=== PATIENT | female | born 1990 | race Caucasian/White ===

== ENCOUNTER 2017-12-11 21:01 | Observation (INO) | payer BC, SELFPAY ==
[2017-12-11 21:07] VITALS: BP 133/77; PULSE 92; RESP 16; TEMP 36.7; O2SAT 98; BMI 42.5
--- NOTE | 2017-12-11 21:49 | EKG12_ITS ---
Test Reason : SYNCOPE Blood Pressure : / mmHG Vent. Rate : 088 BPM Atrial Rate : 088 BPM P-R Int : 140 ms QRS Dur : 096 ms QT Int : 370 ms P-R-T Axes : 036 032 019 degrees QTc Int : 447 ms Normal sinus rhythm Normal ECG Confirmed by CAM ANNE, LISETTE ([id number]), editor continuity and script MATILDA IVEY ([id number]) on 12/15/2017 1:10:02 PM Referred By: MR Confirmed By:LISETTE LEVY MD
[2017-12-11 22:34] LABS: Absolute Lymphocyte Count 1.54 X10^3/ul (0.83-4.51); Absolute Neutrophil Count 10.1 X10^3/uL (2.0-7.7); Eosinophil# 0.08 X10^3/uL; Eosinophils% 0.7 % (0-5); Hematocrit 39.1 % (37-47); Hemoglobin 12.4 g/dl (12.0-15.0); Lymphocyte # 1.54 X10^3/ul (4.0); Lymphocyte % 12.9 % (19-41); Mean Corp Hgb Conc 31.7 g/gl (32-36); Mean Corpuscular Hgb 29.4 pg (27.0-32.0); Mean Corpuscular Volume 92.7 fL (81-99); Mean Platelet Vol. 9.4 fl (6.2-12.0); Monocyte# 0.18 X10^3/uL; Monocyte% 1.5 % (0-10); Neutrophil # 10.14 X10^3/uL (2.7-7.7); Neutrophil % 84.7 % (47-70); Platelet Count 329 K/mm3 (150-450); RBC Distribution Width SD 47.3 fl (35.1-43.9); Red Blood Count 4.22 M/mm3 (4.2-5.4)
[2017-12-11 22:37] LABS: POSITIVE COUNT NO; POSITIVE DIFFERENTIAL NO; POSITIVE MORPHOLOGY NO
[2017-12-11] MEDS: 0.9% Normal Saline 1,000 ML 1000 ML IV (22:47)
[2017-12-11 22:48] VITALS: BP 129/62; PULSE 89; RESP 16; O2SAT 99
[2017-12-11 22:53] LABS: Anion Gap 9 (5-15); BUN 11 mg/dL (7-18); BUN/Creat Ratio 14.1 RATIO (10-20); Calcium,Total 8.8 mg/dL (8.5-10.1); Chloride 108 mmol/L (98-107); Creatinine, Serum 0.78 mg/dL (0.55-1.02); EST Glomerular Filtration Rate 92 mL/min (>60); Est Glom Filt Rate - Afr Amer 112 mL/min (>60); Estimated Creatinine Clearance 95.76 ml/min; Glucose 144 mg/dL (74-106); Potassium 3.7 mmol/L (3.5-5.1); Sodium Level 139 mmol/L (136-145)
--- NOTE | 2017-12-11 23:43 | CT_ITS ---
STUDY: CTA CHEST REASON FOR EXAM: Female, 27 years old. SYNCOPE, PT IS 10 WEEKS , PT WAS SHEILDED. RADIATION DOSAGE (If Supplied By Facility): CTDIvol = ( 16.75 ) mGy, DLP = ( 710.77 ) mGycm TECHNIQUE: The examination was performed with the intravenous administration of 100 ml of Isovue 370 contrast material. Post-processing of the angiographic images was performed, with multiplanar reformation and 3D reconstruction. Individualized dose optimization techniques were used for this CT. COMPARISON: None. FINDINGS: Normal enhancement of the main pulmonary artery and right and left pulmonary arteries. Normal enhancement of the bilateral peripheral pulmonary arteries. There is no demonstrated pulmonary embolism. Normal thoracic aorta and visualized great vessels. There is no demonstrated aortic dissection. Normal heart and pericardium. Normal mediastinum. Normal hilar regions. Normal visualized trachea and bronchi. The lungs are well expanded. Normal pulmonary parenchyma. Normal pleura. Normal chest wall structures. Normal osseous structures. Normal visualized upper abdomen. CT/CTA Chest W/WO Contrast IMPRESSION: Normal CTA chest examination, without a demonstrated pulmonary embolism or arterial dissection. Electronically Signed: Leigha Dominguez MD at 0:59 EDT Tel , Service support ,
[2017-12-12] VITALS (8 sets, daily range): BP systolic 118–144; BP diastolic 66–87; PULSE 79–115; RESP 16–20; TEMP 36.5–37.3; O2SAT 94–98; BMI 41.3
--- NOTE | 2017-12-12 01:18 | ED.DCSUM_ITS ---
- ER Visit Summary Date of Service: 12/12/17 Chief Complaint: Syncope History of Present Illness: The patient is a 27 F presenting for evaluation secondary to syncope. Patient is a at 10 weeks . Patient had in vitro fertilization, and is giving herself progesterone shots. Patient reports that approximately an hour after giving herself her progesterone shot today she started to feel extremely flushed and lightheaded. Patient reports that she then went upstairs and proceeded to have 3 syncopal episodes back to back to back. Patient states that she is having some chest pain upon deep inspiration, but no consistent chest pain. She did state that she was feeling as if she had some palpitations. Patient denies any personal history DVT PE hemoptysis recent travel or surgery. No personal family history of bleeding dyscrasias arrhythmias, or premature heart disease. Review of systems otherwise negative. Physical Examination: Vital signs are within normal limits, patient is afebrile. General: Patient is well-nourished well-developed and in no acute distress. Head: Normocephalic, atraumatic Eyes: Pupils equal round and reactive bilaterally, extra occular motion intact bialterally ENT: Moist mucous membranes Neck: Supple, no lymphadenopathy, no JVD, no meningismus CVS: Heart regular rate and rhythm, 2 out of 6 systolic murmur noted which as per the patient's history, rubs or gallops, radial pulses 2+ bilaterally Resp: Respirations nondistressed, lung sounds clear bilaterally Abdomen: Soft, nontender, nondistended, no palpable masses, normal bowel sounds Back: Nontender Extremities: Nontender, atraumatic, active full range of motion, no peripheral edema Skin: warm, no rashes, no petechia Neuro: Alert and oriented x 4, CN 2-12 intact, no lateralizing neurological defecits Psyc: Normal affect Test Results: EKG shows sinus rate of [address] segments normal T waves. CBC and chemistry are unremarkable, troponin is positive at 0.17. CT angiogram of the chest is within normal limits. Emergency Department Course and Treatment: Patient presented for evaluation secondary to syncope. Workup ended up showing the patient to have a positive troponin. I feel that there is a high likelihood of pulmonary embolism in this patient given her exogenous hormone use. I discussed this with on-call GRAPHITE PAN DRIER TENDER, and they are in agreement, and we feel that the test with the least risk to the fetus would be CT angiogram of the chest with shielding of the abdomen. I discussed risks and benefits with this with the patient and she did consent to this. This was performed, and did not show evidence of PE. I discussed patient 's case with cardiology and, at this time they recommend admission with echocardiogram in the morning. Patient will be admitted under the hospitalist. Disposition: Admission Impression: 1. Syncope 2. Positive troponin 3. 10-week This note was generated with [employer] dictation software. It may contain incorrect words, spelling, and punctuation that were not noted in review of the chart prior to signing ED Disposition - Plan for ED Patient: Chief Complaint: Syncope Referrals: Aj Larkin III, MD [Primary Care Provider] -
--- NOTE | 2017-12-12 02:05 | NURSING ---
Called er chargemaster specialist, aware its ok to send pt.
--- NOTE | 2017-12-12 02:13 | NURSING ---
SPOKE TO ISDAORA IN OB STATES 10 WEEKS IS TOO EARLY TO LISTEN FOR TONES.
[2017-12-12] MEDS: 0.9% Normal Saline 1,000 ML 100 ML IV ×2 (02:51→05:17)
[2017-12-12 03:53] LABS: Magnesium 1.9 mg/dL (1.6-2.6); Thyroid Stim Hormone (TSH) 1.48 uIU/mL (0.358-3.74)
[2017-12-12] MEDS: Acetaminophen 325 MG Tablet 650 MG PO ×2 (04:16→13:08)
[2017-12-12] MEDS: 0.9% Normal Saline 1,000 ML 999 ML IV (04:16)
--- NOTE | 2017-12-12 05:55 | ECHOD_ITS ---
Reason For Study: Murmur Procedure This was a 2D Doppler, Color Flow transthoracic echocardiogram. Exam performed portable in patient room. Left Ventricle Normal LV size. Left ventricular systolic function is normal. The estimated ejection fraction is 55 %. No evidence for diastolic dysfunction. No regional wall motion abnormalities noted. Right Ventricle Normal RV size. Normal systolic function. Atria Normal left atrium. Normal right atrium. Mitral Valve Normal mitral valve. Tricuspid Valve Normal tricuspid valve. Mild tricuspid valve insufficiency. Pulmonary artery systolic pressure is 22 mmHg. Aortic Valve Normal aortic valve. Trisinus/trileaflet aortic valve. Pulmonic Valve Normal pulmonic valve. Great Vessels Normal aortic root. The pulmonary artery is normal size. Normal inferior vena cava. Pericardium/Pleural No pericardial effusion. MMode/2D Measurements & Calculations LVIDd: 4.8 cm IVSd: 0.79 cm Ao root diam: 2.3 cm LVIDs: 3.2 cm LVPWd: 0.81 cm RVDd: 3.8 cm FS: 32.8 % LAV(MOD-bp): 41.9 ml LA A4 area: 19.8 cm2 RA A4 area: 13.0 cm2 LAV(MOD-bp) Indexed: 19.4 ml/m2 LAV(MOD-sp2): 27.6 ml LAV(MOD-sp4): 53.2 ml Doppler Measurements & Calculations MV E max dusty: 109.9 cm/sec Lat Peak E' Dusty: 19.2 cm/sec Med Peak E' Dusty: 13.4 cm/sec MV A max dusty: 64.4 cm/sec E/E' lat: 5.7 E/E' med: 8.2 MV E/A: 1.7 Ao V2 max: 191.8 cm/sec LV V1 max: 140.1 cm/sec PA V2 max: 117.8 cm/sec Ao max P.7 mmHg LV V1 max P.9 mmHg Ao V2 mean: 130.6 cm/sec Ao mean P.7 mmHg Ao V2 VTI: 36.3 cm TR max dusty: 220.0 cm/sec TR max P.4 mmHg Interpretation Summary Normal LV size. Left ventricular systolic function is normal. The estimated ejection fraction is 55 %. No evidence for diastolic dysfunction. Structurally normal valves. Ordering Physician: Dariusz Abrams Referring Physician: Aj Larkin Performed By: Sarita Schreiber, PEDRO PABLO, RVT
[2017-12-12 06:10] LABS: Absolute Lymphocyte Count 1.78 X10^3/ul (0.83-4.51); Absolute Neutrophil Count 11.7 X10^3/uL (2.0-7.7); Basophil# 0.01 X10^3/uL; Basophil% 0.1 % (0-1); Eosinophil# 0.18 X10^3/uL; Eosinophils% 1.3 % (0-5); Hematocrit 33.7 % (37-47); Hemoglobin 10.9 g/dl (12.0-15.0); Lymphocyte # 1.78 X10^3/ul (4.0); Lymphocyte % 12.5 % (19-41); Mean Corp Hgb Conc 32.3 g/gl (32-36); Mean Corpuscular Hgb 29.7 pg (27.0-32.0); Mean Corpuscular Volume 91.8 fL (81-99); Mean Platelet Vol. 9.5 fl (6.2-12.0); Monocyte# 0.56 X10^3/uL; Monocyte% 3.9 % (0-10); Neutrophil # 11.65 X10^3/uL (2.7-7.7); Neutrophil % 82.1 % (47-70); Platelet Count 333 K/mm3 (150-450); RBC Distribution Width SD 46.9 fl (35.1-43.9); Red Blood Count 3.67 M/mm3 (4.2-5.4); White Blood Count 14.2 K/mm3 (4.4-11.0)
[2017-12-12 06:26] LABS: ALB/GLOB Ratio 0.7 RATIO (0.9-2.4); AST(SGOT) 27 U/L (15-37); Alanine Aminotransfer ALT/SGPT 29 U/L (13-56); Albumin, Serum 2.6 g/dL (3.2-5.0); Alkaline Phosphatase 75 U/L (45-117); Anion Gap 9 (5-15); BUN 6 mg/dL (7-18); BUN/Creat Ratio 13.2 RATIO (10-20); Chloride 113 mmol/L (98-107); Creatinine, Serum 0.46 mg/dL (0.55-1.02); EST Glomerular Filtration Rate 172 mL/min (>60); Est Glom Filt Rate - Afr Amer 208 mL/min (>60); Estimated Creatinine Clearance 162.38 ml/min; Globulin 3.6 g/dL (2.2-4.2); Glucose 94 mg/dL (74-106); Potassium 3.8 mmol/L (3.5-5.1); Protein, Total 6.2 g/dL (6.4-8.2); Sodium Level 142 mmol/L (136-145)
[2017-12-12] MEDS: Levothyroxine 150 MCG Tablet PO (06:27)
--- NOTE | 2017-12-12 06:30 | PCM.HP.STD ---
Problem List (1) Cutaneous mastocytosis Status: Chronic (2) Syncope Status: Acute (3) Elevated troponin Status: Acute History of Present Illness Date of Admission: 12/12/17 Chief Complaint: Syncope The patient is a 27 year old female w/ h/o cutaneous mastocytosis admitted for syncope. She is 10 weeks . She had vitro fertilization and gave herself progesterone shot. She felt flushed and lightheaded. She also has severe substernal chest pain. Pain is worse with inspiration. Pain is episodic. Nothing improved the pain. She had palpitation as well. She had syncopal episodes multiple times as well. Past Medical History Past Medical History (Chronic Problems): Chronic Problems (Last Updated 08/01/17 @ 11:08 by Mckayla Kelley) Cutaneous mastocytosis (Chronic) Medical History: Medical History (Last Updated 08/01/17 @ 11:08 by Mckayla Kelley) GERD (gastroesophageal reflux disease) K21.9 Hyperthyroidism E05.90 Mastocytosis D47.09 Allergies No Known Allergies Allergy (Verified 08/29/17 10:49) Home Medications: Ambulatory Orders Medication Instructions Recorded Cetirizine HCl [Zyrtec] 10 mg PO QHS 08/27/16 Epinephrine [Epipen 2-Mika] 1 ml SQ PRN PRN 08/27/16 Escitalopram Oxalate [Lexapro] 10 mg PO QHS 08/27/16 Ranitidine [Zantac] 150 mg PO BID 08/27/16 Levothyroxine [Synthroid] 150 mcg PO DAILY 08/29/17 Estradiol 0.5 mg PO BID 12/12/17 Progesterone SC 1900 12/12/17 Smoking Status: Never smoker Tobacco Use: Non-smoker Alcohol: None Drugs: None Review of Systems Constitutional: Denies: Chills, Fever, Weight Change HEENT: Denies: Head Aches, Sinus Congestion, Sinus Drainage Cardiovascular: Denies: Chest Pain, Palpitations Respiratory: Denies: Cough, Shortness of breath at rest, Sputum production Gastrointestinal: Denies: Abdominal Pain, Nausea, Vomiting Genitourinary: Denies: Dysuria Musculoskeletal: Denies: Joint Pain, Joint Tenderness Skin: Denies: Rash, Wounds Neurological: Denies: Numbness, Tingling, Focal weakness Psychiatric: Denies: Anxiety, Depression, Homicidal Ideations, Suicidal Ideations Hematologic/ Lymphatic: Denies: Easy Bruising, Easy Bleeding VTE Information - Inpt Only VTE Present on Admission: No VTE Mechan Device Prophylaxis: SCD's VTE Pharm Prophylaxis ordered?: Yes Patient Problems: Active and Suspected Problems (Last Updated 08/01/17 @ 11:08 by Mckayla Kelley) Syncope (Acute) Elevated troponin (Acute) - Physical Exam General: Alert, Oriented x3, Cooperative HEENT: Atraumatic, PERRLA, EOMI, Normocephalic Neck: Supple, No JVD, Negative Carotid Bruits Lungs: Clear to auscultation, Normal air movement Cardiovascular: Regular rate, No murmurs Abdomen: Bowel Sounds Present, Soft, Non Tender Extremities: No edema, Capillary Refill Less than 3 Seconds Skin: No rashes, No breakdown Musculoskeletal: No Tenderness to Palpation of Joints or Extremities Neurological: Cranial nerves II-XII grossly intact Psych/Mental Status: Normal Affect, Appropriate Vital Signs Temp Pulse Resp BP Pulse Ox 99.2 F H 88 16 118/67 96 12/12/17 03:20 12/12/17 03:20 12/12/17 03:20 12/12/17 03:20 12/12/17 03:20 Oxygen Delivery Method Room Air Weight: 112.7 kg Body Mass Index (BMI) 41.3 Orthostatic Vital Signs Start: 12/12/17 03:18 Freq: q24h Status: Active Protocol: Activity Type Activity Date Activity User E-Sign Co-Sign Detail Recorded Client Recorded Date Recorded By Document 12/12/17 03:18 AML [id number] 12/12/17 03:19 AML 12/12/17 03:18 Orthostatic Vitals Standing -Blood Pressure (90/60-120/80) 129/86 H -Extremity Use Left Arm -Pulse Rate (60-100) 115 H Sitting -Blood Pressure (90/60-120/80) 132/80 H -Extremity Use Left Arm -Pulse Rate (60-100) 97 Lying -Blood Pressure (90/60-120/80) 118/87 H -Extremity Use Left Arm -Pulse Rate (60-100) 87 Laboratory Tests Past 24 Hrs 12/12/17 12/12/17 12/12/17 02:55 02:55 05:30 WBC Pending RBC Pending Hgb Pending Hct Pending MCV Pending MCH Pending MCHC Pending RDW Pending RDW Differential Pending Plt Count Pending Neut % (Auto) Pending Absolute Neuts (auto) Pending Total Counted Pending Sodium Potassium Chloride Carbon Dioxide Anion Gap BUN Creatinine Estim Creat Clear Calc Est GFR (MDRD) Af Amer Est GFR (MDRD) Non-Af BUN/Creatinine Ratio Glucose Calcium Magnesium 1.9 Total Bilirubin AST ALT Alkaline Phosphatase Troponin I 0.188 H Total Protein Albumin Globulin Albumin/Globulin Ratio TSH 1.48 12/12/17 05:30 WBC RBC Hgb Hct MCV MCH MCHC RDW RDW Differential Plt Count Neut % (Auto) Absolute Neuts (auto) Total Counted Sodium 142 Potassium 3.8 Chloride 113 H Carbon Dioxide 20.0 L Anion Gap 9 BUN 6 L Creatinine 0.46 L Estim Creat Clear Calc 162.38 Est GFR (MDRD) Af Amer 208 Est GFR (MDRD) Non-Af 172 BUN/Creatinine Ratio 13.2 Glucose 94 Calcium 8.0 L Magnesium Total Bilirubin 0.30 AST 27 ALT 29 Alkaline Phosphatase 75 Troponin I 0.118 H Total Protein 6.2 L Albumin 2.6 L Globulin 3.6 Albumin/Globulin Ratio 0.7 L TSH Assessment/Plan All Active Problems (Last Updated 08/01/17 @ 11:08 by Mckayla Kelley) Syncope (Acute) Elevated troponin (Acute) 27 year old female w/ h/o cutaneous mastocytosis admitted for syncope. 1) Syncope: No clear etiology. Will get orthostatic vital. CTA disclosed no PE. Will get ECHO. 2) Elevated trops: Will follow trops. Consulted cards. EKG is nondiagnostic. Supportive care. 3) : She is 10 weeks . Resume progesterone given hers is vitro fertilization. Consulted OB. 4) Prophylaxis: SCD
[2017-12-12 06:34] LABS: POSITIVE COUNT NO; POSITIVE DIFFERENTIAL NO; POSITIVE MORPHOLOGY NO
--- NOTE | 2017-12-12 07:19 | CON.PCM_ITS ---
Reason for Consult Date of Consultation: 12/12/17 Reason for Consultation: Syncopal episode. History of Present Illness: The patient is a 27 year old F [with no previous cardiac history who says that she had been anxious about giving herself her progesterone injection yesterday. She is currently 10 weeks and immediately after giving herself the progesterone injection she started feeling weird with a tingling sensation and started feeling lightheaded. She went upstairs and started getting tachycardic as well as diaphoretic and then called her who said that he witnessed to have passed out after she got pale. This happened 2 other times afterwards. They called the emergency medical squad who then brought her to the emergency room.] She denies any drug use she had no chest pain no paroxysmal nocturnal dyspnea or pedal edema or recent travel. In the emergency room she was noted to be in sinus rhythm with no acute changes CT scan of the chest was done with abdominal shielding with no evidence of pulmonary embolism. She was admitted to the telemetry floor and cardiology consulted. She has had no events since admission. Past Medical History Allergies/Adverse Reactions: Allergies No Known Allergies Allergy (Verified 08/29/17 10:49) Home Medications: Ambulatory Orders Medication Instructions Recorded Cetirizine HCl [Zyrtec] 10 mg PO QHS 08/27/16 Epinephrine [Epipen 2-Mika] 1 ml SQ PRN PRN 08/27/16 Escitalopram Oxalate [Lexapro] 10 mg PO QHS 08/27/16 Ranitidine [Zantac] 150 mg PO BID 08/27/16 Levothyroxine [Synthroid] 150 mcg PO DAILY 08/29/17 Estradiol 0.5 mg PO BID 12/12/17 Progesterone SC 1900 12/12/17 Past Medical History (Chronic Problems): Chronic Problems (Last Updated 08/01/17 @ 11:08 by Mckayla Kelley) Cutaneous mastocytosis (Chronic) Smoking Status: Never smoker Tobacco Use: Non-smoker Alcohol: None Drugs: None Review of Systems - Review of Systems General: Denies: Fever, Night Sweats, Fatigue Cardiovascular: Reports: Syncope. Denies: Chest Discomfort, Shortness of Breath , Orthopnea, PND, Peripheral Edema, Palpitations, Lightheadedness, Dizziness, Near Syncope Respiratory: Denies: Cough, Sputum Production, Hemoptysis Gastrointestinal: Denies: Hematemesis, Hematochezia, Melena Genitourinary: Denies: Dysuria, Hematuria Skin: Denies: Rash Subjectve: Pleasant lady in no apparent distress lying in bed Objective: Vital Signs Temp Pulse Resp BP Pulse Ox 99.2 F H 88 16 118/67 96 12/12/17 03:20 12/12/17 03:20 12/12/17 03:20 12/12/17 03:20 12/12/17 03:20 Oxygen Delivery Method Room Air Weight: 248 lb 7.375 oz Body Mass Index (BMI) 41.3 Orthostatic Vital Signs Start: 12/12/17 03:18 Freq: q24h Status: Active Protocol: Activity Type Activity Date Activity User E-Sign Co-Sign Detail Recorded Client Recorded Date Recorded By Document 12/12/17 03:18 AML [id number] 12/12/17 03:19 AML 12/12/17 03:18 Orthostatic Vitals Standing -Blood Pressure (90/60-120/80 mm Hg) 129/86 H -Extremity Use Left Arm -Pulse Rate (60-100 beats/min) 115 H Sitting -Blood Pressure (90/60-120/80 mm Hg) 132/80 H -Extremity Use Left Arm -Pulse Rate (60-100 beats/min) 97 Lying -Blood Pressure (90/60-120/80 mm Hg) 118/87 H -Extremity Use Left Arm -Pulse Rate (60-100 beats/min) 87 Intake and Output for Last 24 Hours 12/10/17 12/11/17 12/12/17 23:59 23:59 23:59 Intake Total 2309 / 2309 Balance 2309 / 2309 General: Awake, Alert, Oriented x 3 HEENT: PERRL, EOMI, Sclera Non Icteric Neck: Supple, Good ROM, No Lymph Node Enlargement Lungs: Clear to auscultation Cardiovascular: Regular Rhythm, Normal S1, Normal S2, No Murmurs, No Rubs, No Gallops Vascular: No Carotid Bruits, Normal Femoral Pulses, Normal Radial Pulses, Normal Dorsalis Pedal Pulse, Normal Posterior Tibial Pulses Abdomen: Bowel Sounds Present, Soft, Non Tender, No HSM, No Organomegaly Extremities: No Cyanosis, No Clubbing, No edema Neurological: No Focal Motor or Sensory Deficit 12/12/17 02:55: Magnesium 1.9 12/12/17 02:55: Troponin I 0.188 H 12/12/17 05:30: WBC 14.2 H, RBC 3.67 L, Hgb 10.9 L, Hct 33.7 L, MCV 91.8, MCH 29.7, MCHC 32.3, RDW 14.0, RDW Differential 46.9 H, Plt Count 333, MPV 9.5, Immature Gran % (Auto) 0.100, Neut % (Auto) 82.1 H, Lymph % (Auto) 12.5 L, Bonner % (Auto) 3.9, Eos % (Auto) 1.3, Baso % (Auto) 0.1, Absolute Neuts (auto) 11.7 H , Total Counted Not Reportable 12/12/17 05:30: Sodium 142, Potassium 3.8, Chloride 113 H, Carbon Dioxide 20.0 L , Anion Gap 9, BUN 6 L, Creatinine 0.46 L, Est GFR (MDRD) Af Amer 208, Est GFR ( MDRD) Non-Af 172, BUN/Creatinine Ratio 13.2, Glucose 94, Calcium 8.0 L, Total Bilirubin 0.30, Troponin I 0.118 H Rhythm: EKG: Normal sinus rhythm with a rate of 88 bpm and no acute changes Assessment/Plan 1. Vasovagal syncope. * Description appears to fit a vasovagal reaction. At this time I suspect that her minimal troponin elevation is likely secondary to demand myocardial necrosis. It appears to have a flat patent with no necessary rise and fall. My recommendation would be to continue with intravenous fluid resuscitation. * Echocardiogram should be performed to assess her left ventricular function. If there is no wall motion abnormalities and her ejection fraction is noted to be normal I would not recommend any further workup. * * I did discuss the above with the patient as well as her and they understand and agree to proceed. We will discuss this further with the COAT JOINER LOCKSTITCH afterwards. * * Thank you for allowing me to participate in the care of your patient. Please don't hesitate to call if any issues arise
[2017-12-12] MEDS: proMETHazine 25 MG/ML Syringe IV (09:31)
[2017-12-12] MEDS: Estradiol 0.5 MG Tablet PO (09:31)
[2017-12-12] MEDS: 0.9% NaCl Peripheral Flush Adult/Peds IV (09:31)
[2017-12-12] MEDS: Famotidine 20 MG Tablet PO (09:31)
--- NOTE | 2017-12-12 10:19 | PCM.DC ---
- Discharge Diagnoses Current Active Problems: Current Active and Chronic Problems (Last Updated 08/01/17 @ 11:08 by Mckayla Kelley) Syncope (Acute) Elevated troponin (Acute) You will use the following diet at home:: No restrictions Discharge Activity: Return to Normal Activity Call your doctor if you observe: Shortness of breath, Dizziness, Fainting spells, Chest pain Allergies/Adverse Reactions: Allergies No Known Allergies Allergy (Verified 08/29/17 10:49) Medications to take at Discharge Cetirizine HCl [Zyrtec] 10 mg PO QHS 08/27/16 Epinephrine [Epipen 2-Mika] 1 ml SQ PRN PRN 08/27/16 Escitalopram Oxalate [Lexapro] 10 mg PO QHS 08/27/16 Ranitidine [Zantac] 150 mg PO BID 08/27/16 Levothyroxine [Synthroid] 150 mcg PO DAILY 08/29/17 Estradiol 0.5 mg PO BID 12/12/17 Progesterone SC 1900 12/12/17 Primary Care Physician: Aj Larkin III, MD [Primary Care Provider] - Please follow up with your Primary Care Physician in: 1 Week Test Results: Test results from this visit will be discussed in further detail at your follow-up appointment, if applicable. Please Follow Up With: Nyla Escobar MD When: As scheduled Proposed Discharge Date: 12/12/17
--- NOTE | 2017-12-12 10:24 | DCINST_ITS ---
- Discharge Diagnoses Current Active Problems: Current Active and Chronic Problems (Last Updated 08/01/17 @ 11:08 by Mckayla Kelley) Syncope (Acute) Elevated troponin (Acute) You will use the following diet at home:: No restrictions Discharge Activity: Return to Normal Activity Call your doctor if you observe: Shortness of breath, Dizziness, Fainting spells , Chest pain Allergies/Adverse Reactions: Allergies No Known Allergies Allergy (Verified 08/29/17 10:49) Medications to take at Discharge Cetirizine HCl [Zyrtec] 10 mg PO QHS 08/27/16 Epinephrine [Epipen 2-Mika] 1 ml SQ PRN PRN 08/27/16 Escitalopram Oxalate [Lexapro] 10 mg PO QHS 08/27/16 Ranitidine [Zantac] 150 mg PO BID 08/27/16 Levothyroxine [Synthroid] 150 mcg PO DAILY 08/29/17 Estradiol 0.5 mg PO BID 12/12/17 Progesterone SC 1900 12/12/17 Primary Care Physician: Aj Larkin III, MD [Primary Care Provider] - Please follow up with your Primary Care Physician in: 1 Week Test Results: Test results from this visit will be discussed in further detail at your follow- up appointment, if applicable. Please Follow Up With: Nyla Escobar MD When: As scheduled Proposed Discharge Date: 12/12/17
--- NOTE | 2017-12-12 10:27 | PCM.DC.SUM ---
<Elena Grant - Last Filed: 12/12/17 12:59> Discharge Date and Diagnosis - Problem List Patient Problems: Active and Suspected Problems (Last Updated 08/01/17 @ 11:08 by Mckayla Kelley) with history of infertility (Acute) Date of Admission: 12/12/17 Date of Discharge: 12/12/17 - Primary Discharge Diagnosis Active and Suspected Problems (Last Updated 08/01/17 @ 11:08 by Mckayla Kelley) 1. Vasovagal syncope 2. Elevated troponin, demand ischemia 3. in the first trimester - Secondary Discharge Diagnosis Chronic Problems (Last Updated 08/01/17 @ 11:08 by Mckayla Kelley) Cutaneous mastocytosis (Chronic) Obesity Hospital Course and Treatment Imaging Results: Diagnostic Data Chest CTA 12/11/17 23:43 IMPRESSION: Normal CTA chest examination, without a demonstrated pulmonary embolism or arterial dissection. Electronically Signed: Leigha Dominguez MD at 0:59 EDT Tel , Service support , Dr. Byrne- Cardiology Operations: None Procedures: 2-D Echocardiogram Summary of Care Provided: The patient is a 27 year old F admitted to 12/12/2017 due to syncopal episode. Patient is 10 weeks , undergoing in vitro fertilization. Immediately following progesterone injection, patient became flushed and lightheaded and had 3 witnessed episodes of syncope. Orthostatic vitals negative. CTA without evidence of PE, patient's abdomen was shielded. Cardiology consulted due to elevated troponins. Troponins did not trend. Cardiology suspecting demand ischemia. Echocardiogram completed and demonstrated an EF of 55%, no evidence of diastolic dysfunction, structurally normal valves. Patient denies further dizziness, lightheadedness. TSH within normal limits. OB consulted during admission. Suspect vasovagal syncope. Possible reaction to progesterone injection. Patient received IV fluids. 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 Patient has contacted her fertility specialist in [place] for further recommendations regarding progesterone injections. Patient seen exam prior to discharge. Alert, oriented, no acute distress. No further dizziness, lightheadedness. Lungs clear. Heart rate regular rate and rhythm. Neuro grossly intact. Abdomen soft, nontender. Vital signs stable. Normal affect. Stable for discharge home with the follow-up her conditions as noted above. This patient was seen by PUSHPA Arthur under the supervision of Dr. Holley. Discharge Diet: No Restrictions Discharge Activity: Return to Normal Activity Call your doctor if you observe: Shortness of breath, Dizziness, Fainting spells, Chest pain Home Medications: Medications to take at Discharge Cetirizine HCl [Zyrtec] 10 mg PO QHS 08/27/16 Epinephrine [Epipen 2-Mika] 1 ml SQ PRN PRN 08/27/16 Escitalopram Oxalate [Lexapro] 10 mg PO QHS 08/27/16 Ranitidine [Zantac] 150 mg PO BID 08/27/16 Levothyroxine [Synthroid] 150 mcg PO DAILY 08/29/17 Estradiol 0.5 mg PO BID 12/12/17 Progesterone SC 1900 12/12/17 Primary Care Physician: Aj Larkin III, MD [Primary Care Provider] - Please follow up with your Primary Care Physician in: 1 Week Please Follow Up With: Nyla Escobar MD When: As scheduled Disposition: Home Minutes spent on discharge:: 35 Patient Condition:: Stable Medical Necessity - Tobacco Use Smoking Status: Never smoker Tobacco Use: Non-smoker Meaningful Use Info Meaningful Use Diagnoses (Choose all that apply): None applicable <Shalom Holley - Last Filed: 12/12/17 13:42> Discharge Date and Diagnosis - Primary Discharge Diagnosis Active and Suspected Problems (Last Updated 08/01/17 @ 11:08 by Mckayla Kelley) with history of infertility (Acute) - Secondary Discharge Diagnosis Chronic Problems (Last Updated 08/01/17 @ 11:08 by Mckayla Kelley) Cutaneous mastocytosis (Chronic) Hospital Course and Treatment Imaging Results: 12/12/17 05:55 Echo Complete [ECHO] AM (NON MEDS) Operations: None Procedures: 2-D Echocardiogram Summary of Care Provided: Patient seen and examined independently. Data reviewed. I agree with the above note by the nurse practitioner. The patient is a 27 year old F presents with a vasovagal episode after injecting herself with progesterone. Patient is on progesterone in vitro fertilization. Patient is approximately 10 weeks . Patient had a workup that showed a troponin of 0.18. Patient was seen in consultation by obstetrics as well as cardiology. Patient underwent a echocardiogram that was normal. Patient is otherwise stable and will be to home today. Patient will follow up with her fertility specialist, Dr. Soriano, this coming . Patient is apparently going to be getting vaginal progesterone which she will be starting soon. [] Discharge Diet: No Restrictions Discharge Activity: Return to Normal Activity Call your doctor if you observe: Shortness of breath, Dizziness, Fainting spells, Chest pain Please Follow Up With: Christie When: 12/15/17 Disposition: Home Patient Condition:: Stable Meaningful Use Info Meaningful Use Diagnoses (Choose all that apply): None applicable Code Visit OBSV E&M: 26151 Observation care discharge
--- NOTE | 2017-12-12 10:40 | DS.PCM_ITS ---
<Elena Grant - Last Filed: 12/12/17 12:59> Discharge Date and Diagnosis - Problem List Patient Problems: Active and Suspected Problems (Last Updated 08/01/17 @ 11:08 by Mckayla Kelley) with history of infertility (Acute) Date of Admission: 12/12/17 Date of Discharge: 12/12/17 - Primary Discharge Diagnosis Active and Suspected Problems (Last Updated 08/01/17 @ 11:08 by Mckayla Kelley) 1. Vasovagal syncope 2. Elevated troponin, demand ischemia 3. in the first trimester - Secondary Discharge Diagnosis Chronic Problems (Last Updated 08/01/17 @ 11:08 by Mckayla Kelley) Cutaneous mastocytosis (Chronic) Obesity Hospital Course and Treatment Imaging Results: Diagnostic Data Chest CTA 12/11/17 23:43 IMPRESSION: Normal CTA chest examination, without a demonstrated pulmonary embolism or arterial dissection. Electronically Signed: Leigha Dominguez MD at 0:59 EDT Tel , Service support , Dr. Byrne- Cardiology Operations: None Procedures: 2-D Echocardiogram Summary of Care Provided: The patient is a 27 year old F admitted to 12/12/2017 due to syncopal episode. Patient is 10 weeks , undergoing in vitro fertilization. Immediately following progesterone injection, patient became flushed and lightheaded and had 3 witnessed episodes of syncope. Orthostatic vitals negative. CTA without evidence of PE, patient's abdomen was shielded. Cardiology consulted due to elevated troponins. Troponins did not trend. Cardiology suspecting demand ischemia. Echocardiogram completed and demonstrated an EF of 55%, no evidence of diastolic dysfunction, structurally normal valves. Patient denies further dizziness, lightheadedness. TSH within normal limits. OB consulted during admission. Suspect vasovagal syncope. Possible reaction to progesterone injection. Patient received IV fluids. 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 Patient has contacted her fertility specialist in [place] for further recommendations regarding progesterone injections. Patient seen exam prior to discharge. Alert, oriented, no acute distress. No further dizziness, lightheadedness. Lungs clear. Heart rate regular rate and rhythm. Neuro grossly intact. Abdomen soft, nontender. Vital signs stable. Normal affect. Stable for discharge home with the follow-up her conditions as noted above. This patient was seen by PUSHPA Arthur under the supervision of Dr. Holley. Discharge Diet: No Restrictions Discharge Activity: Return to Normal Activity Call your doctor if you observe: Shortness of breath, Dizziness, Fainting spells , Chest pain Home Medications: Medications to take at Discharge Cetirizine HCl [Zyrtec] 10 mg PO QHS 08/27/16 Epinephrine [Epipen 2-Mika] 1 ml SQ PRN PRN 08/27/16 Escitalopram Oxalate [Lexapro] 10 mg PO QHS 08/27/16 Ranitidine [Zantac] 150 mg PO BID 08/27/16 Levothyroxine [Synthroid] 150 mcg PO DAILY 08/29/17 Estradiol 0.5 mg PO BID 12/12/17 Progesterone SC 1900 12/12/17 Primary Care Physician: Aj Larkin III, MD [Primary Care Provider] - Please follow up with your Primary Care Physician in: 1 Week Please Follow Up With: Nyla Escobar MD When: As scheduled Disposition: Home Minutes spent on discharge:: 35 Patient Condition:: Stable Medical Necessity - Tobacco Use Smoking Status: Never smoker Tobacco Use: Non-smoker Meaningful Use Info Meaningful Use Diagnoses (Choose all that apply): None applicable <Shalom Holley - Last Filed: 12/12/17 13:42> Discharge Date and Diagnosis - Primary Discharge Diagnosis Active and Suspected Problems (Last Updated 08/01/17 @ 11:08 by Mckayla Kelley) with history of infertility (Acute) - Secondary Discharge Diagnosis Chronic Problems (Last Updated 08/01/17 @ 11:08 by Mckayla Kelley) Cutaneous mastocytosis (Chronic) Hospital Course and Treatment Imaging Results: 12/12/17 05:55 Echo Complete [ECHO] AM (NON MEDS) Operations: None Procedures: 2-D Echocardiogram Summary of Care Provided: Patient seen and examined independently. Data reviewed. I agree with the above note by the nurse practitioner. The patient is a 27 year old F presents with a vasovagal episode after injecting herself with progesterone. Patient is on progesterone in vitro fertilization. Patient is approximately 10 weeks . Patient had a workup that showed a troponin of 0.18. Patient was seen in consultation by obstetrics as well as cardiology. Patient underwent a echocardiogram that was normal. Patient is otherwise stable and will be to home today. Patient will follow up with her fertility specialist, Dr. Soriano, this coming . Patient is apparently going to be getting vaginal progesterone which she will be starting soon. [] Discharge Diet: No Restrictions Discharge Activity: Return to Normal Activity Call your doctor if you observe: Shortness of breath, Dizziness, Fainting spells , Chest pain Please Follow Up With: Christie When: 12/15/17 Disposition: Home Patient Condition:: Stable Meaningful Use Info Meaningful Use Diagnoses (Choose all that apply): None applicable Code Visit OBSV E&M: 11341 Observation care discharge
--- NOTE | 2017-12-12 10:42 | PCM.CONS.GEN ---
Problem List (1) with history of infertility Status: Acute (2) Cutaneous mastocytosis Status: Chronic (3) Syncope Status: Acute (4) Elevated troponin Status: Acute Reason for Consult Date of Consultation: 12/12/17 Reason for Consultation: History of Present Illness: The patient is a 27 year old F @ 10 weeks presents with vasovagal syncope and minimal troponin evaluation. s eh denies any vaginal bleeding, just some cramping. she conceived viaa IVF this with Dr Chavarria and has been oing progesterone injections. she has had no other complications to date. Past Medical History Past Medical History (Chronic Problems): Chronic Problems (Last Updated 08/01/17 @ 11:08 by Mckayla Kelley) Cutaneous mastocytosis (Chronic) Medical History: Medical History (Last Updated 08/01/17 @ 11:08 by Mckayla Kelley) GERD (gastroesophageal reflux disease) K21.9 Hyperthyroidism E05.90 Mastocytosis D47.09 Allergies No Known Allergies Allergy (Verified 08/29/17 10:49) Home Medications: Ambulatory Orders Medication Instructions Recorded Cetirizine HCl [Zyrtec] 10 mg PO QHS 08/27/16 Epinephrine [Epipen 2-Mika] 1 ml SQ PRN PRN 08/27/16 Escitalopram Oxalate [Lexapro] 10 mg PO QHS 08/27/16 Ranitidine [Zantac] 150 mg PO BID 08/27/16 Levothyroxine [Synthroid] 150 mcg PO DAILY 08/29/17 Estradiol 0.5 mg PO BID 12/12/17 Progesterone SC 1900 12/12/17 Surgical History: noncontributory Psychiatric History: No pertinent psych hx BARYTES GRINDER History: - - infertility Lives: Spouse/ Significant Other Smoking Status: Never smoker Tobacco Use: Non-smoker Alcohol: None Drugs: None Review of Systems Constitutional: Denies: Fever, Malaise Eyes: Denies: Blurred vision, Vision Change HEENT: Denies: Head Aches, Visual Changes Cardiovascular: Denies: Chest Pain, Palpitations Respiratory: Denies: Cough, Shortness of Breath, Wheezing Gastrointestinal: Denies: Abdominal Pain, Diarrhea, Nausea, Vomiting Genitourinary: Denies: Dysuria, Hematuria Musculoskeletal: Denies: Joint Pain, Muscle pain Skin: Denies: Lesions, Rash Neurological: Denies: Blurred vision, Focal weakness, Headaches Psychiatric: Denies: Anxiety, Depression Endocrine: Denies: Heat/ Cold Intolerance Hematologic/ Lymphatic: Denies: Easy Bruising, Easy Bleeding Patient Problems: Active and Suspected Problems (Last Updated 08/01/17 @ 11:08 by Mckayla Kelley) with history of infertility (Acute) - Physical Exam General: Alert, Oriented x3, Cooperative HEENT: Atraumatic, PERRLA, EOMI, Normocephalic Neck: Supple, No JVD Lungs: Clear to auscultation, Normal air movement Cardiovascular: Regular rate Abdomen: Soft, Non Tender Extremities: No edema Skin: No rashes, No breakdown Musculoskeletal: No Tenderness to Palpation of Joints or Extremities Psych/Mental Status: Normal Affect, Appropriate Vital Signs Temp Pulse Resp BP Pulse Ox 97.7 F L 83 16 122/66 H 94 12/12/17 09:20 12/12/17 09:20 12/12/17 09:20 12/12/17 09:20 12/12/17 09:20 Oxygen Delivery Method Room Air Weight: 248 lb 7.375 oz Body Mass Index (BMI) 41.3 Orthostatic Vital Signs Start: 12/12/17 03:18 Freq: q24h Status: Active Protocol: Activity Type Activity Date Activity User E-Sign Co-Sign Detail Recorded Client Recorded Date Recorded By Document 12/12/17 03:18 AML [id number] 12/12/17 03:19 AML 12/12/17 03:18 Orthostatic Vitals Standing -Blood Pressure (90/60-120/80) 129/86 H -Extremity Use Left Arm -Pulse Rate (60-100) 115 H Sitting -Blood Pressure (90/60-120/80) 132/80 H -Extremity Use Left Arm -Pulse Rate (60-100) 97 Lying -Blood Pressure (90/60-120/80) 118/87 H -Extremity Use Left Arm -Pulse Rate (60-100) 87 Intake and Output for Last 24 Hours 12/10/17 12/11/17 12/12/17 23:59 23:59 23:59 Intake Total 2309 / 2309 Balance 2309 / 2309 Laboratory Tests Past 24 Hrs 12/12/17 12/12/17 12/12/17 02:55 02:55 05:30 WBC 14.2 H RBC 3.67 L Hgb 10.9 L Hct 33.7 L MCV 91.8 MCH 29.7 MCHC 32.3 RDW 14.0 RDW Differential 46.9 H Plt Count 333 MPV 9.5 Immature Gran % (Auto) 0.100 Neut % (Auto) 82.1 H Lymph % (Auto) 12.5 L [place] % (Auto) 3.9 Eos % (Auto) 1.3 Baso % (Auto) 0.1 Absolute Neuts (auto) 11.7 H Absolute Lymphs (auto) 1.78 Total Counted Not Reportable Sodium Potassium Chloride Carbon Dioxide Anion Gap BUN Creatinine Estim Creat Clear Calc Est GFR (MDRD) Af Amer Est GFR (MDRD) Non-Af BUN/Creatinine Ratio Glucose Calcium Magnesium 1.9 Total Bilirubin AST ALT Alkaline Phosphatase Troponin I 0.188 H Total Protein Albumin Globulin Albumin/Globulin Ratio TSH 1.48 12/12/17 05:30 WBC RBC Hgb Hct MCV MCH MCHC RDW RDW Differential Plt Count MPV Immature Gran % (Auto) Neut % (Auto) Lymph % (Auto) [place] % (Auto) Eos % (Auto) Baso % (Auto) Absolute Neuts (auto) Absolute Lymphs (auto) Total Counted Sodium 142 Potassium 3.8 Chloride 113 H Carbon Dioxide 20.0 L Anion Gap 9 BUN 6 L Creatinine 0.46 L Estim Creat Clear Calc 162.38 Est GFR (MDRD) Af Amer 208 Est GFR (MDRD) Non-Af 172 BUN/Creatinine Ratio 13.2 Glucose 94 Calcium 8.0 L Magnesium Total Bilirubin 0.30 AST 27 ALT 29 Alkaline Phosphatase 75 Troponin I 0.118 H Total Protein 6.2 L Albumin 2.6 L Globulin 3.6 Albumin/Globulin Ratio 0.7 L TSH Assessment/Plan All Active Problems (Last Updated 08/01/17 @ 11:08 by Mckayla Kelley) with history of infertility (Acute) Syncope (Acute) Elevated troponin (Acute) 27 yo 10 weeks presents with syncope recommend evlatuion via ultrasound appreciate cardiology consult will follow peripherally and see patient for new ob visit once released by GONSALO. agree with discharge once cardiac clearance
== END 2017-12-12 14:41 | disposition home or self-care (01) ==
LOC: ED 22:23 → PCU 12-12 02:06
PROVIDERS: Admitting Provider Internal Medicine; Emergency Provider Emergency Medicine; Family Provider Family Medicine; PCP Family Medicine
DX: O26.891 Other specified pregnancy related conditions, first trimester (principal); O09.01 Supervision of pregnancy with history of infertility, first trimester; Z3A.10 10 weeks gestation of pregnancy; R55 Syncope and collapse; O99.211 Obesity complicating pregnancy, first trimester; E66.9 Obesity, unspecified; Z68.41 Body mass index [BMI] 40.0-44.9, adult; Z71.3 Dietary counseling and surveillance; D47.01 Cutaneous mastocytosis; K21.9 Gastro-esophageal reflux disease without esophagitis; O99.281 Endocrine, nutritional and metabolic diseases complicating pregnancy, first trimester; E05.90 Thyrotoxicosis, unspecified without thyrotoxic crisis or storm
CPT/HCPCS: 36415; 71275; 80048; 80053; 83735; 84443; 84484; 85025; 93005; 93306; 96361; 96374; 99218; 99285; J7030; Q9967; A4216; G0378

== ENCOUNTER → 2018-01-25 15:33 | Outpatient (CLI) | payer BC, SELFPAY ==
[2018-01-25 16:34] LABS: T4 Free Direct 1.07 ng/dL (0.76-1.46); Thyroid Stim Hormone (TSH) 1.44 uIU/mL (0.358-3.74)
== END ==
PROVIDERS: Family Provider Family Medicine; PCP Family Medicine; Visit Provider Nurse Practitioner Women's Health
DX: O09.90 Supervision of high risk pregnancy, unspecified, unspecified trimester (principal); E03.9 Hypothyroidism, unspecified; Z3A.00 Weeks of gestation of pregnancy not specified
CPT/HCPCS: 36415; 84439; 84443

== ENCOUNTER → 2018-02-15 15:53 | Outpatient (CLI) | payer BC, SELFPAY ==
--- NOTE | 2018-02-15 15:54 | US_ITS ---
STUDY: SECOND AND THIRD TRIMESTER OBSTETRICAL ULTRASOUND REASON FOR EXAM: Female, 28 years old. Routine survey. LMP: Unknown. TECHNIQUE: Transabdominal and Transvaginal PRIOR ULTRASOUND: None. FINDINGS: There is a single intrauterine fetus. The fetus is in a cephalic presentation. There is demonstrated cardiac activity with a heart rate of 144 bpm. There is a normal amniotic fluid volume. The largest amniotic fluid pocket measures 5.9 x 6.1 cm. . The placenta is anterior in location and is not low lying. There are Grade 0 placental changes. The cervix measures 3.9 cm in length. The bilateral adnexal regions are normal. BIOMETRY: BPD: 4.8 cm: 20 weeks, 3 days HC: 17.9 cm: 20 weeks, 3 days AC: 15.0 cm: 20 weeks, 2 days FL: 3.3 cm: 20 weeks, 3 days age by current US: 20 weeks, 3 days. FRANCISCO by current US: 07/02/2018. Estimated weight: 346 grams, +/- 51 grams, 72 %. Age by LMP: 19 weeks, 6 days. FRANCISCO by LMP: 07/06/2018. ANATOMY: Gender: Female Cranium: Normal lateral ventricles. Normal choroid plexus. Normal cerebellum. Normal cisterna magna. Normal face, nose and lips. Chest: Normal 4-chamber heart. Abdomen/Pelvis: Normal diaphragm. Normal stomach. Normal abdominal wall. Normal cord insertion. Normal 3 vessel cord. Normal kidneys. Normal bladder. Spine: Normal cervical spine. Normal thoracic spine. Normal lumbar spine. Normal sacrum. Extremities: Normal bilateral upper extremities. Normal bilateral lower extremities. US/OB Anatomy Scan IMPRESSION: Single live intrauterine at 20 weeks, 3 days by ultrasound with FRANCISCO of 07/02/2018. Heart rate 144 bpm. No suspicious sonographic findings. Electronically Signed: Abdulkadir Mayorga MD at 16:49 EDT , Service support ,
== END ==
PROVIDERS: Family Provider Family Medicine; PCP Family Medicine; Visit Provider Nurse Practitioner Women's Health
DX: Z34.90 Encounter for supervision of normal pregnancy, unspecified, unspecified trimester (principal)
CPT/HCPCS: 76805

== ENCOUNTER → 2018-03-30 09:04 | Outpatient (CLI) | payer BC, SELFPAY ==
[2018-03-30 09:53] LABS: Absolute Lymphocyte Count 1.47 X10^3/ul (0.83-4.51); Absolute Neutrophil Count 7.5 X10^3/uL (2.0-7.7); Basophil# 0.01 X10^3/uL; Basophil% 0.1 % (0-1); Eosinophils% 1.1 % (0-5); Hematocrit 34.1 % (37-47); Hemoglobin 11.3 g/dl (12.0-15.0); Lymphocyte # 1.47 X10^3/ul (4.0); Lymphocyte % 15.5 % (19-41); Mean Corp Hgb Conc 33.1 g/gl (32-36); Mean Corpuscular Hgb 31.4 pg (27.0-32.0); Mean Corpuscular Volume 94.7 fL (81-99); Mean Platelet Vol. 10.1 fl (6.2-12.0); Monocyte# 0.38 X10^3/uL; Neutrophil # 7.48 X10^3/uL (2.7-7.7); Neutrophil % 78.8 % (47-70); POSITIVE COUNT NO; POSITIVE DIFFERENTIAL NO; Platelet Count 324 K/mm3 (150-450); RBC Distribution Width CV 13.7 % (11.6-14.6); White Blood Count 9.5 K/mm3 (4.4-11.0)
[2018-03-30 09:54] LABS: POSITIVE MORPHOLOGY NO
[2018-03-30 10:00] LABS: Glucose Challenge Gest 1H 50g 147 mg/dL (70-140)
[2018-03-30 10:11] LABS: T4 Free Direct 1.01 ng/dL (0.76-1.46); Thyroid Stim Hormone (TSH) 1.97 uIU/mL (0.358-3.74)
== END ==
PROVIDERS: Family Provider Family Medicine; PCP Family Medicine; Referring Provider Obstetrics & Gynecology; Visit Provider Obstetrics & Gynecology
DX: O09.02 Supervision of pregnancy with history of infertility, second trimester (principal); E03.9 Hypothyroidism, unspecified; Z3A.00 Weeks of gestation of pregnancy not specified
CPT/HCPCS: 36415; 82950; 84439; 84443; 85025; 86850; 86900

== ENCOUNTER → 2018-04-07 09:46 | Outpatient (CLI) | payer BC, SELFPAY ==
[2018-04-07 11:46] LABS: Glucose GTT-Gestation. Fasting 75 mg/dL (<105)
[2018-04-07 11:49] LABS: Glucose GTT-Gestational 1 Hr 162 mg/dL (<190)
[2018-04-07 13:02] LABS: Glucose GTT-Gestational 2 Hr 131 mg/dL (<165)
[2018-04-07 14:32] LABS: Glucose GTT-Gestational 3 Hr 77 L (<145)
[2018-04-07 21:06] LABS: ALB/GLOB Ratio 0.6 RATIO (0.9-2.4); AST(SGOT) 27 U/L (15-37); Alanine Aminotransfer ALT/SGPT 37 U/L (13-56); Albumin, Serum 2.6 g/dL (3.2-5.0); Alkaline Phosphatase 102 U/L (45-117); Anion Gap 10 (5-15); BUN 4 mg/dL (7-18); BUN/Creat Ratio 8.6 RATIO (10-20); Calcium,Total 8.6 mg/dL (8.5-10.1); Chloride 106 mmol/L (98-107); Creatinine, Serum 0.47 mg/dL (0.55-1.02); EST Glomerular Filtration Rate 166 mL/min (>60); Est Glom Filt Rate - Afr Amer 201 mL/min (>60); Globulin 4.3 g/dL (2.2-4.2); Glucose 127 mg/dL (74-106); Potassium 3.8 mmol/L (3.5-5.1); Protein, Total 6.9 g/dL (6.4-8.2); Sodium Level 139 mmol/L (136-145)
== END ==
PROVIDERS: Family Provider Family Medicine; PCP Family Medicine; Referring Provider Obstetrics & Gynecology; Visit Provider Obstetrics & Gynecology
DX: L50.8 Other urticaria (principal); R73.02 Impaired glucose tolerance (oral)
CPT/HCPCS: 36415; 80053; 82951; 82952

== ENCOUNTER 2018-04-09 05:40 | Outpatient (CLI) | payer BC, SELFPAY ==
[2018-04-09 06:00] VITALS: BMI 41.5
[2018-04-09 06:09] LABS: Color, Urine Yellow (Yellow); Glucose, Dipstick Normal (Normal); Ketone-Dipstick Negative (Negative); Leukocyte Esterase-Dipstick 25 /ul (Negative); Mucous, Urine 0 SEEN /hpf (<or=2+); Nitrite-Dipstick Negative (Negative); Occult Blood-Urine 250 /ul (Negative); Protein-Dipstick 15 mg/dl (Negative); Urine Bilirubin Dipstick Negative (Negative); Urine Clarity Sl. Cloudy (Clear); Urine Urobilinogen Normal (Normal)
[2018-04-09 06:17] LABS: Bacteria RARE /hpf (None Seen); Squamous Epithelial Cells - UA 0-5 SEEN /hpf (5-10); White Blood Cells 0-5 SEEN /hpf (0-5)
[2018-04-09 06:18] LABS: Red Blood Cells-Urine 5-10 SEEN /hpf (0-5)
[2018-04-09] MEDS: 0.9% Saline Lock 10 ML Syringe IV (06:58)
[2018-04-09 07:23] LABS: Hematocrit 34.8 % (37-47); Hemoglobin 11.5 g/dl (12.0-15.0); Mean Corpuscular Hgb 31.4 pg (27.0-32.0); Mean Corpuscular Volume 95.1 fL (81-99); Platelet Count 342 K/mm3 (150-450); RBC Distribution Width CV 13.8 % (11.6-14.6); RBC Distribution Width SD 45.3 fl (35.1-43.9); Red Blood Count 3.66 M/mm3 (4.2-5.4)
[2018-04-09 07:31] LABS: Scan Indicated on CBC? Y/N NO
[2018-04-09] MEDS: Cephalexin 500 MG Capsule PO (07:44)
[2018-04-09 08:04] LABS: Fibrinogen 629 mg/dl (203-444)
--- NOTE | 2018-04-17 21:15 | OB.TRI.NOTE ---
- Problem List (1) Vaginal bleeding during Status: Acute History of Present Illness Date of Service: 04/09/18 Was patient seen by the physician?: Yes Reason For Visit: BLEEDING History of Present Illness: patient presented with small amount of vaginal bleeding, no regular ctx. cervix not dilated. good fm. Allergies No Known Allergies Allergy (Verified 04/09/18 06:15) - Pertinent Past Medical History Medical History: Past Medical History (Last Reviewed 03/30/18 @ 08:22 by Nhi Agrawal) GERD (gastroesophageal reflux disease) Hyperthyroidism Mastocytosis Laboratory Studies: Laboratory Tests 04/09/18 04/09/18 04/09/18 Range/Units 06:58 06:58 06:58 WBC 10.0 (4.4-11.0) K/mm3 RBC 3.66 L (4.2-5.4) M/mm3 Hgb 11.5 L (12.0-15.0) g/dl Hct 34.8 L (37-47) % MCV 95.1 (81-99) fL MCH 31.4 (27.0-32.0) pg MCHC 33.0 (32-36) g/gl RDW 13.8 (11.6-14.6) % RDW Differential 45.3 H (35.1-43.9) fl Plt Count 342 (150-450) K/mm3 MPV 10.0 (6.2-12.0) fl Fibrinogen 629 H (203-444) mg/dl Urine Color (Yellow) Urine Clarity (Clear) Urine pH (5.0 - 8.0) Ur Specific [place] (1.002-1.030) Urine Protein (Negative) mg/dl Urine Glucose (UA) (Normal) mg/dl Urine Ketones (Negative) mg/dl Urine Occult Blood (Negative) /ul Urine Nitrite (Negative) Urine Bilirubin (Negative) mg/dL Urine Urobilinogen (Normal) mg/dl Ur Leukocyte Esterase (Negative) /ul Urine RBC (0-5) /hpf Urine WBC (0-5) /hpf Ur Squamous Epith Cells (5-10) /hpf Urine Bacteria (None Seen) /hpf Urine Mucus (<or=2+) /hpf Blood Type O POSITIVE Antibody Screen NEGATIVE 04/09/18 Range/Units 05:40 WBC (4.4-11.0) K/mm3 RBC (4.2-5.4) M/mm3 Hgb (12.0-15.0) g/dl Hct (37-47) % MCV (81-99) fL MCH (27.0-32.0) pg MCHC (32-36) g/gl RDW (11.6-14.6) % RDW Differential (35.1-43.9) fl Plt Count (150-450) K/mm3 MPV (6.2-12.0) fl Fibrinogen (203-444) mg/dl Urine Color Yellow (Yellow) Urine Clarity Sl. Cloudy (Clear) Urine pH 7.0 (5.0 - 8.0) Ur Specific [place] 1.010 (1.002-1.030) Urine Protein 15 H (Negative) mg/dl Urine Glucose (UA) Normal (Normal) mg/dl Urine Ketones Negative (Negative) mg/dl Urine Occult Blood 250 H (Negative) /ul Urine Nitrite Negative (Negative) Urine Bilirubin Negative (Negative) mg/dL Urine Urobilinogen Normal (Normal) mg/dl Ur Leukocyte Esterase 25 H (Negative) /ul Urine RBC 5-10 SEEN (0-5) /hpf Urine WBC 0-5 SEEN (0-5) /hpf Ur Squamous Epith Cells 0-5 SEEN (5-10) /hpf Urine Bacteria RARE (None Seen) /hpf Urine Mucus 0 SEEN (<or=2+) /hpf Blood Type Antibody Screen NST - FHR Rate Baby A Baseline: 140 Variability:: Moderate Accelerations:: 15 x 15 Decelerations:: None NST Reactive:: Yes FHR Category:: Category I Uterine Activity:: some irritability Impression/Plan vaginal bleeding in - patient monitored and no significant dilation, no regular ctx. dc home bleeding precautions
== END 2018-04-09 11:15 | disposition home or self-care (01) ==
LOC: WPOUT 05:47 → WP 05:48
PROVIDERS: Family Provider Family Medicine; PCP Family Medicine; Visit Provider Obstetrics & Gynecology
DX: O46.90 Antepartum hemorrhage, unspecified, unspecified trimester (principal); Z3A.00 Weeks of gestation of pregnancy not specified
CPT/HCPCS: 36415; 59025; 59050; 81001; 85027; 85384; 86850; 86900; 99218; A4216; G0378

== ENCOUNTER 2018-04-13 03:50 | Outpatient (CLI) | payer BC, SELFPAY ==
--- NOTE | 2018-04-13 04:25 | US_ITS ---
STUDY: SECOND AND THIRD TRIMESTER OBSTETRICAL ULTRASOUND - LIMITED REASON FOR EXAM: Female, 28 years old. Bleeding. LMP: September 29, 2017. PRIOR ULTRASOUND: Comparison is made with prior study dated February 15, 2018. TECHNIQUE: Transabdominal and Transvaginal TECHNICAL QUALITY: Adequate. FINDINGS: There is a single intrauterine fetus. The fetus is in a cephalic presentation. There is demonstrated cardiac activity with a heart rate of 143 bpm. There is a normal amniotic fluid volume. The amniotic fluid index (DRISS) is 13.6 cm. The placenta is anterior in location and is not low lying. There are Grade 1 placental changes. The cervix measures 4.1 cm in length. BIOMETRY: BPD: 7.2 cm: 29 weeks, 0 days HC: 27.2 cm: 29 weeks, 6 days AC: 25.7 cm: 29 weeks, 6 days FL: 5.5 cm: 29 weeks, 1 days Age by LMP: 28 weeks, 0 days. FRANCISCO by LMP: July 06, 2018. age by prior US: 28 weeks, 3 days. FRANCISCO by prior US: July 02, 2018. age by current US: 29 weeks, 4 days. FRANCISCO by current US: June 25, 2018. Estimated weight: 1407 grams, +/- 26 grams, 90 percentile. Gender: Indeterminant US/OB Limited With Biometrics IMPRESSION: Single live intrauterine gestation with a mean gestational age of 28 weeks and 3 days. The measurements obtained today fall within the normal expected range. Electronically Signed: Don Young MD at 14:22 EST Tel [phone], Service support ,
[2018-04-13 04:28] VITALS: BMI 41.6
[2018-04-13] MEDS: Betamethasone/Betamethasone 30 MG/5 ML Vial 12 MG IM (04:50)
[2018-04-13 05:17] LABS: Absolute Lymphocyte Count 2.16 X10^3/ul (0.83-4.51); Absolute Neutrophil Count 6.7 X10^3/uL (2.0-7.7); Basophil# 0.02 X10^3/uL; Basophil% 0.2 % (0-1); Eosinophils% 2.1 % (0-5); Hematocrit 36.1 % (37-47); Lymphocyte # 2.16 X10^3/ul (4.0); Lymphocyte % 22.3 % (19-41); Mean Corp Hgb Conc 33.2 g/gl (32-36); Mean Corpuscular Hgb 31.6 pg (27.0-32.0); Mean Platelet Vol. 10.2 fl (6.2-12.0); Monocyte% 6.2 % (0-10); Neutrophil # 6.69 X10^3/uL (2.7-7.7); Neutrophil % 69.1 % (47-70); POSITIVE COUNT NO; POSITIVE DIFFERENTIAL NO; POSITIVE MORPHOLOGY NO; Platelet Count 322 K/mm3 (150-450); RBC Distribution Width CV 13.5 % (11.6-14.6); RBC Distribution Width SD 44.7 fl (35.1-43.9); White Blood Count 9.7 K/mm3 (4.4-11.0)
[2018-04-13 05:24] LABS: Fibrinogen 654 mg/dl (203-444)
--- NOTE | 2018-04-13 06:49 | PCM.HP.OB ---
- Problem List (1) Vaginal bleeding during Status: Acute (2) Elevated glucose tolerance test Status: Acute Comment: Needs 3 hr gtt (3) screening encounter Status: Acute Comment: Counsyl- negative (4) Status: Acute Qualifiers: Comment: nipt normal. anatomy scan normal. (5) Hypothyroid Status: Acute Qualifiers: Comment: check q trimester (6) with history of infertility Status: Acute Qualifiers: Comment: ivf ; urine culture negative 11/30/2017 at [facility] (7) Supervision of normal Status: Acute Qualifiers: Comment: FRANCISCO 07/06/18 Girl M[facility], IVF (8) Cutaneous mastocytosis Status: Chronic History Date of Admission: 12/12/17 Final FRANCISCO: 07/06/18 Gestational age: 28 Weeks and 0 Days History of this : This is a 28 year-old, at 28 weeks gestational age presents with vaginal bleeding. Patient presented over the weekend with a small amount of vaginal bleeding without contractions and was discharged home in stable condition. Today she had a recurrence of bleeding that was bright red in appearance with some intermittent cramping. She admits good movement and denies any loss of fluid. She denies any abdominal trauma or drug use. Medical History: Medical History (Last Reviewed 03/30/18 @ 08:22 by Nhi Agrawal) GERD (gastroesophageal reflux disease) K21.9 Hyperthyroidism E05.90 Mastocytosis D47.09 Allergies No Known Allergies Allergy (Verified 04/09/18 06:15) Home Medications: Home Medications Cetirizine HCl [Zyrtec] 10 mg PO QHS 08/27/16 Epinephrine [Epipen 2-Mika] 1 ml SQ PRN PRN 08/27/16 Ranitidine [Zantac] 150 mg PO BID 08/27/16 docosahexanoic acid 200 mg capsule 200 mg PO DAILY 12/28/17 levothyroxine 150 mcg tablet 150 mcg PO DAILY #30 tab 12/28/17 Cephalexin [Keflex] 500 mg PO Q12 #14 capsule 04/09/18 Vits [Prenatabs FA] 1 tablet PO DAILY 04/09/18 Smoking Status: Never smoker Alcohol: None Number of Fetus(es): 1 Heart Tracins moderate variability reactive no decelerations category 1 tracing TOCO Analysis: No regular contractions History Past Pregnancies: Past Pregnancies Delivery Date Name GA/Weeks Outcome Route Weight Infant Gender Labor Length Anesthesia Delivery Location Provider FOB Review of Systems Constitutional: Denies: Fever, Malaise Eyes: Denies: Blurred vision, Vision Change HEENT: Denies: Head Aches, Visual Changes Cardiovascular: Denies: Chest Pain, Palpitations Respiratory: Denies: Cough, Shortness of Breath, Wheezing Gastrointestinal: Denies: Abdominal Pain, Diarrhea, Nausea, Vomiting Genitourinary: Denies: Dysuria, Hematuria Gynecological: Reports: Vaginal bleeding Musculoskeletal: Denies: Joint Pain, Muscle pain Skin: Denies: Lesions, Rash Neurological: Denies: Blurred vision, Focal weakness, Headaches Psychiatric: Denies: Anxiety, Depression Endocrine: Denies: Heat/ Cold Intolerance Hematologic/ Lymphatic: Denies: Easy Bruising, Easy Bleeding Physical Exam General: Alert, Cooperative, No apparent distress HEENT: Atraumatic, Normocephalic. Negative for: Thyromegaly, Lymphadenopathy Cardiovascular: Regular rate Lungs: Normal air movement Abdomen: Soft, Non Tender, Gravid Neurological: Deep Tendon Reflexes 2+/4 and Symmetrical, Neuro grossly intact. Negative for: Clonus ELECTRONIC DEVICE MONITOR: Normal external genitalia. Negative for: Vulvar lesions Estimated gestational size: Appropriate for gestational size Presentation: Cephalic Cervix Dilation (cm): 0 - Moderate amount of red blood mixed with mucus, no clots, no ectropion seen. Assessment/Plan All Active Problems (Last Reviewed 03/30/18 @ 08:22 by Nhi Agrawal) Vaginal bleeding during (Acute) Elevated glucose tolerance test (Acute) screening encounter (Acute) (Acute) Hypothyroid (Acute) with history of infertility (Acute) Supervision of normal (Acute) Syncope (Acute) Elevated troponin (Acute) This is a 28 year-old, at 28 weeks gestational age with vaginal bleeding #1. Vaginal bleeding?recommend admit and monitor for at least 24-48 hours without bleeding. Recommend ultrasound this morning to evaluate fetus and placenta. CBC and fibrinogen within normal limits, repeat fibrinogen in 4 hours and Kleihauer-Betke to be drawn. 2. Prematurity?status post betamethasone x1. Repeat in 24 hours. 3. Rh+ 4. IVF
--- NOTE | 2018-04-13 06:53 | HP.PCM_ITS ---
- Problem List (1) Vaginal bleeding during Status: Acute (2) Elevated glucose tolerance test Status: Acute Comment: Needs 3 hr gtt (3) screening encounter Status: Acute Comment: Counsyl- negative (4) Status: Acute Qualifiers: Comment: nipt normal. anatomy scan normal. (5) Hypothyroid Status: Acute Qualifiers: Comment: check q trimester (6) with history of infertility Status: Acute Qualifiers: Comment: ivf ; urine culture negative 11/30/2017 at [facility] (7) Supervision of normal Status: Acute Qualifiers: Comment: FRANCISCO 07/06/18 Girl Mendez Ke ANU [facility], IVF (8) Cutaneous mastocytosis Status: Chronic History Date of Admission: 12/12/17 Final FRANCISCO: 07/06/18 Gestational age: 28 Weeks and 0 Days History of this : This is a 28 year-old, at 28 weeks gestational age presents with vaginal bleeding. Patient presented over the weekend with a small amount of vaginal bleeding without contractions and was discharged home in stable condition. Today she had a recurrence of bleeding that was bright red in appearance with some intermittent cramping. She admits good movement and denies any loss of fluid. She denies any abdominal trauma or drug use. Medical History: Medical History (Last Reviewed 03/30/18 @ 08:22 by Nhi Agrawal) GERD (gastroesophageal reflux disease) K21.9 Hyperthyroidism E05.90 Mastocytosis D47.09 Allergies No Known Allergies Allergy (Verified 04/09/18 06:15) Home Medications: Home Medications Cetirizine HCl [Zyrtec] 10 mg PO QHS 08/27/16 Epinephrine [Epipen 2-Mika] 1 ml SQ PRN PRN 08/27/16 Ranitidine [Zantac] 150 mg PO BID 08/27/16 docosahexanoic acid 200 mg capsule 200 mg PO DAILY 12/28/17 levothyroxine 150 mcg tablet 150 mcg PO DAILY #30 tab 12/28/17 Cephalexin [Keflex] 500 mg PO Q12 #14 capsule 04/09/18 Vits [Prenatabs FA] 1 tablet PO DAILY 04/09/18 Smoking Status: Never smoker Alcohol: None Number of Fetus(es): 1 Heart Tracins moderate variability reactive no decelerations category 1 tracing TOCO Analysis: No regular contractions History Past Pregnancies: Past Pregnancies Delivery Date Name GA/Weeks Outcome Route Weight Infant Gender Labor Length Anesthesia Delivery Location Provider FOB Review of Systems Constitutional: Denies: Fever, Malaise Eyes: Denies: Blurred vision, Vision Change HEENT: Denies: Head Aches, Visual Changes Cardiovascular: Denies: Chest Pain, Palpitations Respiratory: Denies: Cough, Shortness of Breath, Wheezing Gastrointestinal: Denies: Abdominal Pain, Diarrhea, Nausea, Vomiting Genitourinary: Denies: Dysuria, Hematuria Gynecological: Reports: Vaginal bleeding Musculoskeletal: Denies: Joint Pain, Muscle pain Skin: Denies: Lesions, Rash Neurological: Denies: Blurred vision, Focal weakness, Headaches Psychiatric: Denies: Anxiety, Depression Endocrine: Denies: Heat/ Cold Intolerance Hematologic/ Lymphatic: Denies: Easy Bruising, Easy Bleeding Physical Exam General: Alert, Cooperative, No apparent distress HEENT: Atraumatic, Normocephalic. Negative for: Thyromegaly, Lymphadenopathy Cardiovascular: Regular rate Lungs: Normal air movement Abdomen: Soft, Non Tender, Gravid Neurological: Deep Tendon Reflexes 2+/4 and Symmetrical, Neuro grossly intact. 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 Negative for: Vulvar lesions Estimated gestational size: Appropriate for gestational size Presentation: Cephalic Cervix Dilation (cm): 0 - Moderate amount of red blood mixed with mucus, no clots, no ectropion seen. Assessment/Plan All Active Problems (Last Reviewed 03/30/18 @ 08:22 by Nhi Agrawal) Vaginal bleeding during (Acute) Elevated glucose tolerance test (Acute) screening encounter (Acute) (Acute) Hypothyroid (Acute) with history of infertility (Acute) Supervision of normal (Acute) Syncope (Acute) Elevated troponin (Acute) This is a 28 year-old, at 28 weeks gestational age with vaginal bleeding #1. Vaginal bleeding?recommend admit and monitor for at least 24-48 hours without bleeding. Recommend ultrasound this morning to evaluate fetus and placenta. CBC and fibrinogen within normal limits, repeat fibrinogen in 4 hours and Kleihauer-Betke to be drawn. 2. Prematurity?status post betamethasone x1. Repeat in 24 hours. 3. Rh+ 4. IVF
[2018-04-13 09:33] LABS: Fibrinogen 663 mg/dl (203-444)
[2018-04-14] MEDS: Betamethasone/Betamethasone 30 MG/5 ML Vial 12 MG IM (04:33)
--- NOTE | 2018-04-14 08:04 | PN.OBGYN_ITS ---
Patient Problems: Active and Suspected Problems (Last Reviewed 03/30/18 @ 08:22 by Nhi Agrawal) Vaginal bleeding during (Acute) Subjective: doing well no complaints- no further bleeding, denies any abdominal pain - Physical Exam General: Alert, Oriented x3 Weight: 250 lb 6.4 oz Body Mass Index (BMI) 41.6 Laboratory Tests Past 24 Hrs 04/13/18 04/13/18 09:00 09:00 Cory Caro Hgb Pending Fibrinogen 663 H Medical Necessity - Tobacco Use Smoking Status: Never smoker Assessment/Plan All Active Problems (Last Reviewed 03/30/18 @ 08:22 by Nhi Agrawal) Vaginal bleeding during (Acute) Elevated glucose tolerance test (Acute) screening encounter (Acute) (Acute) Hypothyroid (Acute) with history of infertility (Acute) Supervision of normal (Acute) Syncope (Acute) Elevated troponin (Acute) This is a 28 year-old, at 28 weeks gestational age with vaginal bleeding #1. Vaginal bleeding?recommend admit and monitor for at least 24-48 hours witho ut bleeding. Recommend ultrasound this morning to evaluate fetus and placenta. CBC and fibrinogen stable. KB sent. recommend dc home and follow up for mfm consult as outpatient for formal scan. 2. Prematurity?status post betamethasone x2. 3. Rh+ 4. IVF
[2018-04-14 14:35] LABS: Kleihauer-Betke Negative
== END 2018-04-14 08:15 | disposition home or self-care (01) ==
LOC: WPOUT 03:57 → WP 03:58
PROVIDERS: Family Provider Family Medicine; PCP Family Medicine; Visit Provider Obstetrics & Gynecology
DX: O46.93 Antepartum hemorrhage, unspecified, third trimester (principal); O99.810 Abnormal glucose complicating pregnancy; O99.283 Endocrine, nutritional and metabolic diseases complicating pregnancy, third trimester; E03.9 Hypothyroidism, unspecified; O09.813 Supervision of pregnancy resulting from assisted reproductive technology, third trimester; O09.03 Supervision of pregnancy with history of infertility, third trimester; O99.613 Diseases of the digestive system complicating pregnancy, third trimester; K21.9 Gastro-esophageal reflux disease without esophagitis; O99.89 Other specified diseases and conditions complicating pregnancy, childbirth and the puerperium; Q82.2 Congenital cutaneous mastocytosis; Z79.899 Other long term (current) drug therapy; Z3A.28 28 weeks gestation of pregnancy
CPT/HCPCS: 59025; 59050; 76816; 85025; 85384; 85460; 96372; 99218; A4216; G0378; J0702

== ENCOUNTER → 2018-05-11 20:32 | Outpatient (CLI) | payer BC, SELFPAY ==
[2018-05-11 11:01] VITALS: BMI 42.3
== END ==
PROVIDERS: Family Provider Family Medicine; PCP Family Medicine; Referring Provider Nurse Practitioner Women's Health; Visit Provider Nurse Practitioner Women's Health
DX: Z34.90 Encounter for supervision of normal pregnancy, unspecified, unspecified trimester (principal)
CPT/HCPCS: 87086; 87088

== ENCOUNTER → 2018-05-24 17:42 | Outpatient (CLI) | payer BC, SELFPAY ==
[2018-05-24 12:00] VITALS: BMI 42.3
== END ==
PROVIDERS: Family Provider Family Medicine; PCP Family Medicine; Referring Provider Obstetrics & Gynecology; Visit Provider Obstetrics & Gynecology
DX: O09.90 Supervision of high risk pregnancy, unspecified, unspecified trimester (principal); Z3A.00 Weeks of gestation of pregnancy not specified
CPT/HCPCS: 87086; 87088

== ENCOUNTER → 2018-05-27 09:34 | Outpatient (CLI) | payer BC, SELFPAY ==
[2018-05-24 12:00] VITALS: BMI 42.3
[2018-06-05 12:07] LABS: Absolute Lymphocyte Count 2.03 X10^3/ul (0.83-4.51); Absolute Neutrophil Count 6.5 X10^3/uL (2.0-7.7); Basophil# 0.02 X10^3/uL; Basophil% 0.2 % (0-1); Eosinophil# 0.09 X10^3/uL; Hematocrit 38.7 % (37-47); Hemoglobin 12.7 g/dl (12.0-15.0); Lymphocyte # 2.03 X10^3/ul (4.0); Mean Corp Hgb Conc 32.8 g/gl (32-36); Mean Corpuscular Hgb 31.1 pg (27.0-32.0); Mean Corpuscular Volume 94.9 fL (81-99); Mean Platelet Vol. 10.6 fl (6.2-12.0); Monocyte# 0.56 X10^3/uL; Monocyte% 6.1 % (0-10); Neutrophil # 6.53 X10^3/uL (2.7-7.7); Neutrophil % 70.6 % (47-70); Platelet Count 282 K/mm3 (150-450); RBC Distribution Width SD 46.3 fl (35.1-43.9); Red Blood Count 4.08 M/mm3 (4.2-5.4); White Blood Count 9.2 K/mm3 (4.4-11.0)
[2018-06-05 12:08] LABS: POSITIVE COUNT NO; POSITIVE DIFFERENTIAL NO; POSITIVE MORPHOLOGY NO
[2018-06-05 12:22] LABS: ALB/GLOB Ratio 0.5 RATIO (0.9-2.4); AST(SGOT) 21 U/L (15-37); Alanine Aminotransfer ALT/SGPT 30 U/L (13-56); Albumin, Serum 2.4 g/dL (3.2-5.0); Alkaline Phosphatase 136 U/L (45-117); Anion Gap 13 (5-15); BUN 6 mg/dL (7-18); BUN/Creat Ratio 12.6 RATIO (10-20); Calcium,Total 9.5 mg/dL (8.5-10.1); Chloride 107 mmol/L (98-107); Creatinine, Serum 0.48 mg/dL (0.55-1.02); EST Glomerular Filtration Rate 162 mL/min (>60); Est Glom Filt Rate - Afr Amer 196 mL/min (>60); Globulin 4.4 g/dL (2.2-4.2); Glucose 68 mg/dL (74-106); Potassium 3.9 mmol/L (3.5-5.1); Protein, Total 6.8 g/dL (6.4-8.2); Sodium Level 142 mmol/L (136-145)
== END ==
PROVIDERS: Family Provider Family Medicine; PCP Family Medicine; Referring Provider Obstetrics & Gynecology; Visit Provider Obstetrics & Gynecology
DX: R94.5 Abnormal results of liver function studies (principal)
CPT/HCPCS: 36415; 80053; 85025

== ENCOUNTER → 2018-05-31 09:50 | Outpatient (CLI) | payer BC, SELFPAY ==
[2018-05-24 12:00] VITALS: BMI 42.3
== END ==
PROVIDERS: Family Provider Family Medicine; PCP Family Medicine; Referring Provider Obstetrics & Gynecology; Visit Provider Obstetrics & Gynecology
DX: R94.5 Abnormal results of liver function studies (principal)

== ENCOUNTER → 2018-06-02 09:43 | Outpatient (CLI) | payer BC, SELFPAY ==
[2018-05-24 12:00] VITALS: BMI 42.3
[2018-06-02 11:34] LABS: Glucose GTT-Gestational 1 Hr 140 mg/dL (<190)
[2018-06-02 11:34] LABS: Glucose GTT-Gestation. Fasting 73 mg/dL (<105)
[2018-06-02 12:59] LABS: Glucose GTT-Gestational 2 Hr 142 mg/dL (<165)
[2018-06-02 14:05] LABS: Glucose GTT-Gestational 3 Hr 68 L (<145)
== END ==
PROVIDERS: Family Provider Family Medicine; PCP Family Medicine; Referring Provider Obstetrics & Gynecology; Visit Provider Obstetrics & Gynecology
DX: O26.843 Uterine size-date discrepancy, third trimester (principal); Z3A.00 Weeks of gestation of pregnancy not specified
CPT/HCPCS: 36415; 82951; 82952

== ENCOUNTER → 2018-06-05 11:37 | Outpatient (CLI) | payer BC, SELFPAY ==
[2018-05-24 12:00] VITALS: BMI 42.3
[2018-06-05 10:40] VITALS: BMI 42.3
[2018-06-05 17:59] LABS: Protein, Urine (Random) 10.5 mg/dL (<11.9); Protein:Creat Ratio 208 mg/g CRE (0-200)
== END ==
PROVIDERS: Family Provider Family Medicine; PCP Family Medicine; Referring Provider Obstetrics & Gynecology; Visit Provider Obstetrics & Gynecology
DX: K76.89 Other specified diseases of liver (principal)
CPT/HCPCS: 82570; 84156

== ENCOUNTER 2018-06-09 12:30 | Outpatient (CLI) | payer BC, SELFPAY ==
[2018-06-09 12:16] VITALS: BMI 42.3
[2018-06-09 12:50] VITALS: BMI 43.2
[2018-06-09 13:11] LABS: Hematocrit 36.8 % (37-47); Mean Corp Hgb Conc 32.6 g/gl (32-36); Mean Corpuscular Hgb 30.6 pg (27.0-32.0); Mean Corpuscular Volume 93.9 fL (81-99); Mean Platelet Vol. 10.6 fl (6.2-12.0); Platelet Count 295 K/mm3 (150-450); RBC Distribution Width SD 47.9 fl (35.1-43.9); Red Blood Count 3.92 M/mm3 (4.2-5.4); White Blood Count 7.4 K/mm3 (4.4-11.0)
[2018-06-09 13:17] LABS: Prothrombin Time (Protime)PT. 13.1 SECONDS (11.7-14.9)
[2018-06-09 13:18] LABS: Partial Thromboplast Time 30.6 Seconds (24.1-36.2)
[2018-06-09 13:25] LABS: Scan Indicated on CBC? Y/N NO
[2018-06-09 13:28] LABS: Protein, Urine (Random) 18.3 mg/dL (<11.9); Protein:Creat Ratio 308 mg/g CRE (0-200)
[2018-06-09 13:40] LABS: AST(SGOT) 23 U/L (15-37); Alanine Aminotransfer ALT/SGPT 24 U/L (13-56); Creatinine, Serum 0.43 mg/dL (0.55-1.02); EST Glomerular Filtration Rate 181 mL/min (>60); Est Glom Filt Rate - Afr Amer 219 mL/min (>60); Uric Acid 5.2 mg/dL (2.6-6.0)
--- NOTE | 2018-06-15 03:43 | OB.TRI.HP_ITS ---
- Problem List (1) Preeclampsia Status: Acute Qualifiers: Comment: deliver at 37. home bp monitoring, nst tuesday reactive, labs and growth scan (2) Pruritus Status: Acute Comment: Check bile acids every 2-4 weeks prn, liver enzymes every 1-2 weeks prn (3) Abnormal liver function Status: Acute Comment: Bile acids ordered (4) Congenital dacryocystocele Status: Acute Comment: BPP and anatomy weekly after 32 weeks (5) Obesity affecting Status: Acute Qualifiers: Comment: health weight gain (6) Supervision of high-risk Status: Acute Qualifiers: Comment: PRR FRANCISCO 07/06/18 Girl Mendez Ke ANU [facility], IVF (7) abn NEC-antepar Status: Acute Comment: Fetus with dacryocystocele (8) Vaginal bleeding during Status: Acute (9) Elevated glucose tolerance test Status: Acute Comment: Normal 3 hr gtt (10) screening encounter Status: Acute Comment: Counsyl- negative (11) Status: Acute Qualifiers: Comment: nipt normal. anatomy scan normal. 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 Status: Acute Qualifiers: Comment: ivf ; urine culture negative 11/30/2017 at [facility] (14) Cutaneous mastocytosis Status: Chronic (15) Syncope Status: Acute Qualifiers: (16) Elevated troponin Status: Acute History of Present Illness Date of Service: 06/15/18 Was patient seen by the physician?: Yes Reason For Visit: R/O PREECLAMPSIA Date of Service: 06/09/18 History of Present Illness: elevated bp Allergies No Known Allergies Allergy (Verified 06/09/18 12:04) - Pertinent Past Medical History Medical History: Past Medical History (Last Reviewed 06/09/18 @ 12:04 by Terra Lares) GERD (gastroesophageal reflux disease) Hyperthyroidism Mastocytosis Laboratory Studies: Laboratory Tests 06/09/18 06/09/18 06/09/18 Range/Units 13:00 13:00 13:00 WBC (4.4-11.0) K/mm3 RBC (4.2-5.4) M/mm3 Hgb (12.0-15.0) g/dl Hct (37-47) % MCV (81-99) fL MCH (27.0-32.0) pg MCHC (32-36) g/gl RDW (11.6-14.6) % RDW Differential (35.1-43.9) fl Plt Count (150-450) K/mm3 MPV (6.2-12.0) fl PT 13.1 (11.7-14.9) SECONDS INR 1.0 APTT 30.6 (24.1-36.2) Seconds Creatinine 0.43 L (0.55-1.02) mg/dL Est GFR (MDRD) Af Amer 219 (>60) mL/min Est GFR (MDRD) Non-Af 181 (>60) mL/min Uric Acid 5.2 (2.6-6.0) mg/dL AST 23 (15-37) U/L ALT 24 (13-56) U/L U Random Total Protein 18.3 H (<11.9) mg/dL Urine Creatinine 59.50 (NO RANGE EST.) mg/dL Protein/Creatinin Ratio 308 H (0-200) mg/g CRE 06/09/18 Range/Units 13:00 WBC 7.4 (4.4-11.0) K/mm3 RBC 3.92 L (4.2-5.4) M/mm3 Hgb 12.0 (12.0-15.0) g/dl Hct 36.8 L (37-47) % MCV 93.9 (81-99) fL MCH 30.6 (27.0-32.0) pg MCHC 32.6 (32-36) g/gl RDW 14.0 (11.6-14.6) % RDW Differential 47.9 H (35.1-43.9) fl Plt Count 295 (150-450) K/mm3 MPV 10.6 (6.2-12.0) fl PT (11.7-14.9) SECONDS INR APTT (24.1-36.2) Seconds Creatinine (0.55-1.02) mg/dL Est GFR (MDRD) Af Amer (>60) mL/min Est GFR (MDRD) Non-Af (>60) mL/min Uric Acid (2.6-6.0) mg/dL AST (15-37) U/L ALT (13-56) U/L U Random Total Protein (<11.9) mg/dL Urine Creatinine (NO RANGE EST.) mg/dL Protein/Creatinin Ratio (0-200) mg/g CRE NST - FHR Rate Baby A Baseline: 130 Variability:: Moderate Accelerations:: 15 x 15 Decelerations:: None NST Reactive:: Yes FHR Category:: Category I Uterine Activity:: fno regular Impression/Plan elevated bp rule out preeclampsia stable labs and bps dc home
== END 2018-06-09 13:50 | disposition home or self-care (01) ==
LOC: WPOUT 12:32 → WP 12:33
PROVIDERS: Family Provider Family Medicine; PCP Family Medicine; Referring Provider Obstetrics & Gynecology; Visit Provider Obstetrics & Gynecology
DX: O99.89 Other specified diseases and conditions complicating pregnancy, childbirth and the puerperium (principal); R03.0 Elevated blood-pressure reading, without diagnosis of hypertension; O26.899 Other specified pregnancy related conditions, unspecified trimester; L29.9 Pruritus, unspecified; Q82.2 Congenital cutaneous mastocytosis; O99.210 Obesity complicating pregnancy, unspecified trimester; E66.9 Obesity, unspecified; O09.00 Supervision of pregnancy with history of infertility, unspecified trimester; Z3A.00 Weeks of gestation of pregnancy not specified
CPT/HCPCS: 36415; 59025; 59050; 82565; 82570; 84156; 84450; 84460; 84550; 85027; 85610; 85730; 99218; G0378

== ENCOUNTER → 2018-06-09 15:23 | Outpatient (CLI) | payer BC, SELFPAY ==
[2018-06-09 12:50] VITALS: BMI 43.2
== END ==
PROVIDERS: Family Provider Family Medicine; PCP Family Medicine; Referring Provider Obstetrics & Gynecology; Visit Provider Obstetrics & Gynecology
DX: O09.93 Supervision of high risk pregnancy, unspecified, third trimester (principal); Z3A.00 Weeks of gestation of pregnancy not specified
CPT/HCPCS: 87081

== ENCOUNTER → 2018-06-12 08:53 | Outpatient (CLI) | payer BC, SELFPAY ==
[2018-06-09 12:50] VITALS: BMI 43.2
== END ==
PROVIDERS: Family Provider Family Medicine; PCP Family Medicine; Referring Provider Obstetrics & Gynecology; Visit Provider Obstetrics & Gynecology
DX: Z00.00 Encounter for general adult medical examination without abnormal findings (principal)

== ENCOUNTER 2018-06-15 07:01 | Inpatient (IN) | payer BC, SELFPAY ==
[2018-06-12 09:51] VITALS: BMI 43.2
[2018-06-15 07:04] VITALS: BMI 44.1
[2018-06-15] MEDS: Lactated Ringers 1,000 ML 50 ML IV (07:25)
--- NOTE | 2018-06-15 07:37 | PCM.HP.OB ---
- Problem List (1) Preeclampsia Status: Acute Qualifiers: Comment: deliver at 37. home bp monitoring, nst tuesday reactive, labs and growth scan (2) Pruritus Status: Acute Comment: Check bile acids every 2-4 weeks prn, liver enzymes every 1-2 weeks prn (3) Abnormal liver function Status: Acute Comment: repeat WNL. Bile acids ordered (4) Congenital dacryocystocele Status: Acute Comment: BPP and anatomy weekly after 32 weeks (5) Obesity affecting Status: Acute Qualifiers: Comment: health weight gain (6) Supervision of high-risk Status: Acute Qualifiers: Comment: PRR FRANCISCO 07/06/18 Girl Mendez Ke ANU I, IVF (7) abn NEC-antepar Status: Acute Comment: Fetus with dacryocystocele (8) Vaginal bleeding during Status: Acute (9) Elevated glucose tolerance test Status: Acute Comment: Normal 3 hr gtt (10) screening encounter Status: Acute Comment: Counsyl- negative (11) Status: Acute Qualifiers: Comment: nipt normal. anatomy scan normal. 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 Status: Acute Qualifiers: Comment: ivf ; urine culture negative 11/30/2017 at [facility] (14) Cutaneous mastocytosis Status: Chronic (15) Syncope Status: Acute Qualifiers: (16) Elevated troponin Status: Acute History Date of Admission: 12/12/17 Final FRANCISCO: 07/06/18 Gestational age: 37 Weeks and 0 Days History of this : This is a 28 year-old, at 37 weeks gestational age presents for IOL preeclampsia. she has had an IVF and denies any [facility]. Medical History: Medical History (Last Reviewed 06/09/18 @ 12:04 by Terra Lares) GERD (gastroesophageal reflux disease) K21.9 Hyperthyroidism E05.90 Mastocytosis D47.09 Allergies No Known Allergies Allergy (Verified 06/09/18 12:04) Home Medications: Home Medications Cetirizine HCl [Zyrtec] 10 mg PO QHS 08/27/16 Epinephrine [Epipen 2-Mika] 1 ml SQ PRN PRN 08/27/16 Ranitidine [Zantac] 150 mg PO BID 08/27/16 docosahexanoic acid 200 mg capsule 200 mg PO DAILY 12/28/17 levothyroxine 150 mcg tablet 150 mcg PO DAILY #30 tab 12/28/17 Vits [Prenatabs FA] 1 tab PO DAILY 04/09/18 sertraline 50 mg tablet 50 mg PO DAILY 05/24/18 blood pressure monitor kit See Dose Instructions .ROUTE .MEDSUPPLY #1 ea 06/12/18 Smoking Status: Never smoker Alcohol: None Number of Fetus(es): 1 Heart Tracin moderate variability reactive no decelerations category I tracing\ Primera: regular History Past Pregnancies: Past Pregnancies Delivery Date Name GA/Weeks Outcome Route Weight Gender Labor Length Anesthesia Delivery Location Provider FOB Labs: Social History Hx Smoking No Smoking Status Never smoker Expected Delivery Method: Spontaneous Vaginal Review of Systems Constitutional: Denies: Fever, Malaise Eyes: Denies: Blurred vision, Vision Change HEENT: Denies: Head Aches, Visual Changes Cardiovascular: Denies: Chest Pain, Palpitations Respiratory: Denies: Cough, Shortness of Breath, Wheezing Gastrointestinal: Denies: Abdominal Pain, Diarrhea, Nausea, Vomiting Genitourinary: Denies: Dysuria, Hematuria Musculoskeletal: Denies: Joint Pain, Muscle pain Skin: Denies: Lesions, Rash Neurological: Denies: Blurred vision, Focal weakness, Headaches Psychiatric: Denies: Anxiety, Depression Endocrine: Denies: Heat/ Cold Intolerance Hematologic/ Lymphatic: Denies: Easy Bruising, Easy Bleeding Physical Exam General: Alert, Cooperative, No apparent distress HEENT: Atraumatic, Normocephalic. Negative for: Thyromegaly, Lymphadenopathy Cardiovascular: Regular rate Lungs: Normal air movement Abdomen: Soft, Non Tender, Gravid Neurological: Deep Tendon Reflexes 2+/4 and Symmetrical, Neuro grossly intact. 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 Negative for: Vulvar lesions Estimated gestational size: Large for gestational age Presentation: Cephalic Cervix Dilation (cm): 1 Assessment/Plan All Active Problems (Last Reviewed 06/09/18 @ 12:04 by Terra Lares) Preeclampsia (Acute) Pruritus (Acute) Abnormal liver function (Acute) Congenital dacryocystocele (Acute) Obesity affecting (Acute) Supervision of high-risk (Acute) abn NEC-antepar (Acute) Vaginal bleeding during (Acute) Elevated glucose tolerance test (Acute) screening encounter (Acute) (Acute) Hypothyroid (Acute) with history of infertility (Acute) Syncope (Acute) Elevated troponin (Acute) This is a 28 year-old, at 37 weeks gestational age presents IOL preeclampsia Patient presents IOL, plan expectant management for ,begin with cytotec then pitocin/AROM when able. Pain management: plans epidural GBS negative Management of any complications: check preeclampsia labs I have reviewed the [facility] and made any clinically relevant updates.
--- NOTE | 2018-06-15 07:41 | HP.PCM_ITS ---
- Problem List (1) Preeclampsia Status: Acute Qualifiers: Comment: deliver at 37. home bp monitoring, nst tuesday reactive, labs and growth scan (2) Pruritus Status: Acute Comment: Check bile acids every 2-4 weeks prn, liver enzymes every 1-2 weeks prn (3) Abnormal liver function Status: Acute Comment: repeat WNL. Bile acids ordered (4) Congenital dacryocystocele Status: Acute Comment: BPP and anatomy weekly after 32 weeks (5) Obesity affecting Status: Acute Qualifiers: Comment: health weight gain (6) Supervision of high-risk Status: Acute Qualifiers: Comment: PRR FRANCISCO 07/06/18 Girl Mendez Ke ANU I, IVF (7) abn NEC-antepar Status: Acute Comment: Fetus with dacryocystocele (8) Vaginal bleeding during Status: Acute (9) Elevated glucose tolerance test Status: Acute Comment: Normal 3 hr gtt (10) screening encounter Status: Acute Comment: Counsyl- negative (11) Status: Acute Qualifiers: Comment: nipt normal. anatomy scan normal. 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 Status: Acute Qualifiers: Comment: ivf ; urine culture negative 11/30/2017 at [facility] (14) Cutaneous mastocytosis Status: Chronic (15) Syncope Status: Acute Qualifiers: (16) Elevated troponin Status: Acute History Date of Admission: 12/12/17 Final FRANCISCO: 07/06/18 Gestational age: 37 Weeks and 0 Days History of this : This is a 28 year-old, at 37 weeks gestational age presents for IOL preeclampsia. she has had an IVF and denies any [facility]. Medical History: Medical History (Last Reviewed 06/09/18 @ 12:04 by Terra Lares) GERD (gastroesophageal reflux disease) K21.9 Hyperthyroidism E05.90 Mastocytosis D47.09 Allergies No Known Allergies Allergy (Verified 06/09/18 12:04) Home Medications: Home Medications Cetirizine HCl [Zyrtec] 10 mg PO QHS 08/27/16 Epinephrine [Epipen 2-Mika] 1 ml SQ PRN PRN 08/27/16 Ranitidine [Zantac] 150 mg PO BID 08/27/16 docosahexanoic acid 200 mg capsule 200 mg PO DAILY 12/28/17 levothyroxine 150 mcg tablet 150 mcg PO DAILY #30 tab 12/28/17 Vits [Prenatabs FA] 1 tab PO DAILY 04/09/18 sertraline 50 mg tablet 50 mg PO DAILY 05/24/18 blood pressure monitor kit See Dose Instructions .ROUTE .MEDSUPPLY #1 ea 06/12/18 Smoking Status: Never smoker Alcohol: None Number of Fetus(es): 1 Heart Tracin moderate variability reactive no decelerations category I tracing\ Belk: regular History Past Pregnancies: Past Pregnancies Delivery Date Name GA/Weeks Outcome Route Weight Gender Labor Length Anesthesia Delivery Location Provider FOB Labs: Social History Hx Smoking No Smoking Status Never smoker Expected Delivery Method: Spontaneous Vaginal Review of Systems Constitutional: Denies: Fever, Malaise Eyes: Denies: Blurred vision, Vision Change HEENT: Denies: Head Aches, Visual Changes Cardiovascular: Denies: Chest Pain, Palpitations Respiratory: Denies: Cough, Shortness of Breath, Wheezing Gastrointestinal: Denies: Abdominal Pain, Diarrhea, Nausea, Vomiting Genitourinary: Denies: Dysuria, Hematuria Musculoskeletal: Denies: Joint Pain, Muscle pain Skin: Denies: Lesions, Rash Neurological: Denies: Blurred vision, Focal weakness, Headaches Psychiatric: Denies: Anxiety, Depression Endocrine: Denies: Heat/ Cold Intolerance Hematologic/ Lymphatic: Denies: Easy Bruising, Easy Bleeding Physical Exam General: Alert, Cooperative, No apparent distress HEENT: Atraumatic, Normocephalic. Negative for: Thyromegaly, Lymphadenopathy Cardiovascular: Regular rate Lungs: Normal air movement Abdomen: Soft, Non Tender, Gravid Neurological: Deep Tendon Reflexes 2+/4 and Symmetrical, Neuro grossly intact. Negative for: Clonus DIRECTOR AND PROFESSOR: Normal external genitalia. Negative for: Vulvar lesions Estimated gestational size: Large for gestational age Presentation: Cephalic Cervix Dilation (cm): 1 Assessment/Plan All Active Problems (Last Reviewed 06/09/18 @ 12:04 by Terra Lares) Preeclampsia (Acute) Pruritus (Acute) Abnormal liver function (Acute) Congenital dacryocystocele (Acute) Obesity affecting (Acute) Supervision of high-risk (Acute) abn NEC-antepar (Acute) Vaginal bleeding during (Acute) Elevated glucose tolerance test (Acute) screening encounter (Acute) (Acute) Hypothyroid (Acute) with history of infertility (Acute) Syncope (Acute) Elevated troponin (Acute) This is a 28 year-old, at 37 weeks gestational age presents IOL preeclampsia Patient presents IOL, plan expectant management for ,begin with cytotec then pitocin/AROM when able. Pain management: plans epidural GBS negative Management of any complications: check preeclampsia labs I have reviewed the [facility] and made any clinically relevant updates.
[2018-06-15 08:19] LABS: Hematocrit 37.6 % (37-47); Hemoglobin 12.2 g/dl (12.0-15.0); Mean Corp Hgb Conc 32.4 g/gl (32-36); Mean Corpuscular Volume 95.4 fL (81-99); Mean Platelet Vol. 11.3 fl (6.2-12.0); Platelet Count 283 K/mm3 (150-450); RBC Distribution Width CV 14.1 % (11.6-14.6); RBC Distribution Width SD 46.9 fl (35.1-43.9); Red Blood Count 3.94 M/mm3 (4.2-5.4); White Blood Count 9.6 K/mm3 (4.4-11.0)
[2018-06-15 08:22] LABS: Scan Indicated on CBC? Y/N NO
[2018-06-15] MEDS: miSOPROStol 25 MCG TABLET VAGINAL ×4 (08:30→20:43)
[2018-06-15 10:53] LABS: AST(SGOT) 21 U/L (15-37); Alanine Aminotransfer ALT/SGPT 24 U/L (13-56); Creatinine, Serum 0.48 mg/dL (0.55-1.02); EST Glomerular Filtration Rate 163 mL/min (>60); Est Glom Filt Rate - Afr Amer 197 mL/min (>60); Estimated Creatinine Clearance 154.21 ml/min; Uric Acid 5.8 mg/dL (2.6-6.0)
[2018-06-15 11:46] LABS: Protein, Urine (Random) 16.9 mg/dL (<11.9); Protein:Creat Ratio 195 mg/g CRE (0-200)
[2018-06-15 12:01] LABS: Prothrombin Time (Protime)PT. 13.1 SECONDS (11.7-14.9)
[2018-06-15 12:29] LABS: Partial Thromboplast Time 29.1 Seconds (24.1-36.2)
--- NOTE | 2018-06-15 19:49 | PCM.PN.BLA ---
Progress Note patient continuing cytotec- bps normal to mildly elevated, astymptomatic. has had 1-2 physiologic beats of clonus at times but with normal bps and no headache. will continue cytotec and monitor, exp management
[2018-06-15] MEDS: Acetaminophen 325 MG Tablet PO (20:42)
[2018-06-16] MEDS: Acetaminophen 325 MG Tablet PO ×2 (00:25→04:37)
[2018-06-16] MEDS: miSOPROStol 25 MCG TABLET VAGINAL ×2 (00:26→04:37)
[2018-06-16] MEDS: 0.9% Normal Saline 100 ML IV.SOLN. INTRA-UTER (10:45)
[2018-06-16] MEDS: Oxytocin 30 units/NS 500 ml 30 UNITS/500 ML IV.SOLN IV (10:58)
[2018-06-16] MEDS: Ondansetron 4 MG/2 ML Vial IV (11:59)
[2018-06-16] MEDS: Lactated Ringers 1,000 ML 50 ML IV ×3 (12:15→23:31)
--- NOTE | 2018-06-16 12:38 | PCM.PN.BLA ---
Progress Note fht 130 moderate variability reactive no decels cat I tracing. toco q 2-4 min. pit and fb going. gbs reviewed and is negative. bps WNL. 1 physiologic beat of clonus bilaterally- stable. continue pit per protocol
[2018-06-16] MEDS: fentaNYL-bupivacaine (epidural) 100 ML BAG EPIDURAL ×2 (13:33→22:18)
[2018-06-17] VITALS (16 sets, daily range): BP systolic 90–123; BP diastolic 46–71; PULSE 88–130; RESP 15–20; TEMP 36.3–37.7; O2SAT 95–98
[2018-06-17] MEDS: fentaNYL-bupivacaine (epidural) 100 ML BAG EPIDURAL ×2 (03:18→08:13)
[2018-06-17] MEDS: Lactated Ringers 1,000 ML 50 ML IV ×2 (05:10→10:45)
[2018-06-17] MEDS: Acetaminophen 325 MG Tablet PO ×2 (06:58→16:22)
[2018-06-17] MEDS: 0.9% Saline Lock 10 ML Syringe IV (10:00)
--- NOTE | 2018-06-17 10:31 | PCM.PN.BLA ---
Progress Note heart tones 150s-160s minimal moderate variability. The intermittent and recurrent late decelerations positive scalp stem causing an increase in variability. Patient has made cervical change now to 6 cm. Pitocin being turned off and position change being done. Patient is status post 24 hours of Cytotec and over 24 hours of Pitocin. Membranes have been ruptured 17 hours.
--- NOTE | 2018-06-17 13:08 | PCM.PN.BLA ---
Progress Note heart tones 150s-160s minimal to occasional moderate variability. Intermittent late decelerations. Cervix 5 cm. No cervical change in 4 hours and patient is status post Cytotec x24 and Pitocin times 26 hours and rupture membranes times 20 hours. Decision for primary secondary to failed induction and arrest of dilation, persistent category 2 tracing.
--- NOTE | 2018-06-17 13:10 | PCM.OPRPT ---
Problem List (1) Preeclampsia Status: Acute Qualifiers: Comment: deliver at 37. home bp monitoring, nst tuesday reactive, labs and growth scan (2) Pruritus Status: Acute Comment: Check bile acids every 2-4 weeks prn, liver enzymes every 1-2 weeks prn (3) Abnormal liver function Status: Acute Comment: repeat WNL. Bile acids ordered (4) Congenital dacryocystocele Status: Acute Comment: BPP and anatomy weekly after 32 weeks (5) Obesity affecting Status: Acute Qualifiers: Comment: health weight gain (6) Supervision of high-risk Status: Acute Qualifiers: Comment: PRR FRANCISCO 07/06/18 Girl Mendez Ke ANU I, IVF (7) abn NEC-antepar Status: Acute Comment: Fetus with dacryocystocele (8) Vaginal bleeding during Status: Acute (9) Elevated glucose tolerance test Status: Acute Comment: Normal 3 hr gtt (10) screening encounter Status: Acute Comment: Counsyl- negative (11) Status: Acute Qualifiers: Comment: nipt normal. anatomy scan normal. 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 Status: Acute Qualifiers: Comment: ivf ; urine culture negative 11/30/2017 at [facility] (14) Cutaneous mastocytosis Status: Chronic (15) Failed induction of labor Status: Acute (16) Arrest of dilation, delivered, current hospitalization Status: Acute Report of Operation Date of Procedure: 06/17/18 Pre-Operative Diagnosis: Failed induction, arrest of dilation at 5 cm, category 2 tracing persistent, suspected cephalopelvic disproportion Post-Operative Diagnosis: Same Surgery/Procedure Performed:: Primary low transverse Description of Surgical Findings:: Cephalopelvic disproportion, uterine atony with suspected triple I cuff folder: Sergey Magallon Type of Anesthesia:: Epidural Special Medications: amp, gent, clinda, azithro Specimen's removed: female infant Drains: berry Estimated Blood Loss (mL): 700 Fluids Replaced: crystalloid Description of Procedure: 28-year-old at 37 weeks presents for induction of labor secondary to preeclampsia. Estimated weight was 8 pounds 10 ounces to 9 pounds based on recent ultrasound. BMI is 44. Induction of labor was done with 24 hours of Cytotec followed by Pitocin and a Berry bulb. Pitocin was utilized for a total of 27 hours with 2 Pitocin washouts. Patient was ruptured for 20 hours. 2 hours prior to delivery patient developed persistent maternal fever plus maternal and tachycardia. The patient had no cervical change past 5 cm for 4 hours with contractions. Decision for primary secondary due to failed induction and arrest of dilation, persistent category 2 tracing. The patient's pelvic outlet is quite narrow and therefore I suspect cephalopelvic disproportion. The patient was placed in the dorsal supine position with leftward tilt. Patient was prepped and draped in the normal sterile fashion. Pfannenstiel skin incision was made with the scalpel and carried through to the underlying layer of fascia with the scalpel. Fascia was nicked in the midline and the incision extended laterally. The rectus bellies were dissected off superiorly and inferiorly with out complication both sharply and bluntly. The peritoneum was entered digitally. The incision was stretched and a low transverse uterine incision was made with the scalpel. The 's head was delivered atraumatically followed by the anterior and posterior shoulders without complication the rest of the infant delivered. The cord was clamped and cut and the was handed off to awaiting nurse. The placenta was delivered spontaneously immediately following and was noted to be intact and have a three-vessel cord. The uterus was exteriorized cleared of all clots and debris, and the incision was closed in a double layer closure using #1 Monocryl. The uterus was returned to the maternal abdomen and gutters were cleared of all clots and debris. The ovaries and fallopian tubes were noted to be within normal limits. The peritoneum was closed with 3-0 Monocryl in a running fashion. Fascia was closed with 0 PDS in a running fashion. Subcutaneous tissue was copiously irrigated and the skin was closed with 3-0 Monocryl in a subcuticular fashion. Steri-Strips and Mepilex dressing were applied without complication. Patient was taken to recovery in stable condition. Grafts/Implants Used: none - Complications none - Admit VTE Documentation VTE Present on Admission: No
--- NOTE | 2018-06-17 13:14 | OP.PCM_ITS ---
Problem List (1) Preeclampsia Status: Acute Qualifiers: Comment: deliver at 37. home bp monitoring, nst tuesday reactive, labs and growth scan (2) Pruritus Status: Acute Comment: Check bile acids every 2-4 weeks prn, liver enzymes every 1-2 weeks prn (3) Abnormal liver function Status: Acute Comment: repeat WNL. Bile acids ordered (4) Congenital dacryocystocele Status: Acute Comment: BPP and anatomy weekly after 32 weeks (5) Obesity affecting Status: Acute Qualifiers: Comment: health weight gain (6) Supervision of high-risk Status: Acute Qualifiers: Comment: PRR FRANCISCO 07/06/18 Girl Mendez Ke ANU I, IVF (7) abn NEC-antepar Status: Acute Comment: Fetus with dacryocystocele (8) Vaginal bleeding during Status: Acute (9) Elevated glucose tolerance test Status: Acute Comment: Normal 3 hr gtt (10) screening encounter Status: Acute Comment: Counsyl- negative (11) Status: Acute Qualifiers: Comment: nipt normal. anatomy scan normal. 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 Status: Acute Qualifiers: Comment: ivf ; urine culture negative 11/30/2017 at [facility] (14) Cutaneous mastocytosis Status: Chronic (15) Failed induction of labor Status: Acute (16) Arrest of dilation, delivered, current hospitalization Status: Acute Report of Operation Date of Procedure: 06/17/18 Pre-Operative Diagnosis: Failed induction, arrest of dilation at 5 cm, category 2 tracing persistent, suspected cephalopelvic disproportion Post-Operative Diagnosis: Same Surgery/Procedure Performed:: Primary low transverse Description of Surgical Findings:: Cephalopelvic disproportion, uterine atony with suspected triple I 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 Estimated weight was 8 pounds 10 ounces to 9 pounds based on recent ultrasound. BMI is 44. Induction of labor was done with 24 hours of Cytotec followed by Pitocin and a Berry bulb. Pitocin was utilized for a total of 27 hours with 2 Pitocin washouts. Patient was ruptured for 20 hours. 2 hours prior to delivery patient developed persistent maternal fever plus maternal and tachycardia. The patient had no cervical change past 5 cm for 4 hours with contractions. Decision for primary secondary due to failed induction and arrest of dilation, persistent category 2 tracing. The patient's pelvic outlet is quite narrow and therefore I suspect cephalopelvic disproportion. The patient was placed in the dorsal supine position with leftward tilt. Patient was prepped and draped in the normal sterile fashion. Pfannenstiel skin incision was made with the scalpel and carried through to the underlying layer of fascia with the scalpel. Fascia was nicked in the midline and the incision extended laterally. The rectus bellies were dissected off superiorly and inferiorly with out complication both sharply and bluntly. The peritoneum was entered digitally. The incision was stretched and a low transverse uterine incision was made with the scalpel. The 's head was delivered atraumatically followed by the anterior and posterior shoulders without complication the rest of the infant delivered. The cord was clamped and cut and the was handed off to awaiting nurse. The placenta was delivered spontaneously immediately following and was noted to be intact and have a three- vessel cord. The uterus was exteriorized cleared of all clots and debris, and the incision was closed in a double layer closure using #1 Monocryl. The uterus was returned to the maternal abdomen and gutters were cleared of all clots and debris. The ovaries and fallopian tubes were noted to be within normal limits. The peritoneum was closed with 3-0 Monocryl in a running fashion. Fascia was closed with 0 PDS in a running fashion. Subcutaneous tissue was copiously irri gated and the skin was closed with 3-0 Monocryl in a subcuticular fashion. Steri-Strips and Mepilex dressing were applied without complication. Patient was taken to recovery in stable condition. Grafts/Implants Used: none - Complications none - Admit VTE Documentation VTE Present on Admission: No
--- NOTE | 2018-06-17 13:16 | PLAC_PTH ---
PATIENT: HILARIO TRAMMELL LOC: [facility] U#:[id number] AGE/SX: 28/F ROOM: WP005 RE06/15/[address]: Dr. Nyla Escobar MD : [id number] BED: 1 DIS: 06/19/2018 SPEC #: [id number] RECD: 06/17/18 16:00 STATUS: CELIO YADY #: [id number] LOYDA: 06/17/18 13:[address]: Nyla Escobar DEPT: SURGICAL PATHOLOGY RECD BY: Lenin Odonnell ENTERED: 06/19/18 08:08 SP TYPE: PLACENTA OTHR DR: Dr. Aj Larkin III, MD Tissues: Placenta, NOS Procedures: Surgery Specimen Level V HEADER OPERATION: PRE-OP DIAGNOSIS: Maternal fever TISSUE SUBMITTED: Placenta MICROSCOPIC DIAGNOSIS Placenta: Placental disc - third trimester placenta with a succenturiate lobe (802 gm). - Focal areas of intraparenchymal hemorrhage (1.5 to 2 cm in greatest dimension). - Focal acute vasculitis of subamniotic blood vessels. - Focal villous congestion and hemorrhage. Membranes - acute chorioamnionitis. Umbilical cord - three blood vessels and acute funisitis. SJ:reginald 06/20/18 MICROSCOPIC DESCRIPTION Slides are reviewed. GROSS DESCRIPTION SPECIMEN: PLACENTA / CLINICAL INFORMATION: A. Weight: 3.535 kg B. Gestational Age: 37 weeks C. Sex: Female PLACENTAL WEIGHT (POST FIXATION): 802 gm PLACENTAL DIMENSIONS: 20 x 17 x 4 cm, succenturiate lobe measures 1.5 x 1.5 x 0.3 cm PLACENTAL SHAPE: Usual ovoid with a small succenturiate lobe PLACENTAL WEIGHT FOR GESTATIONAL AGE: >99th percentile MEMBRANES - Present A. Insertion: Marginal B. Site of rupture from edge: At edge of placental disc C. Color of membrane: Clark-worthington D. Abnormalities: None UMBILICAL CORD - Present A. Color: Clark-worthington B. Insertion: Paracentral C. Length: 26 cm D. Diameter: 1.6 cm E. Number of vessels: Three F. Abnormalities: None PLACENTAL DISC - Present A. Color of surface: Clark-worthington B. surface abnormalities: None C. Maternal cotyledons: Intact with minimal tears. Maternal surface also shows increased calcification in the peripheral areas. D. Attached retro placental clot: No clot E. Cut surface: Dark red and spongy F. Lesions: Sections reveal three clark, indurated areas measuring 1.5 to 2 cm in greatest dimension. G. Separate clot: Absent SECTIONS SUBMITTED: 1. Membrane roll 2. Cord, maternal end, succenturiate lobe 3. Cord, end, succenturiate lobe 4. Placental disc, and maternal surfaces, two lesions 5. Placental disc, and maternal surfaces, one lesion 6. Placental disc, and maternal surfaces 7. Placental disc, and maternal surfaces 8. Placental disc, and maternal surfaces SJ:reginald 06/19/18 TC:2 CPT: 74349
[2018-06-17] MEDS: Oxytocin 30 units/NS 500 ml 30 UNITS/500 ML IV.SOLN 167 UNITS IV (13:36)
[2018-06-17] MEDS: Lactated Ringers 1,000 ML 999 ML IV (14:30)
[2018-06-17] MEDS: Lactated Ringers 1,000 ML 150 ML IV (15:38)
--- NOTE | 2018-06-17 16:45 | NURSING ---
epidural catheter removed. blue tip noted and intact. pt tolerated well.
[2018-06-17] MEDS: Lactated Ringers 1,000 ML 100 ML IV (17:05)
[2018-06-17] MEDS: Ketorolac 30 MG/ML Syringe IV (21:58)
[2018-06-17] MEDS: Sertraline 50 MG Tablet PO (21:59)
[2018-06-18] VITALS (9 sets, daily range): BP systolic 99–128; BP diastolic 53–62; PULSE 91–102; RESP 15–18; TEMP 36.2–36.8; O2SAT 93–99
[2018-06-18] MEDS: Lactated Ringers 1,000 ML 100 ML IV (02:00)
[2018-06-18] MEDS: Ketorolac 30 MG/ML Syringe IV ×3 (03:57→17:00)
[2018-06-18 06:23] LABS: Hematocrit 31.3 % (37-47); Mean Corp Hgb Conc 31.9 g/gl (32-36); Mean Corpuscular Hgb 30.7 pg (27.0-32.0); Mean Platelet Vol. 10.7 fl (6.2-12.0); Platelet Count 233 K/mm3 (150-450); RBC Distribution Width CV 14.6 % (11.6-14.6); RBC Distribution Width SD 51.5 fl (35.1-43.9); Red Blood Count 3.26 M/mm3 (4.2-5.4); White Blood Count 23.5 K/mm3 (4.4-11.0)
[2018-06-18 06:31] LABS: Scan Indicated on CBC? Y/N NO
[2018-06-18] MEDS: Levothyroxine 150 MCG Tablet PO (07:11)
--- NOTE | 2018-06-18 08:29 | PCM.PN.OB ---
Patient Problems: Active and Suspected Problems (Last Reviewed 06/09/18 @ 12:04 by Terra Lares) Failed induction of labor (Acute) Arrest of dilation, delivered, current hospitalization (Acute) Subjective: doing well no complaints pain controlled no CP SOB N V ambulating well tolerating po lochia moderate, going well no fevers - Physical Exam General: Alert, Oriented x3 Abdomen: Soft, Non Tender Vital Signs Temp Pulse Resp BP Pulse Ox 97.4 F L 95 16 105/59 L 93 06/18/18 04:05 06/18/18 06:00 06/18/18 06:00 06/18/18 04:05 06/18/18 06:00 Oxygen Delivery Method Room Air Weight: 265 lb 6 oz Body Mass Index (BMI) 44.1 Intake and Output for Last 24 Hours 06/16/18 06/17/18 06/18/18 23:59 23:59 23:59 Intake Total 1716 / 1716 3982 / 3982 1700 / 1700 Output Total 650 / 650 750 / 750 800 / 800 Balance 1066 / 1066 3232 / 3232 900 / 900 Laboratory Tests Past 24 Hrs 06/18/18 06:00 WBC 23.5 H RBC 3.26 L Hgb 10.0 L Hct 31.3 L MCV 96.0 MCH 30.7 MCHC 31.9 L RDW 14.6 RDW Differential 51.5 H Plt Count 233 MPV 10.7 Medical Necessity - Tobacco Use Smoking Status: Never smoker Assessment/Plan All Active Problems (Last Reviewed 06/09/18 @ 12:04 by Terra Lares) Failed induction of labor (Acute) Arrest of dilation, delivered, current hospitalization (Acute) Preeclampsia (Acute) Pruritus (Acute) Abnormal liver function (Acute) Congenital dacryocystocele (Acute) Obesity affecting (Acute) Supervision of high-risk (Acute) abn NEC-antepar (Acute) Vaginal bleeding during (Acute) Elevated glucose tolerance test (Acute) screening encounter (Acute) (Acute) Hypothyroid (Acute) with history of infertility (Acute) Syncope (Acute) Elevated troponin (Acute) s/p LTCS PPD # 1 1. routine post care 2. breast feeding- support given 3. rh positive 4. rubella immune 5. chorioamnionitis- s/p antibiotics PP x 1, clinically stable
[2018-06-18] MEDS: Enoxaparin 40 MG/0.4 ML Syringe SC (09:39)
[2018-06-18] MEDS: 0.9% Saline Lock 10 ML Syringe IV ×2 (10:06→17:14)
[2018-06-18] MEDS: Acetaminophen 325 MG Tablet PO (18:35)
--- NOTE | 2018-06-18 18:52 | NURSING ---
1730- Pt states has voidfed x 2 since catheter removed. states feels unsure if bladder emptied. no bladder distention noted. Pt advised to measure next two voids.
[2018-06-18] MEDS: Ketorolac 10 MG Tablet PO (21:33)
[2018-06-18] MEDS: Sertraline 50 MG Tablet PO (21:33)
[2018-06-19 01:33] VITALS: BP 112/62; PULSE 95; RESP 16; TEMP 36.4; O2SAT 97
[2018-06-19] MEDS: Acetaminophen 325 MG Tablet PO (03:41)
[2018-06-19] MEDS: Ketorolac 10 MG Tablet PO (05:24)
[2018-06-19] MEDS: Enoxaparin 40 MG/0.4 ML Syringe SC (05:25)
[2018-06-19] MEDS: Levothyroxine 150 MCG Tablet PO (07:58)
[2018-06-19 08:05] VITALS: BP 119/71; PULSE 102; RESP 18; TEMP 36.7; O2SAT 94
[2018-06-19] MEDS: oxyCODONE 5 MG Tablet PO (08:12)
--- NOTE | 2018-06-19 08:14 | PN.OBGYN_ITS ---
Patient Problems: Active and Suspected Problems (Last Reviewed 06/09/18 @ 12:04 by Terra Lares) Failed induction of labor (Acute) Arrest of dilation, delivered, current hospitalization (Acute) Subjective: Doing well. NO SOB, CP. Plans home today. - Physical Exam General: Alert, Oriented x3 Abdomen: Soft, Non Tender, - - FF below U. Dressing dry and intact Vital Signs Temp Pulse Resp BP Pulse Ox 98.1 F 102 H 18 119/71 94 06/19/18 08:05 06/19/18 08:05 06/19/18 08:05 06/19/18 08:05 06/19/18 08:05 Oxygen Delivery Method Room Air Weight: 265 lb 6 oz Body Mass Index (BMI) 44.1 Intake and Output for Last 24 Hours 06/17/18 06/18/18 06/19/18 23:59 23:59 23:59 Intake Total 3982 / 3982 2121 / 2121 Output Total 750 / 750 1200 / 1200 1300 / 1300 Balance 3232 / 3232 921 / 921 -1300 / -1300 Medical Necessity - Tobacco Use Smoking Status: Never smoker Assessment/Plan All Active Problems (Last Reviewed 06/09/18 @ 12:04 by Terra Lares) Failed induction of labor (Acute) Arrest of dilation, delivered, current hospitalization (Acute) Preeclampsia (Acute) Pruritus (Acute) Abnormal liver function (Acute) Congenital dacryocystocele (Acute) Obesity affecting (Acute) Supervision of high-risk (Acute) abn NEC-antepar (Acute) Vaginal bleeding during (Acute) Elevated glucose tolerance test (Acute) screening encounter (Acute) (Acute) Hypothyroid (Acute) with history of infertility (Acute) Syncope (Acute) Elevated troponin (Acute) LTPCS POD #2: Routine care. Baby at [place]. Plans home today. Pumping
--- NOTE | 2018-06-19 08:14 | DCINST_ITS ---
Additional Instructions: If you experience any of the following, contact your healthcare provider. * Bleeding that soaks a pad every hour for 2 hours * Fever 100.4 or higher * Unrelieved incision or abdominal pain * Swelling, redness, discharge or bleeding from your incision or episiotomy site * Your incision begins to separate * Problems urinating (including inability to urinate or burning while urinating). * Visual changes * Severe headache * Flu-like symptoms * Pain or redness in one of both of your breasts * Pain, warmth, tenderness or swelling in your legs, especially the calf area * Frequent nausea and vomiting * Symptoms of depression or anxiety If you experience any of the following, call 911 or go to the nearest Emergency Room. * Chest pain * Problems breathing * Seizure activity * Partial or complete paralysis of a body part, slurred speech, weakness or drooping of the face, or a sudden inability to walk or hold your balance Allergies/Adverse Reactions: Allergies No Known Allergies Allergy (Verified 06/09/18 12:04) Medications to take at Discharge Cetirizine HCl [Zyrtec] 10 mg PO QHS 08/27/16 Epinephrine [Epipen 2-Mika] 1 ml SQ PRN PRN 08/27/16 Ranitidine [Zantac] 150 mg PO BID 08/27/16 docosahexanoic acid 200 mg capsule 200 mg PO DAILY 12/28/17 levothyroxine 150 mcg tablet 150 mcg PO DAILY #30 tab 12/28/17 Vits [Prenatabs FA] 1 tab PO DAILY 04/09/18 sertraline 50 mg tablet 50 mg PO DAILY 05/24/18 blood pressure monitor kit See Dose Instructions .ROUTE .MEDSUPPLY #1 ea 06/12/18 Naproxen [Naprosyn] 500 mg PO BID PRN PRN #60 tablet 06/19/18 Oxycodone HCl/Acetaminophen [Percocet 5/325] 1 - 2 tablet PO Q4H PRN PRN 3 Days #15 tablet 06/19/18 Oxycodone HCl/Acetaminophen [Percocet 5/325] 1 - 2 tablet PO Q4H PRN PRN 3 Days #15 tablet 06/19/18 The following prescriptions were given: Oxycodone HCl/Acetaminophen [Percocet 5/325] 1 - 2 tablet PO Q4H PRN PRN 3 Days #15 tablet PRN Reason: Pain Oxycodone HCl/Acetaminophen [Percocet 5/325] 1 - 2 tablet PO Q4H PRN PRN 3 Days #15 tablet PRN Reason: Pain Naproxen [Naprosyn] 500 mg PO BID PRN PRN #60 tablet PRN Reason: Pain Follow-Up: Call to make an appointment with your doctor for an incision check in 1-2 weeks. You will also need a 6 week post- follow up appointment. Test results from this visit will be discussed in further detail at your follow- up appointment, if applicable. Primary Care Physician: Aj Larkin III, MD [Primary Care Provider] -
[2018-06-19 12:52] LABS: Pathology Specimen OB SEE PATHOLOGY REPORT
--- NOTE | 2018-06-23 11:15 | PCM.DC.SUM ---
Discharge Date and Diagnosis Date of Admission: 12/12/17 - Secondary Discharge Diagnosis Chronic Problems (Last Reviewed 06/09/18 @ 12:04 by Terra Lares) Cutaneous mastocytosis (Chronic) Hospital Course and Treatment Consultations 06/15/18 07:04 Consult: Anesthesia Routine Comment: Reason For Exam: Operations: None Summary of Care Provided: The patient is a 28 year old F primary c section. Fail to progress. Routine postop course. DC home - Physical Exam Vital Signs Temp Pulse Resp BP Pulse Ox 98.1 F 102 H 18 119/71 94 06/19/18 08:05 06/19/18 08:05 06/19/18 08:05 06/19/18 08:05 06/19/18 08:05 Oxygen Delivery Method Room Air Weight: 265 lb 6 oz Body Mass Index (BMI) 44.1 Home Medications: Medications to take at Discharge Cetirizine HCl [Zyrtec] 10 mg PO QHS 08/27/16 Epinephrine [Epipen 2-Mika] 1 ml SQ PRN PRN 08/27/16 Ranitidine [Zantac] 150 mg PO BID 08/27/16 docosahexanoic acid 200 mg capsule 200 mg PO DAILY 12/28/17 levothyroxine 150 mcg tablet 150 mcg PO DAILY #30 tab 12/28/17 Vits [Prenatabs FA] 1 tab PO DAILY 04/09/18 sertraline 50 mg tablet 50 mg PO DAILY 05/24/18 blood pressure monitor kit See Dose Instructions .ROUTE .MEDSUPPLY #1 ea 06/12/18 Naproxen [Naprosyn] 500 mg PO BID PRN PRN #60 tablet 06/19/18 oxycodone-acetaminophen 5 mg-325 mg tablet 1 - 2 tab PO Q4H PRN PRN 7 Days #28 tab 06/21/18 Following Prescrptions Were Given to Patient: Naproxen [Naprosyn] 500 mg PO BID PRN PRN #60 tablet PRN Reason: Pain Primary Care Physician: Aj Larkin III, MD [Primary Care Provider] - Medical Necessity - Tobacco Use Smoking Status: Never smoker Meaningful Use Info Meaningful Use Diagnoses (Choose all that apply): None applicable
== END 2018-06-19 11:05 | disposition home or self-care (01) | DRG 786 ==
PROVIDERS: Admitting Provider Obstetrics & Gynecology; Family Provider Family Medicine; PCP Family Medicine; Referring Provider Obstetrics & Gynecology; Visit Provider Obstetrics & Gynecology
DX: O14.94 Unspecified pre-eclampsia, complicating childbirth (principal); O76 Abnormality in fetal heart rate and rhythm complicating labor and delivery; O61.0 Failed medical induction of labor; O62.0 Primary inadequate contractions; O33.9 Maternal care for disproportion, unspecified; O42.02 Full-term premature rupture of membranes, onset of labor within 24 hours of rupture; O41.1230 Chorioamnionitis, third trimester, not applicable or unspecified; D47.01 Cutaneous mastocytosis; O36.63X0 Maternal care for excessive fetal growth, third trimester, not applicable or unspecified; O26.893 Other specified pregnancy related conditions, third trimester; L29.9 Pruritus, unspecified; O99.284 Endocrine, nutritional and metabolic diseases complicating childbirth; E05.90 Thyrotoxicosis, unspecified without thyrotoxic crisis or storm; K21.9 Gastro-esophageal reflux disease without esophagitis; O99.214 Obesity complicating childbirth; Z79.899 Other long term (current) drug therapy; Z3A.37 37 weeks gestation of pregnancy; Z37.0 Single live birth
CPT/HCPCS: 36415; 59025; 59050; 76815; 82565; 82570; 84156; 84450; 84460; 84550; 85027; 85610; 85730; 86850; 86900; 88307; 99218; J7120; A4216; G0378; J0290; J2405

== ENCOUNTER → 2018-06-23 13:08 | Outpatient (CLI) | payer BC, SELFPAY ==
[2018-06-23 12:53] VITALS: BMI 44.1
[2018-06-23 14:03] LABS: Absolute Lymphocyte Count 1.98 X10^3/ul (0.83-4.51); Absolute Neutrophil Count 9.2 X10^3/uL (2.0-7.7); Basophil# 0.05 X10^3/uL; Basophil% 0.4 % (0-1); Eosinophil# 0.13 X10^3/uL; Hematocrit 31.9 % (37-47); Lymphocyte # 1.98 X10^3/ul (4.0); Lymphocyte % 15.8 % (19-41); Mean Corp Hgb Conc 31.3 g/gl (32-36); Mean Corpuscular Volume 95.8 fL (81-99); Mean Platelet Vol. 9.4 fl (6.2-12.0); Neutrophil # 9.23 X10^3/uL (2.7-7.7); Neutrophil % 73.8 % (47-70); Platelet Count 484 K/mm3 (150-450); RBC Distribution Width CV 14.4 % (11.6-14.6); RBC Distribution Width SD 50.8 fl (35.1-43.9); Red Blood Count 3.33 M/mm3 (4.2-5.4); White Blood Count 12.5 K/mm3 (4.4-11.0)
[2018-06-23 14:04] LABS: Differential Indicated SCAN CRITERIA MET; POSITIVE COUNT NO; POSITIVE DIFFERENTIAL NO; POSITIVE MORPHOLOGY YES
[2018-06-23 14:25] LABS: Atypical Lymphocyte 1+ %; Platelet Estimate SLT INC (ADEQ)
--- OUTSIDE RECORDS SUMMARY | 2018-08-28 03:07 | XMS RPT_ITS ---
:1990 Author Organization OHIP Support Name Relationship Address Phone HILGAR Unavailable [address] + [place] [address] NORWEGIAN, KE Unavailable [address] + [place] [address] HILGAR Unavailable [address] + [place] [address] NORWEGIAN, KE Unavailable [address] + [place] [address] HILGAR Unavailable [address] + [place] [address] NORWEGIAN, KE Unavailable [address] + [place] [address] HILGAR Unavailable [address] + [place] [address] NORWEGIAN, KE Unavailable [address] + [place] [address] HILGAR Unavailable [address] + [place] [address] NORWEGIAN, KE Unavailable [address] + [place] [address] HILGAR Unavailable [address] + [place] [address] NORWEGIAN, KE Unavailable [address] + [place] [address] HILGAR Unavailable [address] + [place] [address] NORWEGIAN, KE Unavailable [address] + [place] [address] HILGAR Unavailable [address] + [place] [address] NORWEGIAN, KE Unavailable [address] + [place] [address] HILGAR Unavailable [address] + [place] [address] NORWEGIAN, KE Unavailable [address] + [place] [address] HILGAR Unavailable [address] + [place] [address] NORWEGIAN, KE Unavailable [address] + [place] [address] HILGAR Unavailable [address] + [place] [address] NORWEGIAN, KE Unavailable [address] + [place] [address] HILGAR Unavailable [address] + [place] [address] NORWEGIAN, KE Unavailable [address] + [place] [address] NORWEGIAN, KE Unavailable Unavailable + HILGAR Unavailable [address] + [place] [address] NORWEGIAN, KE Unavailable [address] + [place] [address] HILGAR Unavailable [address] + [place] [address] NORWEGIAN, KE Unavailable [address] + [place] [address] HILGAR Unavailable [address] + [place] [address] NORWEGIAN, KE Unavailable [address] + [place] [address] HILGAR Unavailable [address] + [place] [address] NORWEGIAN, KE Unavailable [address] + [place] [address] HILGAR Unavailable [address] + [place] [address] NORWEGIAN, KE Unavailable [address] + [place] [address] HILGAR Unavailable [address] + [place] [address] NORWEGIAN, KE Unavailable [address] + [place] [address] HILGAR Unavailable [address] + [place] [address] NORWEGIAN, KE Unavailable [address] + [place] [address] HILGAR Unavailable [address] + [place] [address] NORWEGIAN, KE Unavailable [address] + [place] [address] HILGAR Unavailable [address] + [place] [address] NORWEGIAN, KE Unavailable [address] + [place] [address] HILGAR Unavailable [address] + [place] [address] NORWEGIAN, KE Unavailable [address] + [place] [address] HILGAR Unavailable [address] + [place] [address] NORWEGIAN, KE Unavailable [address] + [place] [address] HILGAR Unavailable [address] + [place] [address] NORWEGIAN, KE Unavailable [address] + [place] [address] NORWEGIAN, KE Unavailable Unavailable + HILGAR Unavailable [address] + [place] [address] NORWEGIAN, KE Unavailable [address] + [place] [address] HILGAR Unavailable [address] + [place] [address] NORWEGIAN, KE Unavailable [address] + [place] [address] HILGAR Unavailable [address] + [place] [address] NORWEGIAN, KE Unavailable [address] + [place] [address] HILGAR Unavailable [address] + [place] [address] NORWEGIAN, KE Unavailable [address] + [place] [address] NORWEGIAN, KE Unavailable Unavailable + NORWEGIAN, KE Unavailable Unavailable + HILGAR Unavailable [address] + [place] [address] NORWEGIAN, KE Unavailable [address] + [place] [address] HILGAR Unavailable [address] + [place] [address] NORWEGIAN, KE Unavailable [address] + [place] [address] HILGAR Unavailable [address] + [place] [address] NORWEGIAN, KE Unavailable [address] + [place] [address] HILGAR Unavailable [address] + [place] [address] NORWEGIAN, KE Unavailable [address] + [place] [address] HILGAR Unavailable [address] + [place] [address] NORWEGIAN, KE Unavailable [address] + [place] [address] HILGAR Unavailable [address] + [place] [address] NORWEGIAN, KE Unavailable [address] + [place] [address] HILGAR Unavailable [address] + [place] [address] NORWEGIAN, KE Unavailable [address] + [place] [address] HILGAR Unavailable [address] + [place] [address] NORWEGIAN, KE Unavailable [address] + [place] [address] HILGAR Unavailable [address] + [place] [address] NORWEGIAN, KE Unavailable [address] + [place] [address] HILGAR Unavailable [address] + [place] [address] NORWEGIAN, KE Unavailable [address] + [place] [address] HILGAR Unavailable [address] + [place] [address] NORWEGIAN, KE Unavailable [address] + [place] [address] HILGAR Unavailable [address] + [place] [address] NORWEGIAN, KE Unavailable [address] + [place] [address] HILGAR Unavailable [address] + [place] [address] NORWEGIAN, KE Unavailable [address] + [place] [address] HILGAR Unavailable [address] + [place] [address] NORWEGIAN, KE Unavailable [address] + [place] [address] HILGAR Unavailable [address] + [place] [address] NORWEGIAN, KE Unavailable [address] + [place] [address] HILGAR Unavailable [address] + [place] [address] NORWEGIAN, KE Unavailable [address] + [place] [address] BROOKS CONTI Unavailable [address] + [place] [address] HILGAR Unavailable [address] + [place] [address] NORWEGIAN, KE Unavailable [address] + [place] [address] BROOKS CONTI Unavailable [address] + [place] [address] HILGAR Unavailable [address] + [place] [address] HILGAR Unavailable [address] + [place] [address] NORWEGIAN, KE Unavailable [address] + [place] [address] HILGAR Unavailable [address] + [place] [address] NORWEGIAN, KE Unavailable [address] + [place] [address] BROOKS CONTI Unavailable [address] + [place] [address] HILGAR Unavailable [address] + [place] [address] NORWEGIAN, KE Unavailable [address] + [place] [address] HILGAR Unavailable [address] + [place] [address] NORWEGIAN, KE Unavailable [address] + [place] [address] BROOKS CONTI Unavailable [address] + [place] [address] HILGAR Unavailable [address] + [place] [address] NORWEGIAN, KE Unavailable [address] + [place] [address] BROOKS CONTI Unavailable [address] + [place] [address] Care Team Providers Name Role Phone JENELLEVALERIANO ALO WILLOUGHBY Referring Unavailable CEBUL III, ANA A Referring Unavailable ARY TREJO (RELAY TELEGRAPHER) Referring Unavailable CEBUL III, ANA A Attending Unavailable CEBUL III, ANA A Referring Unavailable CEBUL III, ANA A Referring Unavailable CEBUL III, ANA A Referring Unavailable ARY TREJO (RELAY TELEGRAPHER) Attending Unavailable ARY TREJO (RELAY TELEGRAPHER) Attending Unavailable ARY TREJO (RELAY TELEGRAPHER) Referring Unavailable CEBUL III, ANA A Referring Unavailable JENNY LOUIS Attending Unavailable NYLA MANCUSO Referring Unavailable DOC, [facility] Primary Care Unavailable JENNY LOUIS Attending Unavailable NYLA MANCUSO Referring Unavailable DOC, [facility] Primary Care Unavailable LOVE OROSCO Attending Unavailable NYLA MANCUSO Referring Unavailable DOC, [facility] Primary Care Unavailable DONALD MACK Attending Unavailable NYLA MANCUSO Referring Unavailable DOC, [facility] Primary Care Unavailable Nyla Mancuso Attending Unavailable Cebul III, Ana Referring Unavailable Nyla Mancuso Attending Unavailable Cebul III, Ana Primary Care Unavailable Marcanthony, Nyla Referring Unavailable Marcanthony, Nyla Attending Unavailable Marcanthony, Nyla Referring Unavailable Cebul III, Ana Primary Care Unavailable Marcanthony, Nyla Attending Unavailable Marcanthony, Nyla Referring Unavailable Cebul III, Ana Primary Care Unavailable Marcanthony, Nyla Attending Unavailable Marcanthony, Nyla Referring Unavailable Cebul III, Ana Primary Care Unavailable Marcanthony, Nyla Attending Unavailable Cebul III, Ana Primary Care Unavailable Marcanthony, Nyla Referring Unavailable Marcanthony, Nyla Attending Unavailable Cebul III, Ana Referring Unavailable Marcanthony, Nyla Attending Unavailable Cebul III, Ana Referring Unavailable Marcanthony, Nyla Attending Unavailable Marcanthony, Nyla Referring Unavailable Cebul III, Ana Primary Care Unavailable Marcanthony, Nyla Attending Unavailable Marcanthony, Nyla Referring Unavailable Cebul III, Ana Primary Care Unavailable Marcanthony, Nyla Attending Unavailable Cebul III, Ana Referring Unavailable Marcanthony, Nyla Attending Unavailable Marcanthony, Nyla Referring Unavailable Cebul III, Ana Primary Care Unavailable Marcanthony, Nyla Admitting Unavailable Marcanthony, Nyla Attending Unavailable Marcanthony, Nyla Referring Unavailable Cebul III, Ana Primary Care Unavailable Marcanthony, Nyla Attending Unavailable Marcanthony, Nyla Referring Unavailable Cebul III, Ana Primary Care Unavailable Marcanthony, Nyla Consulting Unavailable Yahaira, Mary Attending Unavailable Cebul III, Ana Primary Care Unavailable Keyur Bates Attending Unavailable Cebul III, Ana Primary Care Unavailable Yahaira, Mary Consulting Unavailable Cebul III, Ana Primary Care Unavailable Aliza, Dariusz Admitting Unavailable Marcanthony, Nyla Consulting Unavailable Jopperi, Shalom Attending Unavailable Chavez, [place] Consulting Unavailable Aliza, Dariusz Admitting Unavailable Marcanthony, Nyla Attending Unavailable Cebul III, Ana Primary Care Unavailable Marcanthony, Nyla Consulting Unavailable Chavez, [place] Consulting Unavailable Jopperi, Shalom Consulting Unavailable Aliza, Dariusz Admitting Unavailable Cebul III, Ana Primary Care Unavailable Marcanthony, Nyla Consulting Unavailable Carolee Mobley Attending Unavailable Chavez, [place] Consulting Unavailable Jopperi, [place] Consulting Unavailable Aliza, Dariusz Admitting Unavailable Chavez, [place] Attending Unavailable Cebul III, Ana Primary Care Unavailable Marcanthony, Nyla Consulting Unavailable Chavez, [place] Consulting Unavailable Jopperi, Sh[place] Consulting Unavailable Marcanthony, Nyla Admitting Unavailable Marcanthony, Nyla Attending Unavailable Marcanthony, Nyla Referring Unavailable Cebul III, Ana Primary Care Unavailable Marcanthony, Nyla Consulting Unavailable Marcanthony, Nyla Admitting Unavailable Marcanthony, Nyla Attending Unavailable Marcanthony, Nyla Referring Unavailable Cebul III, Ana Primary Care Unavailable Marcanthony, Nyla Consulting Unavailable Marcanthony, Nyla Admitting Unavailable Marcanthony, Nyla Attending Unavailable Marcanthony, Nyla Referring Unavailable Cebul III, Ana Primary Care Unavailable Marcanthony, Nyla Consulting Unavailable Marcanthony, Nyla Admitting Unavailable [place], Nora Attending Unavailable Marcanthony, Nyla Referring Unavailable Cebul III, Ana Primary Care Unavailable Marcanthony, Nyla Consulting Unavailable Marcanthony, Nyla Admitting Unavailable [place], Nora Attending Unavailable Marcanthony, Nyla Referring Unavailable Cebul III, Ana Primary Care Unavailable Marcanthony, Nyla Consulting Unavailable Miguel, Nora Attending Unavailable Cebul III, Ana Referring Unavailable Miguel, Nora Attending Unavailable [place], Nora Referring Unavailable Cebul III, Ana Primary Care Unavailable Miguel, Nora Attending Unavailable Cebul III, Ana Referring Unavailable Miguel, Nora Attending Unavailable Cebul III, Ana Primary Care Unavailable [place], Nora Referring Unavailable David Umana Attending Unavailable Cebul III, Ana Primary Care Unavailable Marcanthony, Nyla Attending Unavailable Cebul III, Ana Referring Unavailable Cebul III, Ana Primary Care Unavailable Miguel, Nora Attending Unavailable Cebul III, Ana Referring Unavailable Jaki Garner D.C. Attending Unavailable Cebul III, Ana Referring Unavailable [place], Nora Attending Unavailable Cebul III, Ana Referring Unavailable Cebul III, Ana Primary Care Unavailable Miguel, Nora Attending Unavailable Cebul III, Ana Primary Care Unavailable Miguel, Nora Attending Unavailable Cebul III, Ana Primary Care Unavailable [place], Nora Attending Unavailable Cebul III, Ana Referring Unavailable Marcanthony, Nyla Attending Unavailable Cebul III, Ana Referring Unavailable Marcanthony, Nyla Attending Unavailable Marcanthony, Nyla Referring Unavailable Cebul III, Ana Primary Care Unavailable Cebul III, Ana Attending Unavailable Cebul III, Ana Attending Unavailable Marcanthony, Nyla Attending Unavailable Marcanthony, Nyla Referring Unavailable Cebul III, Ana Primary Care Unavailable Marcanthony, Nyla Attending Unavailable Cebul III, Ana Primary Care Unavailable Marcanthony, Nyla Attending Unavailable Cebul III, Ana Primary Care Unavailable Marcanthony, Nyla Attending Unavailable Cebul III, Ana Primary Care Unavailable Marcanthony, Nyla Consulting Unavailable Marcanthony, Nyla Attending Unavailable Cebul III, Ana Primary Care Unavailable Marcanthony, Nyla Consulting Unavailable Marcanthony, Nyla Attending Unavailable Cebul III, Ana Primary Care Unavailable Marcanthony, Nyla Consulting Unavailable Marcanthony, Nyla Attending Unavailable Cebul III, Ana Referring Unavailable Miguel, Nora Attending Unavailable Cebul III, Ana Referring Unavailable [place], Nora Attending Unavailable Cebul III, Ana Primary Care Unavailable [place], Nora Referring Unavailable PROBLEMS PROBLEMS DATE TYPE CONDITION / CODE ATTENDING STATUS SOURCE 06/27/2018 Unknown T81.42XD - Infection Miguel, Nora Active [place] following a Community procedure, deep Hospital incisional surgical Repository site, subsequent encounter / T81.42XD(ICD-10) 06/23/2018 Unknown R50.9 - Fever, Miguel, Nora Active [place] unspecified / Community R50.9(ICD-10) Hospital Repository 06/23/2018 Unknown O09.93 - Supervision [place], Nora Active [place] of high risk [facility] , Hospital unspecified, third Repository trimester / O09.93(ICD-10) 06/23/2018 Unknown G89.18 - Other acute Mgiuel, Nora Active [place] postprocedural pain Community / G89.18(ICD-10) Hospital Repository 06/12/2018 Unknown O09.90 - Supervision Marcanthony, Active [place] of high risk [facility] , Hospital unspecified, Repository unspecified trimester / O09.90(ICD-10) 06/12/2018 Unknown O16.9 - Unspecified Marcanthony, Active [place] maternal [facility] hypertension, Hospital unspecified Repository trimester / O16.9(ICD-10) 06/09/2018 Unknown O09.03 - Supervision Shawn, Active [place] of with [facility] history of Hospital infertility, third Repository trimester / O09.03(ICD-10) 06/09/2018 Unknown D47.01 - Cutaneous Marcanthony, Active [place] mastocytosis / [facility] D47.01(ICD-10) Hospital Repository 06/09/2018 Unknown R73.09 - Other Marcanthony, Active [place] abnormal glucose / [facility] R73.09(ICD-10) Hospital Repository 06/09/2018 Unknown O99.213 - Obesity Marcanthsavanna, Active [place] complicating [facility] , third Hospital trimester / Repository O99.213(ICD-10) 06/09/2018 Unknown Z3A.34 - 34 weeks Marcanthony, Active [place] gestation of [facility] / Hospital Z3A.34(ICD-10) Repository 06/09/2018 Unknown E03.9 - Marcanthony, Active [place] Hypothyroidism, [facility] unspecified / Hospital E03.9(ICD-10) Repository 06/05/2018 Unknown K76.89 - Other Marcanthony, Active [place] specified diseases [facility] of liver / Hospital K76.89(ICD-10) Repository 06/09/2018 Unknown R94.5 - Abnormal Marcanthony, Active [place] results of liver [facility] function studies / Hospital R94.5(ICD-10) Repository 05/25/2018 Active Pruritus, NA Active [place] unspecified / Clinic Main L29.9(ICD-10) [place] Repository 05/12/2018 Unknown Z34.90 - Encounter [place]Nora craig Active [place] for supervision of [facility] normal , Hospital unspecified, Repository unspecified trimester / Z34.90(ICD-10) 05/11/2018 Unknown Z3A.32 - 32 weeks [place], Nora Active [place] gestation of [facility] / Hospital Z3A.32(ICD-10) Repository 05/11/2018 Unknown H04.69 - Other [place], Nora Active [place] changes of lacrimal Community passages / Hospital H04.69(ICD-10) Repository 05/11/2018 Unknown O35.8XX0 - Maternal Miguel, Nora Active [place] care for other [facility] (suspected) Hospital abnormality and Repository damage, not applicable or unspecified / O35.8XX0(ICD-10) 05/11/2018 Unknown R74.8 - Abnormal Miguel, Nora Active [place] levels of other [facility] serum enzymes / Hospital R74.8(ICD-10) Repository 05/11/2018 Unknown R55 - Syncope and [place], Nora Active [place] collapse / Community R55(ICD-10) Hospital Repository 04/26/2018 Unknown Z3A.30 - 30 weeks Marcanthony, Active [place] gestation of [facility] / Hospital Z3A.30(ICD-10) Repository 04/26/2018 Unknown O46.90 - Antepartum Marcanthony, Active [place] hemorrhage, [facility] unspecified, Hospital unspecified Repository trimester / O46.90(ICD-10) 04/26/2018 Unknown O99.210 - Obesity Marcanthony, Active [place] complicating [facility] , Hospital unspecified Repository trimester / O99.210(ICD-10) 04/18/2018 Unknown L50.8 - Other Marcanthony, Active [place] urticaria / [facility] L50.8(ICD-10) Hospital Repository 03/30/2018 Unknown O09.02 - Supervision Marcanthony, Active [place] of with [facility] history of Hospital infertility, second Repository trimester / O09.02(ICD-10) 03/30/2018 Unknown Z34.02 - Encounter Marcanthony, Active [place] for supervision of [facility] normal [facility] Hospital , second Repository trimester / Z34.02(ICD-10) 03/30/2018 Unknown Z3A.26 - 26 weeks Marcanthony, Active [place] gestation of [facility] / Hospital Z3A.26(ICD-10) Repository 03/30/2018 Unknown Z23 - Encounter for Marcanthony, Active [place] immunization / [facility] Z23(ICD-10) Hospital Repository 03/01/2018 Active Endocrine, NA Active [place] nutritional and [facility] Main metabolic diseases [place] complicating Repository , unspecified trimester / O99.280(ICD-10) 03/01/2018 Unknown Z34.01 - Encounter [place] craig Active [place] for supervision of [facility] normal [facility] Hospital , first Repository trimester / Z34.01(ICD-10) 03/01/2018 Unknown Z3A.21 - 21 weeks Miguel, Molly Active [place] gestation of Community / Hospital Z3A.21(ICD-10) Repository 01/25/2018 Unknown O09.00 - Supervision Nora Rivera Active [place] of with Community history of Hospital infertility, Repository unspecified trimester / O09.00(ICD-10) 01/23/2018 Active Encounter for NA Active [place] screening for lipoid Clinic Main disorders / [place] Z13.220(ICD-10) Repository 01/21/2018 Active Encounter for NA Active [place] screening for Clinic Main diabetes mellitus / [place] Z13.1(ICD-10) Repository 09/16/2017 Active Hypothyroidism, NA Active [place] unspecified / Clinic Main E03.9(ICD-10) [place] Repository 09/16/2017 Active Vitamin D Active [place] deficiency, Clinic Main unspecified / [place] E55.9(ICD-10) Repository 08/29/2017 Unknown 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, 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 / Hospital Q82.2(ICD-10) Repository PROCEDURES PROCEDURES No Procedure Records FoundRESULTS RESULTS WOUND CTR HISTORY Observed: 06/29/2018 Status: F Source: [place] AND PHYSICAL 6:52 PM [facility] REPOSITORY [facility] W[facility] Center [address] [place] [address] Wound Ctr History AND Physical 06/28/18 1228 MR#: [id number] Acct: [id number] Name: HILARIO TRAMMELL Rep #: [id number] : 1990 28 From: David Umana MD PCP: Ana Tucker III, MD Status: REG RCR Y Location: (1) Surgical wound dehiscence Status: Acute Current Visit: Yes Code(s): T81.31XA - Disruption of external operation (surgical) wound, not elsewhere classified, initial encounter History of Present Illness Chief Complaint: Surgical wound breakdown. History of Wound: Ms. Trammell is a 28-year-old status post a section on 17 June who noted breakdown of her wound on 24 June and was subsequently referred here by her municipal firefighter. Initially noted some pain and redness around the area before he subsequently broke open. She was seen by her municipal firefighter and had culture taken. She also had the wound packed. She has noticed significant drainage from the wound. She denies chills, fever, nausea or vomiting. She however is on antibiotics prescribed by her municipal firefighter. Her new born daughter is also been managed at the intensive care unit at [facility] due to E. coli sepsis. Past Medical History Past Medical History: Chronic Problems (Last Reviewed 06/26/18 @ 16:11 by Agnes Echeverria) Cutaneous mastocytosis (Chronic) Surgical History: noncontributory Allergies/Adverse Reactions: Allergies No Known Allergies Allergy (Verified 06/28/18 11:04) Home Medications: Ambulatory Orders Medication Instructions Recorded Cetirizine HCl [Zyrtec] 10 mg PO QHS 08/27/16 Smoking Status: Never smoker Review of Systems Constitutional: Denies: Anorexia, Chills, Malaise, Weakness HEENT: Denies: Difficulty Hearing, Difficulty Swallowing Cardiovascular: Denies: Chest Pain, Chest Pressure Respiratory: Denies: Hemoptysis Gastrointestinal: Denies: Hematemesis, Vomiting Genitourinary: Denies: Hematuria Skin: Denies: Jaundice - Physical Exam Vital Signs Temp Pulse Resp BP 97.7 F L 93 20 H 139/83 H 06/28/18 10:41 06/28/18 10:41 06/28/18 10:41 06/28/18 10:41 General: Alert, Oriented x3, Cooperative, No apparent distress HEENT: Atraumatic, Normocephalic Oral: Moist Mucosa Neck: Supple Lungs: Normal air movement Cardiovascular: Regular rate, Regular Rhythm Abdomen: Soft, Obese Extremities: No cyanosis Skin: Ulcer/ Wound Wound Measurements and Assessment WC - Nurse 1 - General Ulcer Measurement Start: 06/28/18 10:39 Freq: Status: Active Protocol: Activity Type Activity Date Activity User E-Sign Co-Sign Detail Recorded Client Recorded Date Recorded By Document 06/28/18 10:41 DL [id number] 06/28/18 11:00 DL Wound Center Nurse 1 [Ulcer Assessment] #1 Lower Abd -Current Size (cm) - Length 1 -Current Size (cm) - Width 7.7 -Current Size (cm) - Depth 3.8 -Total Square Cm 7.7 WC - Nurse 2 - General Ulcer CM Notes Start: 06/28/18 10:39 Freq: Status: Active Protocol: Activity Type Activity Date Activity User E-Sign Co-Sign Detail Recorded Client Recorded Date Recorded By Document 06/28/18 11:19 MW [id number] 06/28/18 11:30 MW Musculoskeletal: No Muscle Wasting Neurological: Cranial nerves II-XII grossly intact Psych/Mental Status: Normal Affect Debridement Note Post-Debridement Measurements/Treatment WC - Nurse 2 - General Ulcer CM Notes Start: 06/28/18 10:39 Freq: Status: Active Protocol: Activity Type Activity Date Activity User E-Sign Co-Sign Detail Recorded Client Recorded Date Recorded By Document 06/28/18 11:19 MW [id number] 06/28/18 11:30 MW Wound Center Nurse 2 #1 Lower Abd -Time 11:22 -Correct Patient Yes -Correct Side, Site, Position Yes Wound debrided: Lower abdominal Wound Grade/Stage: Stage III Type of Debridement: Excisional debridement Anesthesia Used: 4% Lidocaine Solution Depth: Down to and including healthy tissue, in the subcutaneous layer Percentage of wound debrided: 100 Instrument Used: 5mm curette Tissue Removed: Slough, devitalized tissue, purulent material. Severity: Fat Layer Exposed Amount of bleeding with debridement: Mild Bleeding Controlled with: Pressure Patient tolerated procedure well Assessment/Plan Active Problems (Last Reviewed 06/26/18 @ 16:11 by Agnes Echeverria) Surgical wound dehiscence (Acute) Assessment: Surgical wound dehiscence with possible postsurgical infection. E. coli sepsis. Plan: Debridement done as documented above. Procedure was well-tolerated. Significant drainage and purulence substance noted in the wound. Also with significant depth and friable skin. I believe she will benefit significantly from a wound VAC. Application on the way. Culture has been taken by her municipal firefighter, will await results. For now Aquacel AG daily to twice daily (depending on drainage) with Adaptic over top. Increased protein intake recommended. Continue current antibiotic for now. She was advised to call with any further questions or concerns otherwise, follow-up in 1 week. 06/29/18 [id number] <Electronically signed by David Umana MD> Date David Umana MD CC: Signed Observed: 06/26/2018 Status: P Source: PATY CULTURE, SURGERY DEEP 5:23 PM [facility] WOUND REPOSITORY List Antibiotics Last 48 Hours? UNK List Antibiotics to be Started? UNK Gram Stain Gram Stain 3+ White Blood Cells 2+ Gram positive cocci 2+ Red Blood Cells Wound Culture ORGANISM 1: Escherichia coli Amount Growth 1+ Escherichia coli: REACTION Ampicillin $ >=32 R Ampicillin/Sulbactam $ >=32 R Cefazolin $ <=4 S Cefepime $ <=0.12 S Ceftazidime *NF <=1 S Ceftriaxone $ <=0.25 S Ciprofloxacin $ <=0.25 S Ertapenim $$$ <=0.12 S ESBL NEG Gentamicin $ <=1 S Imipenem *NF <=0.25 S Levofloxacin $ <=0.12 S Piperacillin/Tazobactam $$ <=4 S Tobramycin $ <=1 S Trimethoprim/Sulfametho $ <=20 S (NF) indicates non-formulary drug at [facility]. Approval by Infectious Disease Specialist required before non-formulary drugs may be ordered and/or dispensed. Cult, Anaerobic Studies have confirmed that Anaerobic Gram Positive Cocci are routinely susceptible to: Penicillin/Ampicillin, Ampicillin/Sulbactam, Piperacillin/Tazobactam, Cefoxatin, Ertapenem, Imipenem, Meropenem and Metronidazole and vary in resistance to: Clindamycin and Moxifloxacin. ORGANISM 1: Anaerobic cocci Performed By: #### M100.1550 #### [facility] [address] [place], [address] SERVICE CENTER APPRAISER OFFICE VISIT Observed: 06/26/2018 Status: F Source: PATY REPORT 4:49 PM [facility] REPOSITORY [facility] [address] [place] [address] OFFICE VISIT Date of Service: 06/26/18 MR#: [id number] Acct: [id number] Name: HILARIO TRAMMELL Matilda Rep #: [id number] : 1990 Provider: PETRA Rivera Age/Sex: 28/F Location: [facility] Status: Signed Intake Vital Signs06/26/18 Body Mass Index (BMI) 44.1 06/26/18 Height 5 ft 5 in 06/26/18 Weight: 246 lb 06/26/18 Body Mass Index (BMI) 40.9 06/26/18 Blood Pressure 146/66 H H 06/26/18 Temperature 98.5 F Intake Visit Reasons: C/S site drainage Heel Seat Laster Required: No Accompanied by: Is patient in pain?: Yes Pain scale (1-10): 5 Allergies No Known Allergies Allergy (Verified 06/26/18 16:13) Medications Cetirizine HCl [Zyrtec] 10 mg PO QHS 08/27/16 [History Confirmed 06/26/18] Epinephrine [Epipen 2-Mika] 1 ml SQ PRN PRN 08/27/16 [History Confirmed 06/26/18] Ranitidine [Zantac] 150 mg PO BID 08/27/16 [History Confirmed 06/26/18] docosahexanoic acid 200 mg capsule 200 mg PO DAILY 12/28/17 [History Confirmed 06/26/18] levothyroxine 150 mcg tablet 150 mcg PO DAILY #30 tab 12/28/17 [Rx Confirmed 06/26/18] Vits [Prenatabs FA] 1 tab PO DAILY 04/09/18 [History Confirmed 06/26/18] sertraline 50 mg tablet 50 mg PO DAILY 05/24/18 [History Confirmed 06/26/18] blood pressure monitor kit See Dose Instructions .ROUTE .MEDSUPPLY #1 ea 06/12/18 [Rx Confirmed 06/26/18] Naproxen [Naprosyn] 500 mg PO BID PRN PRN #60 tab 06/19/18 [Rx Confirmed 06/26/18] oxycodone-acetaminophen 5 mg-325 mg tablet 1 - 2 tab PO Q4H PRN PRN 7 Days #28 tab 06/21/18 [Rx Confirmed 06/26/18] clindamycin HCl 300 mg capsule 300 mg PO TID #30 cap 06/23/18 [Rx Confirmed 06/26/18] fluconazole 150 mg tablet 150 mg PO .COMPLEX #2 tab 06/23/18 [Rx Confirmed 06/26/18] Is last menstrual period known: No Post menopausal: No Patient : No PFSH Medical History GERD (gastroesophageal reflux disease) (Acute) Hyperthyroidism (Acute) Mastocytosis (Acute) Family History Mother Breast cancer Father Skin cancer Social History Smoking Status: Never smoker substance use type: does not use caffeine: No what type of physical activity do you participate in: walking frequency: 1-2 times per week seatbelt use: always do you feel safe at home: Yes additional social history: - [employer] 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 Baby in [place], E coli and on antibiotics. Patient with fever at time of surgery. Pregancy History 1 Elective abortions Hx Para 1 Spontaneous abortions Past Pregnancies Del. DatName GA/WeeksOutcome Route [facility] LocaProviderFOB e ht en th ia tn 06/15/18Emersyn 37 live birC-sectio7 lbs 10Female epiduralWCH WOO th - fuln oz l term Delivery Date: 06/15/18 On 06/19/18 @ 11:13 Terra Lares HAT BLOCKER; FTP; CPD, Cat III tracing, chorioamnionitis preeclampsia Exam Const General: cooperative, no acute distress Nutritional Appearance: well nourished, obese Orientation: oriented x3 GI Other: Incision persists with firm edema and erythema above it and clear watery fluid from incision. Patient examined per Dr. Mancuso and with minimal palpation 4cm of incision spontaneously opened and moderate amount cloudy mucoid drainage. Area was cleaned and then packed with packing tape. Patient tolerated well Assessment AND Plan Problems 1. Dehiscence of operative wound, initial encounter T81.31XA 2. Infection of deep incisional surgical site after procedure, subsequent encounter T81.42XD Plan Finish clindamycin. Wound culture collected. Instructed on care of area Will schedule for close follow up with wound center in next 48 hours. Call if increase in drainage, pain or fever. Coding Level of Care Code No Charge Diagnoses Dehiscence of operative wound, initial encounter T81.31XA Encounter type: initial encounter Infection of deep incisional surgical site after procedure, subsequent encounter T81.42XD Encounter type: subsequent encounter Postoperative infection type: deep incisional surgical site 06/26/18 1649 <Electronically signed by Nora Rivera RELAY TELEGRAPHER-C> Date Nora Rivera RELAY TELEGRAPHER-C Cosigner Signature: Date (if applicable) CC: CBC W/DIFF, AUTOMATED Collected: 06/23/2018 Status: F Source: PATY 1:20 PM [facility] REPOSITORY TYPE CODE TESTS RESULT OUT OF RANGE REFERENCE UNITS LAB L100.1000 4.4-11.0 K/mm3 High WBC 12.5 LAB L100.1200 4.2-5.4 M/mm3 Low RBC 3.33 LAB L100.1300 12.0-15.0 g/dl Low HGB 10.0 LAB L100.1400 37-47 % Low HCT 31.9 LAB L100.1500 81-99 fL Normal MCV 95.8 LAB L100.1600 27.0-32.0 pg Normal MCH 30.0 LAB L100.1700 32-36 g/gl Low MCHC 31.3 LAB L100.1810 11.6-14.6 % Normal RDW CV 14.4 LAB L100.1820 35.1-43.9 fl High RDW SD 50.8 LAB L100.1900 150-450 K/mm3 High PLT 484 LAB L100.2000 6.2-12.0 fl Normal MPV 9.4 LAB L100.2100 47-70 % High NEUT% 73.8 LAB L100.2200 19-41 % Low LY% 15.8 LAB L100.2300 0-10 % Normal MONO% 8.0 LAB L100.2400 0-5 % Normal EO% 1.0 LAB L100.2500 0-1 % Normal BASO% 0.4 LAB L100.2550 0.0-0.9 % High IM GRAN % 1.000 Result Comment: IG% - Immature Granulocytes (promyelocytes, myelocytes and metamyelocytes) > 1% indicates that a LEFT SHIFT is Present. LAB L100.2620 2.0-7.7 X10 3/uL High Absolute Neut 9.2 LAB L100.2720 0.83-4.51 X10 3/ul Normal Absolute Lymph 1.98 LAB L100.4600 % Normal ATYPICAL LYMPH 1+ LAB L100.5500 ADEQ PLT Normal EST SLT INC Performed By: #### L100.0100 #### [facility] [address] [place], [address] SERVICE CENTER APPRAISER OFFICE VISIT Observed: 06/23/2018 Status: F Source: [place] REPORT 1:10 PM [facility] REPOSITORY [facility] [address] [place] [address] OFFICE VISIT Date of Service: 06/23/18 MR#: [id number] Acct: [id number] Name: HILARIO TRAMMELL Matilda Rep #: [id number] : 1990 Provider: PETRA Rivera Age/Sex: 28/F Location: [facility] Status: Signed Intake Vital Signs06/23/18 Body Mass Index (BMI) 44.1 06/23/18 Weight: 260 lb 06/23/18 Blood Pressure 118/76 Intake Visit Reasons: redness, swelling and pain at C/S site. Heel Seat Laster Required: No Accompanied by: Is patient in pain?: No Allergies No Known Allergies Allergy (Verified 06/23/18 12:52) Medications Cetirizine HCl [Zyrtec] 10 mg PO QHS 08/27/16 [History Confirmed 06/23/18] Epinephrine [Epipen 2-Mika] 1 ml SQ PRN PRN 08/27/16 [History Confirmed 06/23/18] Ranitidine [Zantac] 150 mg PO BID 08/27/16 [History Confirmed 06/23/18] docosahexanoic acid 200 mg capsule 200 mg PO DAILY 12/28/17 [History Confirmed 06/23/18] levothyroxine 150 mcg tablet 150 mcg PO DAILY #30 tab 12/28/17 [Rx Confirmed 06/23/18] Vits [Prenatabs FA] 1 tab PO DAILY 04/09/18 [History Confirmed 06/23/18] sertraline 50 mg tablet 50 mg PO DAILY 05/24/18 [History Confirmed 06/23/18] blood pressure monitor kit See Dose Instructions .ROUTE .MEDSUPPLY #1 ea 06/12/18 [Rx Confirmed 06/23/18] Naproxen [Naprosyn] 500 mg PO BID PRN PRN #60 tab 06/19/18 [Rx Confirmed 06/23/18] oxycodone-acetaminophen 5 mg-325 mg tablet 1 - 2 tab PO Q4H PRN PRN 7 Days #28 tab 06/21/18 [Rx Confirmed 06/23/18] clindamycin HCl 300 mg capsule 300 mg PO TID #30 cap 06/23/18 [Rx Confirmed 06/23/18] fluconazole 150 mg tablet 150 mg PO .COMPLEX #2 tab 06/23/18 [Rx Confirmed 06/23/18] Is last menstrual period known: No Post menopausal: No Patient : No : Yes [facility] Medical History GERD (gastroesophageal reflux disease) (Acute) Hyperthyroidism (Acute) Mastocytosis (Acute) Family History Mother Breast cancer Father Skin cancer Social History Smoking Status: Never smoker substance use type: does not use caffeine: No what type of physical activity do you participate in: walking frequency: 1-2 times per week seatbelt use: always do you feel safe at home: Yes additional social history: - Ke- [employer] 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 : Details: HILARIO TRAMMELL is a 28 year old who presents for postop pain incision and abdomen C section 6 days ago. Baby in [place], e coli infection and IV antibiotics. Note patient with low grade temp. Pregancy History 1 Elective abortions Hx Para 1 Spontaneous abortions Past Pregnancies Del. DatName GA/WeeksOutcome Route [facility] LgAnestheIDel LocaProviderFOB e ht en th ia tn 06/15/18Emersyn 37 live birC-sectio7 lbs 10Female epiduralWCH WOO th - fuln oz l term Delivery Date: 06/15/18 On 06/19/18 @ 11:13 Terra Lares HAT BLOCKER; FTP; CPD, Cat III tracing, chorioamnionitis preeclampsia Exam Const General: cooperative, no acute distress Orientation: oriented x3 GI Inspection: incision (Healing without erythema, edema. ) Palpation: firm in the LLQ and in the RLQ, other (cellulitis in appearance, warm to touch. Right worse then left) Assessment AND Plan Problems 1. Cellulitis of other specified site L03.818 Plan Rx clindamycin CBC continue prescribed pain meds. Force fluids RTO 1 week, prn worsening symptoms Orders Orders: Medications New: Coding Level of Care Code No Charge Diagnoses Cellulitis of other specified site L03.818 Site of cellulitis: other site 06/23/18 1310 <Electronically signed by Nora BARROW> Date Nora BARROW Cosigner Signature: Date (if applicable) CC: DISCHARGE SUMMARY Observed: 06/23/2018 Status: F Source: [place] 11:18 AM [facility] REPOSITORY [facility] Medical Records Department [address] [place] [address] Discharge Summary 06/23/18 1115 MR#: [id number] Acct: [id number] Name: HILARIO TRAMMELL Rep #: [id number] : 1990 28 From: Nora BARROW PCP: Ana Tucker III, MD Status: DIS IN Y Location: [id number] Discharge Date and Diagnosis Date of Admission: 12/12/17 - Secondary Discharge Diagnosis Chronic Problems (Last Reviewed 06/09/18 @ 12:04 by Terra Lares) Cutaneous mastocytosis (Chronic) Hospital Course and Treatment Consultations 06/15/18 07:04 Consult: Anesthesia Routine Comment: Reason For Exam: Operations: None Summary of Care Provided: The patient is a 28 year old F primary c section. Fail to progress. Routine postop course. DC home - Physical Exam Vital Signs Temp Pulse Resp BP Pulse Ox 98.1 F 102 H 18 119/71 94 06/19/18 08:05 06/19/18 08:05 06/19/18 08:05 06/19/18 08:05 06/19/18 08:05 Oxygen Delivery Method Room Air Weight: 265 lb 6 oz Body Mass Index (BMI) 44.1 Home Medications: Medications to take at Discharge Cetirizine HCl [Zyrtec] 10 mg PO QHS 08/27/16 Epinephrine [Epipen 2-Mika] 1 ml SQ PRN PRN 08/27/16 Ranitidine [Zantac] 150 mg PO BID 08/27/16 docosahexanoic acid 200 mg capsule 200 mg PO DAILY 12/28/17 levothyroxine 150 mcg tablet 150 mcg PO DAILY #30 tab 12/28/17 Vits [Prenatabs FA] 1 tab PO DAILY 04/09/18 sertraline 50 mg tablet 50 mg PO DAILY 05/24/18 blood pressure monitor kit See Dose Instructions .ROUTE .MEDSUPPLY #1 ea 06/12/18 Naproxen [Naprosyn] 500 mg PO BID PRN PRN #60 tablet 06/19/18 oxycodone-acetaminophen 5 mg-325 mg tablet 1 - 2 tab PO Q4H PRN PRN 7 Days #28 tab 06/21/18 Following Prescrptions Were Given to Patient: Naproxen [Naprosyn] 500 mg PO BID PRN PRN #60 tablet PRN Reason: Pain Primary Care Physician: Ana Tucker III, MD [Primary Care Provider] - Medical Necessity - Tobacco Use Smoking Status: Never smoker Meaningful Use Info Meaningful Use Diagnoses (Choose all that apply): None applicable 06/23/18 1118 <Electronically signed by Nora BARROW> Date Nora BARROW Cosigner Signature (if applicable): Date CC: PETRA Rivera; Ana Tucker III, MD Signed DISCHARGE INSTRUCTION Observed: 06/19/2018 Status: F Source: PATY 8:14 AM [facility] REPOSITORY [facility] Medical Records Department [address] [place] [address] Instructions for Home/Discharge Instructions 06/19/18 0814 MR#: [id number] Acct: [id number] Name: HILARIO TRAMMELL Rep #: [id number] : 1990 28 From: Nora Rivera NP-[place] PCP: Ana Tucker III, MD Status: ADM IN Additional Instructions: If you experience any of the following, contact your healthcare provider. * Bleeding that soaks a pad every hour for 2 hours * Fever 100.4 or higher * Unrelieved incision or abdominal pain * Swelling, redness, discharge or bleeding from your incision or episiotomy site * Your incision begins to separate * Problems urinating (including inability to urinate or burning while urinating). * Visual changes * Severe headache * Flu-like symptoms * Pain or redness in one of both of your breasts * Pain, warmth, tenderness or swelling in your legs, especially the calf area * Frequent nausea and vomiting * Symptoms of depression or anxiety If you experience any of the following, call 911 or go to the nearest Emergency Room. * Chest pain * Problems breathing * Seizure activity * Partial or complete paralysis of a body part, slurred speech, weakness or drooping of the face, or a sudden inability to walk or hold your balance Allergies/Adverse Reactions: Allergies No Known Allergies Allergy (Verified 06/09/18 12:04) Medications to take at Discharge Cetirizine HCl [Zyrtec] 10 mg PO QHS 08/27/16 Epinephrine [Epipen 2-Mika] 1 ml SQ PRN PRN 08/27/16 Ranitidine [Zantac] 150 mg PO BID 08/27/16 docosahexanoic acid 200 mg capsule 200 mg PO DAILY 12/28/17 levothyroxine 150 mcg tablet 150 mcg PO DAILY #30 tab 12/28/17 Vits [Prenatabs FA] 1 tab PO DAILY 04/09/18 sertraline 50 mg tablet 50 mg PO DAILY 05/24/18 blood pressure monitor kit See Dose Instructions .ROUTE .MEDSUPPLY #1 ea 06/12/18 Naproxen [Naprosyn] 500 mg PO BID PRN PRN #60 tablet 06/19/18 Oxycodone HCl/Acetaminophen [Percocet 5/325] 1 - 2 tablet PO Q4H PRN PRN 3 Days #15 tablet 06/19/18 Oxycodone HCl/Acetaminophen [Percocet 5/325] 1 - 2 tablet PO Q4H PRN PRN 3 Days #15 tablet 06/19/18 The following prescriptions were given: Oxycodone HCl/Acetaminophen [Percocet 5/325] 1 - 2 tablet PO Q4H PRN PRN 3 Days #15 tablet PRN Reason: Pain Oxycodone HCl/Acetaminophen [Percocet 5/325] 1 - 2 tablet PO Q4H PRN PRN 3 Days #15 tablet PRN Reason: Pain Naproxen [Naprosyn] 500 mg PO BID PRN PRN #60 tablet PRN Reason: Pain Follow-Up: Call to make an appointment with your doctor for an incision check in 1-2 weeks. You will also need a 6 week post- follow up appointment. Test results from this visit will be discussed in further detail at your follow-up appointment, if applicable. Primary Care Physician: Ana Tucker III, MD [Primary Care Provider] - 06/19/1814 <Electronically signed by Nora BARROW> Date Nora BARROW CC: Ana Tucker III, MD Signed CBC-COMPLETE BLOOD CNT Collected: 06/18/2018 Status: F Source: PATY NO DIFF 6:00 AM [facility] REPOSITORY Order Comment: Comments: Day #1 Reason for Laboratory Test TYPE CODE TESTS RESULT OUT OF RANGE REFERENCE UNITS LAB L100.1000 4.4-11.0 K/mm3 High WBC 23.5 LAB L100.1200 4.2-5.4 M/mm3 Low RBC 3.26 LAB L100.1300 12.0-15.0 g/dl Low HGB 10.0 LAB L100.1400 37-47 % Low HCT 31.3 LAB L100.1500 81-99 fL Normal MCV 96.0 LAB L100.1600 27.0-32.0 pg Normal MCH 30.7 LAB L100.1700 32-36 g/gl Low MCHC 31.9 LAB L100.1810 11.6-14.6 % Normal RDW CV 14.6 LAB L100.1820 35.1-43.9 fl High RDW SD 51.5 LAB L100.1900 150-450 K/mm3 Normal PLT 233 LAB L100.2000 6.2-12.0 fl Normal MPV 10.7 Performed By: #### L100.0500 #### [facility] [address] [facility] [place], [address] PATHOLOGY SPECIMEN OB Collected: 06/17/2018 Status: F Source: [place]ANCOCK 3:52 PM [facility] REPOSITORY Order Comment: Comments: maternal fever Reason for Laboratory Test Placenta for Lab studies Send Specimen For (Specify): Studies @ [facility] Lab:Routine Time of Procedure: 1315 Date of Procedure: 06/17/18 Reason specimen being sent to pathology (Hx/complications): maternal fever Type of specimen: Placenta Type of procedure performed: TYPE CODE TESTS RESULT OUT OF RANGE REFERENCE UNITS LAB L350.1800 SEE Normal PATH. PATHOLOGY Spec. OB REPORT Result Comment: Specimen submitted to Anatomical Pathology Department for testing. Performed By: #### L350.1800 #### [facility] [address] [facility] [place], [address] OPERATIVE REPORT Observed: 06/17/2018 Status: F Source: [place] 2:19 PM [facility] REPOSITORY [facility] Medical Records Department [address] [place] [address] Operative Report 06/17/18 1310 MR#: [id number] Acct: [id number] Name: HILARIO TRAMMELL Rep #: [id number] : 1990 28 From: Nyla Mancuso MD PCP: Ana Tucker III, MD Status: ADM IN [id number] Problem List (1) Preeclampsia Status: Acute Qualifiers: Comment: deliver at 37. home bp monitoring, nst tuesday reactive, labs and growth scan (2) Pruritus Status: Acute Comment: Check bile acids every 2-4 weeks prn, liver enzymes every 1-2 weeks prn (3) Abnormal liver function Status: Acute Comment: repeat WNL. Bile acids ordered (4) Congenital dacryocystocele Status: Acute Comment: BPP and anatomy weekly after 32 weeks (5) Obesity affecting Status: Acute Qualifiers: Comment: health weight gain (6) Supervision of high-risk Status: Acute Qualifiers: Comment: PRR FRANCISCO 07/06/18 Girl Mendez Ke ANU [facility], IVF (7) abn NEC-antepar Status: Acute Comment: Fetus with dacryocystocele (8) Vaginal bleeding during Status: Acute (9) Elevated glucose tolerance test Status: Acute Comment: Normal 3 hr gtt (10) screening encounter Status: Acute Comment: Counsyl- negative (11) Status: Acute Qualifiers: Comment: nipt normal. anatomy scan normal. 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 Status: Acute Qualifiers: Comment: ivf ; urine culture negative 11/30/2017 at [facility] (14) Cutaneous mastocytosis Status: Chronic (15) Failed induction of labor Status: Acute (16) Arrest of dilation, delivered, current hospitalization Status: Acute Report of Operation Date of Procedure: 06/17/18 Pre-Operative Diagnosis: Failed induction, arrest of dilation at 5 cm, category 2 tracing persistent, suspected cephalopelvic disproportion Post-Operative Diagnosis: Same Surgery/Procedure Performed:: Primary low transverse Description of Surgical Findings:: Cephalopelvic disproportion, uterine atony with suspected triple I cutting machine offbearer: Sergey Magallon Type of Anesthesia:: Epidural Special Medications: amp, gent, clinda, azithro Specimen's removed: female Drains: conrad Estimated Blood Loss (mL): 700 Fluids Replaced: crystalloid Description of Procedure: 28-year-old at 37 weeks presents for induction of labor secondary to preeclampsia. Estimated weight was 8 pounds 10 ounces to 9 pounds based on recent ultrasound. BMI is 44. Induction of labor was done with 24 hours of Cytotec followed by Pitocin and a Conrad bulb. Pitocin was utilized for a total of 27 hours with 2 Pitocin washouts. Patient was ruptured for 20 hours. 2 hours prior to delivery patient developed persistent maternal fever plus maternal and tachycardia. The patient had no cervical change past 5 cm for 4 hours with contractions. Decision for primary secondary due to failed induction and arrest of dilation, persistent category 2 tracing. The patient's pelvic outlet is quite narrow and therefore I suspect cephalopelvic disproportion. The patient was placed in the dorsal supine position with leftward tilt. Patient was prepped and draped in the normal sterile fashion. Pfannenstiel skin incision was made with the scalpel and carried through to the underlying layer of fascia with the scalpel. Fascia was nicked in the midline and the incision extended laterally. The rectus bellies were dissected off superiorly and inferiorly with out complication both sharply and bluntly. The peritoneum was entered digitally. The incision was stretched and a low transverse uterine incision was made with the scalpel. The 's head was delivered atraumatically followed by the anterior and posterior shoulders without complication the rest of the delivered. The cord was clamped and cut and the infant was handed off to awaiting nurse. The placenta was delivered spontaneously immediately following and was noted to be intact and have a three-vessel cord. The uterus was exteriorized cleared of all clots and debris, and the incision was closed in a double layer closure using #1 Monocryl. The uterus was returned to the maternal abdomen and gutters were cleared of all clots and debris. The ovaries and fallopian tubes were noted to be within normal limits. The peritoneum was closed with 3-0 Monocryl in a running fashion. Fascia was closed with 0 PDS in a running fashion. Subcutaneous tissue was copiously irrigated and the skin was closed with 3-0 Monocryl in a subcuticular fashion. Steri-Strips and Mepilex dressing were applied without complication. Patient was taken to recovery in stable condition. Grafts/Implants Used: none - Complications none - Admit VTE Documentation VTE Present on Admission: No 06/17/18 1419 <Electronically signed by Nyla Mancuso MD> Date Nyla Mancuso MD CC: Ana Tucker III, MD; Nyla Mancuso MD Signed PLACENTA Observed: 06/17/2018 Status: F Source: PATY 1:16 PM [facility] REPOSITORY Patient: HILARIO TRAMMELL : 1990 (28/F) Acct Num: [id number] Phys: Shawn ANNE,Nyla Unit Num: [id number] Loc: WP NZ558-4 Specimen: [id number] Received: 06/17/181599 Spec Type: PLACENTA TISSUES 1 TISSUES: Placenta, NOS GROSS DESCRIPTION SPECIMEN: PLACENTA / CLINICAL INFORMATION: A. Weight: 3.535 kg B. Gestational Age: 37 weeks C. Sex: Female PLACENTAL WEIGHT (POST FIXATION): 802 gm PLACENTAL DIMENSIONS: 20 x 17 x 4 cm, succenturiate lobe measures 1.5 x 1.5 x 0.3 cm PLACENTAL SHAPE: Usual ovoid with a small succenturiate lobe PLACENTAL WEIGHT FOR GESTATIONAL AGE: >99th percentile MEMBRANES - Present A. Insertion: Marginal B. Site of rupture from edge: At edge of placental disc C. Color of membrane: Junior-worthington D. Abnormalities: None UMBILICAL CORD - Present A. Color: Junior-worthington B. Insertion: Paracentral C. Length: 26 cm D. Diameter: 1.6 cm E. Number of vessels: Three F. Abnormalities: None PLACENTAL DISC - Present A. Color of surface: Junior-worthington B. surface abnormalities: None C. Maternal cotyledons: Intact with minimal tears. Maternal surface also shows increased calcification in the peripheral areas. D. Attached retro placental clot: No clot E. Cut surface: Dark red and spongy F. Lesions: Sections reveal three junior, indurated areas measuring 1.5 to 2 cm in greatest dimension. G. Separate clot: Absent SECTIONS SUBMITTED: 1. Membrane roll 2. Cord, maternal end, succenturiate lobe 3. Cord, end, succenturiate lobe 4. Placental disc, and maternal surfaces, two lesions 5. Placental disc, and maternal surfaces, one lesion 6. Placental disc, and maternal surfaces 7. Placental disc, and maternal surfaces 8. Placental disc, and maternal surfaces SJ:reginald 1/14/19 TC:2 CPT: 28956 HEADER OPERATION: PRE-OP DIAGNOSIS: Maternal fever TISSUE SUBMITTED: Placenta MICROSCOPIC DESCRIPTION Slides are reviewed. MICROSCOPIC DIAGNOSIS Placenta: Placental disc - third trimester placenta with a succenturiate lobe (802 gm). - Focal areas of intraparenchymal hemorrhage (1.5 to 2 cm in greatest dimension). - Focal acute vasculitis of subamniotic blood vessels. - Focal villous congestion and hemorrhage. Membranes - acute chorioamnionitis. Umbilical cord - three blood vessels and acute funisitis. SJ:reginald 06/20/18 Signed Luis Loza MD 06/20/18 <signature on file> Performed By: #### PPLAC #### [facility] [address] [place], [address] PROTHROMBIN TIME W/INR Collected: 06/15/2018 Status: F Source: [place] 11:30 AM [facility] REPOSITORY Order Comment: REDRAW. PREVIOUS SPECIMEN REJECTED DUE TO CLOT/QNS. 06/15/18 1103 Ann Marie Tabor. TYPE CODE TESTS RESULT OUT OF RANGE REFERENCE UNITS LAB L300.4150 11.7-14.9 SECONDS Normal PROTIME 13.1 LAB L300.4200 Normal INR 1.0 Performed By: #### L300.3900, L300.4310 #### [facility] [address] [place], [address] PARTIAL THROMBOPLAST Collected: 06/15/2018 Status: F Source: [place] TIME 11:30 AM [facility] REPOSITORY Order Comment: REDRAW. PREVIOUS SPECIMEN REJECTED DUE TO CLOT/QNS. 06/15/18 1103 Ann Marie Tabor. TYPE CODE TESTS RESULT OUT OF RANGE REFERENCE UNITS LAB L300.4310 24.1-36.2 Seconds Normal PTT 29.1 Performed By: #### L300.3900, L300.4310 #### [facility] [address] [place], [address] PROTEIN+CREATININE Collected: Status: F Source: PATY RATIO,URINE 06/15/2018 11:15 AM [facility] REPOSITORY TYPE CODE TESTS RESULT OUT OF RANGE REFERENCE UNITS LAB L501.1200 NO RANGE EST. mg/dL Normal UR CREAT 86.80 LAB L501.1930 <11.9 mg/dL High 16.9 PROTEIN,UR.R AN. LAB L501.1940 0-200 mg/g CRE Normal PROT:CRE 195 RATIO Performed By: #### L501.0900 #### [facility] [address] [place], [address] SERUM CREATININE AND Collected: 06/15/2018 Status: F Source: PATY GFR 10:25 AM [facility] REPOSITORY TYPE CODE TESTS RESULT OUT OF RANGE REFERENCE UNITS LAB L501.1100 0.55-1.02 mg/dL Low 0.48 CREAT,SERUM Result Comment: The validity of the calculated GFR AND GFRAA in patients over 70 years has not been determined. Clinical correlation is essential. LAB L501.1110 >60 mL/min Normal EST GFR 163 Result Comment: Non- GFR Calc LAB L501.1115 >60 mL/min Normal EST GFR - AA 197 Result Comment: GFR Calc LAB L501.1255 ml/min Normal Estimated CRCL 154.21 Performed By: #### L501.1105, L501.1400, L501.4100, L501.4405 #### [facility] [address] [place], [address] URIC ACID Collected: 06/15/2018 Status: F Source: PATY 10:25 AM [facility] REPOSITORY TYPE CODE TESTS RESULT OUT OF RANGE REFERENCE UNITS LAB L501.1400 2.6-6.0 mg/dL Normal URIC 5.8 Result Comment: The drugs N-Acetylcysteine and Metamizole may falsely depress this assay. Performed By: #### L501.1105, L501.1400, L501.4100, L501.4405 #### [facility] [address] [place], [address] AST(SGOT) Collected: 06/15/2018 Status: F Source: PATY 10:25 AM [facility] REPOSITORY TYPE CODE TESTS RESULT OUT OF RANGE REFERENCE UNITS LAB L501.4100 15-37 U/L Normal AST 21 Performed By: #### L501.1105, L501.1400, L501.4100, L501.4405 #### [facility] [address] [place], [place], [address] ALANINE AMINOTRANSFERAS Collected: 06/15/2018 Status: F Source: PATY (SGPT) 10:25 AM [facility] REPOSITORY TYPE CODE TESTS RESULT OUT OF RANGE REFERENCE UNITS LAB L501.4405 13-56 U/L Normal ALT 24 Performed By: #### L501.1105, L501.1400, L501.4100, L501.4405 #### [facility] [address] [place], [address] CBC-COMPLETE BLOOD CNT Collected: 06/15/2018 Status: F Source: PATY NO DIFF 8:04 AM [facility] REPOSITORY TYPE CODE TESTS RESULT OUT OF RANGE REFERENCE UNITS LAB L100.1000 4.4-11.0 K/mm3 Normal WBC 9.6 LAB L100.1200 4.2-5.4 M/mm3 Low RBC 3.94 LAB L100.1300 12.0-15.0 g/dl Normal HGB 12.2 LAB L100.1400 37-47 % Normal HCT 37.6 LAB L100.1500 81-99 fL Normal MCV 95.4 LAB L100.1600 27.0-32.0 pg Normal MCH 31.0 LAB L100.1700 32-36 g/gl Normal MCHC 32.4 LAB L100.1810 11.6-14.6 % Normal RDW CV 14.1 LAB L100.1820 35.1-43.9 fl High RDW SD 46.9 LAB L100.1900 150-450 K/mm3 Normal PLT 283 LAB L100.2000 6.2-12.0 fl Normal MPV 11.3 Performed By: #### L100.0500 #### [facility] [address] [place], [place], [address] TYPE AND SCREEN Collected: 06/15/2018 Status: F Source: PATY 8:04 AM [facility] REPOSITORY Order Comment: Reason for Type AND Screen/Red Cells: TYPE CODE TESTS RESULT OUT OF RANGE REFERENCE UNITS LAB B10.0800 O Normal BLOOD TYPE GEL POSITIVE LAB B100.4000 Normal Antibody NEGATIVE Screen Performed By: #### B101.7450 #### [facility] [address] [place], [address] HISTORY AND PHYSICAL Observed: 06/15/2018 Status: F Source: [place] EXAM 7:41 AM [facility] REPOSITORY [facility] Medical Records Department [address] [place] [address] History and Physical 06/15/18 0737 MR#: [id number] Acct: [id number] Name: HILARIO TRAMMELL Rep #: [id number] : 1990 28 From: Nyla Mancuso MD PCP: Ana Tucker III, MD Status: [facility] Problem List (1) Preeclampsia Status: Acute Qualifiers: Comment: deliver at 37. home bp monitoring, nst tuesday reactive, labs and growth scan (2) Pruritus Status: Acute Comment: Check bile acids every 2-4 weeks prn, liver enzymes every 1-2 weeks prn (3) Abnormal liver function Status: Acute Comment: repeat WNL. Bile acids ordered (4) Congenital dacryocystocele Status: Acute Comment: BPP and anatomy weekly after 32 weeks (5) Obesity affecting Status: Acute Qualifiers: Comment: health weight gain (6) Supervision of high-risk Status: Acute Qualifiers: Comment: PRR FRANCISCO 07/06/18 Girl Mendez Ke ANU RGI, IVF (7) abn NEC-antepar Status: Acute Comment: Fetus with dacryocystocele (8) Vaginal bleeding during Status: Acute (9) Elevated glucose tolerance test Status: Acute Comment: Normal 3 hr gtt (10) screening encounter Status: Acute Comment: Counsyl- negative (11) Status: Acute Qualifiers: Comment: nipt normal. anatomy scan normal. 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 Status: Acute Qualifiers: Comment: ivf ; urine culture negative 11/30/2017 at [facility] (14) Cutaneous mastocytosis Status: Chronic (15) Syncope Status: Acute Qualifiers: (16) Elevated troponin Status: Acute History Date of Admission: 12/12/17 Final FRANCISCO: 07/06/18 Gestational age: 37 Weeks and 0 Days History of this : This is a 28 year-old, at 37 weeks gestational age presents for IOL preeclampsia. she has had an IVF and denies any [facility] N V. Medical History: Medical History (Last Reviewed 06/09/18 @ 12:04 by Terra Lares) GERD (gastroesophageal reflux disease) K21.9 Hyperthyroidism E05.90 Mastocytosis D47.09 Allergies No Known Allergies Allergy (Verified 06/09/18 12:04) Home Medications: Home Medications Cetirizine HCl [Zyrtec] 10 mg PO QHS 08/27/16 Epinephrine [Epipen 2-Mika] 1 ml SQ PRN PRN 08/27/16 Ranitidine [Zantac] 150 mg PO BID 08/27/16 docosahexanoic acid 200 mg capsule 200 mg PO DAILY 12/28/17 levothyroxine 150 mcg tablet 150 mcg PO DAILY #30 tab 12/28/17 Vits [Prenatabs FA] 1 tab PO DAILY 04/09/18 sertraline 50 mg tablet 50 mg PO DAILY 05/24/18 blood pressure monitor kit See Dose Instructions .ROUTE .MEDSUPPLY #1 ea 06/12/18 Smoking Status: Never smoker Alcohol: None Number of Fetus(es): 1 Heart Tracin moderate variability reactive no decelerations category I tracing\ Ferdinand: regular History Past Pregnancies: Past Pregnancies Delivery Name GA[facility] F[facility] Date [facility] Location Labs: Social History Hx Smoking No Smoking Status Never smoker Expected Infant Delivery Method: Spontaneous Vaginal Review of Systems Constitutional: Denies: Fever, Malaise Eyes: Denies: Blurred vision, Vision Change HEENT: Denies: Head Aches, Visual Changes Cardiovascular: Denies: Chest Pain, Palpitations Respiratory: Denies: Cough, Shortness of Breath, Wheezing Gastrointestinal: Denies: Abdominal Pain, Diarrhea, Nausea, Vomiting Genitourinary: Denies: Dysuria, Hematuria Musculoskeletal: Denies: Joint Pain, Muscle pain Skin: Denies: Lesions, Rash Neurological: Denies: Blurred vision, Focal weakness, Headaches Psychiatric: Denies: Anxiety, Depression Endocrine: Denies: Heat/ Cold Intolerance Hematologic/ Lymphatic: Denies: Easy Bruising, Easy Bleeding Physical Exam General: Alert, Cooperative, No apparent distress HEENT: Atraumatic, Normocephalic. Negative for: Thyromegaly, Lymphadenopathy Cardiovascular: Regular rate Lungs: Normal air movement Abdomen: Soft, Non Tender, Gravid Neurological: Deep Tendon Reflexes 2+/4 and Symmetrical, Neuro grossly intact. Negative for: Clonus [employer]EL[employer]: Normal external genitalia. Negative for: Vulvar lesions Estimated gestational size: Large for gestational age Presentation: Cephalic Cervix Dilation (cm): 1 Assessment/Plan All Active Problems (Last Reviewed 06/09/18 @ 12:04 by Terra Lares) Preeclampsia (Acute) Pruritus (Acute) Abnormal liver function (Acute) Congenital dacryocystocele (Acute) Obesity affecting (Acute) Supervision of high-risk (Acute) abn NEC-antepar (Acute) Vaginal bleeding during (Acute) Elevated glucose tolerance test (Acute) screening encounter (Acute) (Acute) Hypothyroid (Acute) with history of infertility (Acute) Syncope (Acute) Elevated troponin (Acute) This is a 28 year-old, at 37 weeks gestational age presents IOL preeclampsia Patient presents IOL, plan expectant management for ,begin with cytotec then pitocin/AROM when able. Pain management: plans epidural GBS negative Management of any complications: check preeclampsia labs I have reviewed the [facility] and made any clinically relevant updates. 06/15/18 0741 <Electronically signed by Nyla Mancuso MD> Date Nyla Mancuso MD Cosigner Signature: Date (if applicable) CC: Ana Tucker III, MD; Nyla Mancuso MD Signed OFFICE VISIT REPORT Observed: 06/12/2018 Status: F Source: PATY 9:51 AM [facility] Services [address] [address] OFFICE VISIT Date of Service: 06/12/18 MR#: [id number] Acct: [id number] Patient: HILARIO TRAMMELL Rep #: [id number] : 1990 Provider: Nyla Mancuso MD Age/Sex: 28/F Location: [facility] Status: Signed Intake Vital Signs06/12/18 Blood Pressure 150/92 H 06/12/18 Height 5 ft 5 in 06/12/18 Blood Pressure 158/102 H Intake Visit Reasons: BP check Chief Complaint: Est OB Allergies No Known Allergies Allergy (Verified 06/09/18 12:04) Medications Cetirizine HCl [Zyrtec] 10 mg PO QHS 08/27/16 [History Confirmed 06/09/18] Epinephrine [Epipen 2-Mika] 1 ml SQ PRN PRN 08/27/16 [History Confirmed 06/09/18] Ranitidine [Zantac] 150 mg PO BID 08/27/16 [History Confirmed 06/09/18] docosahexanoic acid 200 mg capsule 200 mg PO DAILY 12/28/17 [History Confirmed 06/09/18] levothyroxine 150 mcg tablet 150 mcg PO DAILY #30 tab 12/28/17 [Rx Confirmed 06/09/18] Vits [Prenatabs FA] 1 tab PO DAILY 04/09/18 [History Confirmed 06/09/18] sertraline 50 mg tablet 50 mg PO DAILY 05/24/18 [History Confirmed 06/09/18] blood pressure monitor kit See Dose Instructions .ROUTE .MEDSUPPLY #1 ea 06/12/18 [Rx] Office Procedures OB NST Non-Stress Test Indications for Monitoring: Yes hypertension Heart Rate Baseline: 140 Heart Rate Variability: moderate Movement: Present Heart Rate Accelerations: Present Decelerations: Absent Contractions: Absent Impression: Yes Reactive Non-Stress Test Category 1 Details: discussed IOL reviewed preeclampsia precautions. us and bloodwork today Assessment AND Plan Problems 1. Pre-eclampsia in third trimester O14.93 deliver at 37. home bp monitoring, nst carlos reactive, labs mondy and growth scan Orders Orders: 06/12/18 0951 <Electronically signed by Nyla Mancuso MD> Date Nyla Mancuso MD Cosigner Signature: Date (if applicable) CC: CBC W/DIFF, AUTOMATED Collected: 06/12/2018 Status: F Source: PATY 8:57 AM [facility] REPOSITORY TYPE CODE TESTS RESULT OUT OF RANGE REFERENCE UNITS LAB L100.1000 4.4-11.0 K/mm3 Normal WBC 9.3 LAB L100.1200 4.2-5.4 M/mm3 Low RBC 4.01 LAB L100.1300 12.0-15.0 g/dl Normal HGB 12.4 LAB L100.1400 37-47 % Normal HCT 38.0 LAB L100.1500 81-99 fL Normal MCV 94.8 LAB L100.1600 27.0-32.0 pg Normal MCH 30.9 LAB L100.1700 32-36 g/gl Normal MCHC 32.6 LAB L100.1810 11.6-14.6 % Normal RDW CV 14.2 LAB L100.1820 35.1-43.9 fl High RDW SD 48.7 LAB L100.1900 150-450 K/mm3 Normal PLT 304 LAB L100.2000 6.2-12.0 fl Normal MPV 10.4 LAB L100.2100 47-70 % High NEUT% 72.6 LAB L100.2200 19-41 % Normal LY% 19.6 LAB L100.2300 0-10 % Normal MONO% 6.2 LAB L100.2400 0-5 % Normal EO% 1.3 LAB L100.2500 0-1 % Normal BASO% 0.2 LAB L100.2550 0.0-0.9 % Normal IM GRAN % 0.100 Result Comment: IG% - Immature Granulocytes (promyelocytes, myelocytes and metamyelocytes) > 1% indicates that a LEFT SHIFT is Present. LAB L100.2620 2.0-7.7 X10 3/uL Normal Absolute Neut 6.7 LAB L100.2720 0.83-4.51 X10 3/ul Normal Absolute Lymph 1.82 Performed By: #### L100.0100 #### [facility] [address] [place], [address] COMPREHENSIVE METABOLIC Collected: 06/12/2018 Status: F Source: [facility] 8:57 AM [facility] REPOSITORY TYPE CODE TESTS RESULT OUT OF RANGE REFERENCE UNITS LAB L501.0100 74-106 mg/dL Normal GLU 86 Result Comment: Please note revised GLUCOSE reference range effective 2017. LAB L501.1000 7-18 mg/dL Low BUN 5 LAB L501.1100 0.55-1.02 mg/dL Low CREAT,SERUM 0.48 Result Comment: The validity of the calculated GFR AND GFRAA in patients over 70 years has not been determined. Clinical correlation is essential. LAB L501.1110 >60 mL/min Normal EST GFR 161 Result Comment: Non- GFR Calc LAB L501.1115 >60 mL/min Normal EST GFR - AA 195 Result Comment: GFR Calc LAB L501.1300 10-20 RATIO Normal BUN/CRE 10.4 LAB L501.1500 6.4-8.2 g/dL T Normal PROT 6.8 LAB L501.1800 3.2-5.0 g/dL Low ALB 2.3 LAB L501.1950 2.2-4.2 g/dL High GLOB 4.5 LAB L501.2000 0.9-2.4 RATIO Low A/G 0.5 LAB L501.2200 8.5-10.1 mg/dL CA Normal 9.1 LAB L501.4100 15-37 U/L Normal AST 18 LAB L501.4305 45-117 U/L High ALK P 146 LAB L501.4405 13-56 U/L Normal ALT 20 LAB L501.4600 0.20-1.00 mg/dL T Normal BILI 0.30 LAB L501.5300 136-145 mmol/L NA Normal 140 LAB L501.5600 3.5-5.1 mmol/L K Normal 3.9 LAB L501.5900 98-107 mmol/L High CL 109 LAB L501.6100 21.0-32.0 mmol/L Normal CO2 21.0 LAB L501.6200 5-15 Normal GAP 10 Performed By: #### L500.4050 #### [facility] [address] [place], [address] Observed: 06/09/2018 Status: F Source: PATY CULTURE, GROUP B 3:31 PM [facility] STREPTOCOCCUS REPOSITORY IRINA Culture Group B Beta Streptococcus is not isolated. Performed By: #### M100.1800 #### [facility] [address] [place], [address] PROTHROMBIN TIME W/INR Collected: 06/09/2018 Status: F Source: PATY 1:00 PM [facility] REPOSITORY TYPE CODE TESTS RESULT OUT OF RANGE REFERENCE UNITS LAB L300.4150 11.7-14.9 SECONDS Normal PROTIME 13.1 LAB L300.4200 Normal INR 1.0 Performed By: #### L300.3900, L300.4310 #### [facility] [address] [place], [address] PARTIAL THROMBOPLAST Collected: 06/09/2018 Status: F Source: PATY TIME 1:00 PM [facility] REPOSITORY TYPE CODE TESTS RESULT OUT OF RANGE REFERENCE UNITS LAB L300.4310 24.1-36.2 Seconds Normal PTT 30.6 Performed By: #### L300.3900, L300.4310 #### [facility] [address] [place], [address] CBC-COMPLETE BLOOD CNT Collected: 06/09/2018 Status: F Source: PATY NO DIFF 1:00 PM [facility] REPOSITORY TYPE CODE TESTS RESULT OUT OF RANGE REFERENCE UNITS LAB L100.1000 4.4-11.0 K/mm3 Normal WBC 7.4 LAB L100.1200 4.2-5.4 M/mm3 Low RBC 3.92 LAB L100.1300 12.0-15.0 g/dl Normal HGB 12.0 LAB L100.1400 37-47 % Low HCT 36.8 LAB L100.1500 81-99 fL Normal MCV 93.9 LAB L100.1600 27.0-32.0 pg Normal MCH 30.6 LAB L100.1700 32-36 g/gl Normal MCHC 32.6 LAB L100.1810 11.6-14.6 % Normal RDW CV 14.0 LAB L100.1820 35.1-43.9 fl High RDW SD 47.9 LAB L100.1900 150-450 K/mm3 Normal PLT 295 LAB L100.2000 6.2-12.0 fl Normal MPV 10.6 Performed By: #### L100.0500 #### [facility] [address] [place], [address] PROTEIN+CREATININE Collected: Status: F Source: [place] RATIO,URINE 06/09/2018 1:00 PM [facility] REPOSITORY TYPE CODE TESTS RESULT OUT OF RANGE REFERENCE UNITS LAB L501.1200 NO RANGE EST. mg/dL Normal UR CREAT 59.50 LAB L501.1930 <11.9 mg/dL High 18.3 PROTEIN,UR.R AN. LAB L501.1940 0-200 mg/g CRE High PROT:CRE 308 RATIO Performed By: #### L501.0900 #### [facility] [address] [place], [address] SERUM CREATININE AND Collected: 06/09/2018 Status: F Source: [place] GFR 1:00 PM [facility] REPOSITORY TYPE CODE TESTS RESULT OUT OF RANGE REFERENCE UNITS LAB L501.1100 0.55-1.02 mg/dL Low 0.43 CREAT,SERUM Result Comment: The validity of the calculated GFR AND GFRAA in patients over 70 years has not been determined. Clinical correlation is essential. LAB L501.1110 >60 mL/min Normal EST GFR 181 Result Comment: Non- GFR Calc LAB L501.1115 >60 mL/min Normal EST GFR - AA 219 Result Comment: GFR Calc Performed By: #### L501.1105, L501.1400, L501.4100, L501.4405 #### [facility] [address] [place], [address] URIC ACID Collected: 06/09/2018 Status: F Source: PATY 1:00 PM [facility] REPOSITORY TYPE CODE TESTS RESULT OUT OF RANGE REFERENCE UNITS LAB L501.1400 2.6-6.0 mg/dL Normal URIC 5.2 Result Comment: The drugs N-Acetylcysteine and Metamizole may falsely depress this assay. Performed By: #### L501.1105, L501.1400, L501.4100, L501.4405 #### [facility] [address] [place], [address] AST(SGOT) Collected: 06/09/2018 Status: F Source: PATY 1:00 PM [facility] REPOSITORY TYPE CODE TESTS RESULT OUT OF RANGE REFERENCE UNITS LAB L501.4100 15-37 U/L Normal AST 23 Performed By: #### L501.1105, L501.1400, L501.4100, L501.4405 #### [facility] [address] [place], [address] ALANINE AMINOTRANSFERAS Collected: 06/09/2018 Status: F Source: PATY (SGPT) 1:00 PM [facility] REPOSITORY TYPE CODE TESTS RESULT OUT OF RANGE REFERENCE UNITS LAB L501.4405 13-56 U/L Normal ALT 24 Performed By: #### L501.1105, L501.1400, L501.4100, L501.4405 #### [facility] [address] [place], [address] SERVICE CENTER APPRAISER OFFICE VISIT Observed: 06/09/2018 Status: F Source: PATY REPORT 12:16 PM [facility] REPOSITORY [facility] [address] [place] [address] OFFICE VISIT Date of Service: 06/09/18 MR#: [id number] Acct: [id number] Name: HILARIO TRAMMELL Rep #: [id number] : 1990 Provider: Nyla Mancuso MD Age/Sex: 28/F Location: [facility] Status: Signed Intake Vital Signs06/09/18 Weight: 261 lb 06/09/18 Blood Pressure 140/90 H Intake Visit Reasons: 36 WEEK OB Heel Seat Laster Required: No Is patient in pain?: No Allergies No Known Allergies Allergy (Verified 06/09/18 12:04) Medications Cetirizine HCl [Zyrtec] 10 mg PO QHS 08/27/16 [History Confirmed 06/09/18] Epinephrine [Epipen 2-Mika] 1 ml SQ PRN PRN 08/27/16 [History Confirmed 06/09/18] Ranitidine [Zantac] 150 mg PO BID 08/27/16 [History Confirmed 06/09/18] docosahexanoic acid 200 mg capsule 200 mg PO DAILY 12/28/17 [History Confirmed 06/09/18] levothyroxine 150 mcg tablet 150 mcg PO DAILY #30 tab 12/28/17 [Rx Confirmed 06/09/18] Vits [Prenatabs FA] 1 tab PO DAILY 04/09/18 [History Confirmed 06/09/18] sertraline 50 mg tablet 50 mg PO DAILY 05/24/18 [History Confirmed 06/09/18] Last Menstral Period: 10/13/17 Zika: Zika virus screening: Negative : No PFSH PFSH Medical History GERD (gastroesophageal reflux disease) (Acute) Hyperthyroidism (Acute) Mastocytosis (Acute) Family History Mother Breast cancer Father Skin cancer Social History Smoking Status: Never smoker substance use type: does not use caffeine: No what type of physical activity do you participate in: walking frequency: 1-2 times per week seatbelt use: always do you feel safe at home: Yes additional social history: - Ke- [employer] 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 OB Visit FRANCISCO Calculator Estimated Delivery Date 07/06/18 Based on Conception Date 10/13/17 Current WG 36w 1d Number 1 Expected Delivery Route/Plan - ANU RGI Specific Issue/Plans flu vaccine: given tdap vaccine: given rhogam: na LARC form signed: declines labor support person: Ke pain management: epidural cut cord/dad catch: cord : yes PP control planned: [] discussed possible routes of delivery and associated risks: [] special requests: [] Initial Weight: 246 lb Date Weight BP Urine PFHR FuHt Pres MCTX DilatioFetal SVisit NProvideComment rot ov n t ote r s EGA Ef Gluco faced se 12/28/1245 lb 135/88 [id number] ANU fro 8 6 oz (+ e m RGI, 126 oz) ivf pre w 6d Negati gnancy. ve doing well n o compl aints Visit Notes Visit Date: 06/09/18 no vb lof good fm no regular ctx. still having some itching on hands and feet Nyla Mancuso MD on 06/09/18 Visit Date: 06/05/18 No visit notes to display Visit Date: 05/24/18 no vb lof good fm no regular ctx Nyla Mancuso MD on 05/24/18 Visit Date: 05/11/18 Doing well. No VB, LOF. PUSHPA Carrillo on 05/11/18 Visit Date: 04/26/18 growth us and consult with mfm for vb. exp managmeent. no vb now and no lof good fm no regualr ctx Nyla Mancuso MD on 04/26/18 Visit Date: 03/30/18 no vb lof good fm noregular ctx Nyla Mancuso MD on 03/30/18 Visit Date: 03/01/18 Doing well. No VB, LOF PUSHPA Carrillo on 03/01/18 Visit Date: 01/25/18 Doing well. NO VB, LOF PUSHPA Carrillo on 01/25/18 Visit Date: 12/28/17 ANU from RGI, ivf . doing well no complaints Nyla Mancuso MD on 12/28/17 Diagnostics Diagnostics Labs Hct 38.7 % (37-47) 06/05/18 Hgb 12.7 g/dl (12.0-15.0) 06/05/18 Obstetrics Ultrasound 04/13/18 Miscellaneous Test 05/27/18 Details: HIV: Urine Culture: Sequential Screen: NIPT Screen: Assessment AND Plan Problems 1. 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 Cutaneous mastocytosis D47.01 3. Elevated glucose tolerance test R73.09 Normal 3 hr gtt 4. Obesity affecting in third trimester O99.213 health weight gain 5. 34 weeks gestation of Z3A.34 nipt normal. anatomy scan normal. 6. Acquired hypothyroidism E03.9 check q trimester 7. Supervision of high risk in third trimester O09.93 PRR FRANCISCO 07/06/18 Girl Mendez Ke ANU RGI, IVF Plan movement and labor precautions reviewed. ACOG trimester education reviewed and updated. see problem list details for updated plan management information and see below for orders placed at this visit. GA appropriate handout given. elevated bp- recommend labs and eval in triage Orders Orders: Coding Level of Care Code OB Routine Diagnoses with history of infertility in third trimester O09.03 Trimester: third trimester Cutaneous mastocytosis D47.01 Elevated glucose tolerance test R73.09 Obesity affecting in third trimester O99.213 Trimester: third trimester 34 weeks gestation of Z3A.34 Weeks of gestation: 34 weeks Acquired hypothyroidism E03.9 Hypothyroidism type: acquired Supervision of high risk in third trimester O09 Trimester: third trimester 06/09/18 1216 <Electronically signed by Nyla Mancuso MD> Date Nyla Mancuso MD Cosigner Signature: Date (if applicable) CC: [facility] OFFICE VISIT Observed: 06/07/2018 Status: F Source: PATY REPORT 4:10 AM [facility] REPOSITORY [facility] [address] [place] [address] [place] [address] OFFICE VISIT Date of Service: 06/05/18 MR#: [id number] Acct: [id number] Name: HILARIO TRAMMELL Rep #: [id number] : 1990 Provider: Nyla Mancuso MD Age/Sex: 28/F Location: [facility] Status: Signed Intake Vital Signs06/05/18 Body Mass Index (BMI) 42.3 06/05/18 Weight: 259 lb 8 oz Intake Visit Reasons: NST/CHECK LFTs PER Heel Seat Laster Required: No Is patient in pain?: No Allergies No Known Allergies Allergy (Verified 06/05/18 10:39) Medications Cetirizine HCl [Zyrtec] 10 mg PO QHS 08/27/16 [History Confirmed 06/05/18] Epinephrine [Epipen 2-Mika] 1 ml SQ PRN PRN 08/27/16 [History Confirmed 06/05/18] Ranitidine [Zantac] 150 mg PO BID 08/27/16 [History Confirmed 06/05/18] docosahexanoic acid 200 mg capsule 200 mg PO DAILY 12/28/17 [History Confirmed 06/05/18] levothyroxine 150 mcg tablet 150 mcg PO DAILY #30 tab 12/28/17 [Rx Confirmed 06/05/18] Vits [Prenatabs FA] 1 tab PO DAILY 04/09/18 [History Confirmed 06/05/18] sertraline 50 mg tablet 50 mg PO DAILY 05/24/18 [History Confirmed 06/05/18] Last Menstral Period: 10/13/17 Zika: Zika virus screening: Negative : No PFSH PFSH Medical History GERD (gastroesophageal reflux disease) (Acute) Hyperthyroidism (Acute) Mastocytosis (Acute) Family History Mother Breast cancer Father Skin cancer Social History Smoking Status: Never smoker substance use type: does not use caffeine: No what type of physical activity do you participate in: walking frequency: 1-2 times per week seatbelt use: always do you feel safe at home: Yes additional social history: - [employer] 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 OB Visit FRANCISCO Calculator Estimated Delivery Date 07/06/18 Based on Conception Date 10/13/17 Current WG 35w 6d Number 1 Expected Delivery Route/Plan - ANU RGI Specific Issue/Plans flu vaccine: given tdap vaccine: given rhogam: na LARC form signed: declines labor support person: Ke pain management: epidural cut cord/dad catch: cord : yes PP control planned: [] discussed possible routes of delivery and associated risks: [] special requests: [] Initial Weight: 246 lb Date Weight BP Urine PrFHR FuHt Pres MoCTX DilationFetal StVisit NoProviderComments E ot v te GA G Effac lucose ed Visit Notes Visit Date: 06/05/18 No visit notes to display Visit Date: 05/24/18 no vb lof good fm no regular ctx Nyla Mancuso MD on 05/24/18 Visit Date: 05/11/18 Doing well. No VB, LOF. PUSHPA Carrillo on 05/11/18 Visit Date: 04/26/18 growth us and consult with mfm for vb. exp managmeent. no vb now and no lof good fm no regualr ctx Nyla Mancuso MD on 04/26/18 Visit Date: 03/30/18 no vb lof good fm noregular ctx Nyla Mancuso MD on 03/30/18 Visit Date: 03/01/18 Doing well. No VB, LOF PUSHPA Carrillo on 03/01/18 Visit Date: 01/25/18 Doing well. NO VB, LOF PUSHPA Carrillo on 01/25/18 Visit Date: 12/28/17 ANU from RGI, ivf . doing well no complaints Nyla Mancuso MD on 12/28/17 Diagnostics Diagnostics Labs Blood Type O POSITIVE 04/09/18 Antibody Screen NEGATIVE 04/09/18 Hct 38.7 % (37-47) 06/05/18 Hgb 12.7 g/dl (12.0-15.0) 06/05/18 Obstetrics Ultrasound 04/13/18 Miscellaneous Test 05/27/18 Details: HIV: Urine Culture: Sequential Screen: NIPT Screen: Office Procedures OB NST Non-Stress Test Indications for Monitoring: Yes other (elevated liver enzymes) Heart Rate Baseline: 140 Heart Rate Variability: moderate Movement: Present Heart Rate Accelerations: Present Decelerations: Absent Contractions: Absent Impression: Yes Reactive Non-Stress Test Category 1 Results [id number] Office Urine Glucose Negative Last Edit by Lupe Greenberg on 06/05/18 10:41 Office Urine Protein Negative Last Edit by Lupe Greenberg on 06/05/18 10:41 Assessment AND Plan Orders Orders: Coding Level of Care Code OB Routine Additional Codes Non-Stress Test (33517) 06/07/18 0410 <Electronically signed by Nyla Mancuso MD> Date Nyla Mancuso MD Cosigner Signature: Date (if applicable) CC: PROTEIN+CREATININE Collected: Status: F Source: PATY RATIO,URINE 06/05/2018 5:39 PM [facility] REPOSITORY TYPE CODE TESTS RESULT OUT OF RANGE REFERENCE UNITS LAB L501.1200 NO RANGE EST. mg/dL Normal UR CREAT 50.40 LAB L501.1930 <11.9 mg/dL Normal 10.5 PROTEIN,UR.R AN. LAB L501.1940 0-200 mg/g CRE High PROT:CRE 208 RATIO Performed By: #### L501.0900 #### [facility] [address] [place], [address] CBC W/DIFF, AUTOMATED Collected: 06/05/2018 Status: F Source: PATY 11:54 AM [facility] REPOSITORY TYPE CODE TESTS RESULT OUT OF RANGE REFERENCE UNITS LAB L100.1000 4.4-11.0 K/mm3 Normal WBC 9.2 LAB L100.1200 4.2-5.4 M/mm3 Low RBC 4.08 LAB L100.1300 12.0-15.0 g/dl Normal HGB 12.7 LAB L100.1400 37-47 % Normal HCT 38.7 LAB L100.1500 81-99 fL Normal MCV 94.9 LAB L100.1600 27.0-32.0 pg Normal MCH 31.1 LAB L100.1700 32-36 g/gl Normal MCHC 32.8 LAB L100.1810 11.6-14.6 % Normal RDW CV 14.0 LAB L100.1820 35.1-43.9 fl High RDW SD 46.3 LAB L100.1900 150-450 K/mm3 Normal PLT 282 LAB L100.2000 6.2-12.0 fl Normal MPV 10.6 LAB L100.2100 47-70 % High NEUT% 70.6 LAB L100.2200 19-41 % Normal LY% 22.0 LAB L100.2300 0-10 % Normal MONO% 6.1 LAB L100.2400 0-5 % Normal EO% 1.0 LAB L100.2500 0-1 % Normal BASO% 0.2 LAB L100.2550 0.0-0.9 % Normal IM GRAN % 0.100 Result Comment: IG% - Immature Granulocytes (promyelocytes, myelocytes and metamyelocytes) > 1% indicates that a LEFT SHIFT is Present. LAB L100.2620 2.0-7.7 X10 3/uL Normal Absolute Neut 6.5 LAB L100.2720 0.83-4.51 X10 3/ul Normal Absolute Lymph 2.03 Performed By: #### L100.0100 #### [facility] [address] [place] [address]. [place], [address] COMPREHENSIVE METABOLIC Collected: 06/05/2018 Status: F Source: [facility] 11:54 AM [facility] REPOSITORY TYPE CODE TESTS RESULT OUT OF RANGE REFERENCE UNITS LAB L501.0100 74-106 mg/dL Low GLU 68 Result Comment: Please note revised GLUCOSE reference range effective 2017. LAB L501.1000 7-18 mg/dL Low BUN 6 LAB L501.1100 0.55-1.02 mg/dL Low CREAT,SERUM 0.48 Result Comment: The validity of the calculated GFR AND GFRAA in patients over 70 years has not been determined. Clinical correlation is essential. LAB L501.1110 >60 mL/min Normal EST GFR 162 Result Comment: Non- GFR Calc LAB L501.1115 >60 mL/min Normal EST GFR - AA 196 Result Comment: GFR Calc LAB L501.1300 10-20 RATIO Normal BUN/CRE 12.6 LAB L501.1500 6.4-8.2 g/dL T Normal PROT 6.8 LAB L501.1800 3.2-5.0 g/dL Low ALB 2.4 LAB L501.1950 2.2-4.2 g/dL High GLOB 4.4 LAB L501.2000 0.9-2.4 RATIO Low A/G 0.5 LAB L501.2200 8.5-10.1 mg/dL CA Normal 9.5 LAB L501.4100 15-37 U/L Normal AST 21 LAB L501.4305 45-117 U/L High ALK P 136 LAB L501.4405 13-56 U/L Normal ALT 30 LAB L501.4600 0.20-1.00 mg/dL T Normal BILI 0.40 LAB L501.5300 136-145 mmol/L NA Normal 142 LAB L501.5600 3.5-5.1 mmol/L K Normal 3.9 LAB L501.5900 98-107 mmol/L CL Normal 107 LAB L501.6100 21.0-32.0 mmol/L Normal CO2 22.0 LAB L501.6200 5-15 Normal GAP 13 Performed By: #### L500.4050 #### [facility] [address] [place] [address]. [place], [place], [address] PROGRESS Observed: 06/04/2018 Status: COMPLETED Source: [place] 4:57 PM [facility] REPOSITORY HNO ID: [id number] Author: Ana Tucker III Service: (none) Author Type: Physician Type: Progress Notes Filed: 06/04/2018 4:57 PM Note Text: Hilario, The bile acids are all normal. The other lab results are fine. Ana Tucker III, MD, FAAFP GESTATIONAL GTT 3HR Collected: 06/02/2018 Status: F Source: [address] 9:53 AM [facility] REPOSITORY Order Comment: Is Patient Fasting? Y TYPE CODE TESTS RESULT OUT OF RANGE REFERENCE UNITS LAB L501.0650 <105 mg/dL Normal GLU 73 GTT-FASTING Result Comment: GLUCOSE TOLERANCE TEST FOR Reference Interval GESTATIONAL DIABETES Fasting <105 mg/dL 1 hour <190 mg/dl 2 hour <165 mg/dl 3 hour <145 mg/dl LAB L501.0660 <190 mg/dL Normal GLU GTT- 1HR 140 LAB L501.0670 <165 mg/dL Normal GLU GTT- 2HR 142 LAB L501.0680 <145 L Normal GLU GTT- 3HR 68 Performed By: #### L500.4710 #### [facility] [address] [place], [address] MISCELLANEOUS LAB Collected: 05/27/2018 Status: F Source: PATY PROCEDURE 9:48 AM [facility] REPOSITORY Order Comment: Comments: [id number] BILE ACIDS SST FROZEN Test(s) Ordered: [id number] BILE ACIDS SST FROZEN TYPE CODE TESTS RESULT OUT OF RANGE REFERENCE UNITS LAB L801.1541 Normal [facility] TEST Result Comment: TEST RESULT UNITS REF INTERVAL Bile Acids 10.4 umol/L 4.7 - 24.5 female reference interval (15 - 45 years): 3.7 - 14.5 TESTING PERFORMED AT [facility]. ORIGINAL REPORT ON FILE IN LAB CONTAINS ADDITIONAL TEST SITE INFORMATION. Performed By: #### L801.1541 #### [facility] [address] [place], [address] [facility] OFFICE VISIT Observed: 05/27/2018 Status: F Source: PATY REPORT 4:08 AM [facility] REPOSITORY [facility] [address] [place] [place] [address] OFFICE VISIT Date of Service: 05/24/18 MR#: [id number] Acct: [id number] Name: HILARIO TRAMMELL Rep #: [id number] : 1990 Provider: Nyla Mancuso MD Age/Sex: 28/F Location: [facility] Status: Signed Intake Vital Signs05/24/18 Body Mass Index (BMI) 42.3 05/24/18 Height 5 ft 5 in 05/24/18 Weight: 256 lb 4 oz 05/24/18 Body Mass Index (BMI) 42.6 05/24/18 Blood Pressure 128/82 H Intake Visit Reasons: est ob 34 weeks Chief Complaint: Est OB Is patient in pain?: No Allergies No Known Allergies Allergy (Verified 05/24/18 11:54) Medications Cetirizine HCl [Zyrtec] 10 mg PO QHS 08/27/16 [History Confirmed 05/24/18] Epinephrine [Epipen 2-Mika] 1 ml SQ PRN PRN 08/27/16 [History Confirmed 05/24/18] Ranitidine [Zantac] 150 mg PO BID 08/27/16 [History Confirmed 05/24/18] docosahexanoic acid 200 mg capsule 200 mg PO DAILY 12/28/17 [History Confirmed 05/24/18] levothyroxine 150 mcg tablet 150 mcg PO DAILY #30 tab 12/28/17 [Rx Confirmed 05/24/18] Vits [Prenatabs FA] 1 tab PO DAILY 04/09/18 [History Confirmed 05/24/18] sertraline 50 mg tablet 50 mg PO DAILY 05/24/18 [History Confirmed 05/24/18] Last Menstral Period: 10/13/17 Zika: Zika virus screening: Negative : No PFSH PFSH Medical History GERD (gastroesophageal reflux disease) (Acute) Hyperthyroidism (Acute) Mastocytosis (Acute) Family History Mother Breast cancer Father Skin cancer Social History Smoking Status: Never smoker substance use type: does not use caffeine: No what type of physical activity do you participate in: walking frequency: 1-2 times per week seatbelt use: always do you feel safe at home: Yes additional social history: - [employer] 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 OB Visit FRANCISCO Calculator Estimated Delivery Date 07/06/18 Based on Conception Date 10/13/17 Current WG 34w 2d Number 1 Expected Delivery Route/Plan - ANU RGI Specific Issue/Plans flu vaccine: given tdap vaccine: given rhogam: na LARC form signed: declines labor support person: Ke pain management: epidural cut cord/dad catch: cord : yes PP control planned: [] discussed possible routes of delivery and associated risks: [] special requests: [] Initial Weight: 246 lb Date Weight BP Urine PrFHR FuHt Pres MoCTX DilationFetal StVisit NoProviderComments E ot v te GA G Effac lucose ed Visit Notes Visit Date: 05/24/18 no vb lof good fm no regular ctx Nyla Mancuso MD on 05/24/18 Visit Date: 05/11/18 Doing well. No VB, LOF. PUSHPA Carrillo on 05/11/18 Visit Date: 04/26/18 growth us and consult with mfm for vb. exp managmeent. no vb now and no lof good fm no regualr ctx Nyla Mancuso MD on 04/26/18 Visit Date: 03/30/18 no vb lof good fm noregular ctx Nyla Mancuso MD on 03/30/18 Visit Date: 03/01/18 Doing well. No VB, LOF PUSHPA Carrillo on 03/01/18 Visit Date: 01/25/18 Doing well. NO VB, LOF PUSHPA Carrillo on 01/25/18 Visit Date: 12/28/17 ANU from RGI, ivf . doing well no complaints Nyla Mancuso MD on 12/28/17 Diagnostics Diagnostics Labs Blood Type O POSITIVE 04/09/18 Antibody Screen NEGATIVE 04/09/18 Hct 36.1 % (37-47) L 04/13/18 Hgb 12.0 g/dl (12.0-15.0) 04/13/18 Obstetrics Ultrasound 04/13/18 Glucose 1 Hr 50 gm 147 mg/dL (70-140) H 03/30/18 Miscellaneous Test 04/07/18 Details: HIV: Urine Culture: Sequential Screen: NIPT Screen: Results [id number] Office Urine Glucose Negative Last Edit by Carly Palmer on 05/24/18 12:03 Office Urine Protein Negative Last Edit by Carly Palmer on 05/24/18 12:03 Assessment AND Plan Problems 1. 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 Cutaneous mastocytosis D47.01 3. Elevated glucose tolerance test R73.09 Normal 3 hr gtt 4. Obesity affecting in third trimester O99.213 weekly BPP at 32 wk per MFM 5. 32 weeks gestation of Z3A.32 nipt normal. anatomy scan normal. 6. Hypothyroidism, unspecified type E03.9 check q trimester 7. Supervision of high risk in third trimester O09.93 PRR (need urine culture) FRANCISCO 07/06/18 Girl Mendez Ke ANU I, IVF 8. Vaginal bleeding during O46.90 Plan movement and labor precautions reviewed. ACOG trimester education reviewed and updated. see problem list details for updated plan management information and see below for orders placed at this visit. GA appropriate handout given. 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.03 Trimester: third trimester Cutaneous mastocytosis D47.01 Elevated glucose tolerance test R73.09 Obesity affecting in third trimester O99.213 Trimester: third trimester 32 weeks gestation of Z3A.32 Weeks of gestation: 32 weeks Hypothyroidism, unspecified type E03.9 Supervision of high risk in third trimester O09.93 Trimester: third trimester Vaginal bleeding during O46.90 05/27/18 0408 <Electronically signed by Nyla Mancuso MD> Date Nyla Mancuso MD Cosigner Signature: Date (if applicable) CC: CBC AND DIFFERENTIAL Collected: 05/25/2018 Status: F Source: [place] 8:22 AM [facility] REPOSITORY TYPE CODE TESTS RESULT OUT OF REFERENCE UNITS RANGE LAB WBC 3.70-11.00 k/uL WBC 8.78 LAB RBC 3.90-5.20 m/uL Low RBC 3.82 LAB HGB 11.5-15.5 g/dL Hemoglobin 11.6 LAB HCT 36.0-46.0 % Hematocrit 37.5 LAB MCV 80.0-100.0 fL MCV 98.2 LAB MCH 26.0-34.0 pG MCH 30.4 LAB MCHC 30.5-36.0 g/dL MCHC 30.9 LAB RDWCV 11.5-15.0 % RDW-CV 14.1 LAB PLTCT 150-400 k/uL Platelet Count 308 LAB MPV 9.0-12.7 fL MPV 11.1 LAB ANEUT % Neut% 67.1 LAB AANEUT 1.45-7.50 k/uL Abs Neut 5.89 LAB ALYMP % Lymph% 25.6 LAB AALYMP 1.00-4.00 k/uL Abs Lymph 2.25 LAB AMONO % Marinette% 5.6 LAB AAMONO <0.87 k/uL Abs Marinette 0.49 LAB AEOS % Eosin% 1.5 LAB AAEOS <0.46 k/uL Abs Eosin 0.13 LAB ABASO % Baso% 0.2 LAB AABASO <0.11 k/uL Abs Baso <0.03 LAB AUNRBC 0 /100 WBC NRBCs 0.0 LAB ABNRBC <0.01 k/uL Absolute nRBC <0.01 LAB DTYP DTYPE Auto Diff Performed By: #### CBCDIF, CMP, TSH #### [facility] [employer] [address] [place] [place], [place] [address] #### BILE #### [facility] [address] [place] [address] [phone] COMP METABOLIC PANEL Collected: 05/25/2018 Status: F Source: ST[place] 8:22 AM [facility] REPOSITORY TYPE CODE TESTS RESULT OUT OF REFERENCE UNITS RANGE LAB TP 6.3-8.0 g/dL Protein, Total 6.6 LAB ALB 3.9-4.9 g/dL Low Albumin 3.1 LAB CA 8.5-10.2 mg/dL Calcium, Total 9.5 LAB TBIL 0.2-1.3 mg/dL Bilirubin, Total 0.3 LAB ALKP 34-123 U/L Alkaline High Phosphatase 129 LAB AST 13-35 U/L AST High 42 LAB GLU 74-99 mg/dL Glucose 79 Result Comment: The [place] Diabetes Association (ADA) provides guidance for cutoff values for fasting glucose and random glucose. The ADA defines fasting as no caloric intake for at least 8 hours. Fas ting plasma glucose results between 100 to 125 mg/dL indicate increased risk for diabetes (prediabetes). Fasting plasma glucose results greater than or equal to 126 mg/dL meet the criteria for diagnosis of diabetes. In the absence of unequivocal hyperglycemia, results should be confirmed by repeat testing. In a patient with classic symptoms of hyperglycemia or hyperglycemic crisis, random plasma glucose results greater than or equal to 200 mg/dL meet the criteria for diagnosis of diabetes. Reference: Standards of Medical Care in Diabetes 2016, [place] Diabetes Association. Diabetes Care. 2016.39(Suppl 1). LAB BUN 7-21 mg/dL Low BUN 3 LAB CRET 0.58-0.96 mg/dL Low Creatinine 0.53 LAB NA 136-144 mmol/L Sodium 139 LAB K 3.7-5.1 mmol/L Potassium 3.7 LAB CL 97-105 mmol/L Chloride 105 LAB CO2 22-30 mmol/L CO2 22 LAB AGAP 9-18 mmol/L Anion Gap 12 LAB ALT 7-38 U/L ALT High 49 LAB GFRAA eGFR- Amer. >60 LAB GFRNAA . eGFR-All Other Races >60 Result Comment: eGFR (Estimated GFR) Units of measure: mL/min/1.73 meters squared eGFR is derived from the reexpressed MDRD Study equation using the following parameters: serum creatinine, age, gender and race. The creatinine assay has been calibrated to be traceable to IDMS. An eGFR <60 mL/min/1.73m2 for >3 months is consistent with chronic kidney disease. Refer to KDOQI guidelines for clinical interpretation. In patients with unstable renal function, e.g. those with acute kidney injury, the eGFR may not accurately reflect actual GFR. Performed By: #### CBCDIF, CMP, TSH #### [facility] [address] [id number] #### BILE #### [facility] [address] [place] [address] [phone] TSH Collected: 05/25/2018 Status: F Source: [place] 8:22 AM [facility] REPOSITORY TYPE CODE TESTS RESULT OUT OF RANGE REFERENCE UNITS LAB TSH 0.400-5.500 uU/mL TSH 1.120 Result Comment: If the patient is , TSH reference range varies by gestational period: First Trimester 0.100-2.500 uU/mL Second Trimester 0.200-3.000 uU/mL Third Trimester 0.300-3.000 uU/mL References: 1. Galvez L, Nita M, Ever EK, et al. Management of Thyroid Dysfunction during and : An Endocrine Society Clinical Practice Guideline. J Clin Endocrinol Metab, 2012:97:0619-9070. 2. Evan WYNNE. Overview of thyroid disease in . UpToDate. 2016. Accessed on November 21, 2015. Performed By: #### CBCDIF, CMP, TSH #### [facility] [address] [id number] #### BILE #### [facility] [address] [place] [address] [phone] BILE ACDS,FRACT/TOT Collected: 05/25/2018 Status: F Source: [place] 8:22 AM [facility] REPOSITORY TYPE CODE TESTS RESULT OUT OF REFERENCE UNITS RANGE LAB URSODE 0.0-1.0 umol/L Ursodeoxycholic Acid 0.3 LAB CHOLAC 0.0-1.9 umol/L Cholic Acid 0.8 LAB DEOXCA 0.0-2.5 umol/L Deoxycholic Acid 0.3 LAB SCHILLING 0.0-3.4 umol/L Chenodeoxycholic Acd 0.5 LAB TOTBA 0.0-7.0 umol/L Total Bile Acids 1.9 Result Comment: (NOTE) INTERPRETIVE INFORMATION: Bile Acids, Fractionated and Total Test developed and characteristics determined by [facility]. See Compliance Statement B: [employer] Performed by [facility], [address] [place] [address] [email or web address], Mauricio Yi MD, Lab. Director Performed By: #### CBCDIF, CMP, TSH #### [facility] [address] [place] [address] #### BILE #### [facility] [address] [place] [address] [phone] Observed: 05/24/2018 Status: F Source: PATY CULTURE, URINE 5:43 PM [facility] REPOSITORY Urine Culture ORGANISM 1: Mixed Gram Positive Organisms [place] Count 1000-10,000 MIX CULTURE Mixed contaminants. Submit a new specimen if indicated. Performed By: #### M100.0650 #### [facility] [address] [place], [place], [address] Observed: 05/11/2018 Status: F Source: PATY CULTURE, URINE 8:34 PM [facility] REPOSITORY Urine Culture Below infection level. ORGANISM 1: Mixed Gram Positive Organisms [place] Count 1000-10,000 Performed By: #### M100.0650 #### [facility] [address] [place], [place], [address] PROGRESS Observed: 05/11/2018 Status: COMPLETED Source: [place] 4:01 PM [facility] REPOSITORY HNO ID: [id number] Author: Ary Calvin (Petra) Neil Service: (none) Author Type: Nurse Practitioner Type: Progress Notes Filed: 05/11/2018 4:17 PM Note Text: Chief Complaint Patient presents with: Recheck HPI Hilario Trammell is a 28 year old female who presents here today for Above Complaints. Recheck Zoloft. Into 3rd trimester, switched from Lexapro to Zoloft 25 mg one month ago for general anxiety disorder. She denies any side effects, was seamless transition however, she feels dose may need to be increased 2/2 more anxiety thoughts, and worries. states he doesn't notice. Patient also reports some difficulty sleeping, not sure if due to advanced or anxiety related. She takes the Zoloft prior to bedtime. Follows with [facility], apt earlier today, doing well. The ROS is otherwise negative. Past medical history, appointments, medications, allergies reviewed. Patient Allergies ALLERGIES No Known Allergies Current Medications Current Outpatient Prescriptions on File Prior to Visit: levothyroxine (SYNTHROID) 100 mcg tablet Take 1 tablet by mouth once daily. Take on empty stomach cetirizine (ZYRTEC) 10 mg tablet Take 10 mg by mouth once daily. ranitidine (ZANTAC) 150 mg tablet Take 150 mg by mouth once daily. cephALEXin (KEFLEX) 500 mg capsule No current facility-administered medications on file prior to visit. Previous Medical History PAST MEDICAL HISTORY Diagnosis Date - Elevated troponin 12/12/2017 0.17 - Gastroesophageal reflux disease without esophagitis 01/08/2015 - hypothyroidism - Syncope 12/12/2017 Previous Surgical History PAST SURGICAL HISTORY Procedure Laterality Date - BREAST NEEDLE CORE BIOPSY LT Left 04/17/2015 Family History FAMILY HISTORY Problem Relation Age of Onset - Breast Cancer Mother age 48 - Cancer Paternal Uncle lung - Cancer Paternal Grandfather lung - Thyroid Maternal Grandmother hypothyroidism - other (Hodgkin's disease) Maternal Grandmother - Thyroid Maternal Uncle hypothyroidism Social History Social History Marital status: Spouse name: Ke Years of education: Number of children: 0 Occupational History Occupation Employer Comment [employer] Social History Main Topics Smoking status: Never Smoker Smokeless tobacco: Never Used Alcohol use: No Drug use: No Sexual activity: Yes Partners with: Male control/protection: None Comment: wants conception EXAM: BP 134/84 Pulse 110 Temp 37.1 ?C (98.7 ?F) (Tympanic) Resp 18 Wt 115.7 kg (255 lb) BMI 42.43 kg/m? General Appearance: Well appearing, alert, in no acute distress, well-hydrated, well nourished.. Neck: Supple, no adenopathy; thyroid symmetric, normal size, no bruits. Lungs: lungs clear to auscultation. No wheezing, rhonchi, rales. Heart: RRR without murmur, gallop, or rubs. No ectopy. Feeling nervous, anxious, or on edge 3 Nearly every day Not being able to stop or control worrying 3 Nearly every day Worrying too much about different things 3 Nearly every day Trouble relaxing 2 Over half the days Being so restless that it's hard to sit still 0 Not at all sure Being easily annoyed or irritable 2 Over half the days Feeling afraid as if something awful might happen 3 Nearly every day MAI-7 Anxiety Score 16 ASSESSMENT/PLAN: 1. Anxiety disorder, unspecified type - ICD9: 300.00, ICD10: F41.9 - Will increase Zoloft to 50 mg daily. To call report in 3- 4 weeks, sooner if not doing well. 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 CNOV Observed: 05/11/2018 Status: COMPLETED Source: [place] 3:40 PM [facility] REPOSITORY Office Visit (FAMPWS) HILARIO TRAMMELL Matilda ([id number]) 1990 [facility] Date Time Provider Department 05/11/18 3:40 PM ARY TREJO (RELAY TELEGRAPHER) FAMPWS During your visit today, we recorded the following information about you: Temperature Pulse Respiration Blood pressure 98.7 degrees 110/minute 18/minute 134/84 Weight 115.7 kg BLACK Lira BEEF CATTLE FARM WORKER.ADINA 05/11/2018 4:17 PM Signed Chief Complaint Patient presents with: Recheck HPI Hilario Grey Mookie is a 28 year old female who presents here today for Above Complaints. Recheck Zoloft. Into 3rd trimester, switched from Lexapro to Zoloft 25 mg one month ago for general anxiety disorder. She denies any side effects, was seamless transition however, she feels dose may need to be increased 2/2 more anxiety thoughts, and worries. states he doesn't notice. Patient also reports some difficulty sleeping, not sure if due to advanced or anxiety related. She takes the Zoloft prior to bedtime. Follows with [facility], apt earlier today, doing well. The ROS is otherwise negative. Past medical history, appointments, medications, allergies reviewed. Patient Allergies ALLERGIES No Known Allergies Current Medications Current Outpatient Prescriptions on File Prior to Visit: levothyroxine (SYNTHROID) 100 mcg tablet Take 1 tablet by mouth once daily. Take on empty stomach cetirizine (ZYRTEC) 10 mg tablet Take 10 mg by mouth once daily. ranitidine (ZANTAC) 150 mg tablet Take 150 mg by mouth once daily. cephALEXin (KEFLEX) 500 mg capsule No current facility-administered medications on file prior to visit. Previous Medical History PAST MEDICAL HISTORY Diagnosis Date - Elevated troponin 12/12/2017 0.17 - Gastroesophageal reflux disease without esophagitis 01/08/2015 - hypothyroidism - Syncope 12/12/2017 Previous Surgical History PAST SURGICAL HISTORY Procedure Laterality Date - US BREAST NEEDLE CORE BIOPSY LT Left 04/17/2015 Family History FAMILY HISTORY Problem Relation Age of Onset - Breast Cancer Mother age 48 - Cancer Paternal Uncle lung - Cancer Paternal Grandfather lung - Thyroid Maternal Grandmother hypothyroidism - other (Hodgkin's disease) Maternal Grandmother - Thyroid Maternal Uncle hypothyroidism Social History Social History Marital status: Spouse name: Ke Years of education: Number of children: 0 Occupational History Occupation Employer Comment [employer] [facility] [employer] Social History Main Topics Smoking status: Never Smoker Smokeless tobacco: Never Used Alcohol use: No Drug use: No Sexual activity: Yes Partners with: Male control/protection: None Comment: wants conception EXAM: BP 134/84 Pulse 110 Temp 37.1 ?C (98.7 ?F) (Tympanic) Resp 18 Wt 115.7 kg (255 lb) BMI 42.43 kg/m? General Appearance: Well appearing, alert, in no acute distress, well-hydrated, well nourished.. Neck: Supple, no adenopathy; thyroid symmetric, normal size, no bruits. Lungs: lungs clear to auscultation. No wheezing, rhonchi, rales. Heart: RRR without murmur, gallop, or rubs. No ectopy. Feeling nervous, anxious, or on edge 3 Nearly every day Not being able to stop or control worrying 3 Nearly every day Worrying too much about different things 3 Nearly every day Trouble relaxing 2 Over half the days Being so restless that it's hard to sit still 0 Not at all sure Being easily annoyed or irritable 2 Over half the days Feeling afraid as if something awful might happen 3 Nearly every day MAI-7 Anxiety Score 16 ASSESSMENT/PLAN: 1. Anxiety disorder, unspecified type - ICD9: 300.00, ICD10: F41.9 - Will increase Zoloft to 50 mg daily. To call report in 3- 4 weeks, sooner if not doing well. 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 Referring Provider: ARY TREJO (RELAY TELEGRAPHER) [[id number]] Allergies As of Date: 05/11/2018 (No Known Allergies) Date Reviewed: 05/11/2018 Reviewed by: Bonita Saldana LPN - Fully Assessed Reason for Visit: Recheck [92] Primary Visit Diagnosis:Anxiety disorder, unspecified type [F41.9] Order(s):sertraline (ZOLOFT) 50 mg tabletTake 1 tablet by mouth once daily.Disp: 30 tabletRfl: 5 Prescriptions as of 05/11/2018 Sig: LEVOTHYROXINE 100 MCG TABLET Take 1 tablet by mouth once d* CETIRIZINE 10 MG TABLET Take 10 mg by mouth once zeke* RANITIDINE 150 MG TABLET Take 150 mg by mouth once dania* SERTRALINE 50 MG TABLET Take 1 tablet by mouth once d* CEPHALEXIN 500 MG CAPSULE Problem List As Of Date 05/11/2018 Noted Resolved DYSMENORRHEA [N94.6] INVALID FOR* Hypothyroidism [E03.9] INVALID FOR* Salivary gland stone [K11.5] INVALID FOR*01/08/2015 Gastroesophageal reflux disease without esophag*INVALID FOR* Morbid obesity due to excess calories (HCC) [E6*INVALID FOR* Female infertility [N97.9] INVALID FOR* Mastocytosis [D47.09] INVALID FOR* More... Anxiety disorder [F41.9] INVALID FOR* Prescriptions ordered this encounter Disp Refills Start End SERTRALINE 50 MG TABLET 30 t* 5 05/11/2018 Route: ORAL Sig: Take 1 tablet by mouth once daily. Medications Discontinued During This Encounter sertraline (ZOLOFT) 25 mg tablet 30 t* 5 04/10/2018 05/11/2018 Route: ORAL Sig: Take 1 tablet by mouth once daily. Disc: Changing Therapy/Dosage Form Questionnaire: MAI-7 ANXIETY SCALE Feeling nervous, anxious, or on edge -> 3 Nearly every day Not being able to stop or control worrying -> 3 Nearly every day Worrying too much about different things -> 3 Nearly every day Trouble relaxing -> 2 Over half the days Being so restless that it's hard to sit still -> 0 Not at all sure Being easily annoyed or irritable -> 2 Over half the days Feeling afraid as if something awful might happen -> 3 Nearly every day MAI-7 Anxiety Score -> 16 Encounter Status:Closed by ARY TREJO CNP on 05/11/18 [facility] OFFICE VISIT Observed: 05/11/2018 Status: F Source: [place] REPORT 11:13 AM [facility] [address] [place] [address] OFFICE VISIT Date of Service: 05/11/18 MR#: [id number] Acct: [id number] Name: HILARIO TRAMMELL Rep #: [id number] : 1990 Provider: PETRA Rivera Age/Sex: 28/F Location: [facility] Status: Signed Intake Vital Signs05/11/18 Height 5 ft 5 in 05/11/18 Weight: 254 lb 6 oz 05/11/18 Body Mass Index (BMI) 42.3 05/11/18 Blood Pressure 130/78 H Intake Visit Reasons: est ob 32 weeks Heel Seat Laster Required: No Is patient in pain?: No Allergies No Known Allergies Allergy (Verified 05/11/18 11:02) Medications Cetirizine HCl [Zyrtec] 10 mg PO QHS 08/27/16 [History Confirmed 05/11/18] Epinephrine [Epipen 2-Mika] 1 ml SQ PRN PRN 08/27/16 [History Confirmed 05/11/18] Ranitidine [Zantac] 150 mg PO BID 08/27/16 [History Confirmed 05/11/18] docosahexanoic acid 200 mg capsule 200 mg PO DAILY 12/28/17 [History Confirmed 05/11/18] levothyroxine 150 mcg tablet 150 mcg PO DAILY #30 tab 12/28/17 [Rx Confirmed 05/11/18] Vits [Prenatabs FA] 1 tab PO DAILY 04/09/18 [History Confirmed 05/11/18] Last Menstral Period: 10/13/17 Zika: Zika virus screening: Negative : No Nurse's Note: Pt states her feet, hands, and stomach have been very itchy but no rash PFSH PFSH Medical History GERD (gastroesophageal reflux disease) (Acute) Hyperthyroidism (Acute) Mastocytosis (Acute) Family History Mother Breast cancer Father Skin cancer Social History Smoking Status: Never smoker substance use type: does not use caffeine: No what type of physical activity do you participate in: walking frequency: 1-2 times per week seatbelt use: always do you feel safe at home: Yes additional social history: - [employer] 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 OB Visit FRANCISCO Calculator Estimated Delivery Date 07/06/18 Based on Conception Date 10/13/17 Current WG 32w 0d Number 1 Expected Delivery Route/Plan - ANU RGI Specific Issue/Plans flu vaccine: given tdap vaccine: given rhogam: na LARC form signed: declines labor support person: Ke pain management: epidural cut cord/dad catch: cord : yes PP control planned: [] discussed possible routes of delivery and associated risks: [] special requests: [] Initial Weight: 246 lb Date Weight BP Urine PrFHR FuHt Pres MoCTX DilationFetal StVisit NoProviderComments E ot v te GA G Effac lucose ed Visit Notes Visit Date: 05/11/18 Doing well. No VB, LOF. PUSHPA Carrillo on 05/11/18 Visit Date: 04/26/18 growth us and consult with mfm for vb. exp managmeent. no vb now and no lof good fm no regualr ctx Nyla Marcanthony, MD on 04/26/18 Visit Date: 03/30/18 no vb lof good fm noregular ctx Nyla Mancuso MD on 03/30/18 Visit Date: 03/01/18 Doing well. No VB, LOF PUSHPA Carrillo on 03/01/18 Visit Date: 01/25/18 Doing well. NO VB, LOF PUSHPA Carrillo on 01/25/18 Visit Date: 12/28/17 ANU from I, ivf . doing well no complaints Nyla Mancuso MD on 12/28/17 Diagnostics Diagnostics Labs Blood Type O POSITIVE 04/09/18 Antibody Screen NEGATIVE 04/09/18 Hct 36.1 % (37-47) L 04/13/18 Hgb 12.0 g/dl (12.0-15.0) 04/13/18 Obstetrics Ultrasound 04/13/18 Glucose 1 Hr 50 gm 147 mg/dL (70-140) H 03/30/18 Miscellaneous Test 04/07/18 Details: HIV: Urine Culture: Sequential Screen: NIPT Screen: Results [id number] Office Urine Glucose Negative Last Edit by Lupe Greenberg on 05/11/18 11:07 Office Urine Protein Negative Last Edit by Lupe Greenberg on 05/11/18 11:07 Assessment AND Plan Problems 1. Supervision of high risk in third trimester O09.93 PRR (need urine culture) FRANCISCO 07/06/18 Girl Mendez Ke ANU RGI, IVF 2. 32 weeks gestation of Z3A.32 nipt normal. anatomy scan normal. 3. 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 Obesity affecting in third trimester O99.213 weekly BPP at 32 wk per MFM 5. abn NEC-antepar O35.8XX0 Fetus with dacryocystocele 6. with history of infertility in third trimester O09.03 ivf ; urine culture negative 11/30/2017 at [facility] 7. Elevated troponin R74.8 8. Syncope, unspecified syncope type R55 9. 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 [place] [address] OFFICE VISIT Date of Service: 04/26/18 MR#: [id number] Acct: [id number] Name: HILARIO TRAMMELL Rep #: [id number] : 1990 Provider: Nyla Mancuso MD Age/Sex: 28/F Location: [facility] Status: Signed Intake Vital Signs04/26/18 Height 5 ft 5 in 04/26/18 Weight: 249 lb 04/26/18 Body Mass Index (BMI) 41.4 04/26/18 Blood Pressure 130/68 H Intake Visit Reasons: est ob 30 weeks Chief Complaint: est ob Heel Seat Laster Required: No Is patient in pain?: No Allergies No Known Allergies Allergy (Verified 04/26/18 09:15) Medications Cetirizine HCl [Zyrtec] 10 mg PO QHS 08/27/16 [History Confirmed 04/26/18] Epinephrine [Epipen 2-Mika] 1 ml SQ PRN PRN 08/27/16 [History Confirmed 04/26/18] Ranitidine [Zantac] 150 mg PO BID 08/27/16 [History Confirmed 04/13/18] docosahexanoic acid 200 mg capsule 200 mg PO DAILY 12/28/17 [History Confirmed 04/13/18] levothyroxine 150 mcg tablet 150 mcg PO DAILY #30 tab 12/28/17 [Rx Confirmed 04/26/18] Vits [Prenatabs FA] 1 tab PO DAILY 04/09/18 [History Confirmed 04/26/18] Last Menstral Period: 10/13/17 Zika: Zika virus screening: Negative : No PFSH PFSH Medical History GERD (gastroesophageal reflux disease) (Acute) Hyperthyroidism (Acute) Mastocytosis (Acute) Family History Mother Breast cancer Father Skin cancer Social History Smoking Status: Never smoker substance use type: does not use caffeine: No what type of physical activity do you participate in: walking frequency: 1-2 times per week seatbelt use: always do you feel safe at home: Yes additional social history: - [employer] 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 OB Visit FRANCISCO Calculator Estimated Delivery Date 07/06/18 Based on Conception Date 10/13/17 Current WG 29w 6d Number 1 Expected Delivery Route/Plan - ANU RGI Specific Issue/Plans flu vaccine: given tdap vaccine: [] rhogam: [] LARC form signed: declines labor support person: Ke pain management: epidural cut cord/dad catch: cord : yes PP control planned: [] discussed possible routes of delivery and associated risks: [] special requests: [] Initial Weight: 246 lb Date Weight BP Urine PFHR FuHt Pres MCTX DilatioFetal SVisit NProvideComment rot ov n t ote r s EGA Ef Gluco faced se 12/28/1245 lb 135/88 [id number] ANU fro 8 6 oz (+ e m I, 126 oz) ivf pre w 6d Negati gnancy. ve doing well n o compl aints Visit Notes Visit Date: 04/26/18 growth us and consult with mfm for vb. exp managmeent. no vb now and no lof good fm no regualr ctx Nyla Mancuso MD on 04/26/18 Visit Date: 03/30/18 no vb lof good fm noregular ctx Nyla Mancuso MD on 03/30/18 Visit Date: 03/01/18 Doing well. No VB, LOF FALLON CarrilloC on 03/01/18 Visit Date: 01/25/18 Doing well. NO VB, LOF FALLON CarrilloC on 01/25/18 Visit Date: 12/28/17 ANU from [facility], ivf . doing well no complaints Nyla Mancuso MD on 12/28/17 Diagnostics Diagnostics Labs Blood Type O POSITIVE 04/09/18 Antibody Screen NEGATIVE 04/09/18 Hct 36.1 % (37-47) L 04/13/18 Hgb 12.0 g/dl (12.0-15.0) 04/13/18 Obstetrics Ultrasound 04/13/18 Glucose 1 Hr 50 gm 147 mg/dL (70-140) H 03/30/18 Miscellaneous Test 04/07/18 Details: HIV: Urine Culture: Sequential Screen: NIPT Screen: Results [id number] Office Urine Glucose Negative Last Edit by Nhi Agrawal on 04/26/18 09:21 Office Urine Protein Negative Last Edit by Nhi Agrawal on 04/26/18 09:21 Assessment AND Plan Problems 1. 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 Cutaneous mastocytosis D47.01 3. 30 weeks gestation of Z3A.30 nipt normal. anatomy scan normal. 4. Hypothyroidism, unspecified type E03.9 check q trimester 5. Vaginal bleeding during O46.90 6. Obesity affecting O99.210 weekly BPP at 32 wk per MFM 7. Supervision of high risk in third trimester O09.93 FRANCISCO 07/06/18 Girl Mendez Ke BRENNAN RGI, IVF 8. Elevated glucose tolerance test R73.09 Normal 3 hr gtt Plan movement and labor precautions reviewed. ACOG trimester education reviewed and updated. see problem list details for updated plan management information and see below for orders placed at this visit. GA appropriate handout given. Orders Orders: Coding Level of Care Code OB Routine Diagnoses with history of infertility in third trimester O09.03 Trimester: third trimester Cutaneous mastocytosis D47.01 30 weeks gestation of Z3A.30 Weeks of gestation: 30 weeks Hypothyroidism, unspecified type E03.9 Vaginal bleeding during O46.90 Obesity affecting O99.210 Supervision of high risk in third trimester O09.93 Trimester: third trimester Elevated glucose tolerance test R73.09 04/26/18 1015 <Electronically signed by Nyla Mancuso MD> Date Nyla Mancuso MD Cosigner Signature: Date (if applicable) CC: PROGRESS NOTE Observed: 04/17/2018 Status: COMPLETED Source: [place] 10:30 AM [facility] REPOSITORY Met with patient. 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 Consent to share information with FTC team, OB and naval architect specialist signed. Pt plans to deliver at [place] with Dr. Mancuso. Aerial Survey Technician is JOSE Trevinooster. Female fetus- name is Joanna Method of feeding: breast- booklet provided Ultrasound findings today: See report in procedures for details. Pt will follow up monthly for reevaluation of lacrimal duct and growth Reinforced continued OB care with Dr. Mancuso The total patient time of the visit was 5 minutes, of which greater than 50% of the time was spent counseling and coordinating care. PROGRESS NOTE Observed: 04/17/2018 Status: COMPLETED Source: AKKELLY 10:30 AM [facility] REPOSITORY The total patient time of the visit was 30 minutes, of which greater than 50% of the time was spent counseling and coordinating care. FIBRINOGEN Collected: 04/13/2018 Status: F Source: PATY 9:00 AM [facility] REPOSITORY TYPE CODE TESTS RESULT OUT OF RANGE REFERENCE UNITS LAB L300.4700 203-444 mg/dl High FIB 663 Performed By: #### L300.4700 #### [facility] [address] [place], [address] DONNA Collected: 04/13/2018 Status: F Source: PATY 9:00 AM [facility] REPOSITORY TYPE CODE TESTS RESULT OUT OF RANGE REFERENCE UNITS LAB L803.2300 Normal INOCENCIA MARK Negative Result Comment: Oniel Mark Study Reference: Negative No cells seen. TESTING PERFORMED AT [facility]. ORIGINAL REPORT ON FILE IN LAB CONTAINS ADDITIONAL TEST SITE INFORMATION. RESULTS CALLED TO GEOVANNA MEJIA 04/14/18 1433 Gaudencio Bejarano. REPORT READ BACK BY GEOVANNA MEJIA . Performed By: #### L803.2300 #### [facility] [address] [place], [address] HISTORY AND PHYSICAL Observed: 04/13/2018 Status: F Source: PATY EXAM 6:53 AM [facility] REPOSITORY [facility] Medical Records Department [address] [place] [address] History and Physical 04/13/18 0649 MR#: [id number] Acct: [id number] Name: HILARIO TRAMMELL Rep #: [id number] : 1990 28 From: Nyla Mancuso MD PCP: Ana Tucker III, MD Status: REG CLI Y Location: [address] - Problem List (1) Vaginal bleeding during Status: Acute (2) Elevated glucose tolerance test Status: Acute Comment: Needs 3 hr gtt (3) screening encounter Status: Acute Comment: Counsyl- negative (4) Status: Acute Qualifiers: Comment: nipt normal. anatomy scan normal. (5) Hypothyroid Status: Acute Qualifiers: Comment: check q trimester (6) with history of infertility Status: Acute Qualifiers: Comment: ivf ; urine culture negative 11/30/2017 at [facility] (7) Supervision of normal Status: Acute Qualifiers: Comment: FRANCISCO 07/06/18 Girl Mendez Ke ANU [facility], IVF (8) Cutaneous mastocytosis Status: Chronic History Date of Admission: 12/12/17 Final FRANCISCO: 07/06/18 Gestational age: 28 Weeks and 0 Days History of this : This is a 28 year-old, at 28 weeks gestational age presents with vaginal bleeding. Patient presented over the weekend with a small amount of vaginal bleeding without contractions and was discharged home in stable condition. Today she had a recurrence of bleeding that was bright red in appearance with some intermittent cramping. She admits good movement and denies any loss of fluid. She denies any abdominal trauma or drug use. Medical History: Medical History (Last Reviewed 03/30/18 @ 08:22 by Nhi Agrawal) GERD (gastroesophageal reflux disease) K21.9 Hyperthyroidism E05.90 Mastocytosis D47.09 Allergies No Known Allergies Allergy (Verified 04/09/18 06:15) Home Medications: Home Medications Cetirizine HCl [Zyrtec] 10 mg PO QHS 08/27/16 Epinephrine [Epipen 2-Mika] 1 ml SQ PRN PRN 08/27/16 Ranitidine [Zantac] 150 mg PO BID 08/27/16 docosahexanoic acid 200 mg capsule 200 mg PO DAILY 12/28/17 levothyroxine 150 mcg tablet 150 mcg PO DAILY #30 tab 12/28/17 Cephalexin [Keflex] 500 mg PO Q12 #14 capsule 04/09/18 Vits [Prenatabs FA] 1 tablet PO DAILY 04/09/18 Smoking Status: Never smoker Alcohol: None Number of Fetus(es): 1 Heart Tracins moderate variability reactive no decelerations category 1 tracing TOCO Analysis: No regular contractions History Past Pregnancies: Past Pregnancies Delivery Name GA/Weeks Outcome Route WeiInfant GeLabor LenAnesthesiDelivery Provider FOB Date ght [facility] Location Review of Systems Constitutional: Denies: Fever, Malaise Eyes: Denies: Blurred vision, Vision Change HEENT: Denies: Head Aches, Visual Changes Cardiovascular: Denies: Chest Pain, Palpitations Respiratory: Denies: Cough, Shortness of Breath, Wheezing Gastrointestinal: Denies: Abdominal Pain, Diarrhea, Nausea, Vomiting Genitourinary: Denies: Dysuria, Hematuria Gynecological: Reports: Vaginal bleeding Musculoskeletal: Denies: Joint Pain, Muscle pain Skin: Denies: Lesions, Rash Neurological: Denies: Blurred vision, Focal weakness, Headaches Psychiatric: Denies: Anxiety, Depression Endocrine: Denies: Heat/ Cold Intolerance Hematologic/ Lymphatic: Denies: Easy Bruising, Easy Bleeding Physical Exam General: Alert, Cooperative, No apparent distress HEENT: Atraumatic, Normocephalic. Negative for: Thyromegaly, Lymphadenopathy Cardiovascular: Regular rate Lungs: Normal air movement Abdomen: Soft, Non Tender, Gravid Neurological: Deep Tendon Reflexes 2+/4 and Symmetrical, Neuro grossly intact. Negative for: Clonus SENIOR MOBILE DEVELOPER: Normal external genitalia. Negative for: Vulvar lesions Estimated gestational size: Appropriate for gestational size Presentation: Cephalic Cervix Dilation (cm): 0 - Moderate amount of red blood mixed with mucus, no clots, no ectropion seen. Assessment/Plan All Active Problems (Last Reviewed 03/30/18 @ 08:22 by Nhi Agrawal) Vaginal bleeding during (Acute) Elevated glucose tolerance test (Acute) screening encounter (Acute) (Acute) Hypothyroid (Acute) with history of infertility (Acute) Supervision of normal (Acute) Syncope (Acute) Elevated troponin (Acute) This is a 28 year-old, at 28 weeks gestational age with vaginal bleeding #1. Vaginal bleeding recommend admit and monitor for at least 24-48 hours without bleeding. Recommend ultrasound this morning to evaluate fetus and placenta. CBC and fibrinogen within normal limits, repeat fibrinogen in 4 hours and Kleihauer- Betke to be drawn. 2. Prematurity status post betamethasone x1. Repeat in 24 hours. 3. Rh+ 4. IVF 04/13/18 0653 <Electronically signed by Nyla Mancuso MD> Date Nyla Mancuso MD Cosigner Signature: Date (if applicable) CC: Ana Tucker III, MD; Nyla Mancuso MD Signed CBC W/DIFF, AUTOMATED Collected: 04/13/2018 Status: F Source: PATY 5:00 AM [facility] REPOSITORY TYPE CODE TESTS RESULT OUT OF RANGE REFERENCE UNITS LAB L100.1000 4.4-11.0 K/mm3 Normal WBC 9.7 LAB L100.1200 4.2-5.4 M/mm3 Low RBC 3.80 LAB L100.1300 12.0-15.0 g/dl Normal HGB 12.0 LAB L100.1400 37-47 % Low HCT 36.1 LAB L100.1500 81-99 fL Normal MCV 95.0 LAB L100.1600 27.0-32.0 pg Normal MCH 31.6 LAB L100.1700 32-36 g/gl Normal MCHC 33.2 LAB L100.1810 11.6-14.6 % Normal RDW CV 13.5 LAB L100.1820 35.1-43.9 fl High RDW SD 44.7 LAB L100.1900 150-450 K/mm3 Normal PLT 322 LAB L100.2000 6.2-12.0 fl Normal MPV 10.2 LAB L100.2100 47-70 % Normal NEUT% 69.1 LAB L100.2200 19-41 % Normal LY% 22.3 LAB L100.2300 0-10 % Normal MONO% 6.2 LAB L100.2400 0-5 % Normal EO% 2.1 LAB L100.2500 0-1 % Normal BASO% 0.2 LAB L100.2550 0.0-0.9 % Normal IM GRAN % 0.100 Result Comment: IG% - Immature Granulocytes (promyelocytes, myelocytes and metamyelocytes) > 1% indicates that a LEFT SHIFT is Present. LAB L100.2620 2.0-7.7 X10 3/uL Normal Absolute Neut 6.7 LAB L100.2720 0.83-4.51 X10 3/ul Normal Absolute Lymph 2.16 Performed By: #### L100.0100, L300.4700 #### [facility] [address] [place], [address] FIBRINOGEN Collected: 04/13/2018 Status: F Source: [place] 5:00 AM [facility] REPOSITORY TYPE CODE TESTS RESULT OUT OF RANGE REFERENCE UNITS LAB L300.4700 203-444 mg/dl High FIB 654 Performed By: #### L100.0100, L300.4700 #### [facility] [address] [place], [address] OB LIMITED WITH Observed: 04/13/2018 Status: F Source: [place] BIOMETRICS 4:28 AM [facility] REPOSITORY [facility] Imaging Services [address] [place] [id number] OB Limited With Biometrics MR#: [id number] Acct: [id number] Name: HILARIO TRAMMELL Rep #: [id number] : 1990 F 28 From: Don Young MD PCP: Ana Tucker III, MD Status: REG CLI Study: OB Limited With Biometrics Date of Exam: 04/13/18 Exam# [id number] Ordering Dr: Nyla Mancuso MD STUDY: SECOND AND THIRD TRIMESTER OBSTETRICAL ULTRASOUND - LIMITED REASON FOR EXAM: Female, 28 years old. Bleeding. LMP: September 29, 2017. PRIOR ULTRASOUND: Comparison is made with prior study dated February 15, 2018. TECHNIQUE: Transabdominal and Transvaginal TECHNICAL QUALITY: Adequate. FINDINGS: There is a single intrauterine fetus. The fetus is in a cephalic presentation. There is demonstrated cardiac activity with a heart rate of 143 bpm. There is a normal amniotic fluid volume. The amniotic fluid index (DRISS) is 13.6 cm. The placenta is anterior in location and is not low lying. There are Grade 1 placental changes. The cervix measures 4.1 cm in length. BIOMETRY: BPD: 7.2 cm: 29 weeks, 0 days HC: 27.2 cm: 29 weeks, 6 days AC: 25.7 cm: 29 weeks, 6 days FL: 5.5 cm: 29 weeks, 1 days Age by LMP: 28 weeks, 0 days. FRANCISCO by LMP: July 06, 2018. age by prior US: 28 weeks, 3 days. FRANCISCO by prior US: July 02, 2018. age by current US: 29 weeks, 4 days. FRANCISCO by current US: June 25, 2018. Estimated weight: 1407 grams, +/- 26 grams, 90 percentile. Gender: Indeterminant US/OB Limited With Biometrics IMPRESSION: Single live intrauterine gestation with a mean gestational age of 28 weeks and 3 days. The measurements obtained today fall within the normal expected range. Electronically Signed: Don Young MD at 14:22 EST Tel [phone], Service support , CC: Ana Tucker III, MD; Nyla Mancuso MD Environmental Communications Specialist: Signed PROGRESS Observed: 04/10/2018 Status: COMPLETED Source: [place] 1:05 PM [facility] REPOSITORY HNO ID: [id number] Author: Rocio Ch APN Student Service: (none) Author Type: (none) Type: Progress Notes Filed: 04/10/2018 1:43 PM Note Text: Chief Complaint Patient presents with: Medication Follow-up: patient is and needing to discuss medications HPI Hilario Trammell is a 28 year old female who presents here today for Above Complaints. Patient is 27 weeks with first . Due 07/06/17. It was suggested by her [facility] that she talk to her PCP about adjusting or discontinuing Lexapro. has been on medication for two years for anxiety. Went from 20 mg to 10 mg without difficulty. Symptoms have been really good during . However, she is hesitant to stop medication altogether. She is not sure whether she will be or not. Sleeping well at night. Appetite also well. Denies symptoms of anxiety. Feels that she would not have problems with a decreased dose. Was in the ED yesterday for vaginal bleeding and was diagnosed with a bladder infection. Taking Keflex. Is now on bed rest. Vaginal bleeding ceased. Past medical history, appointments, medications, allergies reviewed. Previous Medical History PAST MEDICAL HISTORY Diagnosis Date - Elevated troponin 12/12/2017 0.17 - Gastroesophageal reflux disease without esophagitis 01/08/2015 - hypothyroidism - Syncope 12/12/2017 Previous Surgical History PAST SURGICAL HISTORY Procedure Laterality Date - US BREAST NEEDLE CORE BIOPSY LT Left 04/17/2015 Family History FAMILY HISTORY Problem Relation Age of Onset - Breast Cancer Mother age 48 - Cancer Paternal Uncle lung - Cancer Paternal Grandfather lung - Thyroid Maternal Grandmother hypothyroidism - other (Hodgkin's disease) Maternal Grandmother - Thyroid Maternal Uncle hypothyroidism Patient Allergies ALLERGIES No Known Allergies Current Medications Current Outpatient Prescriptions on File Prior to Visit: escitalopram oxalate (LEXAPRO) 10 mg tablet Take 1 tablet by mouth once daily. levothyroxine (SYNTHROID) 100 mcg tablet Take 1 tablet by mouth once daily. Take on empty stomach cetirizine (ZYRTEC) 10 mg tablet Take 10 mg by mouth once daily. ranitidine (ZANTAC) 150 mg tablet Take 150 mg by mouth once daily. No current facility-administered medications on file prior to visit. Social History Social History Marital status: Spouse name: Ke Years of education: Number of children: 0 Occupational History Occupation Employer Comment [employer] Social History Main Topics Smoking status: Never Smoker Smokeless tobacco: Never Used Alcohol use: No Drug use: No Sexual activity: Yes Partners with: Male control/protection: None Comment: wants conception Review of Symptoms REVIEW OF SYSTEMS GENERAL: No weight loss, malaise or fevers RESPIRATORY: Negative for cough, hemoptysis, wheezing, COPD, dyspnea or shortness of breath CARDIOVASCULAR: Negative for chest pain, leg swelling, hypertension, CHF or palpitations GI: No nausea, vomiting, or diarrhea : No history of dysuria, frequency or incontinence PSYCH: Negative for sleep disturbance, mood disorder and recent psychosocial stressors NEURO: No history of headaches, syncope, paralysis, seizures or tremors EXAM: BP 120/70 (BP Site: Left Arm, BP Position: Sitting, BP Cuff Size: Large Adult) Pulse 84 Temp 37.2 ?C (99 ?F) (Tympanic) Resp 18 Wt 112.9 kg (249 lb) BMI 41.44 kg/m? General Appearance: Well appearing, alert, in no acute distress, well-hydrated, well nourished.. Lungs: Lungs clear to auscultation. No wheezing, rhonchi, rales. Heart: RRR without murmur, gallop, or rubs. No ectopy. Neurologic: Negative.. Appearance: well kempt, cooperative, relaxed posture Behavior: maintains eye contact Speech: Normal Mood: Cheerful Affect: Appropriate Perceptions: Denies Hallucinations Thought Content: Denies SI/HI Judgment: Appropriate Health Maintenance List TWO PNEUMOVAX 5 YEARS APART PRIOR TO AGE 65(1) due on 01/28/2007 ADULT PREVNAR-13 due on 01/28/2007 HPV EVERY 5 YEARS due on 01/28/2018 ANNUAL PCP TEAM CHRONIC DISEASE VISIT due on 01/20/2019 PAP EVERY 5 YEARS due on 12/04/2019 DTAP,TDAP,TD(7 - Td) due on 11/15/2023 INFLUENZA Completed ASSESSMENT/PLAN: 1. Anxiety disorder, unspecified type - ICD9: 300.00, ICD10: F41.9 - Discussed with patient regarding best to stay on SSRI for control of anxiety through third trimester. She would like to remain on medication and agreeable to switching to Zoloft. Reviewed with Wanda Rivera CNP at [facility] office who concurs. Hilario wishes to trial low dose at this time as her anxiety sx are well controlled. She wishes to be on lowest effective dose. She is instructed to contact the office right away if anxiety worsens. Would then increase Zoloft to 50 mg or lowest effective dose. - Can begin Zoloft as of today, will have her back for f/u in 4 weeks, sooner if needed. - SERTRALINE 25 MG TABLET Health Maintenance Addressed: Tdap and flu vaccine given at [facility] office. Ary Trjeo, MSN BEEF CATTLE FARM WORKER.DISULFURIZER TENDER CNOV Observed: 04/10/2018 Status: COMPLETED Source: [place] 1:00 PM [facility] REPOSITORY Office Visit (FAMPWS) HILARIO TRAMMELL ([id number]) 1990 F DAYSI Date Time Provider Department 04/10/18 1:00 PM ARY TREJO (RELAY TELEGRAPHER) [facility] During your visit today, we recorded the following information about you: Temperature Pulse Respiration Blood pressure 99 degrees 84/minute 18/minute 120/70 Weight 112.9 kg Rocio Ch MOHS SURGEON/GENERAL DERMATOLOGIST Student 04/10/2018 1:14 PM Signed Chief Complaint Patient presents with: Medication Follow-up: patient is and needing to discuss medications HPI Hilario Trammell is a 28 year old female who presents here today for Above Complaints. Patient is 27 weeks with first . Due 07/06/17. It was suggested by her [facility] that she talk to her PCP about adjusting or discontinuing Lexapro. has been on medication for two years for anxiety. Went from 20 mg to 10 mg without difficulty. Symptoms have been really good during . However, she is hesitant to stop medication altogether. She is not sure whether she will be or not. Sleeping well at night. Appetite also well. Denies symptoms of anxiety. Feels that she would not have problems with a decreased dose. Was in the ED yesterday for vaginal bleeding and was diagnosed with a bladder infection. Taking Keflex. Is now on bed rest. Vaginal bleeding ceased. Past medical history, appointments, medications, allergies reviewed. Previous Medical History PAST MEDICAL HISTORY Diagnosis Date - Elevated troponin 12/12/2017 0.17 - Gastroesophageal reflux disease without esophagitis 01/08/2015 - hypothyroidism - Syncope 12/12/2017 Previous Surgical History PAST SURGICAL HISTORY Procedure Laterality Date - US BREAST NEEDLE CORE BIOPSY LT Left 04/17/2015 Family History FAMILY HISTORY Problem Relation Age of Onset - Breast Cancer Mother age 48 - Cancer Paternal Uncle lung - Cancer Paternal Grandfather lung - Thyroid Maternal Grandmother hypothyroidism - other (Hodgkin's disease) Maternal Grandmother - Thyroid Maternal Uncle hypothyroidism Patient Allergies ALLERGIES No Known Allergies Current Medications Current Outpatient Prescriptions on File Prior to Visit: escitalopram oxalate (LEXAPRO) 10 mg tablet Take 1 tablet by mouth once daily. levothyroxine (SYNTHROID) 100 mcg tablet Take 1 tablet by mouth once daily. Take on empty stomach cetirizine (ZYRTEC) 10 mg tablet Take 10 mg by mouth once daily. ranitidine (ZANTAC) 150 mg tablet Take 150 mg by mouth once daily. No current facility-administered medications on file prior to visit. Social History Social History Marital status: Spouse name: Ke Years of education: Number of children: 0 Occupational History Occupation Employer Comment [employer] Social History Main Topics Smoking status: Never Smoker Smokeless tobacco: Never Used Alcohol use: No Drug use: No Sexual activity: Yes Partners with: Male control/protection: None Comment: wants conception Review of Symptoms REVIEW OF SYSTEMS GENERAL: No weight loss, malaise or fevers RESPIRATORY: Negative for cough, hemoptysis, wheezing, COPD, dyspnea or shortness of breath CARDIOVASCULAR: Negative for chest pain, leg swelling, hypertension, CHF or palpitations GI: No nausea, vomiting, or diarrhea : No history of dysuria, frequency or incontinence PSYCH: Negative for sleep disturbance, mood disorder and recent psychosocial stressors NEURO: No history of headaches, syncope, paralysis, seizures or tremors EXAM: BP 120/70 (BP Site: Left Arm, BP Position: Sitting, BP Cuff Size: Large Adult) Pulse 84 Temp 37.2 ?C (99 ?F) (Tympanic) Resp 18 Wt 112.9 kg (249 lb) BMI 41.44 kg/m? General Appearance: Well appearing, alert, in no acute distress, well-hydrated, well nourished.. Lungs: Lungs clear to auscultation. No wheezing, rhonchi, rales. Heart: RRR without murmur, gallop, or rubs. No ectopy. Neurologic: Negative.. Appearance: well kempt, cooperative, relaxed posture Behavior: maintains eye contact Speech: Normal Mood: Cheerful Affect: Appropriate Perceptions: Denies Hallucinations Thought Content: Denies SI/HI Judgment: Appropriate Health Maintenance List TWO PNEUMOVAX 5 YEARS APART PRIOR TO AGE 65(1) due on 01/28/2007 ADULT PREVNAR-13 due on 01/28/2007 HPV EVERY 5 YEARS due on 01/28/2018 ANNUAL PCP TEAM CHRONIC DISEASE VISIT due on 01/20/2019 PAP EVERY 5 YEARS due on 12/04/2019 DTAP,TDAP,TD(7 - Td) due on 11/15/2023 INFLUENZA Completed ASSESSMENT/PLAN: 1. Anxiety disorder, unspecified type - ICD9: 300.00, ICD10: F41.9 - Discussed with patient regarding best to stay on SSRI for control of anxiety through third trimester. She would like to remain on medication and agreeable to switching to Zoloft. Reviewed with Wanda Rivera CNP at [facility] office who concurs. Hilario wishes to trial low dose at this time as her anxiety sx are well controlled. She wishes to be on lowest effective dose. She is instructed to contact the office right away if anxiety worsens. Would then increase Zoloft to 50 mg or lowest effective dose. - Can begin Zoloft as of today, will have her back for f/u in 4 weeks, sooner if needed. - SERTRALINE 25 MG TABLET Health Maintenance Addressed: Tdap and flu vaccine given at [facility] office. Ary Trejo MSN BEEF CATTLE FARM WORKER.DISULFURIZER TENDER Allergies As of Date: 04/10/2018 (No Known Allergies) Date Reviewed: 04/10/2018 Reviewed by: Bonita Saldana LPN - Fully Assessed Reason for Visit: Medication Follow-up [270] Cmt: patient is and needing to discuss medications Primary Visit Diagnosis:Anxiety disorder, unspecified type [F41.9] Order(s):sertraline (ZOLOFT) 25 mg tabletTake 1 tablet by mouth once daily.Disp: 30 tabletRfl: 5 Prescriptions as of 04/10/2018 Sig: CEPHALEXIN 500 MG CAPSULE LEVOTHYROXINE 100 MCG TABLET Take 1 tablet by mouth once d* CETIRIZINE 10 MG TABLET Take 10 mg by mouth once zeke* RANITIDINE 150 MG TABLET Take 150 mg by mouth once dania* SERTRALINE 25 MG TABLET Take 1 tablet by mouth once d* Problem List As Of Date 04/10/2018 Noted Resolved DYSMENORRHEA [N94.6] INVALID FOR* Hypothyroidism [E03.9] INVALID FOR* Salivary gland stone [K11.5] INVALID FOR*01/08/2015 Gastroesophageal reflux disease without esophag*INVALID FOR* Morbid obesity due to excess calories (HCC) [E6*INVALID FOR* Female infertility [N97.9] INVALID FOR* Mastocytosis [D47.09] INVALID FOR* More... Anxiety disorder [F41.9] INVALID FOR* Prescriptions ordered this encounter Disp Refills Start End SERTRALINE 25 MG TABLET 30 t* 5 04/10/2018 Route: ORAL Sig: Take 1 tablet by mouth once daily. Medications Discontinued During This Encounter escitalopram oxalate (LEXAPRO) 10 mg* 30 t* 5 04/04/2018 04/10/2018 Cmt: This prescription was filled on 04/03/2018. Any refills authorized will be placed on file. Route: ORAL Sig: Take 1 tablet by mouth once daily. Disc: Clinical Decision Disposition: Return in about 1 month (around 05/10/2018). Follow-up and Disposition History Recorded Encounter Status:Closed by ARY TREJO CNP on 04/10/18 CBC-COMPLETE BLOOD CNT Collected: 04/09/2018 Status: F Source: [place] NO DIFF 6:58 AM [facility] REPOSITORY TYPE CODE TESTS RESULT OUT OF RANGE REFERENCE UNITS LAB L100.1000 4.4-11.0 K/mm3 Normal WBC 10.0 LAB L100.1200 4.2-5.4 M/mm3 Low RBC 3.66 LAB L100.1300 12.0-15.0 g/dl Low HGB 11.5 LAB L100.1400 37-47 % Low HCT 34.8 LAB L100.1500 81-99 fL Normal MCV 95.1 LAB L100.1600 27.0-32.0 pg Normal MCH 31.4 LAB L100.1700 32-36 g/gl Normal MCHC 33.0 LAB L100.1810 11.6-14.6 % Normal RDW CV 13.8 LAB L100.1820 35.1-43.9 fl High RDW SD 45.3 LAB L100.1900 150-450 K/mm3 Normal PLT 342 LAB L100.2000 6.2-12.0 fl Normal MPV 10.0 Performed By: #### L100.0500, L300.4700 #### [facility] [address] [place], [address] FIBRINOGEN Collected: 04/09/2018 Status: F Source: [place] 6:58 AM [facility] REPOSITORY TYPE CODE TESTS RESULT OUT OF RANGE REFERENCE UNITS LAB L300.4700 203-444 mg/dl High FIB 629 Performed By: #### L100.0500, L300.4700 #### [facility] [address] [place], [address] TYPE AND SCREEN Collected: 04/09/2018 Status: F Source: [place] 6:58 AM [facility] REPOSITORY Order Comment: Has pt arrived? Y Reason for Type AND Screen/Red Cells: ROUTINE TYPE CODE TESTS RESULT OUT OF RANGE REFERENCE UNITS LAB B10.0800 O Normal BLOOD TYPE GEL POSITIVE LAB B100.4000 Normal Antibody NEGATIVE Screen Performed By: #### B101.7450 #### [facility] [address] [place], [place], [address] URINALYSIS, COMPLETE Collected: 04/09/2018 Status: F Source: [place] 5:40 AM [facility] REPOSITORY Order Comment: Has pt arrived? Y How was Urine Obtained? ENAMELER TO SPECIFY TYPE CODE TESTS RESULT OUT OF RANGE REFERENCE UNITS LAB L400.3000 Yellow COLOR Normal Yellow LAB L400.3050 Clear Normal CLARITY Sl. Cloudy LAB L400.3200 Normal mg/dl Normal GLUCOSE, UR Normal LAB L400.3300 Negative mg/dL Normal BILIRUBIN URINE Negative LAB L400.3400 Negative mg/dl Normal KETONE UR Negative LAB L400.3465 1.002-1.030 Normal SP.GR. DIPSTX 1.010 LAB L400.3550 5.0 - 8.0 pH UR Normal 7.0 LAB L400.3600 Negative mg/dl High PROT 15 DIPSTX LAB L400.3700 Normal mg/dl Normal UROBILI Normal LAB L400.3750 Negative Normal NITRITE UR Negative LAB L400.3780 Negative /ul High OCCULT BLOOD-UR 250 LAB L400.3800 Negative /ul High LEUK 25 ESTERASE LAB L400.4050 0-5 /hpf WBC Normal 0-5 SEEN LAB L400.4100 0-5 /hpf Normal RBC-UA 5-10 SEEN LAB L400.4150 5-10 /hpf SQUAM Normal EPI 0-5 SEEN LAB L400.4300 None Seen /hpf Normal BACTERIA RARE LAB L400.4350 <or=2+ /hpf 0 Normal MUCUS, URINE SEEN Performed By: #### L400.0001 #### [facility] [address] [place], [address] COMPREHENSIVE METABOLIC Collected: 04/07/2018 Status: F Source: [facility] 12:57 PM [facility] REPOSITORY Order Comment: Comments: Bile Acid work up SER FZ TYPE CODE TESTS RESULT OUT OF RANGE REFERENCE UNITS LAB L501.0100 74-106 mg/dL High GLU 127 Result Comment: Fasting Glucose result greater than or equal to 126 mg/dL suggests DIABETES MELLITUS per A.D.A. criteria. Please note revised GLUCOSE reference range effective 2017. LAB L501.1000 7-18 mg/dL Low BUN 4 LAB L501.1100 0.55-1.02 mg/dL Low CREAT,SERUM 0.47 Result Comment: The validity of the calculated GFR AND GFRAA in patients over 70 years has not been determined. Clinical correlation is essential. LAB L501.1110 >60 mL/min Normal EST GFR 166 Result Comment: Non- GFR Calc LAB L501.1115 >60 mL/min Normal EST GFR - AA 201 Result Comment: GFR Calc LAB L501.1300 10-20 RATIO Low BUN/CRE 8.6 LAB L501.1500 6.4-8.2 g/dL Normal T PROT 6.9 LAB L501.1800 3.2-5.0 g/dL Low ALB 2.6 LAB L501.1950 2.2-4.2 g/dL High GLOB 4.3 LAB L501.2000 0.9-2.4 RATIO Low A/G 0.6 LAB L501.2200 8.5-10.1 mg/dL Normal CA 8.6 LAB L501.4100 15-37 U/L Normal AST 27 LAB L501.4305 45-117 U/L Normal ALK P 102 LAB L501.4405 13-56 U/L Normal ALT 37 LAB L501.4600 0.20-1.00 mg/dL Normal T BILI 0.30 LAB L501.5300 136-145 mmol/L Normal NA 139 LAB L501.5600 3.5-5.1 mmol/L Normal K 3.8 LAB L501.5900 98-107 mmol/L Normal CL 106 LAB L501.6100 21.0-32.0 mmol/L Normal CO2 23.0 LAB L501.6200 5-15 Normal GAP 10 Performed By: #### L500.4050 #### [facility] [address] [place], [address] MISCELLANEOUS LAB Collected: 04/07/2018 Status: F Source: [place] PROCEDURE 12:57 PM [facility] REPOSITORY Order Comment: Comments: Bile Acid work up SER FZ Comments: Bile Acid work up Test(s) Ordered: [id number] BILE ACID SER FZ TYPE CODE TESTS RESULT OUT OF RANGE REFERENCE UNITS LAB L801.1541 Normal [facility] LAB TEST Result Comment: TEST RESULT LIMITS Bile Acids 5.8 umol/L 4.7 - 24.5 female reference interval (15 - 45 years): 3.7 - 14.5 TESTING PERFORMED AT [facility]. ORIGINAL REPORT ON FILE IN LAB CONTAINS ADDITIONAL TEST SITE INFORMATION. Performed By: #### L801.1541 #### [facility] [address] [place], [address] GESTATIONAL GTT 3HR Collected: 04/07/2018 Status: F Source: [place] 100G 9:57 AM [facility] REPOSITORY Order Comment: Is Patient Fasting? Y TYPE CODE TESTS RESULT OUT OF RANGE REFERENCE UNITS LAB L501.0650 <105 mg/dL Normal GLU 75 GTT-FASTING Result Comment: GLUCOSE TOLERANCE TEST FOR Reference Interval GESTATIONAL DIABETES Fasting <105 mg/dL 1 hour <190 mg/dl 2 hour <165 mg/dl 3 hour <145 mg/dl LAB L501.0660 <190 mg/dL Normal GLU GTT- 1HR 162 LAB L501.0670 <165 mg/dL Normal GLU GTT- 2HR 131 LAB L501.0680 <145 L Normal GLU GTT- 3HR 77 Performed By: #### L500.4710 #### [facility] [address] [place], [place], [address] CBC W/DIFF, AUTOMATED Collected: 03/30/2018 Status: F Source: [place] 9:20 AM [facility] REPOSITORY TYPE CODE TESTS RESULT OUT OF RANGE REFERENCE UNITS LAB L100.1000 4.4-11.0 K/mm3 Normal WBC 9.5 LAB L100.1200 4.2-5.4 M/mm3 Low RBC 3.60 LAB L100.1300 12.0-15.0 g/dl Low HGB 11.3 LAB L100.1400 37-47 % Low HCT 34.1 LAB L100.1500 81-99 fL Normal MCV 94.7 LAB L100.1600 27.0-32.0 pg Normal MCH 31.4 LAB L100.1700 32-36 g/gl Normal MCHC 33.1 LAB L100.1810 11.6-14.6 % Normal RDW CV 13.7 LAB L100.1820 35.1-43.9 fl High RDW SD 45.0 LAB L100.1900 150-450 K/mm3 Normal PLT 324 LAB L100.2000 6.2-12.0 fl Normal MPV 10.1 LAB L100.2100 47-70 % High NEUT% 78.8 LAB L100.2200 19-41 % Low LY% 15.5 LAB L100.2300 0-10 % Normal MONO% 4.0 LAB L100.2400 0-5 % Normal EO% 1.1 LAB L100.2500 0-1 % Normal BASO% 0.1 LAB L100.2550 0.0-0.9 % Normal IM GRAN % 0.500 Result Comment: IG% - Immature Granulocytes (promyelocytes, myelocytes and metamyelocytes) > 1% indicates that a LEFT SHIFT is Present. LAB L100.2620 2.0-7.7 X10 3/uL Normal Absolute Neut 7.5 LAB L100.2720 0.83-4.51 X10 3/ul Normal Absolute Lymph 1.47 Performed By: #### L100.0100 #### [facility] [address] [place], [address] GLUCOSE CHALLENGE GEST Collected: 03/30/2018 Status: F Source: [place] 1H 50G 9:20 AM [facility] REPOSITORY Order Comment: PT DRAWN FOR GLUCH AT 0920 TYPE CODE TESTS RESULT OUT OF RANGE REFERENCE UNITS LAB L501.0250 70-140 mg/dL High GLU GEST 147 50g 1H Performed By: #### L501.0250 #### [facility] [address] [place], [address] THYROID STIM HORMONE Collected: 03/30/2018 Status: F Source: [place] (TSH) 9:10 AM [facility] REPOSITORY TYPE CODE TESTS RESULT OUT OF RANGE REFERENCE UNITS LAB L501.9520 0.358-3.74 uIU/mL Normal TSH 1.97 Performed By: #### L501.9520, L506.0400 #### [facility] [address] [place], [address] T4 FREE DIRECT Collected: 03/30/2018 Status: F Source: [place] 9:10 AM [facility] REPOSITORY TYPE CODE TESTS RESULT OUT OF RANGE REFERENCE UNITS LAB L506.0400 0.76-1.46 ng/dL Normal T4 FREE 1.01 DIRECT Performed By: #### L501.9520, L506.0400 #### [facility] [address] [place], [address] TYPE AND SCREEN Collected: 03/30/2018 Status: F Source: [place] 9:10 AM [facility] REPOSITORY Order Comment: Reason for Type AND Screen/Red Cells: TYPE CODE TESTS RESULT OUT OF RANGE REFERENCE UNITS LAB B10.0800 O Normal BLOOD TYPE GEL POSITIVE LAB B100.4000 Normal Antibody NEGATIVE Screen Performed By: #### B101.7450 #### [place] [facility] [address] [place], [address] [facility] OFFICE VISIT Observed: 03/30/2018 Status: F Source: [place] REPORT 9:07 AM [facility] REPOSITORY [facility] [address] [address] [place] [address] OFFICE VISIT Date of Service: 03/30/18 MR#: [id number] Acct: [id number] Name: HILARIO TRAMMELL Rep #: [id number] : 1990 Provider: Nyla Mancuso MD Age/Sex: 28/F Location: [facility] [place] Status: Signed with Addenda ADDENDUM by Nhi Agrawal on 03/30/18 at 0906 OFFICE PROCEDURES Office Procedure Documentation entered by Nhi Agrawal 03/30/18 09:06: Immunizations Boostrix Tdap Performing Provider: Nyla Mancuso MD Administered by: Nhi Agrawal on 03/30/18 09:04 Dose Route Admin Location Lot Number Expiration Date [facility] Lockstitch Front Edge Tape Sewer 0.5 mL IM Right Arm (SQ) [id number] 05/04/24 63600-794-75 [employer]UR VIS Given Date VIS Publication Date 03/30/18 07/30/14 Eligibility Eligibility Date Office Meds Flucelvax Quad [id number] (PF) Performing Provider: Nyla Mancuso MD Administered by: Nhi Agrawal on 03/30/18 09:06 Dose Route Admin Location Lot Number Expiration Date [facility] Lockstitch Front Edge Tape Sewer 60 mcg IM left IM [id number] 12/03/18 [id number] SEQIRUS 03/30/18 0907 <Electronically signed by Nhi Agrawal > Date Nhi Agrawal cc: * Signed ADDENDUM by Nhi Agrawal on 03/30/18 at 0905 OFFICE PROCEDURES Office Procedure Documentation entered by Nhi Agrawal 03/30/18 09:05: Immunizations Boostrix Tdap Performing Provider: Nyla Mancuso MD Administered by: Nhi Agrawal on 03/30/18 09:04 Dose Route Admin Location Lot Number Expiration Date [facility] Lockstitch Front Edge Tape Sewer 0.5 mL IM Right Arm (SQ) [id number] 05/04/24 [id number] SANOFI[employer]PASTEUR VIS Given Date VIS Publication Date 03/30/18 07/30/14 Eligibility Eligibility Date 03/30/18904 <Electronically signed by Nhi Agrawal > Date Nhi Agrawal cc: * Signed Intake Vital Signs03/30/18 Height 5 ft 5 in 03/30/18 Weight: 251 lb 4 oz 03/30/18 Body Mass Index (BMI) 41.8 03/30/18 Blood Pressure 130/76 H Intake Visit Reasons: est ob 26 weeks Chief Complaint: est ob Heel Seat Laster Required: No Is patient in pain?: No Allergies No Known Allergies Allergy (Verified 03/30/18 08:22) Medications Cetirizine HCl [Zyrtec] 10 mg PO QHS 08/27/16 [History Confirmed 03/30/18] Epinephrine [Epipen 2-Mika] 1 ml SQ PRN PRN 08/27/16 [History Confirmed 03/30/18] Escitalopram Oxalate [Lexapro] 10 mg PO QHS 08/27/16 [History Confirmed 03/30/18] Ranitidine [Zantac] 150 mg PO BID 08/27/16 [History Confirmed 03/30/18] docosahexanoic acid 200 mg capsule mg PO 12/28/17 [History Confirmed 03/30/18] levothyroxine 150 mcg tablet 150 mcg PO DAILY #30 tab 12/28/17 [Rx Confirmed 03/30/18] Last Menstral Period: 09/25/17 Zika: Zika virus screening: Negative : No PFSH PFSH Medical History GERD (gastroesophageal reflux disease) (Acute) Hyperthyroidism (Acute) Mastocytosis (Acute) Family History Mother Breast cancer Father Skin cancer Social History Smoking Status: Never smoker substance use type: does not use caffeine: No what type of physical activity do you participate in: walking frequency: 1-2 times per week seatbelt use: always do you feel safe at home: Yes additional social history: - [employer] 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 OB Visit FRANCISCO Calculator Estimated Delivery Date 07/06/18 Based on Conception Date 10/13/17 Current WG 26w 0d Number 1 Expected Delivery Route/Plan - ANU RGI Specific Issue/Plans flu vaccine: given tdap vaccine: [] rhogam: [] LARC form signed: declines labor support person: Ke pain management: epidural cut cord/dad catch: cord : yes PP control planned: [] discussed possible routes of delivery and associated risks: [] special requests: [] Initial Weight: 246 lb Date Weight BP Urine PrFHR FuHt Pres MoCTX DilationFetal StVisit NoProviderComments E ot v te GA G Effac lucose ed Visit Notes Visit Date: 03/30/18 no vb lof good fm noregular ctx Nyla Mancuso MD on 03/30/18 Visit Date: 03/01/18 Doing well. No VB, LOF PUSHPA Carrillo on 03/01/18 Visit Date: 01/25/18 Doing well. NO VB, LOF PUSHPA Carrillo on 01/25/18 Visit Date: 12/28/17 ANU from RGI, ivf . doing well no complaints Nyla Mancuso MD on 12/28/17 Diagnostics Diagnostics Labs Hct 33.7 % (37-47) L 12/12/17 Hgb 10.9 g/dl (12.0-15.0) L 12/12/17 Obstetrics Ultrasound 02/15/18 Miscellaneous Test Cancelled 06/24/16 Details: HIV: Urine Culture: Sequential Screen: NIPT Screen: Assessment AND Plan Problems 1. Hypothyroidism, unspecified type E03.9 check q trimester 2. with history of infertility in second trimester O09.02 ivf 3. Encounter for supervision of normal first in second trimester Z34.02 FRANCISCO 07/06/18 Girl Mendez Ke ANU RGI, IVF 4. Cutaneous mastocytosis D47.01 5. 26 weeks gestation of Z3A.26 nipt normal. anatomy scan normal. Plan movement and labor precautions reviewed. ACOG trimester education reviewed and updated. see problem list details for updated plan management information and see below for orders placed at this visit. GA appropriate handout given. Coding Level of Care Code OB Routine Diagnoses Hypothyroidism, unspecified type E03.9 Hypothyroidism type: unspecified with history of infertility in second trimester O09.02 Trimester: second trimester Encounter for supervision of normal first in second trimester Z34.02 Normal : normal first Trimester: second trimester Cutaneous mastocytosis D47.01 26 weeks gestation of Z3A.26 Weeks of gestation: 26 weeks 03/30/18 0849 <Electronically signed by Nyla Mancuso MD> Date Nyla Mancuso MD Cosigner Signature: Date (if applicable) CC: TSH Collected: 03/01/2018 Status: F Source: [place] 1:37 PM [facility] REPOSITORY TYPE CODE TESTS RESULT OUT OF RANGE REFERENCE UNITS LAB TSH 0.400-5.500 uU/mL TSH 1.770 Result Comment: If the patient is , TSH reference range varies by gestational period: First Trimester 0.100-2.500 uU/mL Second Trimester 0.200-3.000 uU/mL Third Trimester 0.300-3.000 uU/mL References: 1. Galvez L, Nita M, Ever EK, et al. Management of Thyroid Dysfunction during and : An Endocrine Society Clinical Practice Guideline. J Clin Endocrinol Metab, 2012:97:6216-7851. 2. Evan WYNNE. Overview of thyroid disease in . UpToDate. 2016. Accessed on November 21, 2015. Performed By: #### TSH #### [facility] [address] [place], [place] [address] SERVICE CENTER APPRAISER OFFICE VISIT Observed: 03/01/2018 Status: F Source: [place] REPORT 1:27 PM [facility] REPOSITORY [facility] [address] [place] [address] OFFICE VISIT Date of Service: 03/01/18 MR#: [id number] Acct: [id number] Name: HILARIO TRAMMELL Rep #: [id number] : 1990 Provider: PETRA Rivera Age/Sex: 28/F Location: [facility] [place] Status: Signed Intake Vital Signs03/01/18 Height 5 ft 5 in 03/01/18 Weight: 248 lb 4 oz 03/01/18 Body Mass Index (BMI) 41.3 03/01/18 Blood Pressure 123/70 H Intake Visit Reasons: est ob 22 weeks Heel Seat Laster Required: No Is patient in pain?: No Allergies No Known Allergies Allergy (Verified 03/01/18 13:11) Medications Cetirizine HCl [Zyrtec] 10 mg PO QHS 08/27/16 [History Confirmed 03/01/18] Epinephrine [Epipen 2-Mika] 1 ml SQ PRN PRN 08/27/16 [History Confirmed 03/01/18] Escitalopram Oxalate [Lexapro] 10 mg PO QHS 08/27/16 [History Confirmed 03/01/18] Ranitidine [Zantac] 150 mg PO BID 08/27/16 [History Confirmed 03/01/18] docosahexanoic acid 200 mg capsule mg PO 12/28/17 [History Confirmed 03/01/18] levothyroxine 150 mcg tablet 150 mcg PO DAILY #30 tab 12/28/17 [Rx Confirmed 03/01/18] Last Menstral Period: 09/25/17 Zika: Zika virus screening: Negative : No PFSH PFSH Medical History GERD (gastroesophageal reflux disease) (Acute) Hyperthyroidism (Acute) Mastocytosis (Acute) Family History Mother Breast cancer Father Skin cancer Social History Smoking Status: Never smoker substance use type: does not use caffeine: No what type of physical activity do you participate in: walking frequency: 1-2 times per week seatbelt use: always do you feel safe at home: Yes additional social history: - [employer] 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 OB Visit FRANCISCO Calculator Estimated Delivery Date 07/06/18 Based on Conception Date 10/13/17 Current WG 21w 6d Number 1 Expected Delivery Route/Plan - ANU RGI Specific Issue/Plans flu vaccine: [] tdap vaccine: [] rhogam: [] LARC form signed: declines labor support person: Ke pain management: epidural cut cord/dad catch: cord : yes PP control planned: [] discussed possible routes of delivery and associated risks: [] special requests: [] Initial Weight: 246 lb Date Weight BP Urine PrFHR FuHt Pres MoCTX DilationFetal StVisit NoProviderComments E ot v te GA G Effac lucose ed Visit Notes Visit Date: 03/01/18 Doing well. No VB, LOF Nora Rivera NP-C on 03/01/18 Visit Date: 01/25/18 Doing well. NO VB, LOF Nora Rivera NP-C on 01/25/18 Visit Date: 12/28/17 ANU from RGI, ivf . doing well no complaints Nyla Mancuso MD on 12/28/17 Diagnostics Diagnostics Labs Hct 33.7 % (37-47) L 12/12/17 Hgb 10.9 g/dl (12.0-15.0) L 12/12/17 Obstetrics Ultrasound 02/15/18 Miscellaneous Test Cancelled 06/24/16 Details: HIV: Urine Culture: Sequential Screen: NIPT Screen: Results [id number] Office Urine Glucose Negative Last Edit by Agnes Echeverria on 03/01/18 13:15 Office Urine Protein Negative Last Edit by Agnes Echeverria on 03/01/18 13:15 Assessment AND Plan Problems 1. Encounter for supervision of normal first in first trimester Z34.01 FRANCISCO 07/06/18 Girl Ke NAU RGI, IVF 2. 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 Hypothyroidism, unspecified type E03.9 4. 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 Trimester: second trimester Hypothyroidism, unspecified type E03.9 Hypothyroidism type: unspecified 21 weeks gestation of Z3A.21 Weeks of gestation: 21 weeks 03/01/18 1327 <Electronically signed by Nora BARROW> Date Nora BARROW Cosigner Signature: Date (if applicable) CC: OB ANATOMY SCAN Observed: 02/15/2018 Status: F Source: [place] 3:54 PM [facility] REPOSITORY [facility] Imaging Services [facility] [place] [address] OB Anatomy Scan MR#: [id number] Acct: [id number] Name: HILARIO TRAMMELL Rep #: [id number] : 1990 F 28 From: Jose Mayorga MD PCP: Ana Tucker III, MD Status: REG CLI Study: OB Anatomy Scan Date of Exam: 02/15/18 Exam# [id number] Ordering Dr: Nora Rivera STUDY: SECOND AND THIRD TRIMESTER OBSTETRICAL ULTRASOUND REASON FOR EXAM: Female, 28 years old. Routine survey. LMP: Unknown. TECHNIQUE: Transabdominal and Transvaginal PRIOR ULTRASOUND: None. FINDINGS: There is a single intrauterine fetus. The fetus is in a cephalic presentation. There is demonstrated cardiac activity with a heart rate of 144 bpm. There is a normal amniotic fluid volume. The largest amniotic fluid pocket measures 5.9 x 6.1 cm. . The placenta is anterior in location and is not low lying. There are Grade 0 placental changes. The cervix measures 3.9 cm in length. The bilateral adnexal regions are normal. BIOMETRY: BPD: 4.8 cm: 20 weeks, 3 days HC: 17.9 cm: 20 weeks, 3 days AC: 15.0 cm: 20 weeks, 2 days FL: 3.3 cm: 20 weeks, 3 days age by current US: 20 weeks, 3 days. FRANCISCO by current US: 07/02/2018. Estimated weight: 346 grams, +/- 51 grams, 72 %. Age by LMP: 19 weeks, 6 days. FRANCISCO by LMP: 07/06/2018. ANATOMY: Gender: Female Cranium: Normal lateral ventricles. Normal choroid plexus. Normal cerebellum. Normal cisterna magna. Normal face, nose and lips. Chest: Normal 4-chamber heart. Abdomen/Pelvis: Normal diaphragm. Normal stomach. Normal abdominal wall. Normal cord insertion. Normal 3 vessel cord. Normal kidneys. Normal bladder. Spine: Normal cervical spine. Normal thoracic spine. Normal lumbar spine. Normal sacrum. Extremities: Normal bilateral upper extremities. Normal bilateral lower extremities. US/OB Anatomy Scan IMPRESSION: Single live intrauterine at 20 weeks, 3 days by ultrasound with FRANCISCO of 07/02/2018. Heart rate 144 bpm. No suspicious sonographic findings. Electronically Signed: Abdulkadir Mayorga MD at 16:49 EDT , Service support , CC: PETRA Rivera; Ana Tucker III, MD Environmental Communications Specialist: Signed THYROID STIM HORMONE Collected: 01/25/2018 Status: F Source: [place] (TSH) 3:34 PM [facility] REPOSITORY TYPE CODE TESTS RESULT OUT OF RANGE REFERENCE UNITS LAB [id number] 0.358-3.74 uIU/mL Normal TSH 1.44 Performed By: #### L501.9520, L506.0400 #### [facility] [address] [place], [place], [address] T4 FREE DIRECT Collected: 01/25/2018 Status: F Source: [place] 3:34 PM [facility] REPOSITORY TYPE CODE TESTS RESULT OUT OF RANGE REFERENCE UNITS LAB [id number] 0.76-1.46 ng/dL Normal T4 FREE 1.07 DIRECT Performed By: #### L501.9520, L506.0400 #### [facility] [address] [place], [address] SERVICE CENTER APPRAISER OFFICE VISIT Observed: 01/25/2018 Status: F Source: [place] REPORT 3:28 PM [facility] REPOSITORY [facility] [address] [place] [address] OFFICE VISIT Date of Service: 01/25/18 MR#: [id number] Acct: [id number] Name: HILARIO TRAMMELL Rep #: [id number] : 1990 Provider: PETRA Rivera Age/Sex: 27/F Location: [facility] [place] Status: Signed Intake Vital Signs01/25/18 Height 5 ft 5 in 01/25/18 Weight: 246 lb 6 oz 01/25/18 Body Mass Index (BMI) 41.0 01/25/18 Blood Pressure 128/60 Intake Visit Reasons: 17 WEEKS Heel Seat Laster Required: No Is patient in pain?: No Allergies No Known Allergies Allergy (Verified 01/25/18 14:58) Medications Cetirizine HCl [Zyrtec] 10 mg PO QHS 08/27/16 [History Confirmed 01/25/18] Epinephrine [Epipen 2-Mika] 1 ml SQ PRN PRN 08/27/16 [History Confirmed 01/25/18] Escitalopram Oxalate [Lexapro] 10 mg PO QHS 08/27/16 [History Confirmed 01/25/18] Ranitidine [Zantac] 150 mg PO BID 08/27/16 [History Confirmed 01/25/18] docosahexanoic acid 200 mg capsule mg PO 12/28/17 [History Confirmed 01/25/18] levothyroxine 150 mcg tablet 150 mcg PO DAILY #30 tab 12/28/17 [Rx Confirmed 01/25/18] Last Menstral Period: 09/25/17 Zika: Zika virus screening: Negative : No PFSH PFSH Medical History GERD (gastroesophageal reflux disease) (Acute) Hyperthyroidism (Acute) Mastocytosis (Acute) Family History Mother Breast cancer Father Skin cancer Social History Smoking Status: Never smoker substance use type: does not use caffeine: No what type of physical activity do you participate in: walking frequency: 1-2 times per week seatbelt use: always do you feel safe at home: Yes additional social history: - [employer] 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 OB Visit FRANCISCO Calculator Estimated Delivery Date 07/06/18 Based on Conception Date 10/13/17 Current WG 16w 6d Number 1 Expected Delivery Route/Plan - ANU RGI Specific Issue/Plans flu vaccine: [] tdap vaccine: [] rhogam: [] LARC form signed: [] labor support person: [] pain management: [] cut cord/dad catch: [] : [] PP control planned: [] discussed possible routes of delivery and associated risks: [] special requests: [] Initial Weight: 246 lb Date Weight BP Urine PrFHR FuHt Pres MoCTX DilationFetal StVisit NoProviderComments E ot v te GA G Effac lucose ed Visit Notes Visit Date: 01/25/18 Doing well. NO VB, LOF PUSHPA Carrillo on 01/25/18 Visit Date: 12/28/17 ANU from RGI, ivf . doing well no complaints Nyla Mancuso MD on 12/28/17 Diagnostics Diagnostics Labs Hct 33.7 % (37-47) L 12/12/17 Hgb 10.9 g/dl (12.0-15.0) L 12/12/17 Miscellaneous Test 02/19/16 Details: HIV: Urine Culture: Sequential Screen: NIPT Screen: Results [id number] Office Urine Glucose Negative Last Edit by Agnes Echeverria on 01/25/18 15:00 Office Urine Protein Negative Last Edit by Agnes Echeverria on 01/25/18 15:00 Assessment AND Plan Problems 1. Encounter for supervision of normal first in first trimester Z34.01 FRANCISCO 07/06/18 Ke ANU RGI, IVF 2. 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 Hypothyroidism, unspecified type E03.9 4. 16 weeks gestation of Z3A.16 Plan Orders placed: TSH and T4 since has not been check in Anatomy US. 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 O09.02 Trimester: second trimester Hypothyroidism, unspecified type E03.9 Hypothyroidism type: unspecified 16 weeks gestation of Z3A.16 Weeks of gestation: 16 weeks 01/25/18 1528 <Electronically signed by Nora BARROW> Date Nora BARROW Cosigner Signature: Date (if applicable) CC: PROGRESS Observed: 01/23/2018 Status: COMPLETED Source: [place] 9:42 PM [facility] REPOSITORY HNO ID: [id number] Author: Ana Tucker III Service: (none) Author Type: Physician Type: Progress Notes Filed: 01/23/2018 9:42 PM Note Text: Hilario, The triglycerides should be below 150 so I recommend eating less sugar, bread, potato, pasta, rice, corn, corn syrup, and saturated fats. Try to get regular exercise. The cholesterol values are fairly good but the above diet and exercise will also help to lower the bad LDL cholesterol. I recommend rechecking the labs in 1 year. The wellness form has been completed. Ana Tucker III, MD, SERGIO PROGRESS Observed: 01/23/2018 Status: COMPLETED Source: [place] 9:39 PM [facility] REPOSITORY HNO ID: [id number] Author: Ana Tucker III Service: (none) Author Type: Physician Type: Progress Notes Filed: 01/23/2018 9:39 PM Note Text: Hilario, The lab results look fine. The electrolytes, liver function tests, kidney function tests, and blood sugar are normal. The wellness form has been completed. Ana Tucker III, MD, SERGIO COMP METABOLIC PANEL Collected: 01/21/2018 Status: F Source: [place] 9:35 AM [facility] REPOSITORY TYPE CODE TESTS RESULT OUT OF REFERENCE UNITS RANGE LAB TP 6.3-8.0 g/dL Protein, Total 6.8 LAB ALB 3.9-4.9 g/dL Low Albumin 3.8 LAB CA 8.5-10.2 mg/dL Calcium, Total 9.2 LAB TBIL 0.2-1.3 mg/dL Bilirubin, Total 0.3 LAB ALKP 32-117 U/L Alkaline Phosphatase 61 LAB AST 13-35 U/L AST 20 LAB GLU 74-99 mg/dL Glucose 80 Result Comment: The [place] Diabetes Association (ADA) provides guidance for cutoff values for fasting glucose and random glucose. The ADA defines fasting as no caloric intake for at least 8 hours. Fas ting plasma glucose results between 100 to 125 mg/dL indicate increased risk for diabetes (prediabetes). Fasting plasma glucose results greater than or equal to 126 mg/dL meet the criteria for diagnosis of diabetes. In the absence of unequivocal hyperglycemia, results should be confirmed by repeat testing. In a patient with classic symptoms of hyperglycemia or hyperglycemic crisis, random plasma glucose results greater than or equal to 200 mg/dL meet the criteria for diagnosis of diabetes. Reference: Standards of Medical Care in Diabetes 2016, [place] Diabetes Association. Diabetes Care. 2016.39(Suppl 1). LAB BUN 7-21 mg/dL BUN Low 5 LAB CRET 0.58-0.96 mg/dL Creatinine Low 0.46 LAB NA 136-144 mmol/L Sodium 137 LAB K 3.7-5.1 mmol/L Potassium 3.7 LAB CL 97-105 mmol/L Chloride 102 LAB CO2 22-30 mmol/L CO2 Low 21 LAB AGAP 9-18 mmol/L Anion Gap 14 LAB ALT 7-38 U/L ALT 18 LAB GFRAA eGFR- Amer. >60 LAB GFRNAA . eGFR-All Other Races >60 Result Comment: eGFR (Estimated GFR) Units of measure: mL/min/1.73 meters squared eGFR is derived from the reexpressed MDRD Study equation using the following parameters: serum creatinine, age, gender and race. The creatinine assay has been calibrated to be traceable to IDMS. An eGFR <60 mL/min/1.73m2 for >3 months is consistent with chronic kidney disease. Refer to KDOQI guidelines for clinical interpretation. In patients with unstable renal function, e.g. those with acute kidney injury, the eGFR may not accurately reflect actual GFR. Performed By: #### CMP #### [facility] [address] [place], [place] [address] LIPID PANEL, BASIC Collected: 01/21/2018 Status: F Source: [place] 9:35 AM [facility] REPOSITORY TYPE CODE TESTS RESULT OUT OF REFERENCE UNITS RANGE LAB CHOL <200 mg/dL Cholesterol High 202 Result Comment: <200 mg/dL, Desirable 200-239 mg/dL, Borderline high >239 mg/dL, High LAB TRIGLY <150 mg/dL Triglyceride High 212 Result Comment: <150 mg/dL, Normal 150-199 mg/dL, Borderline high 200-499 mg/dL, High >499 mg/dL, Very high LAB HDL >39 mg/dL HDL-Cholesterol 46 Result Comment: 40-59 mg/dL, Acceptable >59 mg/dL, High: Negative risk factor for coronary heart disease <40 mg/dL, Low: Positive risk factor for coronary heart disease LAB LDL <100 mg/dL LDL-Cholesterol High 114 Result Comment: <100 mg/dL, Optimal 100-129 mg/dL, Near optimal/above optimal 130-159 mg/dL, Borderline high 160-189 mg/dL, High >189 mg/dL, Very high Secondary prevention optimal LDL Cholesterol levels are recommended to be < 70 mg/dL LAB NONHDL <130 mg/dL Non HDL High Cholesterol 156 Result Comment: <130 mg/dL, Optimal 130-159 mg/dL, Near optimal/above optimal 160-189 mg/dL, Borderline high 190-219 mg/dL, High >219 mg/dL, Very high Secondary prevention optimal non HDL Cholesterol levels are recommended to be < 100 mg/dL LAB FT hrs Fasting Time 11 LAB VLDL <30 mg/dL High VLDL Cholesterol 42 LAB TCHDL <5.10 TC:HDL Ratio 4.39 LAB LDLHDL <2.54 LDL:HDL Ratio 2.48 Result Comment: Reference: 1. National Cholesterol Education Program ATP III Guideline At-A-Glance Quick Desk Reference: National Heart, Lung, and Blood [place]. National Institutes of Health. 2001: NIH Publication No. 01-3305. 2. An International Atherosclerosis Society position paper: global recommendations for the management of dyslipidemia: executive summary, Atherosclerosis. 2014: 232(2):410-413. Performed By: #### LIPB #### [facility] [address] [address] PROGRESS Observed: 01/20/2018 Status: COMPLETED Source: [place] 2:25 PM [facility] [place] REPOSITORY HNO ID: [id number] Author: Ana Tucker III Service: (none) Author Type: Physician Type: Progress Notes Filed: 01/20/2018 2:51 PM Note Text: SUBJECTIVE: This is a 27 year old female that is here today for wellness visit and form completion. 16 wks with normal OB visits so far. No chest pain, angina, dyspnea on exertion, cough, abdominal pain, change in bowel movements, recurrent urinary tract infections, dysuria, hematuria. She denies joint pain or back pain. 2. She is being treated for anxiety with Lexapro. Since her she has reduced her dose from 20 mg daily to 10 mg daily. We did discuss weaning and discontinuing the medication by the third trimester. 3. She's been treated for mastocytosis with Zyrtec daily with good results in controlling itching. We discussed the potential risk of using Zyrtec during breast-feeding. 4. Under treatment for GERD with Zantac. We discussed that this medication is safe during and breast-feeding. PAST MEDICAL HISTORY Diagnosis Date - Elevated troponin 12/12/2017 0.17 - Gastroesophageal reflux disease without esophagitis 01/08/2015 - hypothyroidism - Syncope 12/12/2017 Current Outpatient Prescriptions on File Prior to Visit: escitalopram oxalate (LEXAPRO) 10 mg tablet Take 1 tablet by mouth once daily. levothyroxine (SYNTHROID) 100 mcg tablet Take 1 tablet by mouth once daily. Take on empty stomach cetirizine (ZYRTEC) 10 mg tablet Take 10 mg by mouth once daily. ranitidine (ZANTAC) 150 mg tablet Take 150 mg by mouth once daily. esomeprazole magnesium (NEXIUM 24HR) 22.3 mg cpDR Take 1 capsule by mouth daily before breakfast. No current facility-administered medications on file prior to visit. FAMILY HISTORY Problem Relation Age of Onset - Breast Cancer Mother age 48 - Cancer Paternal Uncle lung - Cancer Paternal Grandfather lung - Thyroid Maternal Grandmother hypothyroidism - other (Hodgkin's disease) Maternal Grandmother - Thyroid Maternal Uncle hypothyroidism Social History Substance Use Topics - Smoking status: Never Smoker - Smokeless tobacco: Never Used - Alcohol use No BP 126/68 (BP Site: Right Arm, BP Position: Sitting, BP Cuff Size: Large Adult) Pulse 84 Temp 36.8 ?C (98.3 ?F) (Tympanic) Resp 16 Ht 165.1 cm (5' 5) Wt 110.7 kg (244 lb) BMI 40.60 kg/m? . OBJECTIVE: APPEARANCE Well appearing, alert, in no acute distress, well-hydrated, well nourished. and Morbidly obese NECK Supple, no adenopathy; thyroid symmetric, normal size, no bruits HEART RRR with normal S1 and S2, no murmurs, no gallops, no JVD appreciated LUNG clear to auscultation ABDOMEN soft, non-tender, non-distended, without organomegaly or palpable masses, no tenderness to palpation EXTREMITIES Extremities normal, No deformities, No skin discoloration, No edema and Normal pulses bilaterally. NEURO Awake, alert and oriented x 3, Normal gait and No involuntary motions. Lab Results for HILARIO TRAMMELL ( ) as of 01/20/2018 14:51 Ref. Range 09/16/2017 11:16 01/07/2018 10:40 TSH Latest Ref Range: 0.400 - 5.500 uU/mL 1.620 1.530 ASSESSMENT: First trimester ?doing well Hypothyroidism?therapeutic drug level Mastocytosis?under treatment Chronic anxiety?well controlled GERD?well controlled PLAN: healthy diet and regular exercise recommend weaning and discontinuation of lexapro by the 3 trimester if able recommend regular TSH labs with medication adjustment as needed wellness will be completed fasting labs 01/21. SHIVAM Rasmussen MD, III MD CNOV Observed: 01/20/2018 Status: COMPLETED Source: [place] 2:00 PM [facility] HILARIO TRAMMELL ([id number]) 1990 F [facility] Date Time Provider Department 01/20/18 2:00 PM ANA TUCKER III During your visit today, we recorded the following information about you: Temperature Pulse Respiration Blood pressure 98.3 degrees 84/minute 16/minute 126/68 Weight Height 110.7 kg 1.651 m Ana Tucker III MD 01/20/2018 2:51 PM Signed SUBJECTIVE: This is a 27 year old female that is here today for wellness visit and form completion. 16 wks with normal OB visits so far. No chest pain, angina, dyspnea on exertion, cough, abdominal pain, change in bowel movements, recurrent urinary tract infections, dysuria, hematuria. She denies joint pain or back pain. 2. She is being treated for anxiety with Lexapro. Since her she has reduced her dose from 20 mg daily to 10 mg daily. We did discuss weaning and discontinuing the medication by the third trimester. 3. She's been treated for mastocytosis with Zyrtec daily with good results in controlling itching. We discussed the potential risk of using Zyrtec during breast-feeding. 4. Under treatment for GERD with Zantac. We discussed that this medication is safe during and breast-feeding. PAST MEDICAL HISTORY Diagnosis Date - Elevated troponin 12/12/2017 0.17 - Gastroesophageal reflux disease without esophagitis 01/08/2015 - hypothyroidism - Syncope 12/12/2017 Current Outpatient Prescriptions on File Prior to Visit: escitalopram oxalate (LEXAPRO) 10 mg tablet Take 1 tablet by mouth once daily. levothyroxine (SYNTHROID) 100 mcg tablet Take 1 tablet by mouth once daily. Take on empty stomach cetirizine (ZYRTEC) 10 mg tablet Take 10 mg by mouth once daily. ranitidine (ZANTAC) 150 mg tablet Take 150 mg by mouth once daily. esomeprazole magnesium (NEXIUM 24HR) 22.3 mg cpDR Take 1 capsule by mouth daily before breakfast. No current facility-administered medications on file prior to visit. FAMILY HISTORY Problem Relation Age of Onset - Breast Cancer Mother age 48 - Cancer Paternal Uncle lung - Cancer Paternal Grandfather lung - Thyroid Maternal Grandmother hypothyroidism - other (Hodgkin's disease) Maternal Grandmother - Thyroid Maternal Uncle hypothyroidism Social History Substance Use Topics - Smoking status: Never Smoker - Smokeless tobacco: Never Used - Alcohol use No BP 126/68 (BP Site: Right Arm, BP Position: Sitting, BP Cuff Size: Large Adult) Pulse 84 Temp 36.8 ?C (98.3 ?F) (Tympanic) Resp 16 Ht 165.1 cm (5' 5) Wt 110.7 kg (244 lb) BMI 40.60 kg/m? . OBJECTIVE: APPEARANCE Well appearing, alert, in no acute distress, well- hydrated, well nourished. and Morbidly obese NECK Supple, no adenopathy; thyroid symmetric, normal size, no bruits HEART RRR with normal S1 and S2, no murmurs, no gallops, no JVD appreciated LUNG clear to auscultation ABDOMEN soft, non-tender, non-distended, without organomegaly or palpable masses, no tenderness to palpation EXTREMITIES Extremities normal, No deformities, No skin discoloration, No edema and Normal pulses bilaterally. NEURO Awake, alert and oriented x 3, Normal gait and No involuntary motions. Lab Results for HILARIO TRAMMELL ( ) as of 01/20/2018 14:51 Ref. Range 09/16/2017 11:16 01/07/2018 10:40 TSH Latest Ref Range: 0.400 - 5.500 uU/mL 1.620 1.530 ASSESSMENT: First trimester ?doing well Hypothyroidism?therapeutic drug level Mastocytosis?under treatment Chronic anxiety?well controlled GERD?well controlled PLAN: healthy diet and regular exercise recommend weaning and discontinuation of lexapro by the 3 rd trimester if able recommend regular TSH labs with medication adjustment as needed wellness will be completed fasting labs 01/21. SHIVAM Rasmussen MD, III MD Frank A Cebul, III MD 01/20/2018 2:40 PM Signed PLAN: healthy diet and regular exercise recommend weaning and discontinuation of lexapro by the 3 rd trimester if able recommend regular TSH labs with medication adjustment as needed wellness will be completed fasting labs 01/21. Ana Tucker III MD Referring Provider: ANA TUCKER III [[id number]] Allergies As of Date: 01/20/2018 (No Known Allergies) Date Reviewed: 01/20/2018 Reviewed by: July Islas Xm1 Tank Driver - Fully Assessed Reason for Visit: Physical [83] Primary Visit Diagnosis:Encounter for routine adult health examination without abnormal findings [Z00.00] Other Visit Diagnoses:First trimester [Z34.90] Acquired hypothyroidism [E03.9] Gastroesophageal reflux disease without esophagitis [K21.9] Mastocytosis [D47.09] Anxiety disorder, unspecified type [F41.9] Screening for lipid disorders [Z13.220] Diabetes mellitus screening [Z13.1] Order(s):COMP METABOLIC PANEL [SQCMP] Order #: [id number] FUTURE LIPID PANEL BASIC [SQLIPB] Order #: [id number] FUTURE Prescriptions as of 01/20/2018 Sig: ESCITALOPRAM 10 MG TABLET Take 1 tablet by mouth once d* LEVOTHYROXINE 100 MCG TABLET Take 1 tablet by mouth once d* CETIRIZINE 10 MG TABLET Take 10 mg by mouth once zeke* RANITIDINE 150 MG TABLET Take 150 mg by mouth once dania* Problem List As Of Date 01/20/2018 Noted Resolved DYSMENORRHEA [N94.6] INVALID FOR* Hypothyroidism [E03.9] INVALID FOR* Salivary gland stone [K11.5] INVALID FOR*01/08/2015 Gastroesophageal reflux disease without esophag*INVALID FOR* Morbid obesity due to excess calories (HCC) [E6*INVALID FOR* Female infertility [N97.9] INVALID FOR* Mastocytosis [D47.09] INVALID FOR* More... Anxiety disorder [F41.9] INVALID FOR* Other instructions from your clinician: PLAN: healthy diet and regular exercise recommend weaning and discontinuation of lexapro by the 3 rd trimester if able recommend regular TSH labs with medication adjustment as needed wellness will be completed fasting labs 01/21. Ana Tucker III MD Medications Discontinued During This Encounter esomeprazole magnesium (NEXIUM 24HR)* 0 01/20/2016 01/20/2018 Class: OTC Route: ORAL Sig: Take 1 capsule by mouth daily before breakfast. Disc: Course of therapy completed Encounter Status:Closed by ANA TUCKER III, MD on 01/20/18 PROGRESS Observed: 01/08/2018 Status: COMPLETED Source: [place] 6:25 PM [facility] REPOSITORY HNO ID: [id number] Author: Ana Tucker III Service: (none) Author Type: Physician Type: Progress Notes Filed: 01/08/2018 6:25 PM Note Text: Hilario, Your results are either normal or within normal limits. Ana Tucker III MD TSH Collected: 01/07/2018 Status: F Source: [place] 10:40 AM [facility] REPOSITORY TYPE CODE TESTS RESULT OUT OF RANGE REFERENCE UNITS LAB TSH 0.400-5.500 uU/mL TSH 1.530 Result Comment: If the patient is , TSH reference range varies by gestational period: First Trimester 0.100-2.500 uU/mL Second Trimester 0.200-3.000 uU/mL Third Trimester 0.300-3.000 uU/mL References: 1. Pabon, Nita M, Ever NINO, et al. Management of Thyroid Dysfunction during and : An Endocrine Society Clinical Practice Guideline. J Clin Endocrinol Metab, 2012:97:3261-2739. 2. Evan WYNNE. Overview of thyroid disease in . UpToDate. 2016. Accessed on November 21, 2015. Performed By: #### TSH #### [facility] [address] [place], [place] [address] [facility] OFFICE VISIT Observed: 12/31/2017 Status: F Source: [place] REPORT 9:48 PM [facility] REPOSITORY [facility] [address] [place] [address] OFFICE VISIT Date of Service: 12/28/17 MR#: [id number] Acct: [id number] Name: HILARIO TRAMMELL Rep #: [id number] : 1990 Provider: Nyla Mancuso MD Age/Sex: 27/F Location: [facility] Status: Signed Intake Vital Signs12/28/17 Height 5 ft 5 in 12/28/17 Weight: 246 lb 6 oz 12/28/17 Body Mass Index (BMI) 41.0 12/28/17 Blood Pressure 135/88 Intake Visit Reasons: NOB - 12 WEEKS, RELEASED FROM FERTILITY DR Heel Seat Laster Required: No Is patient in pain?: No Allergies No Known Allergies Allergy (Verified 12/28/17 14:29) Medications Cetirizine HCl [Zyrtec] 10 mg PO QHS 08/27/16 [History Confirmed 12/28/17] Epinephrine [Epipen 2-Mika] 1 ml SQ PRN PRN 08/27/16 [History Confirmed 12/28/17] Escitalopram Oxalate [Lexapro] 10 mg PO QHS 08/27/16 [History Confirmed 12/28/17] Ranitidine [Zantac] 150 mg PO BID 08/27/16 [History Confirmed 12/28/17] docosahexanoic acid 200 mg capsule mg PO 12/28/17 [History Confirmed 12/28/17] levothyroxine 150 mcg tablet 150 mcg PO DAILY #30 tab 12/28/17 [Rx Confirmed 12/28/17] Last Menstral Period: 09/25/17 Zika: Zika virus screening: Negative : No PFSH PFSH Medical History GERD (gastroesophageal reflux disease) (Acute) Hyperthyroidism (Acute) Mastocytosis (Acute) Family History Mother Breast cancer Father Skin cancer Social History Smoking Status: Never smoker substance use type: does not use caffeine: No what type of physical activity do you participate in: walking frequency: 1-2 times per week seatbelt use: always do you feel safe at home: Yes additional social history: - [employer] 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 OB Visit FRANCISCO Calculator Estimated Delivery Date 07/06/18 Based on Conception Date 10/13/17 Current WG 13w 2d Number 1 Expected Delivery Route/Plan - ANU RGI Specific Issue/Plans flu vaccine: [] tdap vaccine: [] rhogam: [] LARC form signed: [] labor support person: [] pain management: [] cut cord/dad catch: [] : [] PP control planned: [] discussed possible routes of delivery and associated risks: [] special requests: [] Initial Weight: 246 lb Date Weight BP Urine PrFHR FuHt Pres MoCTX DilationFetal StVisit NoProviderComments E ot v te GA G Effac lucose ed Visit Notes Visit Date: 12/28/17 ANU from RGI, ivf . doing well no complaints Nyla Mancuso MD on 12/28/17 Diagnostics Diagnostics Labs Hct 33.7 % (37-47) L 12/12/17 Hgb 10.9 g/dl (12.0-15.0) L 12/12/17 Miscellaneous Test 02/19/16 Details: HIV: Urine Culture: Sequential Screen: NIPT Screen: Results [id number] Office Urine Glucose Negative Last Edit by Agnes Echeverria on 12/28/17 15:01 Office Urine Protein Negative Last Edit by Agnes Echeverria on 12/28/17 15:01 Assessment AND Plan Problems 1. Encounter for supervision of normal first in first trimester Z34.01 FRANCISCO 07/06/18 Ke ANU RGI, IVF Plan ACOG trimester education reviewed and updated. see problem list details for updated plan management information and see below for orders placed at this visit. GA appropriate handout given. Orders Orders: Medications New: Coding Level of Care Code OB Routine Diagnoses Encounter for supervision of normal first in first trimester Z34.01 Normal : normal first Trimester: first trimester 12/31/17 2148 <Electronically signed by Nyla Mancuso MD> Date Nyla Mancuso MD Cosigner Signature: Date (if applicable) CC: 12 LEAD ELECTROCARDIOGRAM Observed: 12/15/2017 Status: F Source: [place] 1:10 PM [facility] REPOSITORY [facility] Cardiovascular Services [address] [place] [id number] 12 Lead EKG 12/11/17 2204 MR#: [id number] Acct: [id number] Name: HILARIO TRAMMELL Rep #: [id number] : 1990 27 From: Orion Harris MD Attending Dr: Shalom Holley DO Status: DIS RUBINA Ordering Dr: Junior Higginbotham MD Date: 12/11/17 Location: [facility] Sex: F C Admitted: 12/12/17 Test Reason : SYNCOPE Blood Pressure : / mmHG Vent. Rate : 088 BPM Atrial Rate : 088 BPM P-R Int : 140 ms QRS Dur : 096 ms QT Int : 370 ms P-R-T Axes : 036 032 019 degrees QTc Int : 447 ms Normal sinus rhythm Normal ECG Confirmed by CAM ANNE, ORION ([id number]), assignment editor MATILDA IVEY ([id number]) on 12/15/2017 1:10:02 PM Referred By: MR Confirmed By:ORION HARRIS MD 12/15/17 1310 Date Orion Harris MD CC: Shalom Holley DO; Ana Tucker III, MD; Junior Higginbotham Signed PROGRESS Observed: 12/13/2017 Status: COMPLETED Source: [place] 12:43 PM [facility] REPOSITORY O ID: [id number] Author: Nia Mancilla MA Service: (none) Author Type: Pin Inserter Regulator Type: Progress Notes Filed: 12/13/2017 12:47 PM Note Text: TRANSITION CARE MANAGEMENT (TCM) INITIAL CONTACT Pin Inserter Regulator Outreach Provider Action/FYI: [facility]-admitted on 12/12 for vasovagal syncope, d/c on 12/12 Initial contact with patient post discharge, spoke to patient. Patient identified by name and . SUMMARY: -Pt discharged from [facility] on 12/12/2017. -Admitted for: vasovagal syncope Do you have a hospital follow up appointment with your PCP? No. Will follow up with OBGYN since she is . MEDICATIONS: Many patients have questions or concerns about their medications once they are home. Were you prescribed any new medications? No Were you told to hold any medications? No Were any of your medications discontinued? No Do you have any questions about getting or taking your medications? No Your discharge instructions/After visit Summary (AVS) are important in guiding you through the recovery process. Is there anything I might help you understand? No Do you have all the necessary equipment and supplies at home? Yes Medical records from recent hospitalization: Placed for provider to review CONSULTATION Observed: 12/13/2017 Status: F Source: [place] 9:24 AM [facility] REPOSITORY [facility] Medical Records Department [address] [place] [address] Consultation 12/12/17 0717 MR#: [id number] Acct: [id number] Name: HILARIO TRAMMELL Rep #: [id number] : 1990 27 From: Ryder Byrne MD PCP: Ana Tucker III, MD Status: DIS IN Y [id number] Reason for Consult Date of Consultation: 12/12/17 Reason for Consultation: Syncopal episode. History of Present Illness: The patient is a 27 year old F [with no previous cardiac history who says that she had been anxious about giving herself her progesterone injection yesterday. She is currently 10 weeks and immediately after giving herself the progesterone injection she started feeling weird with a tingling sensation and started feeling lightheaded. She went upstairs and started getting tachycardic as well as diaphoretic and then called her who said that he witnessed to have passed out after she got pale. This happened 2 other times afterwards. They called the emergency medical squad who then brought her to the emergency room.] She denies any drug use she had no chest pain no paroxysmal nocturnal dyspnea or pedal edema or recent travel. In the emergency room she was noted to be in sinus rhythm with no acute changes CT scan of the chest was done with abdominal shielding with no evidence of pulmonary embolism. She was admitted to the telemetry floor and cardiology consulted. She has had no events since admission. Past Medical History Allergies/Adverse Reactions: Allergies No Known Allergies Allergy (Verified 08/29/17 10:49) Home Medications: Ambulatory Orders Medication Instructions Recorded Cetirizine HCl [Zyrtec] 10 mg PO QHS 08/27/16 Epinephrine [Epipen 2-Mika] 1 ml SQ PRN PRN 08/27/16 Escitalopram Oxalate [Lexapro] 10 mg PO QHS 08/27/16 Past Medical History (Chronic Problems): Chronic Problems (Last Updated 08/01/17 @ 11:08 by Mckayla Kelley) Cutaneous mastocytosis (Chronic) Smoking Status: Never smoker Tobacco Use: Non-smoker Alcohol: None Drugs: None Review of Systems - Review of Systems General: Denies: Fever, Night Sweats, Fatigue Cardiovascular: Reports: Syncope. Denies: Chest Discomfort, Shortness of Breath, Orthopnea, PND, Peripheral Edema, Palpitations, Lightheadedness, Dizziness, Near Syncope Respiratory: Denies: Cough, Sputum Production, Hemoptysis Gastrointestinal: Denies: Hematemesis, Hematochezia, Melena Genitourinary: Denies: Dysuria, Hematuria Skin: Denies: Rash Subjectve: Pleasant lady in no apparent distress lying in bed Objective: Vital Signs Temp Pulse Resp BP Pulse Ox 99.2 F H 88 16 118/67 96 12/12/17 03:20 12/12/17 03:20 12/12/17 03:20 12/12/17 03:20 12/12/17 03:20 Oxygen Delivery Method Room Air Weight: 248 lb 7.375 oz Body Mass Index (BMI) 41.3 Orthostatic Vital Signs Start: 12/12/17 03:18 Freq: q24h Status: Active Protocol: Activity Type Activity Date Activity User E-Sign Co-Sign Detail Recorded Client Recorded Date Recorded By Document 12/12/17 03:18 AML [id number] 12/12/17 03:19 AML Intake and Output for Last 24 Hours Intake Total 2308 / 230 Balance 2308 230 General: Awake, Alert, Oriented x 3 HEENT: PERRL, EOMI, Sclera Non Icteric Neck: Supple, Good ROM, No Lymph Node Enlargement Lungs: Clear to auscultation Cardiovascular: Regular Rhythm, Normal S1, Normal S2, No Murmurs, No Rubs, No Gallops Vascular: No Carotid Bruits, Normal Femoral Pulses, Normal Radial Pulses, Normal Dorsalis Pedal Pulse, Normal Posterior Tibial Pulses Abdomen: Bowel Sounds Present, Soft, Non Tender, No HSM, No Organomegaly Extremities: No Cyanosis, No Clubbing, No edema Neurological: No Focal Motor or Sensory Deficit 12/12/17 02:55: Magnesium 1.9 12/12/17 02:55: Troponin I 0.188 H 12/12/17 05:30: WBC 14.2 H, RBC 3.67 L, Hgb 10.9 L, Hct 33.7 L, MCV 91.8, MCH 29.7, MCHC 32.3, RDW 14.0, RDW Differential 46.9 H, Plt Count 333, MPV 9.5, Immature Gran % (Auto) 0.100, Neut % (Auto) 82.1 H, Lymph % (Auto) 12.5 L, [place] % (Auto) 3.9, Eos % (Auto) 1.3, Baso % (Auto) 0.1, Absolute Neuts (auto) 11.7 H, Total Counted Not Reportable 12/12/17 05:30: Sodium 142, Potassium 3.8, Chloride 113 H, Carbon Dioxide 20.0 L, Anion Gap 9, BUN 6 L, Creatinine 0.46 L, Est GFR (MDRD) Af Amer 208, Est GFR (MDRD) Non-Af 172, BUN/Creatinine Ratio 13.2, Glucose 94, Calcium 8.0 L, Total Bilirubin 0.30, Troponin I 0.118 H Rhythm: EKG: Normal sinus rhythm with a rate of 88 bpm and no acute changes Assessment/Plan 1. Vasovagal syncope. * Description appears to fit a vasovagal reaction. At this time I suspect that her minimal troponin elevation is likely secondary to demand myocardial necrosis. It appears to have a flat patent with no necessary rise and fall. My recommendation would be to continue with intravenous fluid resuscitation. * Echocardiogram should be performed to assess her left ventricular function. If there is no wall motion abnormalities and her ejection fraction is noted to be normal I would not recommend any further workup. * * I did discuss the above with the patient as well as her and they understand and agree to proceed. We will discuss this further with the [facility] afterwards. * * Thank you for allowing me to participate in the care of your patient. Please don't hesitate to call if any issues arise 12/13/17 0924 <Electronically signed by Ryder Byrne MD> Date Ryder Byrne MD Cosigner Signature (if applicable): Date CC: Ryder Byrne MD; Ana Tucker III, MD; Nyla Mancuso MD [facility]igned [facility] Observed: 12/13/2017 Status: COMPLETED Source: [place] 12:00 AM [facility] REPOSITORY Patient Outreach ([facility]) HILARIO TRAMMELL ([id number]) 1990 F [place] Date Time Provider Department 12/13/17 NIA MANCILLA) [facility] During your visit today, we recorded the following information about you: Nia Mancilla CMA, MA 12/13/2017 12:47 PM Signed TRANSITION CARE MANAGEMENT (TCM) INITIAL CONTACT Pin Inserter Regulator Outreach Provider Action/FYI: [facility]-admitted on 12/12 for vasovagal syncope, d/c on 12/12 Initial contact with patient post discharge, spoke to patient. Patient identified by name and . SUMMARY: -Pt discharged from [facility] on 12/12/2017. -Admitted for: vasovagal syncope Do you have a hospital follow up appointment with your PCP? No. Will follow up with OBGYN since she is . MEDICATIONS: Many patients have questions or concerns about their medications once they are home. Were you prescribed any new medications? No Were you told to hold any medications? No Were any of your medications discontinued? No Do you have any questions about getting or taking your medications? No Your discharge instructions/After visit Summary (AVS) are important in guiding you through the recovery process. Is there anything I might help you understand? No Do you have all the necessary equipment and supplies at home? Yes Medical records from recent hospitalization: Placed for provider to review Allergies As of Date: 12/13/2017 (No Known Allergies) Date Reviewed: 01/21/2017 Reviewed by: Kiah Portillo Ma - Fully Assessed Reason for Visit: Transition Of Care [4074] Cmt: [facility]-admitted on 12/12 for vasovagal syncope, d/c on 12/12 Reason For Visit History Recorded Prescriptions as of 12/13/2017 Sig: ESCITALOPRAM 10 MG TABLET Take 1 tablet by mouth once d* LEVOTHYROXINE 100 MCG TABLET Take 1 tablet by mouth once d* CETIRIZINE 10 MG TABLET Take 10 mg by mouth once zeke* RANITIDINE 150 MG TABLET Take 150 mg by mouth once daina* ESOMEPRAZOLE MAGNESIUM 22.3 M* Take 1 capsule by mouth daily* Problem List As Of Date 12/13/2017 Noted Resolved DYSMENORRHEA [N94.6] INVALID FOR* Hypothyroidism [E03.9] INVALID FOR* Salivary gland stone [K11.5] INVALID FOR*01/08/2015 Gastroesophageal reflux disease without esophag*INVALID FOR* Morbid obesity due to excess calories (HCC) [E6*INVALID FOR* Female infertility [N97.9] INVALID FOR* Mastocytosis [D47.09] INVALID FOR* More... Anxiety disorder [F41.9] INVALID FOR* Encounter Status:Closed by NIA MANCILLA CMA on 12/13/17 DISCHARGE SUMMARY Observed: 12/12/2017 Status: F Source: [place] 1:42 PM [facility] REPOSITORY [facility] Medical Records Department [address] [place] [address] Discharge Summary 12/12/17 1027 MR#: [id number] Acct: [id number] Name: HILARIO TRAMMELL Rep #: [id number] : 1990 27 From: Elena Grant RELAY TELEGRAPHERErvinC PCP: Ana Tucker III, MD Status: ADM IN Y Location: [place] [address]1 <Elena Grant - Last Filed: 12/12/17 12:59> Discharge Date and Diagnosis - Problem List Patient Problems: Active and Suspected Problems (Last Updated 08/01/17 @ 11:08 by Mckayla Kelley) with history of infertility (Acute) Date of Admission: 12/12/17 Date of Discharge: 12/12/17 - Primary Discharge Diagnosis Active and Suspected Problems (Last Updated 08/01/17 @ 11:08 by Mckayla Kelley) 1. Vasovagal syncope 2. Elevated troponin, demand ischemia 3. in the first trimester - Secondary Discharge Diagnosis Chronic Problems (Last Updated 08/01/17 @ 11:08 by Mckayla Kelley) Cutaneous mastocytosis (Chronic) Obesity Hospital Course and Treatment Imaging Results: Diagnostic Data Chest CTA 12/11/17 23:43 IMPRESSION: Normal CTA chest examination, without a demonstrated pulmonary embolism or arterial dissection. Electronically Signed: Leigha Dominguez MD at 0:59 EDT Tel , Service support , Dr. Byrne- Cardiology Operations: None Procedures: 2-D Echocardiogram Summary of Care Provided: The patient is a 27 year old F admitted to 12/12/2017 due to syncopal episode. Patient is 10 weeks , undergoing in vitro fertilization. Immediately following progesterone injection, patient became flushed and lightheaded and had 3 witnessed episodes of syncope. Orthostatic vitals negative. CTA without evidence of PE, patient's abdomen was shielded. Cardiology consulted due to elevated troponins. Troponins did not trend. Cardiology suspecting demand ischemia. Echocardiogram completed and demonstrated an EF of 55%, no evidence of diastolic dysfunction, structurally normal valves. Patient denies further dizziness, lightheadedness. TSH within normal limits. OB consulted during admission. Suspect vasovagal syncope. Possible reaction to progesterone injection. Patient received IV fluids. Follow-up as outpatient with [facility] and primary care physician. Patient has contacted her fertility specialist in [place] for further recommendations regarding progesterone injections. Patient seen exam prior to discharge. Alert, oriented, no acute distress. No further dizziness, lightheadedness. Lungs clear. Heart rate regular rate and rhythm. Neuro grossly intact. Abdomen soft, nontender. Vital signs stable. Normal affect. Stable for discharge home with the follow-up her conditions as noted above. This patient was seen by PUSHPA Arthur under the supervision of Dr. Holley. Discharge Diet: No Restrictions Discharge Activity: Return to Normal Activity Call your doctor if you observe: Shortness of breath, Dizziness, Fainting spells, Chest pain Home Medications: Medications to take at Discharge Cetirizine HCl [Zyrtec] 10 mg PO QHS 08/27/16 Epinephrine [Epipen 2-Mika] 1 ml SQ PRN PRN 08/27/16 Escitalopram Oxalate [Lexapro] 10 mg PO QHS 08/27/16 Ranitidine [Zantac] 150 mg PO BID 08/27/16 Levothyroxine [Synthroid] 150 mcg PO DAILY 08/29/17 Estradiol 0.5 mg PO BID 12/12/17 Progesterone SC 1900 12/12/17 Primary Care Physician: Ana Tucker III, MD [Primary Care Provider] - Please follow up with your Primary Care Physician in: 1 Week Please Follow Up With: Nyla Mancuso MD When: As scheduled Disposition: Home Minutes spent on discharge:: 35 Patient Condition:: Stable Medical Necessity - Tobacco Use Smoking Status: Never smoker Tobacco Use: Non-smoker Meaningful Use Info Meaningful Use Diagnoses (Choose all that apply): None applicable <Shalom Holley - Last Filed: 12/12/17 13:42> Discharge Date and Diagnosis - Primary Discharge Diagnosis Active and Suspected Problems (Last Updated 08/01/17 @ 11:08 by Mckayla Kelley) with history of infertility (Acute) - Secondary Discharge Diagnosis Chronic Problems (Last Updated 08/01/17 @ 11:08 by Mckayla Kelley) Cutaneous mastocytosis (Chronic) Hospital Course and Treatment Imaging Results: 12/12/17 05:55 Echo Complete [ECHO] AM (NON MEDS) Operations: None Procedures: 2-D Echocardiogram Summary of Care Provided: Patient seen and examined independently. Data reviewed. I agree with the above note by the nurse practitioner. The patient is a 27 year old F presents with a vasovagal episode after injecting herself with progesterone. Patient is on progesterone in vitro fertilization. Patient is approximately 10 weeks . Patient had a workup that showed a troponin of 0.18. Patient was seen in consultation by obstetrics as well as cardiology. Patient underwent a echocardiogram that was normal. Patient is otherwise stable and will be to home today. Patient will follow up with her fertility specialist, Dr. Soriano, this coming . Patient is apparently going to be getting vaginal progesterone which she will be starting soon. [] Discharge Diet: No Restrictions Discharge Activity: Return to Normal Activity Call your doctor if you observe: Shortness of breath, Dizziness, Fainting spells, Chest pain Please Follow Up With: Christie When: 12/15/17 Disposition: Home Patient Condition:: Stable Meaningful Use Info Meaningful Use Diagnoses (Choose all that apply): None applicable Code Visit OBSV E AND M: 44779 Observation care discharge 12/12/17 1259 <Electronically signed by Elena BARROW> Date Elena LEHMANC 12/12/17 1342<Electronically signed by Shalom Holley DO> Cosigner Signature (if applicable): Date Shalom Holley DO CC: PUSHPA Grant; Shalom Holley DO; Ana Tucker III, MD Signed ECHOCARDIOGRAM COMPLETE Observed: 12/12/2017 Status: F Source: [place] 12:14 PM [facility] REPOSITORY [facility] [place] [address] Echo Complete 12/12/1732 MR#: [id number] Acct: [id number] Name: HILARIO TRAMMELL Rep #: [id number] : 1990 27 From: Ryder Byrne MD Attending Dr: Shalom oHlley DO Status: ADM IN Ordering Dr: Dariusz Abrams MD Date: 12/12/17 Location: [facility] Sex: F C Admitted: 12/12/17 Reason For Study: Murmur Procedure This was a 2D Doppler, Color Flow transthoracic echocardiogram. Exam performed portable in patient room. Left Ventricle Normal LV size. Left ventricular systolic function is normal. The estimated ejection fraction is 55 %. No evidence for diastolic dysfunction. No regional wall motion abnormalities noted. Right Ventricle Normal RV size. Normal systolic function. Atria Normal left atrium. Normal right atrium. Mitral Valve Normal mitral valve. Tricuspid Valve Normal tricuspid valve. Mild tricuspid valve insufficiency. Pulmonary artery systolic pressure is 22 mmHg. Aortic Valve Normal aortic valve. Trisinus/trileaflet aortic valve. Pulmonic Valve Normal pulmonic valve. Great Vessels Normal aortic root. The pulmonary artery is normal size. Normal inferior vena cava. Pericardium/Pleural No pericardial effusion. MMode/2D Measurements AND Calculations LVIDd: 4.8 cm IVSd: 0.79 cm Ao root diam: 2.3 cm LVIDs: 3.2 cm LVPWd: 0.81 cm RVDd: 3.8 cm FS: 32.8 % LAV(MOD-bp): 41.9 ml LA A4 area: 19.8 cm2 RA A4 area: 13.0 cm2 LAV(MOD-bp) Indexed: 19.4 ml/m2 LAV(MOD-sp2): 27.6 ml LAV(MOD-sp4): 53.2 ml Doppler Measurements AND Calculations MV E max yaya: 109.9 cm/sec Lat Peak E' Yaya: 19.2 cm/sec Med Peak E' Yaya: 13.4 cm/sec MV A max yaya: 64.4 cm/sec E/E' lat: 5.7 E/E' med: 8.2 MV E/A: 1.7 Ao V2 max: 191.8 cm/sec LV V1 max: 140.1 cm/sec PA V2 max: 117.8 cm/sec Ao max P.7 mmHg LV V1 max P.9 mmHg Ao V2 mean: 130.6 cm/sec Ao mean P.7 mmHg Ao V2 VTI: 36.3 cm TR max yaya: 220.0 cm/sec TR max P.4 mmHg Interpretation Summary Normal LV size. Left ventricular systolic function is normal. The estimated ejection fraction is 55 %. No evidence for diastolic dysfunction. Structurally normal valves. Ordering Physician: Dariusz Abrams Referring Physician: Ana Tucker Performed By: Sarita Schreiber, PEDRO PABLO, RVT 12/12/17 1213 Date Ryder Byrne MD CC: Shalom Holley DO; Ana Tucker III, MD; Dariusz Abrams MD Date Dictated: 12/12/1732 Date Transcribed: 12/12/17 1213 Environmental Communications Specialist: Signed CONSULTATION Observed: 12/12/2017 Status: F Source: [place] 10:46 AM [facility] REPOSITORY [facility] Medical Records Department [address] [place] [address] Consultation 12/12/17 1042 MR#: [id number] Acct: [id number] Name: HILARIO TRAMMELL Rep #: [id number] : 1990 27 From: Nyla Mancuso MD PCP: Ana Tucker III, MD Status: ADM IN Location: [place] [address] Problem List (1) with history of infertility Status: Acute (2) Cutaneous mastocytosis Status: Chronic (3) Syncope Status: Acute (4) Elevated troponin Status: Acute Reason for Consult Date of Consultation: 12/12/17 Reason for Consultation: History of Present Illness: The patient is a 27 year old F @ 10 weeks presents with vasovagal syncope and minimal troponin evaluation. s eh denies any vaginal bleeding, just some cramping. she conceived viaa IVF this with Dr Chavarria and has been oing progesterone injections. she has had no other complications to date. Past Medical History Past Medical History (Chronic Problems): Chronic Problems (Last Updated 08/01/17 @ 11:08 by Mckayla Kelley) Cutaneous mastocytosis (Chronic) Medical History: Medical History (Last Updated 08/01/17 @ 11:08 by Mckayla Kelley) GERD (gastroesophageal reflux disease) K21.9 Hyperthyroidism E05.90 Mastocytosis D47.09 Allergies No Known Allergies Allergy (Verified 08/29/17 10:49) Home Medications: Ambulatory Orders Medication Instructions Recorded Cetirizine HCl [Zyrtec] 10 mg PO QHS 08/27/16 Epinephrine [Epipen 2-Mika] 1 ml SQ PRN PRN 08/27/16 Escitalopram Oxalate [Lexapro] 10 mg PO QHS 08/27/16 Surgical History: noncontributory Psychiatric History: No pertinent psych hx [employer] History: - - infertility Lives: Spouse/ Significant Other Smoking Status: Never smoker Tobacco Use: Non-smoker Alcohol: None Drugs: None Review of Systems Constitutional: Denies: Fever, Malaise Eyes: Denies: Blurred vision, Vision Change HEENT: Denies: Head Aches, Visual Changes Cardiovascular: Denies: Chest Pain, Palpitations Respiratory: Denies: Cough, Shortness of Breath, Wheezing Gastrointestinal: Denies: Abdominal Pain, Diarrhea, Nausea, Vomiting Genitourinary: Denies: Dysuria, Hematuria Musculoskeletal: Denies: Joint Pain, Muscle pain Skin: Denies: Lesions, Rash Neurological: Denies: Blurred vision, Focal weakness, Headaches Psychiatric: Denies: Anxiety, Depression Endocrine: Denies: Heat/ Cold Intolerance Hematologic/ Lymphatic: Denies: Easy Bruising, Easy Bleeding Patient Problems: Active and Suspected Problems (Last Updated 08/01/17 @ 11:08 by Mckayla Kelley) with history of infertility (Acute) - Physical Exam General: Alert, Oriented x3, Cooperative HEENT: Atraumatic, PERRLA, EOMI, Normocephalic Neck: Supple, No JVD Lungs: Clear to auscultation, Normal air movement Cardiovascular: Regular rate Abdomen: Soft, Non Tender Extremities: No edema Skin: No rashes, No breakdown Musculoskeletal: No Tenderness to Palpation of Joints or Extremities Psych/Mental Status: Normal Affect, Appropriate Vital Signs Temp Pulse Resp BP Pulse Ox 97.7 F L 83 16 122/66 H 94 12/12/17 09:20 12/12/17 09:20 12/12/17 09:20 12/12/17 09:20 12/12/17 09:20 Oxygen Delivery Method Room Air Weight: 248 lb 7.375 oz Body Mass Index (BMI) 41.3 Orthostatic Vital Signs Start: 12/12/17 03:18 Freq: q24h Status: Active Protocol: Activity Type Activity Date Activity User E-Sign Co-Sign Detail Recorded Client Recorded Date Recorded By Document 12/12/17 03:18 AML [id number] 12/12/17 03:19 AML Orthostatic Vitals Standing -Blood Pressure (90/60-120/80) 129/86 H -Extremity Use Left Arm -Pulse Rate (60-100) 115 H Sitting -Blood Pressure (90/60-120/80) 132/80 H Intake and Output for Last 24 Hours Intake Total 2309 / 2309 Balance 2309 / 2309 Laboratory Tests Past 24 Hrs WBC 14.2 H RBC 3.67 L Hgb 10.9 L Hct 33.7 L MCV 91.8 WBC RBC Hgb Hct MCV MCH MCHC RDW RDW Differential Plt Count MPV Immature Gran % (Auto) Neut % (Auto) Lymph % (Auto) Assessment/Plan All Active Problems (Last Updated 08/01/17 @ 11:08 by Mckayla Kelley) with history of infertility (Acute) Syncope (Acute) Elevated troponin (Acute) 27 yo 10 weeks presents with syncope recommend evlatuion via ultrasound appreciate cardiology consult will follow peripherally and see patient for new ob visit once released by [facility]. agree with discharge once cardiac clearance 12/12/17 1046 <Electronically signed by Nyla Mancuso MD> Date Nyla Mancuso MD Cosigner Signature (if applicable): Date CC: Ryder Byrne MD; Ana Tucker III, MD; Nyla Mancuso MD Signed DISCHARGE INSTRUCTION Observed: 12/12/2017 Status: F Source: [place] 10:25 AM [facility] REPOSITORY [facility] Medical Records Department [address] [place] [address] Instructions for Home/Discharge Instructions 12/12/17 1019 MR#: [id number] Acct: [id number] Name: HILARIO TRAMMELL Rep #: [id number] : 1990 27 From: Elena Grant RELAY TELEGRAPHER-C PCP: Ana Tucker III, MD Status: ADM IN - Discharge Diagnoses Current Active Problems: Current Active and Chronic Problems (Last Updated 08/01/17 @ 11:08 by Mckayla Kelley) Syncope (Acute) Elevated troponin (Acute) You will use the following diet at home:: No restrictions Discharge Activity: Return to Normal Activity Call your doctor if you observe: Shortness of breath, Dizziness, Fainting spells, Chest pain Allergies/Adverse Reactions: Allergies No Known Allergies Allergy (Verified 08/29/17 10:49) Medications to take at Discharge Cetirizine HCl [Zyrtec] 10 mg PO QHS 08/27/16 Epinephrine [Epipen 2-Mika] 1 ml SQ PRN PRN 08/27/16 Escitalopram Oxalate [Lexapro] 10 mg PO QHS 08/27/16 Ranitidine [Zantac] 150 mg PO BID 08/27/16 Levothyroxine [Synthroid] 150 mcg PO DAILY 08/29/17 Estradiol 0.5 mg PO BID 12/12/17 Progesterone SC 1900 12/12/17 Primary Care Physician: Ana Tucker III, MD [Primary Care Provider] - Please follow up with your Primary Care Physician in: 1 Week Test Results: Test results from this visit will be discussed in further detail at your follow-up appointment, if applicable. Please Follow Up With: Nyla Mancuso MD When: As scheduled Proposed Discharge Date: 12/12/17 12/12/17 1025 <Electronically signed by Elena BARROW> Date Elena BARROW CC: Ryder Byrne MD; Ana Tucker III, MD; Nyla Mancuso MD HISTORY AND PHYSICAL Observed: 12/12/2017 Status: F Source: [place] EXAM 6:43 AM [facility] REPOSIT[facility] Medical Records Department [address] [place] [address] History and Physical 12/12/17 0630 MR#: [id number] Acct: [id number] Name: HILARIO TRAMMELL Rep #: [id number] : 1990 27 From: Dariusz Abrams MD PCP: Ana Tucker III, MD Status: ADM IN Y Location: [place] [id number] Problem List (1) Cutaneous mastocytosis Status: Chronic (2) Syncope Status: Acute (3) Elevated troponin Status: Acute History of Present Illness Date of Admission: 12/12/17 Chief Complaint: Syncope The patient is a 27 year old female w/ h/o cutaneous mastocytosis admitted for syncope. She is 10 weeks . She had vitro fertilization and gave herself progesterone shot. She felt flushed and lightheaded. She also has severe substernal chest pain. Pain is worse with inspiration. Pain is episodic. Nothing improved the pain. She had palpitation as well. She had syncopal episodes multiple times as well. Past Medical History Past Medical History (Chronic Problems): Chronic Problems (Last Updated 08/01/17 @ 11:08 by Mckayla Kelley) Cutaneous mastocytosis (Chronic) Medical History: Medical History (Last Updated 08/01/17 @ 11:08 by Mckayla Kelley) GERD (gastroesophageal reflux disease) K21.9 Hyperthyroidism E05.90 Mastocytosis D47.09 Allergies No Known Allergies Allergy (Verified 08/29/17 10:49) Home Medications: Ambulatory Orders Medication Instructions Recorded Cetirizine HCl [Zyrtec] 10 mg PO QHS 08/27/16 Epinephrine [Epipen 2-Mika] 1 ml SQ PRN PRN 08/27/16 Escitalopram Oxalate [Lexapro] 10 mg PO QHS 08/27/16 Smoking Status: Never smoker Tobacco Use: Non-smoker Alcohol: None Drugs: None Review of Systems Constitutional: Denies: Chills, Fever, Weight Change HEENT: Denies: Head Aches, Sinus Congestion, Sinus Drainage Cardiovascular: Denies: Chest Pain, Palpitations Respiratory: Denies: Cough, Shortness of breath at rest, Sputum production Gastrointestinal: Denies: Abdominal Pain, Nausea, Vomiting Genitourinary: Denies: Dysuria Musculoskeletal: Denies: Joint Pain, Joint Tenderness Skin: Denies: Rash, Wounds Neurological: Denies: Numbness, Tingling, Focal weakness Psychiatric: Denies: Anxiety, Depression, Homicidal Ideations, Suicidal Ideations Hematologic/ Lymphatic: Denies: Easy Bruising, Easy Bleeding VTE Information - Inpt Only VTE Present on Admission: No VTE Mechan Device Prophylaxis: SCD's VTE Pharm Prophylaxis ordered?: Yes Patient Problems: Active and Suspected Problems (Last Updated 08/01/17 @ 11:08 by Mckayla Kelley) Syncope (Acute) Elevated troponin (Acute) - Physical Exam General: Alert, Oriented x3, Cooperative HEENT: Atraumatic, PERRLA, EOMI, Normocephalic Neck: Supple, No JVD, Negative Carotid Bruits Lungs: Clear to auscultation, Normal air movement Cardiovascular: Regular rate, No murmurs Abdomen: Bowel Sounds Present, Soft, Non Tender Extremities: No edema, Capillary Refill Less than 3 Seconds Skin: No rashes, No breakdown Musculoskeletal: No Tenderness to Palpation of Joints or Extremities Neurological: Cranial nerves II-XII grossly intact Psych/Mental Status: Normal Affect, Appropriate Vital Signs Temp Pulse Resp BP Pulse Ox 99.2 F H 88 16 118/67 96 12/12/17 03:20 12/12/17 03:20 12/12/17 03:20 12/12/17 03:20 12/12/17 03:20 Oxygen Delivery Method Room Air Weight: 112.7 kg Body Mass Index (BMI) 41.3 Orthostatic Vital Signs Start: 12/12/17 03:18 Freq: q24h Status: Active Protocol: Activity Type Activity Date Activity User E-Sign Co-Sign Detail Recorded Client Recorded Date Recorded By Document 12/12/17 03:18 AML [id number] 12/12/17 03:19 AML Orthostatic Vitals Standing -Blood Pressure (90/60-120/80) 129/86 H -Extremity Use Left Arm -Pulse Rate (60-100) 115 H Sitting -Blood Pressure (90/60-120/80) 132/80 H Laboratory Tests Past 24 Hrs WBC Pending RBC Pending Hgb Pending Hct Pending MCV Pending MCH Pending MCHC Pending WBC RBC Hgb Hct Assessment/Plan All Active Problems (Last Updated 08/01/17 @ 11:08 by Mckayla Kelley) Syncope (Acute) Elevated troponin (Acute) 27 year old female w/ h/o cutaneous mastocytosis admitted for syncope. 1) Syncope: No clear etiology. Will get orthostatic vital. CTA disclosed no PE. Will get ECHO. 2) Elevated trops: Will follow trops. Consulted cards. EKG is nondiagnostic. Supportive care. 3) : She is 10 weeks . Resume progesterone given hers is vitro fertilization. Consulted OB. 4) Prophylaxis: SCD 12/12/17 0643 <Electronically signed by Dariusz Abrams MD> Date Dariusz Abrams MD Cosigner Signature: Date (if applicable) CC: Ana Tucker III, MD; Dariusz Abrams MD Signed COMPREHENSIVE METABOLIC Collected: 12/12/2017 Status: F Source: [place] PROFIL 5:30 AM [facility] REPOSITORY Order Comment: 'TROP' Serial specimen #1, #2 or #3: 3 'TROP' Serial specimen #1, #2, #3, or #4: 3 TYPE CODE TESTS RESULT OUT OF RANGE REFERENCE UNITS LAB L501.0100 74-106 mg/dL Normal GLU 94 Result Comment: Please note revised GLUCOSE reference range effective 2017. LAB L501.1000 7-18 mg/dL Low BUN 6 LAB L501.1100 0.55-1.02 mg/dL Low CREAT,SERUM 0.46 Result Comment: The validity of the calculated GFR AND GFRAA in patients over 70 years has not been determined. Clinical correlation is essential. LAB L501.1110 >60 mL/min Normal EST GFR 172 Result Comment: Non- GFR Calc LAB L501.1115 >60 mL/min Normal EST GFR - AA 208 Result Comment: GFR Calc LAB L501.1255 ml/min Normal Estimated CRCL 162.38 LAB L501.1300 10-20 RATIO BUN/CRE Normal 13.2 LAB L501.1500 6.4-8. g/dL Low 2 T PROT 6.2 LAB L501.1800 3.2-5. g/dL Low 0 ALB 2.6 LAB L501.1950 2.2-4. g/dL 2 GLOB Normal 3.6 LAB L501.2000 0.9-2. RATIO Low 4 A/G 0.7 LAB L501.2200 8.5-10 mg/dL Low .1 CA 8.0 LAB L501.4100 15-37 U/L AST Normal 27 LAB L501.4305 45-117 U/L ALK P Normal 75 LAB L501.4405 13-56 U/L ALT Normal 29 LAB L501.4600 0.20-1 mg/dL .00 T BILI Normal 0.30 LAB L501.5300 136-14 mmol/L 5 NA Normal 142 LAB L501.5600 3.5-5. mmol/L 1 K Normal 3.8 LAB L501.5900 98-107 mmol/L High CL 113 LAB L501.6100 21.0-3 mmol/L Low 2.0 CO2 20.0 LAB L501.6200 5-15 GAP Normal 9 Performed By: #### L500.4050, L501.4010 #### [facility] [address] [place], [place], [address] TROPONIN-I Collected: 12/12/2017 Status: F Source: [place] 5:30 AM [facility] REPOSITORY Order Comment: 'TROP' Serial specimen #1, #2 or #3: 3 'TROP' Serial specimen #1, #2, #3, or #4: 3 TYPE CODE TESTS RESULT OUT OF RANGE REFERENCE UNITS LAB L501.4010 <0.045 ng/mL High 0.118 TROPONIN-I Result Comment: TROPONIN-I EXPECTED VALUES <0.045 Negative 0.045 - 0.590 Consistent with Cardiac Damage > OR = 0.600 Critical Value Not every elevated troponin is indicative of CT. These values should be used with clinical judgement in examining the patient's clinical picture for diagnosis. To establish a diagnosis of CT versus myocardial injury, there must be a demonstrated rise and/or fall in the troponin values, in addition to ischemic symptoms, EKG changes, new regional wall motion abnormality, and/or angiographical evidence. PLEASE NOTE: REFERENCE RANGES EDITED 17 Performed By: #### L500.4050, L501.4010 #### [facility] [address] [place], [address] CBC W/DIFF, AUTOMATED Collected: 12/12/2017 Status: F Source: [place] 5:30 AM [facility] REPOSITORY TYPE CODE TESTS RESULT OUT OF RANGE REFERENCE UNITS LAB L100.1000 4.4-11.0 K/mm3 High WBC 14.2 LAB L100.1200 4.2-5.4 M/mm3 Low RBC 3.67 LAB L100.1300 12.0-15.0 g/dl Low HGB 10.9 LAB L100.1400 37-47 % Low HCT 33.7 LAB L100.1500 81-99 fL Normal MCV 91.8 LAB L100.1600 27.0-32.0 pg Normal MCH 29.7 LAB L100.1700 32-36 g/gl Normal MCHC 32.3 LAB L100.1810 11.6-14.6 % Normal RDW CV 14.0 LAB L100.1820 35.1-43.9 fl High RDW SD 46.9 LAB L100.1900 150-450 K/mm3 Normal PLT 333 LAB L100.2000 6.2-12.0 fl Normal MPV 9.5 LAB L100.2100 47-70 % High NEUT% 82.1 LAB L100.2200 19-41 % Low LY% 12.5 LAB L100.2300 0-10 % Normal MONO% 3.9 LAB L100.2400 0-5 % Normal EO% 1.3 LAB L100.2500 0-1 % Normal BASO% 0.1 LAB L100.2550 0.0-0.9 % Normal IM GRAN % 0.100 Result Comment: IG% - Immature Granulocytes (promyelocytes, myelocytes and metamyelocytes) > 1% indicates that a LEFT SHIFT is Present. LAB L100.2620 2.0-7.7 X10 3/uL High Absolute Neut 11.7 LAB L100.2720 0.83-4.51 X10 3/ul Normal Absolute Lymph 1.78 Performed By: #### L100.0100 #### [facility] [address] [place], [address] EMERGENCY DEPARTMENT Observed: 12/12/2017 Status: F Source: [place] SUMMARY 3:07 AM [facility] REPOSITORY [facility] Medical Records Department [address] [place] [address] Emergency Department Summary 12/12/17 0116 MR#: [id number] Acct: [id number] Name: HILARIO TRAMMELL Rep #: [id number] : 1990 27 From: Junior Higginbotham MD PCP: Ana Tucker III, MD Status: ADM IN - ER Visit Summary Date of Service: 12/12/17 Chief Complaint: Syncope History of Present Illness: The patient is a 27 F presenting for evaluation secondary to syncope. Patient is a at 10 weeks . Patient had in vitro fertilization, and is giving herself progesterone shots. Patient reports that approximately an hour after giving herself her progesterone shot today she started to feel extremely flushed and lightheaded. Patient reports that she then went upstairs and proceeded to have 3 syncopal episodes back to back to back. Patient states that she is having some chest pain upon deep inspiration, but no consistent chest pain. She did state that she was feeling as if she had some palpitations. Patient denies any personal history DVT PE hemoptysis recent travel or surgery. No personal family history of bleeding dyscrasias arrhythmias, or premature heart disease. Review of systems otherwise negative. Physical Examination: Vital signs are within normal limits, patient is afebrile. General: Patient is well-nourished well-developed and in no acute distress. Head: Normocephalic, atraumatic Eyes: Pupils equal round and reactive bilaterally, extra occular motion intact bialterally ENT: Moist mucous membranes Neck: Supple, no lymphadenopathy, no JVD, no meningismus CVS: Heart regular rate and rhythm, 2 out of 6 systolic murmur noted which as per the patient's history, rubs or gallops, radial pulses 2+ bilaterally Resp: Respirations nondistressed, lung sounds clear bilaterally Abdomen: Soft, nontender, nondistended, no palpable masses, normal bowel sounds Back: Nontender Extremities: Nontender, atraumatic, active full range of motion, no peripheral edema Skin: warm, no rashes, no petechia Neuro: Alert and oriented x 4, CN 2-12 intact, no lateralizing neurological defecits Psyc: Normal affect Test Results: EKG shows sinus rate of [address] segments normal T waves. CBC and chemistry are unremarkable, troponin is positive at 0.17. CT angiogram of the chest is within normal limits. Emergency Department Course and Treatment: Patient presented for evaluation secondary to syncope. Workup ended up showing the patient to have a positive troponin. I feel that there is a high likelihood of pulmonary embolism in this patient given her exogenous hormone use. I discussed this with on-call [facility], and they are in agreement, and we feel that the test with the least risk to the fetus would be CT angiogram of the chest with shielding of the abdomen. I discussed risks and benefits with this with the patient and she did consent to this. This was performed, and did not show evidence of PE. I discussed patient's case with cardiology and, at this time they recommend admission with echocardiogram in the morning. Patient will be admitted under the hospitalist. Disposition: Admission Impression: 1. Syncope 2. Positive troponin 3. 10-week This note was generated with [employer] dictation software. It may contain incorrect words, spelling, and punctuation that were not noted in review of the chart prior to signing ED Disposition - Plan for ED Patient: Chief Complaint: Syncope Referrals: Ana Tucker III, MD [Primary Care Provider] - What to do if you have Problems For any increased pain, shortness of breath, bleeding, nausea or vomiting, chest pain, or any unexpected problems, contact your Primary Care Provider. Call [facility] ([phone]) or report to the closest Emergency Room. Call 911 if necessary. 12/12/17 0307 <Electronically signed by Junior Higginbotham MD> Date Junior Higginbotham MD Cosigner Signature (If Indicated): Date CC: Ana Tucker III, MD TROPONIN-I Collected: 12/12/2017 Status: F Source: PATY 2:55 AM [facility] REPOSITORY Order Comment: 'TROP' Serial specimen #1, #2 or #3: 2 TYPE CODE TESTS RESULT OUT OF RANGE REFERENCE UNITS LAB L501.4010 <0.045 ng/mL High 0.188 TROPONIN-I Result Comment: TROPONIN-I EXPECTED VALUES <0.045 Negative 0.045 - 0.590 Consistent with Cardiac Damage > OR = 0.600 Critical Value Not every elevated troponin is indicative of CT. These values should be used with clinical judgement in examining the patient's clinical picture for diagnosis. To establish a diagnosis of CT versus myocardial injury, there must be a demonstrated rise and/or fall in the troponin values, in addition to ischemic symptoms, EKG changes, new regional wall motion abnormality, and/or angiographical evidence. PLEASE NOTE: REFERENCE RANGES EDITED 17 Performed By: #### L501.4010 #### [facility] [address] [place], [address] MAGNESIUM Collected: 12/12/2017 Status: F Source: PATY 2:55 AM [facility] REPOSITORY TYPE CODE TESTS RESULT OUT OF RANGE REFERENCE UNITS LAB L501.5200 1.6-2.6 mg/dL Normal MG 1.9 Performed By: #### L501.5200, L501.9520 #### [facility] [address] [facility] [place], [address] THYROID STIM HORMONE Collected: 12/12/2017 Status: F Source: [place] (TSH) 2:55 AM [facility] REPOSITORY TYPE CODE TESTS RESULT OUT OF RANGE REFERENCE UNITS LAB L501.9520 0.358-3.74 uIU/mL Normal TSH 1.48 Performed By: #### L501.5200, L501.9520 #### [facility] [address] [facility] [place], [address] CTA CHEST W/WO Observed: 12/11/2017 Status: F Source: PATY CONTRAST 11:43 PM [facility] REPOSITORY [facility] Imaging Services [address] [place] [address] CTA Chest W/WO Contrast MR#: [id number] Acct: [id number] Name: HILARIO TRAMMELL Rep #: [id number] : 1990 F 27 From: Leigha Dmoinguez MD PCP: Ana Tucker III, MD Status: REG ER Study: CTA Chest W/WO Contrast Date of Exam: 12/11/17 Exam# [id number] Ordering Dr: Junior Higginbotham MD STUDY: CTA CHEST REASON FOR EXAM: Female, 27 years old. SYNCOPE, PT IS 10 WEEKS , PT WAS SHEILDED. RADIATION DOSAGE (If Supplied By Facility): CTDIvol = ( 16.75 ) mGy, DLP = ( 710.77 ) mGycm TECHNIQUE: The examination was performed with the intravenous administration of 100 ml of Isovue 370 contrast material. Post-processing of the angiographic images was performed, with multiplanar reformation and 3D reconstruction. Individualized dose optimization techniques were used for this CT. COMPARISON: None. FINDINGS: Normal enhancement of the main pulmonary artery and right and left pulmonary arteries. Normal enhancement of the bilateral peripheral pulmonary arteries. There is no demonstrated pulmonary embolism. Normal thoracic aorta and visualized great vessels. There is no demonstrated aortic dissection. Normal heart and pericardium. Normal mediastinum. Normal hilar regions. Normal visualized trachea and bronchi. The lungs are well expanded. Normal pulmonary parenchyma. Normal pleura. Normal chest wall structures. Normal osseous structures. Normal visualized upper abdomen. CT/CTA Chest W/WO Contrast IMPRESSION: Normal CTA chest examination, without a demonstrated pulmonary embolism or arterial dissection. Electronically Signed: Leigha Dominguez MD at 0:59 EDT Tel , Service support , CC: Ana Tucker III, MD; Junior Higginbotham Environmental Communications Specialist: Signed CBC W/DIFF, AUTOMATED Collected: 12/11/2017 Status: F Source: PATY 10:20 PM [facility] REPOSITORY TYPE CODE TESTS RESULT OUT OF RANGE REFERENCE UNITS LAB L100.1000 4.4-11.0 K/mm3 High WBC 12.0 LAB L100.1200 4.2-5.4 M/mm3 Normal RBC 4.22 LAB L100.1300 12.0-15.0 g/dl Normal HGB 12.4 LAB L100.1400 37-47 % Normal HCT 39.1 LAB L100.1500 81-99 fL Normal MCV 92.7 LAB L100.1600 27.0-32.0 pg Normal MCH 29.4 LAB L100.1700 32-36 g/gl Low MCHC 31.7 LAB L100.1810 11.6-14.6 % Normal RDW CV 14.0 LAB L100.1820 35.1-43.9 fl High RDW SD 47.3 LAB L100.1900 150-450 K/mm3 Normal PLT 329 LAB L100.2000 6.2-12.0 fl Normal MPV 9.4 LAB L100.2100 47-70 % High NEUT% 84.7 LAB L100.2200 19-41 % Low LY% 12.9 LAB L100.2300 0-10 % Normal MONO% 1.5 LAB L100.2400 0-5 % Normal EO% 0.7 LAB L100.2500 0-1 % Normal BASO% 0.0 LAB L100.2550 0.0-0.9 % Normal IM GRAN % 0.200 Result Comment: IG% - Immature Granulocytes (promyelocytes, myelocytes and metamyelocytes) > 1% indicates that a LEFT SHIFT is Present. LAB L100.2620 2.0-7.7 X10 3/uL High Absolute Neut 10.1 LAB L100.2720 0.83-4.51 X10 3/ul Normal Absolute Lymph 1.54 Performed By: #### L100.0100 #### [facility] [address] [place] [address]. [place], [address] BASIC METABOLIC Collected: 12/11/2017 Status: F Source: [place] PROFILE (BMP) 10:20 PM [facility] REPOSITORY TYPE CODE TESTS RESULT OUT OF RANGE REFERENCE UNITS LAB L501.0100 74-106 mg/dL High GLU 144 Result Comment: Fasting Glucose result greater than or equal to 126 mg/dL suggests DIABETES MELLITUS per A.D.A. criteria. Please note revised GLUCOSE reference range effective 2017. LAB L501.1000 7-18 mg/dL Normal BUN 11 LAB L501.1100 0.55-1.02 mg/dL Normal CREAT,SERUM 0.78 Result Comment: The validity of the calculated GFR AND GFRAA in patients over 70 years has not been determined. Clinical correlation is essential. LAB L501.1110 >60 mL/min Normal EST GFR 92 Result Comment: Non- GFR Calc LAB L501.1115 >60 mL/min Normal EST GFR - AA 112 Result Comment: GFR Calc LAB L501.1255 ml/min Normal Estimated CRCL 95.76 LAB L501.1300 10-20 RATIO Normal BUN/CRE 14.1 LAB L501.2200 8.5-10 mg/dL Normal .1 CA 8.8 LAB L501.5300 136-14 mmol/L Normal 5 NA 139 LAB L501.5600 3.5-5. mmol/L Normal 1 K 3.7 LAB L501.5900 98-107 mmol/L High CL 108 LAB L501.6100 21.0-3 mmol/L Normal 2.0 CO2 22.0 LAB L501.6200 5-15 Normal GAP 9 Performed By: #### L500.2500, L501.4010 #### [facility] [address] [facility] [place], [address] TROPONIN-I Collected: 12/11/2017 Status: F Source: [place] 10:20 PM [facility] REPOSITORY TYPE CODE TESTS RESULT OUT OF RANGE REFERENCE UNITS LAB L501.4010 <0.045 ng/mL High 0.174 TROPONIN-I Result Comment: TROPONIN-I EXPECTED VALUES <0.045 Negative 0.045 - 0.590 Consistent with Cardiac Damage > OR = 0.600 Critical Value Not every elevated troponin is indicative of CT. These values should be used with clinical judgement in examining the patient's clinical picture for diagnosis. To establish a diagnosis of CT versus myocardial injury, there must be a demonstrated rise and/or fall in the troponin values, in addition to ischemic symptoms, EKG changes, new regional wall motion abnormality, and/or angiographical evidence. PLEASE NOTE: REFERENCE RANGES EDITED 17 Performed By: #### L500.2500, L501.4010 #### [facility] [address] [facility] [place], [address] PROGRESS Observed: 09/17/2017 Status: COMPLETED Source: WILLIS 9:42 AM [facility] REPOSITORY HNO ID: [id number] Author: Ana Tucker III Service: (none) Author Type: Physician Type: Progress Notes Filed: 09/17/2017 9:42 AM Note Text: Hilario, You have normal thyroid and vitamin D levels Ana Tucker III MD VITAMIN D 25 HYDROXY Collected: 09/16/2017 Status: F Source: STANLEY 11:16 AM [facility] REPOSITORY TYPE CODE TESTS RESULT OUT OF REFERENCE UNITS RANGE LAB VITD 31.0-80.0 ng/mL Vitamin D 25 40.6 Hydroxy Result Comment: Classification of 25 [place] Vitamin D status: Insufficiency/Moderate Deficiency: < or = 30 ng/mL Sufficiency/Optimal Levels: 31 to 80 ng/mL Toxicity: > 100 ng/mL Test performed by chemiluminescent immunoassay. Performed By: #### VITD, TSH #### [facility] [employer] [address] [place], [place] [id number] TSH Collected: 09/16/2017 Status: F Source: [place] 11:16 AM [facility] REPOSITORY TYPE CODE TESTS RESULT OUT OF RANGE REFERENCE UNITS LAB TSH 0.400-5.500 uU/mL TSH 1.620 Result Comment: If the patient is , TSH reference range varies by gestational period: First Trimester 0.100-2.500 uU/mL Second Trimester 0.200-3.000 uU/mL Third Trimester 0.300-3.000 uU/mL References: 1. Galvez L, Nita M, Ever EK, et al. Management of Thyroid Dysfunction during and : An Endocrine Society Clinical Practice Guideline. J Clin Endocrinol Metab, 2012:97:0411-9018. 2. Evan WYNNE. Overview of thyroid disease in . UpToDate. 2016. Accessed on November 21, 2015. Performed By: #### VITD, TSH #### [facility] [employer] [address] [place], [place] [address] ONCOLOGY VISIT REPORT Observed: 08/29/2017 Status: F Source: [place] 11:15 AM [facility] REPOSITORY [facility] [address] [place] [address] OFFICE VISIT Date of Service: 08/29/17 1103 MR#: [id number] Acct: [id number] Name: HILARIO TRAMMELL Rep #: [id number] : 1990 From: Keyur Bates MD Age/Sex: 27/F Location: OMD Status: Signed Subjective - Date of Service Date of Service:: 08/29/17 - Chief Complaint Follow up- mastocytosis - History of Present Illness Ms. Hilario Trammell is a very pleasant 27 year old woman who was diagnosed with mastocytosis after she presented with multiple pigmented skin lesions. 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 Subsequently she underwent BMBX 03/30/2016 which showed normocellular marrow with mild mastocytosis associated with an elevated tryptase level. She is maintained on H1 and H2 blockers. Comes in for follow up. - Past Medical/Social History Past Medical History Past Medical History: GERD Other Past Medical History: MASTOCYTOSIS HYPERTHYROIDISM Past Surgical History Other Surgical History: NONE Family History Paternal Past Medical History: Unknown Paternal History of Cancer Skin cancer Maternal Past Medical History: Unknown Maternal History of Cancer: Breast cancer Social History Smoking Status Never smoker Review of Systems Constitutional:: Reports: Pain. Denies: Weakness, Fatigue, Fever, Sweats Cardiovascular:: Denies: Chest pain, Ankle swelling, Dyspnea on exertion Respiratory: Denies: Cough, Hemoptysis Gastrointestinal:: Denies: Abdominal pain Genitourinary: Denies: Dysuria, Hematuria, 15, Flank pain Musculoskeletal:: Denies: Back pain, Myalgia, Arthralgia Skin: Reports: Lesions - on skin, no itch. Neurological:: Denies: Headache, Dizziness, Visual changes, Tinnitus, Hearing loss Psychiatric: Denies: Anxiety, Depression, Homicidal Ideations, Suicidal Ideations Vital Signs Height 5 ft 5 in Weight: 109.769 kg Weight in Pounds 242.0 lbs Pulse Ox 98 - Physical Exam General: Alert, Oriented x3, No apparent distress HEENT: Atraumatic, PERRLA, EOMI, Normocephalic Oropharynx:: Dry mucosa Neck:: Supple, Trachea midline. Negative for: JVD, bilateral Cardiac:: Regular rate, Regular rhythm, Normal S1, Normal S2. Negative for: Murmur Lungs: Clear to auscultation, Excusion symmetrical. Negative for: Rhonchi, Wheezes Abdomen:: Bowel sounds x 4, Soft, Non-tender, Non-distended. Negative for: Hepatosplenomegaly Extremities:: Negative for: Cyanosis, Edema Neurological: Neuro grossly intact Skin:: Lesions - pigmented skin plaques. 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 Clinically stable with no itching. Plan is to continue Zyrtec and Zantac. RTC 1 yr with cbc, cmp/ldh. Medications: Prescriptions This Visit Medication Instructions Recorded Cetirizine HCl [Zyrtec] 10 mg PO DAILY 08/27/16 Epinephrine [Epipen 2-Mika] 1 ml SQ PRN PRN 08/27/16 Primary Care Provider: Ana Tucker Referring Provider: - Problem List (1) Cutaneous mastocytosis Status: Chronic 08/29/17 1115 <Electronically signed by Keyur Bates MD> Date Keyur Bates MD Cosigner Signature: Date (if applicable) CC: CBC W/DIFF, AUTOMATED Collected: 08/29/2017 Status: F Source: PATY 10:32 AM [facility] REPOSITORY TYPE CODE TESTS RESULT OUT OF RANGE REFERENCE UNITS LAB L100.1000 4.4-11.0 K/mm3 Normal WBC 6.6 LAB L100.1200 4.2-5.4 M/mm3 Normal RBC 4.29 LAB L100.1300 12.0-15.0 g/dl Normal HGB 12.8 LAB L100.1400 37-47 % Normal HCT 39.3 LAB L100.1500 81-99 fL Normal MCV 91.6 LAB L100.1600 27.0-32.0 pg Normal MCH 29.8 LAB L100.1700 32-36 g/gl Normal MCHC 32.6 LAB L100.1810 11.6-14.6 % Normal RDW CV 14.5 LAB L100.1820 35.1-43.9 fl High RDW SD 47.8 LAB L100.1900 150-450 K/mm3 Normal PLT 434 LAB L100.2000 6.2-12.0 fl Normal MPV 9.3 LAB L100.2100 47-70 % Normal NEUT% 52.1 LAB L100.2200 19-41 % Normal LY% 35.7 LAB L100.2300 0-10 % Normal MONO% 5.6 LAB L100.2400 0-5 % High EO% 5.9 LAB L100.2500 0-1 % Normal BASO% 0.5 LAB L100.2550 0.0-0.9 % Normal IM GRAN % 0.200 Result Comment: IG% - Immature Granulocytes (promyelocytes, myelocytes and metamyelocytes) > 1% indicates that a LEFT SHIFT is Present. LAB L100.2620 2.0-7.7 X10 3/uL Normal Absolute Neut 3.4 LAB L100.2720 0.83-4.51 X10 3/ul Normal Absolute Lymph 2.34 Performed By: #### L100.0100 #### [facility] [address] [place], [place], [address] COMPREHENSIVE METABOLIC Collected: 08/29/2017 Status: F Source: PATY HANS 10:29 AM [facility] REPOSITORY Order Comment: Reason for Laboratory Test . TYPE CODE TESTS RESULT OUT OF RANGE REFERENCE UNITS LAB L501.0100 74-106 mg/dL Normal GLU 87 Result Comment: Please note revised GLUCOSE reference range effective 2017. LAB L501.1000 7-18 mg/dL Normal BUN 8 LAB L501.1100 0.55-1.02 mg/dL Normal CREAT,SERUM 0.66 Result Comment: The validity of the calculated GFR AND GFRAA in patients over 70 years has not been determined. Clinical correlation is essential. LAB L501.1110 >60 mL/min Normal EST GFR 113 Result Comment: Non- GFR Calc LAB L501.1115 >60 mL/min Normal EST GFR - AA 137 Result Comment: GFR Calc LAB L501.1255 ml/min Normal Estimated CRCL 113.17 LAB L501.1300 10-20 RATIO BUN/CRE Normal 12.2 LAB L501.1500 6.4-8. g/dL 2 T PROT Normal 7.8 LAB L501.1800 3.2-5. g/dL 0 ALB Normal 3.6 LAB L501.1950 2.2-4. g/dL 2 GLOB Normal 4.2 LAB L501.2000 0.9-2. RATIO 4 A/G Normal 0.9 LAB L501.2200 8.5-10 mg/dL .1 CA Normal 8.7 LAB L501.4100 15-37 U/L AST Normal 19 LAB L501.4305 45-117 U/L ALK P Normal 85 LAB L501.4405 13-56 U/L ALT Normal 33 Result Comment: Please note revised ALT reference range effective 2017. LAB L501.4600 0.20-1.00 mg/dL Normal T BILI 0.60 LAB L501.5300 136-145 mmol/L Normal NA 139 LAB L501.5600 3.5-5.1 mmol/L Normal K 3.9 LAB L501.5900 98-107 mmol/L High CL 108 LAB L501.6100 21.0-32.0 mmol/L Normal CO2 25.0 LAB L501.6200 5-15 Normal GAP 6 Performed By: #### L500.4050 #### [facility] [address] [place], [address] 75G 2HR NONGEST OGTT Collected: 07/09/2017 Status: F Source: STANLEY 9:09 AM [facility] REPOSITORY TYPE CODE TESTS RESULT OUT OF RANGE REFERENCE UNITS LAB GT0 74-99 mg/dL Glucose, 82 0 Hour Result Comment: [place] [employer] Association guidelines state a diabetes mellitus diagnosis is preliminarily made when the fasting plasma glucose meets or exceeds 126 mg/dL and/or the 2 hr glucose tole hu meets or exceeds 200 mg/dL. In the absence of unequivocal hyperglycemia, results should be confirmed with repeat testing. Patients are at increased risk for diabetes mellitus (prediabetes) when the fasting glucose is 100 to 125 mg/dL or the 2 hr glucose tolerance result is 140 to 199 mg/dL. LAB GT1 mg/dL Glucose, 1 Hour 134 Result Comment: A diagnostic cutoff for this time point is not established, and should be clinically determined. [place] [employer] Association guidelines state a diabetes mellitus diagnosis is preliminarily made when the fasting plasma glucose meets or exceeds 126 mg/dL and/or the 2 hr glucose tolerance meets or e xceeds 200 mg/dL. In the absence of unequivocal hyperglycemia, results should be confirmed with repeat testing. Patients are at increased risk for diabetes mellitus (prediabetes) when the fasting glucose is 100 to 125 mg/dL or the 2 hr glucose tolerance result is 140 to 199 mg/dL. LAB GT2 74-139 mg/dL Glucose, 2 Hour 92 Result Comment: [place] [employer] Association guidelines state a diabetes mellitus diagnosis is preliminarily made when the fasting plasma glucose meets or exceeds 126 mg/dL and/or the 2 hr glucose tole hu meets or exceeds 200 mg/dL. In the absence of unequivocal hyperglycemia, results should be confirmed with repeat testing. Patients are at increased risk for diabetes mellitus (prediabetes) when the fasting glucose is 100 to 125 mg/dL or the 2 hr glucose tolerance result is 140 to 199 mg/dL. Performed By: #### GTNG2 #### [facility] [address] [place], [place] [address] OBSOLETE Observed: 07/04/2017 Status: COMPLETED Source: STANLEY 12:00 AM [facility]IT[facility] HILARIO TRAMMELL ([id number]) 1990 F [facility] Date Time Provider Department 07/04/17 [facility] During your visit today, we recorded the following information about you: BLACK Lira DISULFURIZER TENDER 07/04/2017 5:31 PM Signed The following approved medication requests have been transmitted electronically. Signed Prescriptions Disp Refills escitalopram oxalate (LEXAPRO) 20 mg tablet 30 tablet 5 Sig: TAKE ONE TABLET BY MOUTH EVERY DAY DAYAMI: No Authorizing Provider: ARY TREJO (RELAY TELEGRAPHER) Ary S Trejo, MSN DISULFURIZER TENDER Allergies As of Date: 07/04/2017 (No Known Allergies) Date Reviewed: 01/21/2017 Reviewed by: Kiah Portillo Ma - Fully Assessed Reason for Visit: Refill Request [94] Order(s):escitalopram oxalate (LEXAPRO) 20 mg tabletTAKE ONE TABLET BY MOUTH EVERY DAYDisp: 30 tabletRfl: 5 Prescriptions as of 07/04/2017 Sig: ESCITALOPRAM 20 MG TABLET TAKE ONE TABLET BY MOUTH EVER* LEVOTHYROXINE 100 MCG TABLET Take 1 tablet by mouth once d* CETIRIZINE 10 MG TABLET Take 10 mg by mouth once zeke* RANITIDINE 150 MG TABLET Take 150 mg by mouth once dania* ESOMEPRAZOLE MAGNESIUM 22.3 M* Take 1 capsule by mouth daily* Problem List As Of Date 07/04/2017 Noted Resolved DYSMENORRHEA [N94.6] INVALID FOR* Hypothyroidism [E03.9] INVALID FOR* Salivary gland stone [K11.5] INVALID FOR*01/08/2015 Gastroesophageal reflux disease without esophag*INVALID FOR* Morbid obesity due to excess calories (HCC) [E6*INVALID FOR* Female infertility [N97.9] INVALID FOR* Mastocytosis [D47.09] INVALID FOR* More... Anxiety disorder [F41.9] INVALID FOR* Prescriptions ordered this encounter Disp Refills Start End ESCITALOPRAM 20 MG TABLET 30 t* 5 07/04/2017 Cmt: This prescription was filled on 07/04/2017. Any refills authorized will be placed on file. Sig: TAKE ONE TABLET BY MOUTH EVERY DAY Medications Discontinued During This Encounter escitalopram oxalate (LEXAPRO) 20 mg* 30 t* 5 02/05/2017 07/04/2017 Cmt: This prescription was filled on 01/03/2017. Any refills authorized will be placed on file. Route: ORAL Sig: Take 1 tablet by mouth once daily. Disc: Reason for discontinue is not on file. Encounter Status:Closed by ARY TREJO DISULFURIZER TENDER on 07/04/17 ALLERGIES ALLERGIES DATE TYPE / CODE NAME / CODE REACTION SEVERITY SOURCE 06/28/2018 Drug No Known Unknown Paty Allergy/437699067(S Allergies/F0019 [facility] NOMED CT) [address](RXNORM) Hospital Repository Miscellaneous NO KNOWN [place] Allergy/983947398(S [facility] Repository Drug NO KNOWN [place] Class/731517499(SNO ALLERGIES [facility] Repository ENCOUNTERS ENCOUNTERS ADMIT/DISCHARGE ACCOUNT ADMITTING ENCOUNTER LOCATION SOURCE NUMBER CLASS 06/28/2018 [id number] Ambulatory [facility] ing:WC Repository 06/26/2018 [id number] Ambulatory [facility] ing:LABSPEC Repository 06/26/2018/06/26/19 [id number] Ambulatory BMSBuilding:[place] [place] [facility] Repository 06/23/2018 [id number] Ambulatory [facility] ing:LAB Repository 06/23/2018/06/23/19 [id number] Ambulatory BMSBuilding:[facility] [place] [facility] Repository 06/15/2018/06/19/19 [id number] Shawn, Inpatient Paty [facility] ing:WPRoom: Repository [id number]: 1 06/15/2018 [id number] Shawn, Ambulatory BMSBuilding:[place] Repository 06/15/2018 [id number] Shawn, Ambulatory BMSBuilding:[place] [facility] Repository 06/15/2018 [id number] Shawn, Ambulatory BMSBuilding:[place] [facility] Repository 06/15/2018 [id number] Shawn, Ambulatory BMSBuilding:[place] [facility] Repository 06/15/2018 [id number] Shawn, Ambulatory BMSBuilding:[place] [facility] Repository 06/15/2018 [id number] Ambulatory BMSBuilding:[place] [facility] Repository 06/12/2018 [id number] Ambulatory Building:[facility] Repository 06/12/2018 [id number] Ambulatory [facility] ing:PAVLAB Repository 06/12/2018/06/12/19 [id number] Ambulatory BMSBuilding:[address] [place] [address] [place] Repository 06/09/2018 [id number] [facility]LABSPEC Repository 06/09/2018/06/09/19 [id number] [address] ing:WPOUTRoom Repository : WP013 06/09/2018/06/09/19 [id number] Ambulatory BMSBuilding:B [place] 19 [facility] Repository 06/05/2018 [id number] [facility] ing:LAB.FUTUR Repository E 06/05/2018/06/05/20 [id number] Ambulatory BMSBuilding:B [place] 18 [facility] Repository 06/02/2018 [id number] [facility] ing:LAB Repository 05/31/2018 [id number] [facility]LAB Repository 05/27/2018 [id number] [facility]LAB Repository 05/25/2018/05/25/20 [id number] Ambulatory [address] Repository 05/24/2018 [id number] [facility] ing:LABSPEC Repository 05/24/2018/05/24/20 [id number] Ambulatory BMSBuilding:B [place] 18 [facility] Repository 05/15/2018/05/15/20 [id number] Ambulatory Building:[address] Repository 05/11/2018 [id number] [facility] ing:LABSPEC Repository 05/11/2018/05/11/20 [id number] Ambulatory [address] Repository 05/11/2018/05/11/20 [id number] Ambulatory BMSBuilding:B [place] 18 [facility] Repository 04/26/2018/04/26/20 [id number] Ambulatory BMSBuilding:B [place] 18 [facility] Repository 04/17/2018 [id number] Ambulatory BMSBuilding:B [place] MS.[facility] Repository 04/17/2018/04/17/20 [id number] Ambulatory Building:[address] Repository 04/17/2018/04/17/20 [id number] Ambulatory Building:[address] Repository 04/14/2018 [id number] Ambulatory BMSBuilding:B [place] MS.[facility] Repository 04/13/2018 [id number] Ambulatory BMSBuilding:Taurus Newman MS.[facility] Repository 04/13/2018/04/14/20 [id number] Ambulatory [address] Hospital ing:WPOUTRoom Repository : WP014 04/10/2018/04/12/20 [id number] Ambulatory [address] Repository 04/09/2018/04/09/20 [id number] [address] ing:WPOUTRoom Repository : WP013 04/07/2018 [id number] Ambulatory [facility] Hospital ing:LAB Repository 03/30/2018 [id number] [facility] ing:PAVLAB Repository 03/30/2018/03/30/20 [id number] Ambulatory BMSBuilding:B [place] 18 [facility] Repository 03/01/2018/03/01/20 [id number] Ambulatory [address] Repository 03/01/2018/03/01/20 [id number] Ambulatory BMSBuilding:B [place] 18 [facility] Repository 02/15/2018 [id number] Ambulatory [facility] Hospital ing:US Repository 01/25/2018 [id number] Ambulatory [facility] Hospital ing:POLAB3 Repository 01/25/2018 [id number] Ambulatory BMSBuilding:B [place] [facility] Repository 01/25/2018/01/26/20 [id number] Ambulatory BMSBuilding:B [place] 18 [facility] Repository 01/23/2018/01/24/20 [id number] Ambulatory [address] Repository 01/21/2018/01/22/20 [id number] Ambulatory [address] Repository 01/20/2018/01/25/20 [id number] Ambulatory [address] Repository 01/10/2018 [id number] Ambulatory BMSBuilding:Taurus Newman MS.[facility] Repository 01/07/2018/01/08/20 [id number] Ambulatory [address] Repository 12/28/2017/12/29/19 [id number] Ambulatory BMSBuilding:B [place] 18 [facility] Repository 12/24/2017 [id number] Ambulatory [facility] Repository 12/12/2017/12/13/19 [id number] [facility] Ambulatory [address] ing:PCURoom: Repository ETE725Elr: 1 12/12/2017 [id number] Aliza, [facility] Ambulatory BMSBuilding:B [place] MS.[facility] Repository 12/12/2017 [id number] [facility], [facility] Ambulatory BMSBuilding:B [place] MS.[facility] Repository 12/12/2017 [id number] [facility], D[facility] Ambulatory BMSBuilding:B [place] MS.CF.[facility] Repository 11/30/2017 [id number] Ambulatory [facility] Repository 09/16/2017/09/17/19 [id number] Ambulatory [address] Repository 08/29/2017 [id number] Ambulatory [facility] ing:OMD Repository 08/29/2017 [id number] Ambulatory BMSBuilding:B [place] MS.CF.[facility] Repository 07/09/2017/07/09/19 [id number] Ambulatory [address] Repository PAYERS PAYERS ENCOUNTER GUARANTOR PAYER SUBSCRIBER SOURCE 06/28/2018 HILARIO NOLAN [place] Newman [id number] Insurance:[facility]: [facility] y Number: [id number] [id number] Repository 87024Dxz: (330) Date:1571-22-80Mb [phone] ([address] [address]XK: 06/28/2018 Secondary NOT GIVENUNK [place] Insurance:SELF PAY [facility] Number: Effective Repository Date:2018-06-27 06/26/2018 HILARIO N Primary AN C [place] [id number] Insurance:ANTHEMPolic WELSHDOB: [facility] y Number: [id number], [place] [id number] Repository 74069Eyr: (330) Date:0762-78-02Fz [phone] () [address] [place] [address] 35748IW: 06/26/2018 Secondary NOT GIVENUNK [place] Insurance:SELF PAY [facility] Number: Effective Repository Date:2018-06-26 06/26/2018 HILARIO N Primary AN C [place] [id number] Insurance:ANTHEMPolic WELSHDOB: [facility] y Number: [id number], [place] [id number] Repository 39508Csc: (330) Date:1980-51-34Ge [phone] () [address] [place] [address] 95457KR: 06/26/2018 Secondary NOT GIVENUNK [place] Insurance:SELF PAY [facility] Number: Effective Repository Date:2018-06-26 06/23/2018 HILARIO N Primary AN C [place] [id number] Insurance:ANTHEMPolic WELSHDOB: [facility] y Number: [id number] [id number] Repository 60397Bnm: 330) Date:1267-83-03Rx [phone] () [address] [place] [address] 18848RH: 06/23/2018 Secondary NOT GIVENUNK [place] Insurance:SELF PAY [facility] Number: Effective Repository Date:2018-06-23 06/23/2018 HILARIO N Primary AN C [place] [id number] Insurance:ANTHEMPolic WELSHDOB: [facility] y Number: [id number], [place] [id number] Repository 63591Omt: (330) Date:5408-89-78Nq [address] [phone] () 795883DnqbgqrSHANA Ballard 58717RV: 06/23/2018 Secondary NOT GIVENUNK [place] Insurance:SELF PAY [facility] Number: Effective Repository Date:2018-06-23 06/15/2018 HILARIO N Primary AN C [place] [id number] Insurance:ANTHEMPolic WELSHDOB: [facility] [place] y Number: [id number], [place] [id number] Repository 57581Egi: (330) Date:0605-06-37Hd [phone] () SHANA Walls 86341KE: 06/15/2018 Secondary NOT GIVENUNK [place] Insurance:SELF PAY [facility] Number: Effective Repository Date:2018-06-14 06/15/2018 HILARIO N Primary AN C [place] [id number] Insurance:ANTHEMPolic WELSHDOB: [facility] [place] y Number: [id number], [place] [id number] Repository 60535Csi: (330) Date:9671-10-48Vx [address] [phone] () 258465NradnxgSHANA Ballard 86109KL: 06/15/2018 Secondary NOT GIVENUNK [place] Insurance:SELF PAY [facility] Number: Effective Repository Date:2018-06-15 06/15/2018 HILARIO N Primary AN C [place] [id number] Insurance:ANTHEMPolic WELSHDOB: [facility] y Number: [id number], [place] [id number] Repository 26351Jwd: (330) Date:4612-99-22Ud [phone] () 963850NnusvjaSHANA Ballard 00653YI: 06/15/2018 Secondary NOT GIVENUNK [place] Insurance:SELF PAY [facility] Number: Effective Repository Date:2018-06-15 06/15/2018 HILARIO N Primary AN C [place] [id number] Insurance:ANTHEMPolic WELSHDOB: [facility] [place] y Number: [id number], [place] [id number] Repository 48400Jth: (330) Date:4364-79-10Eb [phone] () 268322QpivxysSHANA Ballard 59357JY: 06/15/2018 Secondary NOT GIVENUNK [place] Insurance:SELF PAY [facility] Number: Effective Repository Date:2018-06-15 06/15/2018 HILARIO N Primary AN C [place] [id number] Insurance:ANTHEMPolic WELSHDOB: [facility] y Number: [id number], [place] [id number] Repository 98537Mbq: (330) Date:9170-13-48Ij [phone] () 083222Xwrnwup, [place] [address]TD: 06/15/2018 Secondary NOT GIVENUNK [place] Insurance:SELF PAY [facility] Number: Effective Repository Date:2018-06-15 06/15/2018 HILARIO N Primary AN C [place] [id number] Insurance:ANTHEMPolic WELSHDOB: [facility] y Number: [id number], [place] [id number] Repository 54169Rne: (330) Date:9052-78-28Pw [phone] () 326883Qgwecee, [place] [address]OC: 06/15/2018 Secondary NOT GIVENUNK [place] Insurance:SELF PAY [facility] Number: Effective Repository Date:2018-06-15 06/15/2018 HILARIO N Primary AN C [place] [id number] Insurance:ANTHEMPolic WELSHDOB: [facility] y Number: [id number], [place] [id number] Repository 85348Qba: (330) Date:9081-98-19Wy [address] [phone] () 728267Fppijnf, [place] [address]QG: 06/15/2018 Secondary NOT GIVENUNK [place] Insurance:SELF PAY [facility] Number: Effective Repository Date:2018-06-15 06/12/2018 HILARIO WELSHDOB: Primary HILARIO WELSHDOB: [facility] [id number] Insurance:ANTHEMPolic [id number] [facility] y Number: [address] [place], [place] [id number] [place], [place] [address]Ryu: (330) Date: [phone] () 06/12/2018 HILARIO N Primary AN C [place] [id number] Insurance:ANTHEMPolic WELDOB: [facility] y Number: [id number], [place] [id number] Repository 04278Ptj: (330) Date:9570-84-77Sr [phone] () 168014Iryisxf, [place] [address]PY: 06/12/2018 Secondary NOT GIVENUNK [place] Insurance:SELF PAY [facility] Number: Effective Repository Date:2018-06-12 06/12/2018 HILARIO N Primary AN C [place] [id number] [facility]: [facility] y Number: [id number], [place] [id number] Repository 64937Apj: (330) Date:7612-49-92Fe [phone] () 542529Tacjevv [place] [address]JD: 06/12/2018 Secondary NOT GIVENUNK [place] Insurance:SELF PAY [facility] Number: Effective Repository Date:2018-06-12 06/09/2018 HILARIO N Primary AN C [place] [id number] Insurance:ANTHEMPolic WELDOB: [facility] y Number: [id number], [place] [id number] Repository 26666Fhk: (330) Date:7533-06-66Ao [phone] () 721951Anvhbdy, [place] [address]LB: 06/09/2018 Secondary NOT GIVENUNK [place] Insurance:SELF PAY [facility] Number: Effective Repository Date:2018-06-09 06/09/2018 HILARIO N Primary AN Yates [place] [id number] Insurance:ANTHEMPolic WELSHDOB: [facility] y Number: [id number], [place] [id number] Repository 11673Rfj: (330) Date:2053-51-57Dd [phone] () [address] [place] [address] 04092BN: 06/09/2018 Secondary NOT GIVENUNK [place] Insurance:SELF PAY [facility] Number: Effective Repository Date:2018-06-09 06/09/2018 HILARIO N Primary AN C [place] [id number] Insurance:ANTHEMPolic WELSHDOB: [facility] y Number: [id number], [place] [id number] Repository 29074Qgl: (330) Date:8441-65-98Wr [phone] () [address] [place] [address] 58320HM: 06/09/2018 Secondary NOT GIVENUNK [place] Insurance:SELF PAY [facility] Number: Effective Repository Date:2018-06-09 06/05/2018 HILARIO N Primary AN C [place] [id number] Insurance:ANTHEMPolic WELSHDOB: [facility] y Number: [id number], [place] [id number] Repository 08091Vse: (330) Date:7890-58-55Mo [phone] () [address] [place] [address] 96818TG: 06/05/2018 Secondary NOT GIVENUNK [place] Insurance:SELF PAY [facility] Number: Effective Repository Date:2018-06-04 06/05/2018 HILARIO N Primary AN C [place] [id number] Insurance:ANTHEMPolic WELSHDOB: [facility] y Number: [id number], [place] [id number] Repository 21966Lgd: (330) Date:0506-05-67Zf [phone] () 584550Htxicyh, [place] [address]AE: 06/05/2018 Secondary NOT GIVENUNK [place] Insurance:SELF PAY [facility] Number: Effective Repository Date:2018-06-05 06/02/2018 HILARIO N Primary AN C [place] [id number] Insurance:ANTHEMPolic WELSHDOB: [facility] y Number: [id number], [place] [id number] Repository 66504Lou: (330) Date:7827-11-81Dt [phone] () 186163Ezjaqfx, [place] [address]PU: 06/02/2018 Secondary NOT GIVENUNK [place] Insurance:SELF PAY [facility] Number: Effective Repository Date:2018-06-02 05/31/2018 HILARIO N Primary AN C [place] [id number] Insurance:ANTHEMPolic WELSHDOB: [facility] y Number: [id number], [place] [id number] Repository 87330Npk: (330) Date:4794-98-76Cx [address] [phone] () 614488Ymbpazz, [place] [address]IK: 05/31/2018 Secondary NOT GIVENUNK [place] Insurance:SELF PAY [facility] Number: Effective Repository Date:2018-05-31 05/27/2018 HILARIO N Primary AN C [place] [id number] Insurance:ANTHEMPolic WELSHDOB: [facility] y Number: [id number], [place] [id number] Repository 68160Ltv: (330) Date:0399-68-90Pp [phone] () 165431Glbfgtj, [place] [address]CI: 05/27/2018 Secondary NOT GIVENUNK [place] Insurance:SELF PAY [facility] Number: Effective Repository Date:2018-05-24 05/24/2018 HILARIO N Primary AN C [place] [id number] Insurance:ANTHEMPolic WELSHDOB: [facility] y Number: [id number], [place] [id number] Repository 91149Mmg: (330) Date:0568-50-51Tv [address] [phone] () 584272Khqkkps, [place] [address]IR: 05/24/2018 Secondary NOT GIVENUNK [place] Insurance:SELF PAY [facility] Number: Effective Repository Date:2018-05-24 05/24/2018 HILARIO N Primary AN C [place] [id number] Insurance:ANTHEMPolic WELSHDOB: [facility] y Number: [id number], [place] [id number] Repository 75815Xwz: (330) Date:7893-89-28Gf [address] [phone] () 060013Uyrhfsb, [place] [address]YT: 05/24/2018 Secondary NOT GIVENUNK [place] Insurance:SELF PAY [facility] Number: Effective Repository Date:2018-05-24 05/15/2018 HILARIO WELSHDOB: Primary HILARIO WELSHDOB: [facility] [id number] Insurance:ANTHEMPolic [id number] [facility] y Number: [address] [place], [place] [id number] [place], [place] [address]Pbd: (330) Date: 74319 [phone] () 05/11/2018 HILARIO N Primary AN C [place] [id number] Insurance:ANTHEMPolic WELSHDOB: [facility] y Number: [id number], [place] [id number] Repository 79702Vyx: (330) Date:1622-90-11Uh [address] [phone] () 787611Zghhoef, [place] [address]PT: 05/11/2018 Secondary NOT GIVENUNK [place] Insurance:SELF PAY [facility] Number: Effective Repository Date:2018-05-11 05/11/2018 HILARIO N Primary AN C [place] [id number] Insurance:ANTHEMPolic [place]: [facility] y Number: [id number], [place] [id number] Repository 95848Ktv: (330) Date:3446-10-28Xm [phone] () [address] [place] [address] 99472FN: 05/11/2018 Secondary NOT GIVENUNK [place] Insurance:SELF PAY [facility] Number: Effective Repository Date:2018-05-11 04/26/2018 HILARIO N Primary AN C [place] [id number] [facility]: [facility] y Number: [id number], [place] [id number] Repository 75819Ghf: (330) Date:1521-17-12Gq [phone] () [address] [place] [address] 80117WY: 04/26/2018 Secondary NOT GIVENUNK [place] Insurance:SELF PAY [facility] Number: Effective Repository Date:2018-04-26 04/17/2018 HILARIO N Primary NOT GIVENUNK [place] [id number] Insurance[place] Number: Effective Repository 88418Zce: (330) Date:2018-04-17 () 04/17/2018 HILARIO WELSHDOB: Primary HILARIO WELSHDOB: [facility] [id number] [facility] [id number] y Number: [address] [place], [place] [id number] [place], [place] [address]Lgg: (330) Date: () 04/17/2018 HILARIO WELSHDOB: Primary HILARIO WELSHDOB: [facility] [id number] Insurance:[facility]ent[facility] Health [id number] y Number: [address] [place], [place] [id number] [place], [place] [address]Lyt: (330) Date: () 04/14/2018 HILARIO N Primary AN C [place] [id number] Insurance:ANTHEMPolic WELSHDOB: [facility] y Number: [id number], [place] [id number] Repository 03326Ibr: (330) Date:8789-54-96Kl [address] [phone] () SHANA Walls [address]WM: 04/14/2018 Secondary NOT GIVENUNK [place] Insurance:SELF PAY [facility] Number: Effective Repository Date:2018-04-14 04/13/2018 HILARIO N Primary AN C [place] [id number] Insurance:ANTHEMPolic WELSHDOB: [facility] y Number: [id number], [place] [id number] Repository 53587Qtp: (330) Date:4790-99-79Bu [address] [phone] () 951149Dawkhxy, [place] [address]SI: 04/13/2018 Secondary NOT GIVENUNK [place] Insurance:SELF PAY [facility] Number: Effective Repository Date:2018-04-13 04/13/2018 HILARIO N Primary AN C [place] [id number] Insurance:ANTHEMPolic WELSHDOB: [facility] y Number: [id number], [place] [id number] Repository 84327Vtb: (330) Date:3912-52-33Eo [address] [phone] () 574808Cmnaekn, [place] [address]XL: 04/13/2018 Secondary NOT GIVENUNK [place] Insurance:SELF PAY [facility] Number: Effective Repository Date:2018-04-13 04/09/2018 HILARIO N Primary AN C [place] [id number] Insurance:ANTHEMPolic WELSHDOB: [facility] y Number: [id number], [place] [id number] Repository 06973Nqg: (330) Date:3077-16-82Rd [phone] () 508605Qenhjui, [place] [address]AW: 04/09/2018 Secondary NOT GIVENUNK [place] Insurance:SELF PAY [facility] Number: Effective Repository Date:2018-04-09 04/07/2018 HILARIO N Primary AN Yates [place] [id number] Insurance:ANTHEMPolic WELSHDOB: [facility] [place] y Number: [id number], [place] [id number] Repository 92505Fvb: (330) Date:8697-75-31Og [address] [phone] () [address] [place] [address] 25084ZZ: 04/07/2018 Secondary NOT GIVENUNK [place] Insurance:SELF PAY [facility] Number: Effective Repository Date:2018-03-31 03/30/2018 HILARIO N Primary AN Yates [place] [id number] Insurance:ANTHEMPolic WELSHDOB: [facility] [place] y Number: [id number], [place] [id number] Repository 31515Jkd: (330) Date:2543-66-73Wf [address] [phone] () [address] [place] [address] 51993WJ: 03/30/2018 Secondary NOT GIVENUNK [place] Insurance:SELF PAY [facility] Number: Effective Repository Date:2018-03-30 03/30/2018 HILARIO N Primary AN Yates [place] [id number] Insurance:ANTHEMPolic WELSHDOB: [facility] y Number: [id number], [place] [id number] Repository 39458Ifw: (330) Date:2678-36-08Sh [address] [phone] () [address] [place] [address] 48239NR: 03/30/2018 Secondary NOT GIVENUNK [place] Insurance:SELF PAY [facility] Number: Effective Repository Date:2018-03-30 03/01/2018 HILARIO N Primary AN C [place] [id number] Insurance:ANTHEMPolic WELSHDOB: [facility] y Number: [id number], [place] [id number] Repository 71177Bag: (330) Date:8423-94-47Zs [phone] () 913214AvrhiniSHANA Ballard [address]04[address]DO: 03/01/2018 Secondary NOT GIVENUNK [place] Insurance:SELF PAY [facility] Number: Effective Repository Date:2018-03-01 02/15/2018 HILARIO N Primary AN C [place] [id number] Insurance:ANTHEMPolic WELSHDOB: [facility] y Number: [id number], [place] [id number] Repository 92219Zec: (330) Date:9556-33-24Zj [phone] () 401764Ishoree, [place] [address]JD: 02/15/2018 Secondary NOT GIVENUNK [place] Insurance:SELF PAY [facility] Number: Effective Repository Date:2018-01-26 01/25/2018 HILARIO N Primary AN C [place] [id number] Insurance:ANTHEMPolic WELSHDOB: [facility] y Number: [id number], [place] [id number] Repository 99113Bew: (330) Date:9582-04-30If [phone] () 758108Niiuvzq, [place] [address]VA: 01/25/2018 Secondary NOT GIVENUNK [place] Insurance:SELF PAY [facility] Number: Effective Repository Date:2018-01-25 01/25/2018 HILARIO N Primary AN C [place] [id number] Insurance:ANTHEMPolic WELSHDOB: [facility] y Number: [id number], [place] [id number] Repository 70498Gtm: (330) Date:5048-69-31Jz [address] [phone] () 625883Idyluzd, [place] [address]CW: 01/25/2018 Secondary NOT GIVENUNK [place] Insurance:SELF PAY [facility] Number: Effective Repository Date:2017-12-28 01/25/2018 HILARIO N Primary AN C [place] [id number] Insurance:ANTHEMPolic WELSHDOB: [facility] y Number: [id number], [place] [id number] Repository 43675Yul: (330) Date:9120-94-59Bu [address] [phone] () 839932Kxxqigb [place] [address]WV: 01/25/2018 Secondary NOT GIVENUNK [place] Insurance:SELF PAY [facility] Number: Effective Repository Date:2018-01-25 01/10/2018 HILARIO N Primary AN C [place] [id number] Insurance:ANTHEMPolic WELSHDOB: [facility] y Number: [id number], [place] [id number] Repository 04944Mwc: (330) Date:8560-95-66Ak [phone] () 244374Kzcrqdy, [place] [address]YB: 01/10/2018 Secondary NOT GIVENUNK [place] Insurance:SELF PAY [facility] Number: Effective Repository Date:2018-01-02 12/28/2017 HILARIO N Primary AN C [place] [id number] Insurance:ANTHEMPolic WELSHDOB: [facility] y Number: [id number], [place] [id number] Repository 33558Zop: (330) Date:9562-47-54Ih [address] [phone] () 563662Ivzhbsr, [place] [address]MQ: 12/28/2017 Secondary NOT GIVENUNK [place] Insurance:SELF PAY [facility] Number: Effective Repository Date:2017-12-28 12/24/2017 HILARIO N Primary AN C [place] [id number] Insurance:ANTHEMPolic WELSHDOB: [facility] y Number: [id number], [place] [id number] Repository 64406Gkj: (330) Date:6781-11-97Bk [address] [phone] () 738654Mfauutm, [place] [address]EO: 12/24/2017 Secondary NOT GIVENUNK [place] Insurance:SELF PAY [facility] Number: Effective Repository Date:2017-12-24 12/12/2017 Hilario N Primary AN C [place] [id number] Insurance:ANTHEMPolic WELSHDOB: [facility] y Number: [id number], [place] [id number] Repository 25006Jke: (330) Date:9765-18-87Vy [address] [phone] () 572828DlexeoqSHANA Ballard [address]NM: 12/12/2017 Secondary NOT GIVENUNK [place] Insurance:SELF PAY [facility] Number: Effective Repository Date:2017-12-11 12/12/2017 Hilario N Primary AN C [place] [id number] Insurance:ANTHEMPolic WELSHDOB: [facility] y Number: [id number], [place] [id number] Repository 79538Oyp: (330) Date:5191-89-43Pn [address] [phone] () 206048RnjgdqaSHANA Ballard [address]VS: 12/12/2017 Secondary NOT GIVENUNK [place] Insurance:SELF PAY [facility] Number: Effective Repository Date:2017-12-12 12/12/2017 HILARIO N Primary AN C [place] [id number] Insurance:ANTHEMPolic WELSHDOB: [facility] y Number: [id number], [place] [id number] Repository 42302Dev: (330) Date:6670-86-39Oc [address] [phone] () 580350Ccotyxm, [place] [address]WI: 12/12/2017 Secondary NOT GIVENUNK [place] Insurance:SELF PAY [facility] Number: Effective Repository Date:2017-12-12 12/12/2017 Hilario N Primary AN C [place] [id number] Insurance:ANTHEMPolic WELSHDOB: [facility] y Number: [id number] [id number] Repository 15330Trk: ([phone]) Date:7634-81-00Cc [phone] () [id number] [place] [address]SF: 12/12/2017 Secondary NOT GIVENUNK [place] Insurance:SELF PAY [facility] Number: Effective Repository Date:2017-12-12 11/30/2017 HILARIO N Primary AN Yates Paty [id number] Insurance:ANTHEMPolic WELSHDOB: [facility] [place] y Number: [id number], [place] [id number] Repository [address]Kgf: ([phone]) Date:7880-52-58Ga [phone] () [id number] [place] [address]LY: 11/30/2017 Secondary NOT GIVENUNK [place] Insurance:SELF PAY [facility] Number: Effective Repository Date:2017-11-30 08/29/2017 Hilario N Primary AN Yates Ptay [id number] Insurance:ANTHEMPolic WELSHDOB: [facility] y Number: [id number] [id number] Repository [address]Udg: ([phone]) Date:0360-42-51Wm [phone] () [id number] [place] [address]14[address]FJ: 08/29/2017 Secondary NOT GIVENUNK [place] Insurance:SELF PAY [facility] Number: Effective Repository Date:2016-08-25 08/29/2017 Hilario N Primary AN Yates Paty [id number] Insurance:ANTHEMPolic WELSHDOB: [facility] y Number: [id number] [id number] Repository [address]Gpm: ([phone]) Date:9125-49-12Qg [phone] () [id number], [place] [address]NE: 08/29/2017 Secondary NOT GIVENUNK [place] Insurance:SELF PAY [facility] Number: Effective Repository Date:2017-08-29
== END ==
PROVIDERS: Family Provider Family Medicine; PCP Family Medicine; Referring Provider Nurse Practitioner Women's Health; Visit Provider Nurse Practitioner Women's Health
DX: R50.9 Fever, unspecified (principal)
CPT/HCPCS: 36415; 85025

== ENCOUNTER → 2018-06-26 17:22 | Outpatient (CLI) | payer BC, SELFPAY ==
[2018-06-26 16:14] VITALS: BMI 44.1
--- OUTSIDE RECORDS SUMMARY | 2018-08-29 04:44 | XMS RPT_ITS ---
:1990 Author Organization OHIP Support Name Relationship Address Phone HILGAR Unavailable [address] + [place] [address] BURKINAN, KE Unavailable [address] + [place] [address] HILGAR Unavailable [address] + [place] [address] BURKINAN, KE Unavailable [address] + [place] [address] HILGAR Unavailable [address] + [place] [address] BURKINAN, KE Unavailable [address] + [place] [address] HILGAR Unavailable [address] + [place] [address] BURKINAN, KE Unavailable [address] + [place] [address] HILGAR Unavailable [address] + [place] [address] BURKINAN, KE Unavailable [address] + [place] [address] HILGAR Unavailable [address] + [place] [address] BURKINAN, KE Unavailable [address] + [place] [address] HILGAR Unavailable [address] + [place] [address] BURKINAN, KE Unavailable [address] + [place] [address] HILGAR Unavailable [address] + [place] [address] BURKINAN, KE Unavailable [address] + [place] [address] HILGAR Unavailable [address] + [place] [address] BURKINAN, KE Unavailable [address] + [place] [address] HILGAR Unavailable [address] + [place] [address] BURKINAN, KE Unavailable [address] + [place] [address] HILGAR Unavailable [address] + [place] [address] BURKINAN, KE Unavailable [address] + [place] [address] HILGAR Unavailable [address] + [place] [address] BURKINAN, KE Unavailable [address] + [place] [address] BURKINAN, KE Unavailable Unavailable + HILGAR Unavailable [address] + [place] [address] BURKINAN, KE Unavailable [address] + [place] [address] HILGAR Unavailable [address] + [place] [address] BURKINAN, KE Unavailable [address] + [place] [address] HILGAR Unavailable [address] + [place] [address] BURKINAN, KE Unavailable [address] + [place] [address] HILGAR Unavailable [address] + [place] [address] BURKINAN, KE Unavailable [address] + [place] [address] HILGAR Unavailable [address] + [place] [address] BURKINAN, KE Unavailable [address] + [place] [address] HILGAR Unavailable [address] + [place] [address] BURKINAN, KE Unavailable [address] + [place] [address] HILGAR Unavailable [address] + [place] [address] BURKINAN, KE Unavailable [address] + [place] [address] HILGAR Unavailable [address] + [place] [address] BURKINAN, KE Unavailable [address] + [place] [address] HILGAR Unavailable [address] + [place] [address] BURKINAN, KE Unavailable [address] + [place] [address] HILGAR Unavailable [address] + [place] [address] BURKINAN, KE Unavailable [address] + [place] [address] HILGAR Unavailable [address] + [place] [address] BURKINAN, KE Unavailable [address] + [place] [address] HILGAR Unavailable [address] + [place] [address] BURKINAN, KE Unavailable [address] + [place] [address] BURKINAN, KE Unavailable Unavailable + HILGAR Unavailable [address] + [place] [address] BURKINAN, KE Unavailable [address] + [place] [address] HILGAR Unavailable [address] + [place] [address] BURKINAN, KE Unavailable [address] + [place] [address] HILGAR Unavailable [address] + [place] [address] BURKINAN, KE Unavailable [address] + [place] [address] HILGAR Unavailable [address] + [place] [address] BURKINAN, KE Unavailable [address] + [place] [address] BURKINAN, KE Unavailable Unavailable + BURKINAN, KE Unavailable Unavailable + HILGAR Unavailable [address] + [place] [address] BURKINAN, KE Unavailable [address] + [place] [address] HILGAR Unavailable [address] + [place] [address] BURKINAN, KE Unavailable [address] + [place] [address] HILGAR Unavailable [address] + [place] [address] BURKINAN, KE Unavailable [address] + [place] [address] HILGAR Unavailable [address] + [place] [address] BURKINAN, KE Unavailable [address] + [place] [address] HILGAR Unavailable [address] + [place] [address] BURKINAN, KE Unavailable [address] + [place] [address] HILGAR Unavailable [address] + [place] [address] BURKINAN, KE Unavailable [address] + [place] [address] HILGAR Unavailable [address] + [place] [address] BURKINAN, KE Unavailable [address] + [place] [address] HILGAR Unavailable [address] + [place] [address] BURKINAN, KE Unavailable [address] + [place] [address] HILGAR Unavailable [address] + [place] [address] BURKINAN, KE Unavailable [address] + [place] [address] HILGAR Unavailable [address] + [place] [address] BURKINAN, KE Unavailable [address] + [place] [address] HILGAR Unavailable [address] + [place] [address] BURKINAN, KE Unavailable [address] + [place] [address] HILGAR Unavailable [address] + [place] [address] BURKINAN, KE Unavailable [address] + [place] [address] HILGAR Unavailable [address] + [place] [address] BURKINAN, KE Unavailable [address] + [place] [address] HILGAR Unavailable [address] + [place] [address] BURKINAN, KE Unavailable [address] + [place] [address] HILGAR Unavailable [address] + [place] [address] BURKINAN, KE Unavailable [address] + [place] [address] HILGAR Unavailable [address] + [place] [address] BURKINAN, KE Unavailable [address] + [place] [address] BROOKS CONTI Unavailable [address] + [place] [address] HILGAR Unavailable [address] + [place] [address] BURKINAN, KE Unavailable [address] + [place] [address] BROOKS CONTI Unavailable [address] + [place] [address] HILGAR Unavailable [address] + [place] [address] HILGAR Unavailable [address] + [place] [address] BURKINAN, KE Unavailable [address] + [place] [address] HILGAR Unavailable [address] + [place] [address] BURKINAN, KE Unavailable [address] + [place] [address] BROOKS CONTI Unavailable [address] + [place] [address] HILGAR Unavailable [address] + [place] [address] BURKINAN, KE Unavailable [address] + [place] [address] HILGAR Unavailable [address] + [place] [address] BURKINAN, KE Unavailable [address] + [place] [address] BROOKS CONTI Unavailable [address] + [place] [address] HILGAR Unavailable [address] + [place] [address] BURKINAN, KE Unavailable [address] + [place] [address] BROOKS CONTI Unavailable [address] + [place] [address] Care Team Providers Name Role Phone JENELLEVALERIANO ALO WILLOUGHBY Referring Unavailable CEBUL III, ANA A Referring Unavailable ARY TREJO (DRY CELL TESTER) Referring Unavailable CEBUL III, ANA A Attending Unavailable CEBUL III, ANA A Referring Unavailable CEBUL III, ANA A Referring Unavailable CEBUL III, ANA A Referring Unavailable ARY TREJO (DRY CELL TESTER) Attending Unavailable ARY TREJO (DRY CELL TESTER) Attending Unavailable ARY TREJO (DRY CELL TESTER) Referring Unavailable CEBUL III, ANA A Referring Unavailable JENNY LOUIS Attending Unavailable NYLA MANCUSO Referring Unavailable DOC, [facility] Primary Care Unavailable JENNY LOUIS Attending Unavailable NYLA MANCUSO Referring Unavailable DOC, [facility] Primary Care Unavailable LOVE OROSCO Attending Unavailable NYLA MANCUSO Referring Unavailable DOC, [facility] Primary Care Unavailable DONALD MACK Attending Unavailable NYLA MANCUSO Referring Unavailable DOC, [facility] Primary Care Unavailable Nyla Mancuso Attending Unavailable [...] Consulting Unavailable Jopperi, Shalom Attending Unavailable Chavez, Keiser Consulting Unavailable Aliza, Dariusz Admitting Unavailable Marcanthony, Nyla Attending Unavailable Cebul III, Ana Primary Care Unavailable Marcanthony, Nyla Consulting Unavailable Chavez, Keiser Consulting Unavailable Jopperi, Shalom Consulting Unavailable Aliza, Dariusz Admitting Unavailable Cebul III, Ana Primary Care Unavailable Marcanthony, Nyla Consulting Unavailable Carolee Mobley Attending Unavailable Chavez, Ryder Consulting Unavailable Jopperi, Shalom Consulting Unavailable Aliza, Dariusz Admitting Unavailable Chavez, Keiser Attending Unavailable Cebul III, Ana Primary Care Unavailable Marcanthony, Nyla Consulting Unavailable Chavez, Keiser Consulting Unavailable Jopperi, Shalom Consulting Unavailable Marcanthony, [...] Nyla Consulting Unavailable Marcanthony, Nyla Admitting Unavailable Casco, Nora Attending Unavailable Marcanthony, Nyla Referring Unavailable Cebul III, Ana Primary Care Unavailable Marcanthony, Nyla Consulting Unavailable Marcanthony, Nyla Admitting Unavailable Casco, Nora Attending Unavailable Marcanthony, Nyla Referring Unavailable Cebul III, Ana Primary Care Unavailable Marcanthony, Nyla Consulting Unavailable Miguel, Nora Attending Unavailable Cebul III, Ana Referring Unavailable Miguel, Nora Attending Unavailable Casco, Nora Referring Unavailable Cebul III, Ana Primary Care Unavailable Miguel, Nora Attending Unavailable Cebul III, Ana Referring Unavailable Miguel, Nora Attending Unavailable Cebul III, Ana Primary Care Unavailable Casco, Nora Referring Unavailable David Umana Attending Unavailable Cebul III, Ana Primary Care Unavailable Marcanthony, Nyla Attending Unavailable Cebul III, Ana Referring Unavailable Cebul III, Ana Primary Care Unavailable Miguel, Nora Attending Unavailable Cebul III, Ana Referring Unavailable Jaki Garner D.C. Attending Unavailable Cebul III, Ana Referring Unavailable Casco, Nora Attending Unavailable Cebul III, Ana Referring Unavailable Cebul III, Ana Primary Care Unavailable Miguel, Nora Attending Unavailable Cebul III, Ana Primary Care Unavailable Miguel, Nora Attending Unavailable Cebul III, Ana Primary Care Unavailable Casco, Nora Attending Unavailable Cebul III, Ana Referring [...] Attending Unavailable Cebul III, Ana Referring Unavailable Casco, Nora Attending Unavailable Cebul III, Ana Primary Care Unavailable Casco, Nora Referring Unavailable PROBLEMS PROBLEMS DATE TYPE CONDITION / CODE ATTENDING STATUS SOURCE 06/27/2018 Unknown T81.42XD - Infection Miguel, Nora Active [place] following a Community procedure, deep Hospital incisional surgical Repository site, subsequent encounter / T81.42XD(ICD-10) 06/23/2018 Unknown R50.9 - Fever, Miguel, Nora Active [place] unspecified / Community R50.9(ICD-10) Hospital Repository 06/23/2018 Unknown O09.93 - Supervision Casco, Nora Active [place] of high risk [facility] , Hospital unspecified, third Repository trimester / O09.93(ICD-10) 06/23/2018 Unknown G89.18 - Other acute Miguel, Nora Active [place] postprocedural pain Community / G89.18(ICD-10) Hospital Repository 06/12/2018 Unknown O09.90 - Supervision Marcanthony, Active [place] of high risk [facility] , Hospital unspecified, Repository unspecified trimester / O09.90(ICD-10) 06/12/2018 Unknown O16.9 - Unspecified Marcanthony, Active [place] maternal [facility] hypertension, Hospital unspecified Repository trimester / O16.9(ICD-10) 06/09/2018 Unknown O09.03 - Supervision Shawn, Active [place] of with [facility] history of Hospital infertility, third Repository trimester / O09.03(ICD-10) 06/09/2018 Unknown D47.01 - Cutaneous Marcanthony, Active [place] mastocytosis / [facility] D47.01(ICD-10) Hospital Repository 06/09/2018 Unknown R73.09 - Other Marcanthony, Active [place] abnormal glucose / [facility] R73.09(ICD-10) Hospital Repository 06/09/2018 Unknown O99.213 - Obesity Marcanthsavanna, Active [place] complicating [facility] , third Hospital trimester / Repository O99.213(ICD-10) 06/09/2018 Unknown Z3A.34 - 34 weeks Marcanthony, Active [place] gestation of [facility] / Hospital Z3A.34(ICD-10) Repository 06/09/2018 Unknown E03.9 - Marcanthony, Active [place] Hypothyroidism, [facility] unspecified / Hospital E03.9(ICD-10) Repository 06/05/2018 Unknown K76.89 - Other Marcanthony, Active [place] specified diseases [facility] of liver / Hospital K76.89(ICD-10) Repository 06/09/2018 Unknown R94.5 - Abnormal Marcanthony, Active [place] results of liver [facility] function studies / Hospital R94.5(ICD-10) Repository 05/25/2018 Active Pruritus, NA Active [place] unspecified / Clinic Main L29.9(ICD-10) [place] Repository 05/12/2018 Unknown Z34.90 - Encounter CascoNora craig Active [place] for supervision of [facility] normal , Hospital unspecified, Repository unspecified trimester / Z34.90(ICD-10) 05/11/2018 Unknown Z3A.32 - 32 weeks Casco, Nora Active [place] gestation of [facility] / Hospital Z3A.32(ICD-10) Repository 05/11/2018 Unknown H04.69 - Other Casco, Nora Active [place] changes of lacrimal Community passages / Hospital H04.69(ICD-10) Repository 05/11/2018 Unknown O35.8XX0 - Maternal Miguel, Nora Active [place] care for other [facility] (suspected) Hospital abnormality and Repository damage, not applicable or unspecified / O35.8XX0(ICD-10) 05/11/2018 Unknown R74.8 - Abnormal Miguel, Nora Active [place] levels of other [facility] serum enzymes / Hospital R74.8(ICD-10) Repository 05/11/2018 Unknown R55 - Syncope and Casco, Nora Active [place] collapse / Community R55(ICD-10) Hospital Repository 04/26/2018 Unknown Z3A.30 - 30 weeks Marcanthony, Active [place] gestation of [facility] / Hospital Z3A.30(ICD-10) Repository 04/26/2018 Unknown O46.90 - Antepartum Marcanthony, Active [place] hemorrhage, [facility] unspecified, Hospital unspecified Repository trimester / O46.90(ICD-10) 04/26/2018 Unknown O99.210 - Obesity Marcanthony, Active [place] complicating [facility] , Hospital unspecified Repository trimester / O99.210(ICD-10) 04/18/2018 Unknown L50.8 - Other Marcanthony, Active [place] urticaria / [facility] L50.8(ICD-10) Hospital Repository 03/30/2018 Unknown O09.02 - Supervision Marcanthony, Active [place] of with [facility] history of Hospital infertility, second Repository trimester / O09.02(ICD-10) 03/30/2018 Unknown Z34.02 - Encounter Marcanthony, Active [place] for supervision of [facility] normal [facility] Hospital , second Repository trimester / Z34.02(ICD-10) 03/30/2018 Unknown Z3A.26 - 26 weeks Marcanthony, Active [place] gestation of [facility] / Hospital Z3A.26(ICD-10) Repository 03/30/2018 Unknown Z23 - Encounter for Marcanthony, Active [place] immunization / [facility] Z23(ICD-10) Hospital Repository 03/01/2018 Active Endocrine, NA Active [place] nutritional and [facility] Main metabolic diseases [place] complicating Repository , unspecified trimester / O99.280(ICD-10) 03/01/2018 Unknown Z34.01 - Encounter CascoNora craig Active [place] for supervision of [facility] normal [facility] Hospital , first Repository trimester / Z34.01(ICD-10) 03/01/2018 Unknown Z3A.21 - 21 weeks Miguel, Molly Active [place] gestation of Community / Hospital Z3A.21(ICD-10) Repository 01/25/2018 Unknown O09.00 - Supervision Nora Rivera Active [place] of with Community history of Hospital infertility, Repository unspecified trimester / O09.00(ICD-10) 01/23/2018 Active Encounter for NA Active [place] screening for lipoid Clinic Main disorders / [place] Z13.220(ICD-10) Repository 01/21/2018 Active Encounter for NA Active [place] screening for Clinic Main diabetes mellitus / [place] Z13.1(ICD-10) Repository 09/16/2017 Active Hypothyroidism, NA Active [place] unspecified / Clinic Main E03.9(ICD-10) [place] Repository 09/16/2017 Active Vitamin D Active [place] deficiency, Clinic Main unspecified / [place] E55.9(ICD-10) Repository 08/29/2017 Unknown 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, 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 Initially noted some pain and redness around the area before he subsequently broke open. She was seen by her die repairer stamping and had culture taken. She also had the wound packed. She has noticed significant drainage from the wound. She denies chills, fever, nausea or vomiting. She however is on antibiotics prescribed by her die repairer stamping. Her new born daughter is also been managed at the intensive care unit at [facility] due to E. coli sepsis. Past Medical [...] Date Recorded By Document 06/28/18 10:41 DL [id number] 06/28/18 11:00 DL Wound Center Nurse 1 [...] Date Recorded By Document 06/28/18 11:19 MW [id number] 06/28/18 11:30 MW Musculoskeletal: No Muscle Wasting Neurological: Cranial nerves II-XII grossly intact Psych/Mental Status: Normal Affect Debridement Note Post-Debridement Measurements/Treatment WC - Nurse 2 - General Ulcer CM Notes Start: 06/28/18 10:39 Freq: Status: Active Protocol: Activity Type Activity Date Activity User E-Sign Co-Sign Detail Recorded Client Recorded Date Recorded By Document 06/28/18 11:19 MW [id number] 06/28/18 11:30 MW Wound Center Nurse 2 [...] way. Culture has been taken by her die repairer stamping, will await results. For now Aquacel AG daily to twice daily (depending on drainage) with Adaptic over top. Increased protein intake recommended. Continue current antibiotic for now. She was advised to call with any further questions or concerns otherwise, follow-up in 1 week. 06/29/18 163 <Electronically signed by David Umana MD> Date David Umana MD CC: Signed Observed: 06/26/2018 Status: P Source: [place] CULTURE, SURGERY DEEP 5:23 PM [facility] WOUND REPOSITORY List Antibiotics Last 48 Hours? [...] <=20 S (NF) indicates non-formulary drug at [facility]. Approval by Infectious Disease Specialist required before non-formulary drugs may be ordered and/or dispensed. Cult, Anaerobic Studies have confirmed that Anaerobic Gram Positive Cocci are routinely susceptible to: Penicillin/Ampicillin, Ampicillin/Sulbactam, Piperacillin/Tazobactam, Cefoxatin, Ertapenem, Imipenem, Meropenem and Metronidazole and vary in resistance to: Clindamycin and Moxifloxacin. ORGANISM 1: Anaerobic cocci Performed By: #### M100.1550 #### [facility] [address] [place], [address] GUT PULLER OFFICE VISIT Observed: 06/26/2018 Status: F Source: [place] REPORT 4:49 PM [facility] REPOSITORY [facility] [address] [place] [address] OFFICE VISIT Date of Service: 06/26/18 MR#: [id number] Acct: [id number] Name: HILARIO TRAMMELL Matilda Rep #: [id number] : 1990 Provider: PETRA Rivera Age/Sex: 28/F Location: [facility] Status: Signed Intake Vital Signs06/26/18 Body Mass Index (BMI) 44.1 06/26/18 Height 5 ft 5 in 06/26/18 Weight: 246 lb 06/26/18 Body Mass Index (BMI) 40.9 06/26/18 Blood Pressure 146/66 H H 06/26/18 Temperature 98.5 F Intake Visit Reasons: C/S site drainage Fire Engine Pump Operator Required: No Accompanied by: Is patient in [...] home: Yes additional social history: - [employer] 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 Baby in [place], E coli and on antibiotics. Patient with fever at time of surgery. Pregancy History 1 Elective abortions Hx Para 1 Spontaneous abortions Past Pregnancies Del. DatName GA/WeeksOutcome Route [facility] LocaProviderFOB e ht en th ia tn 06/15/18Emersyn 37 live birC-sectio7 lbs 10Female epiduralWCH WOO th - fuln oz l term Delivery Date: 06/15/18 On 06/19/18 @ 11:13 Terra Lares COVER OPERATOR; FTP; CPD, Cat III tracing, chorioamnionitis preeclampsia [...] 06/26/18 1649 <Electronically signed by Nora Rivera DRY CELL TESTER-C> Date Nora Rivera DRY CELL TESTER-C Cosigner Signature: Date (if applicable) CC: CBC W/DIFF, AUTOMATED Collected: 06/23/2018 Status: F Source: [place] 1:20 PM [facility] REPOSITORY TYPE CODE TESTS RESULT OUT OF [...] [employer] Performed By: #### L100.0100 #### [facility] [address] [place], [address] GUT PULLER OFFICE VISIT Observed: 06/23/2018 Status: F Source: [place] REPORT 1:10 PM [facility] REPOSITORY [facility] [address] [place] [address] OFFICE VISIT Date of Service: 06/23/18 MR#: [id number] Acct: [id number] Name: HILARIO TRAMMELL Matilda Rep #: [id number] : 1990 Provider: PETRA Rivera Age/Sex: 28/F Location: [facility] Status: Signed Intake Vital Signs06/23/18 Body Mass Index (BMI) 44.1 06/23/18 Weight: 260 lb 06/23/18 Blood Pressure 118/76 Intake Visit Reasons: redness, swelling and pain at C/S site. Fire Engine Pump Operator Required: No Accompanied by: Is patient in [...] menopausal: No Patient : No : Yes [facility] Medical History GERD (gastroesophageal reflux disease) (Acute) Hyperthyroidism (Acute) Mastocytosis (Acute) Family History Mother Breast cancer Father Skin cancer Social History Smoking Status: Never smoker substance use type: does not use caffeine: No what type of physical activity do you participate in: walking frequency: 1-2 times per week seatbelt use: always do you feel safe at home: Yes additional social history: - [employer] 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 : Details: HILARIO TRAMMELL is a 28 year old who presents for postop pain incision and abdomen C section 6 days ago. Baby in [place], e coli infection and IV antibiotics. Note patient with low grade temp. Pregancy History 1 Elective abortions Hx Para 1 Spontaneous abortions Past Pregnancies Del. DatName GA/WeeksOutcome Route [facility] LgAnestheMSel LocaProviderFOB e ht en th ia tn 06/15/18Emersyn 37 live birC-sectio7 lbs 10Female epiduralWCH WOO th - fuln oz l term Delivery Date: 06/15/18 On 06/19/18 @ 11:13 Terra Lares COVER OPERATOR; FTP; CPD, Cat III tracing, chorioamnionitis preeclampsia [...] DISCHARGE SUMMARY Observed: 06/23/2018 Status: F Source: [place] 11:18 AM [facility] REPOSITORY [facility] Medical Records Department [address] [place] [address] Discharge Summary 06/23/18 1115 MR#: [id number] Acct: [id number] Name: HILARIO TRAMMELL Rep #: [id number] : 1990 28 From: Nora BARROW PCP: Ana Tucker III, MD Status: DIS IN Y Location: [id number] Discharge Date and Diagnosis Date of Admission: [...] 06/19/2018 Status: F Source: [place] 8:14 AM [facility] REPOSITORY [facility] Medical Records Department [address] [place] [address] Instructions for Home/Discharge Instructions 06/19/18 0814 MR#: [id number] Acct: [id number] Name: HILARIO TRAMMELL Rep #: [id number] : 1990 28 From: Nora Rivera NP-Milan [...] F Source: [place] NO DIFF 6:00 AM [facility] REPOSITORY Order Comment: Comments: Day #1 Reason [...] MPV 10.7 Performed By: #### L100.0500 #### [facility] [address] [facility] [place], [address] PATHOLOGY SPECIMEN OB Collected: 06/17/2018 Status: F Source: [place] 3:52 PM [facility] REPOSITORY Order Comment: Comments: maternal fever Reason for Laboratory Test Placenta for Lab studies Send Specimen For (Specify): Studies @ [facility] Lab:Routine Time of Procedure: 1315 Date of Procedure: 06/17/18 Reason specimen being sent to pathology (Hx/complications): maternal fever Type of specimen: Placenta Type of procedure performed: TYPE CODE TESTS RESULT OUT OF RANGE REFERENCE UNITS LAB L350.1800 SEE Normal PATH. PATHOLOGY Spec. OB REPORT Result Comment: Specimen submitted to Anatomical Pathology Department for testing. Performed By: #### L350.1800 #### [facility] [address] [facility] [place], [address] OPERATIVE REPORT Observed: 06/17/2018 Status: F Source: [place] 2:19 PM [facility] REPOSITORY [facility] Medical Records Department [address] [place] [address] Operative Report 06/17/18 1310 MR#: [id number] Acct: [id number] Name: HILARIO TRAMMELL Rep #: [id number] : 1990 28 From: Nyla Mancuso MD PCP: Ana Tucker III, MD Status: ADM IN [facility] Problem List (1) Preeclampsia Status: Acute Qualifiers: [...] PRR FRANCISCO 07/06/18 Girl Mendez Ke ANU [facility], IVF (7) abn NEC-antepar Status: Acute Comment: [...] ivf ; urine culture negative 11/30/2017 at [facility] (14) Cutaneous mastocytosis Status: Chronic (15) Failed [...] disproportion, 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, [address] PROTHROMBIN TIME W/INR Collected: 06/15/2018 Status: F Source: [place] 11:30 AM [facility] REPOSITORY Order Comment: REDRAW. PREVIOUS SPECIMEN REJECTED DUE TO CLOT/QNS. 06/15/18 1103 Ann Marie Tabor. TYPE CODE TESTS RESULT OUT OF RANGE REFERENCE UNITS LAB L300.4150 11.7-14.9 SECONDS Normal PROTIME 13.1 LAB L300.4200 Normal INR 1.0 Performed By: #### L300.3900, L300.4310 #### [facility] [address] [place], [address] PARTIAL THROMBOPLAST Collected: 06/15/2018 Status: F Source: [place] TIME 11:30 AM [facility] REPOSITORY Order Comment: REDRAW. PREVIOUS SPECIMEN REJECTED DUE TO CLOT/QNS. 06/15/18 1103 Ann Marie Tabor. TYPE CODE TESTS RESULT OUT OF RANGE REFERENCE UNITS LAB L300.4310 24.1-36.2 Seconds Normal PTT 29.1 Performed By: #### L300.3900, L300.4310 #### [facility] [address] [place], [address] PROTEIN+CREATININE Collected: Status: F Source: [place]Y RATIO,URINE 06/15/2018 11:15 AM [facility] REPOSITORY TYPE CODE TESTS RESULT OUT OF RANGE REFERENCE UNITS LAB L501.1200 NO RANGE EST. mg/dL Normal UR CREAT 86.80 LAB L501.1930 <11.9 mg/dL High 16.9 PROTEIN,UR.R AN. LAB L501.1940 0-200 mg/g CRE Normal PROT:CRE 195 RATIO Performed By: #### L501.0900 #### [facility] [address] [place], [address] SERUM CREATININE AND Collected: 06/15/2018 Status: F Source: [place] GFR 10:25 AM [facility] REPOSITORY TYPE CODE TESTS RESULT OUT OF [...] By: #### L501.1105, L501.1400, L501.4100, L501.4405 #### [facility] [address] [place], [address] URIC ACID Collected: 06/15/2018 Status: F Source: [place] 10:25 AM [facility] REPOSITORY TYPE CODE TESTS RESULT OUT OF RANGE REFERENCE UNITS LAB L501.1400 2.6-6.0 mg/dL Normal URIC 5.8 Result Comment: The drugs N-Acetylcysteine and Metamizole may falsely depress this assay. Performed By: #### L501.1105, L501.1400, L501.4100, L501.4405 #### [facility] [address] [place], [address] AST(SGOT) Collected: 06/15/2018 Status: F Source: [place] 10:25 AM [facility] REPOSITORY TYPE CODE TESTS RESULT OUT OF RANGE REFERENCE UNITS LAB L501.4100 15-37 U/L Normal AST 21 Performed By: #### L501.1105, L501.1400, L501.4100, L501.4405 #### [facility] [address] [place], [place], [address] ALANINE AMINOTRANSFERAS Collected: 06/15/2018 Status: F Source: [place] (SGPT) 10:25 AM [facility] REPOSITORY TYPE CODE TESTS RESULT OUT OF RANGE REFERENCE UNITS LAB L501.4405 13-56 U/L Normal ALT 24 Performed By: #### L501.1105, L501.1400, L501.4100, L501.4405 #### [facility] [address] [facility] [place], [address] CBC-COMPLETE BLOOD CNT Collected: 06/15/2018 Status: F Source: [place] NO DIFF 8:04 AM [facility] REPOSITORY TYPE CODE TESTS RESULT OUT OF [...] MPV 11.3 Performed By: #### L100.0500 #### [facility] [address] [place], [place], [address] TYPE AND SCREEN Collected: 06/15/2018 Status: F Source: [place] 8:04 AM [facility] REPOSITORY Order Comment: Reason for Type AND Screen/Red Cells: TYPE CODE TESTS RESULT OUT OF RANGE REFERENCE UNITS LAB B10.0800 O Normal BLOOD TYPE GEL POSITIVE LAB B100.4000 Normal Antibody NEGATIVE Screen Performed By: #### B101.7450 #### [facility] [address] [place], [address] HISTORY AND PHYSICAL Observed: 06/15/2018 Status: F Source: [place] EXAM 7:41 AM [facility] REPOSITORY [facility] Medical Records Department [address] [place] [address] History and Physical 06/15/18 0737 MR#: [id number] Acct: [id number] Name: HILARIO TRAMMELL Rep #: [id number] : 1990 28 From: Nyla Mancuso MD PCP: Ana Tucker III, MD Status: ADM IN [facility] - Problem List (1) Preeclampsia Status: Acute [...] ivf ; urine culture negative 11/30/2017 at [facility] (14) Cutaneous mastocytosis Status: Chronic (15) Syncope [...] variability reactive no decelerations category I tracing\ [place]: regular History Past Pregnancies: Past Pregnancies Delivery Name GA/Weeks [facility] FOB Date ght n[facility] Location Labs: Social History Hx [...] Symmetrical, Neuro grossly intact. Negative for: Clonus DIRECTOR PUBLIC: Normal external genitalia. Negative for: Vulvar lesions [...] check preeclampsia labs I have reviewed the [facility] and made any clinically relevant updates. 06/15/18 0741 <Electronically signed by Nyla Mancuso MD> Date Nyla Mancuso MD Cosigner Signature: Date (if applicable) CC: Ana Tucker III, MD; Nyla Mancuso MD Signed OFFICE VISIT REPORT Observed: 06/12/2018 Status: F Source: PAT[place] 9:51 AM [facility] [address] [place] [address] OFFICE VISIT Date of Service: 06/12/18 MR#: [id number] Acct: [id number] Patient: HILARIO TRAMMELL Rep #: [id number] : 1990 Provider: Nyla Mancuso MD Age/Sex: 28/F Location: [facility] Status: Signed Intake Vital Signs06/12/18 Blood Pressure [...] 06/12/2018 Status: F Source: [place] 8:57 AM [facility] REPOSITORY TYPE CODE TESTS RESULT OUT OF [...] Lymph 1.82 Performed By: #### L100.0100 #### [facility] [address] [place], [address] COMPREHENSIVE METABOLIC Collected: 06/12/2018 Status: F Source: PAT[place] [facility] 8:57 AM [facility] REPOSITORY TYPE CODE TESTS RESULT OUT OF [...] GAP 10 Performed By: #### L500.4050 #### [facility] [address] [facility] [place], [address] Observed: 06/09/2018 Status: F Source: PATY CULTURE, GROUP B 3:31 PM [facility] STREPTOCOCCUS REPOSITORY IRINA Culture Group B Beta Streptococcus is not isolated. Performed By: #### M100.1800 #### [facility] [address] [facility] [place], [address] PROTHROMBIN TIME W/INR Collected: 06/09/2018 Status: F Source: [place] 1:00 PM [facility] REPOSITORY TYPE CODE TESTS RESULT OUT OF RANGE REFERENCE UNITS LAB L300.4150 11.7-14.9 SECONDS Normal PROTIME 13.1 LAB L300.4200 Normal INR 1.0 Performed By: #### L300.3900, L300.4310 #### [facility] [address] [facility] [place], [address] PARTIAL THROMBOPLAST Collected: 06/09/2018 Status: F Source: PATY TIME 1:00 PM [facility] REPOSITORY TYPE CODE TESTS RESULT OUT OF RANGE REFERENCE UNITS LAB L300.4310 24.1-36.2 Seconds Normal PTT 30.6 Performed By: #### L300.3900, L300.4310 #### [facility] [address] [facility] [place], [address] CBC-COMPLETE BLOOD CNT Collected: 06/09/2018 Status: F Source: PATY NO DIFF 1:00 PM [facility] REPOSITORY TYPE CODE TESTS RESULT OUT OF [...] MPV 10.6 Performed By: #### L100.0500 #### [facility] [address] [place], [address] PROTEIN+CREATININE Collected: Status: F Source: [place] RATIO,URINE 06/09/2018 1:00 PM [facility] REPOSITORY TYPE CODE TESTS RESULT OUT OF RANGE REFERENCE UNITS LAB L501.1200 NO RANGE EST. mg/dL Normal UR CREAT 59.50 LAB L501.1930 <11.9 mg/dL High 18.3 PROTEIN,UR.R AN. LAB L501.1940 0-200 mg/g CRE High PROT:CRE 308 RATIO Performed By: #### L501.0900 #### [facility] [address] [place], [address] SERUM CREATININE AND Collected: 06/09/2018 Status: F Source: [place] GFR 1:00 PM [facility] REPOSITORY TYPE CODE TESTS RESULT OUT OF [...] By: #### L501.1105, L501.1400, L501.4100, L501.4405 #### [facility] [address] [place], [address] URIC ACID Collected: 06/09/2018 Status: F Source: [place] 1:00 PM [facility] REPOSITORY TYPE CODE TESTS RESULT OUT OF RANGE REFERENCE UNITS LAB L501.1400 2.6-6.0 mg/dL Normal URIC 5.2 Result Comment: The drugs N-Acetylcysteine and Metamizole may falsely depress this assay. Performed By: #### L501.1105, L501.1400, L501.4100, L501.4405 #### [facility] [address] [place], [address] AST(SGOT) Collected: 06/09/2018 Status: F Source: [place] 1:00 PM [facility] REPOSITORY TYPE CODE TESTS RESULT OUT OF RANGE REFERENCE UNITS LAB L501.4100 15-37 U/L Normal AST 23 Performed By: #### L501.1105, L501.1400, L501.4100, L501.4405 #### [facility] [address] [place], [address] ALANINE AMINOTRANSFERAS Collected: 06/09/2018 Status: F Source: PATY (SGPT) 1:00 PM [facility] REPOSITORY TYPE CODE TESTS RESULT OUT OF RANGE REFERENCE UNITS LAB L501.4405 13-56 U/L Normal ALT 24 Performed By: #### L501.1105, L501.1400, L501.4100, L501.4405 #### [facility] [address] [place], [address] GUT PULLER OFFICE VISIT Observed: 06/09/2018 Status: F Source: PATY REPORT 12:16 PM [facility] REPOSITORY [facility] 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 Cutaneous mastocytosis D47.01 3. Elevated glucose [...] MD Cosigner Signature: Date (if applicable) CC: GUT PULLER OFFICE VISIT Observed: 06/07/2018 Status: F Source: PATY REPORT 4:10 AM [facility] REPOSITORY [facility] [place] 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 mg/dL Normal UR CREAT 50.40 LAB L501.1930 <11.9 mg/dL Normal 10.5 PROTEIN,UR.R AN. LAB L501.1940 0-200 mg/g CRE High PROT:CRE 208 RATIO Performed By: #### L501.0900 #### [facility] [address] [place], [address] CBC W/DIFF, AUTOMATED Collected: 06/05/2018 Status: F Source: PATY 11:54 AM [facility] REPOSITORY TYPE CODE TESTS RESULT OUT OF [...] Lymph 2.03 Performed By: #### L100.0100 #### [facility] [address] [place] [address]. [place], [address] COMPREHENSIVE METABOLIC Collected: 06/05/2018 Status: F Source: [facility] 11:54 AM [facility] REPOSITORY TYPE CODE TESTS RESULT OUT OF [...] GAP 13 Performed By: #### L500.4050 #### [facility] [address] [place] [address]. [place], [place], [address] PROGRESS Observed: 06/04/2018 Status: COMPLETED Source: [place] 4:57 PM [facility] REPOSITORY HNO ID: [id number] Author: Ana Tucker III Service: (none) Author Type: Physician Type: Progress Notes Filed: 06/04/2018 4:57 PM Note Text: Hilario, The bile acids are all normal. The other lab results are fine. Ana Tucker III, MD, FAAFP GESTATIONAL GTT 3HR Collected: 06/02/2018 Status: F Source: [address] 9:53 AM [facility] REPOSITORY Order Comment: Is Patient Fasting? Y [...] 3HR 68 Performed By: #### L500.4710 #### [facility] [address] [place], [address] MISCELLANEOUS LAB Collected: 05/27/2018 Status: F Source: PATY PROCEDURE 9:48 AM [facility] REPOSITORY Order Comment: Comments: [id number] BILE ACIDS SST FROZEN Test(s) Ordered: [id number] BILE ACIDS SST FROZEN TYPE CODE TESTS RESULT OUT OF RANGE REFERENCE UNITS LAB L801.1541 Normal [facility] LAB TEST Result Comment: TEST RESULT UNITS REF INTERVAL Bile Acids 10.4 umol/L 4.7 - 24.5 female reference interval (15 - 45 years): 3.7 - 14.5 TESTING PERFORMED AT [facility]. ORIGINAL REPORT ON FILE IN LAB CONTAINS ADDITIONAL TEST SITE INFORMATION. Performed By: #### L801.1541 #### [facility] [address] [place], [address] GUT PULLER OFFICE VISIT Observed: 05/27/2018 Status: F Source: [place] REPORT 4:08 AM [facility] REPOSITORY [facility] [address] 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 Cutaneous mastocytosis D47.01 3. Elevated glucose [...] AND DIFFERENTIAL Collected: 05/25/2018 Status: F Source: [place] 8:22 AM [facility] REPOSITORY TYPE CODE TESTS RESULT [...] k/uL Abs Lymph 2.25 LAB AMONO % [place]% 5.6 LAB AAMONO <0.87 k/uL Abs [place] 0.49 LAB AEOS % Eosin% 1.5 LAB AAEOS <0.46 k/uL Abs Eosin 0.13 LAB ABASO % Baso% 0.2 LAB AABASO <0.11 k/uL Abs Baso <0.03 LAB AUNRBC 0 /100 WBC NRBCs 0.0 LAB ABNRBC <0.01 k/uL Absolute nRBC <0.01 LAB DTYP DTYPE Auto Diff Performed By: #### CBCDIF, CMP, TSH #### [facility] [employer] [address] [place], [place] [address] #### BILE #### [facility] [address] [place] [address] [phone] COMP METABOLIC PANEL Collected: 05/25/2018 Status: F Source: [place] 8:22 AM [facility] REPOSITORY TYPE [...] 74-99 mg/dL Glucose 79 Result Comment: The [place] Diabetes Association (ADA) provides guidance for cutoff [...] Standards of Medical Care in Diabetes 2016, [place] Diabetes Association. Diabetes Care. 2016.39(Suppl 1). LAB [...] Performed By: #### CBCDIF, CMP, TSH #### [facility] [address] [place] [id number] #### BILE #### [facility] [address] [place] [address] [phone] TSH Collected: 05/25/2018 Status: F Source: [place] 8:22 AM [facility] REPOSITORY TYPE CODE TESTS RESULT [...] Clinical Practice Guideline. J Clin Endocrinol Metab, 2012:97:0306-4518. 2. Evan WYNNE. Overview of thyroid disease in . UpToDate. 2016. Accessed on November 21, 2015. Performed By: #### CBCDIF, CMP, TSH #### [facility] [address] [place] [id number] #### BILE #### [facility] [address] [place] [address] [phone] BILE ACDS,FRACT/TOT Collected: 05/25/2018 Status: F Source: [place] 8:22 AM [facility] REPOSITORY TYPE CODE TESTS RESULT [...] Total Test developed and characteristics determined by [facility]. See Compliance Statement B: [email or web address] Performed by [facility], [address] [place] [address] [email or web address], Mauricio Yi MD, Lab. Director Performed By: #### CBCDIF, CMP, TSH #### [facility] [address] [place] [address] #### BILE #### [facility] [address] [place] [address] [phone] Observed: 05/24/2018 Status: F Source: [place] CULTURE, URINE 5:43 PM [facility] REPOSITORY Urine Culture ORGANISM 1: Mixed Gram Positive Organisms [place] Count 1000-10,000 MIX CULTURE Mixed contaminants. Submit a new specimen if indicated. Performed By: #### M100.0650 #### [facility] [address] [facility] [place], [place], [address] Observed: 05/11/2018 Status: F Source: [place] CULTURE, URINE 8:34 PM [facility] REPOSITORY Urine Culture Below infection level. ORGANISM 1: Mixed Gram Positive Organisms [place] Count 1000-10,000 Performed By: #### M100.0650 #### [facility] [address] [facility] [place], [place], [address] PROGRESS Observed: 05/11/2018 Status: COMPLETED Source: [place] 4:01 PM [facility] REPOSITORY HNO ID: [id number] Author: Ary Calvin (Petra) Neil Service: (none) [...] the Zoloft prior to bedtime. Follows with [facility] GUT PULLER, apt earlier today, doing well. The ROS [...] children: 0 Occupational History Occupation Employer Comment [employer] Social History Main Topics Smoking status: Never [...] SERTRALINE 50 MG TABLET Ary Trejo, MSN CROZE MACHINE OPERATOR.ELECTRIC MOTOR TESTER CNOV Observed: 05/11/2018 Status: COMPLETED Source: [place] 3:40 PM [facility] REPOSITORY Office Visit (FAMPWS) HILARIO TRAMMELL Matilda ([id number]) 1990 [facility] Date Time Provider Department 05/11/18 3:40 PM ARY TREJO (DRY CELL TESTER) FAMPWS During your visit today, we recorded the following information about you: Temperature Pulse Respiration Blood pressure 98.7 degrees 110/minute 18/minute 134/84 Weight 115.7 kg BLACK Lira CROZE MACHINE OPERATOR.ADINA 05/11/2018 4:17 PM Signed Chief Complaint Patient [...] the Zoloft prior to bedtime. Follows with [facility] GUT PULLER, apt earlier today, doing well. The ROS [...] children: 0 Occupational History Occupation Employer Comment [employer] [employer] [facility] [employer] [facility] Social History Main Topics Smoking status: Never [...] SERTRALINE 50 MG TABLET Ary Trejo, MSN CROZE MACHINE OPERATOR.ELECTRIC MOTOR TESTER Referring Provider: ARY TREJO (DRY CELL TESTER) [[id number]] Allergies As of Date: 05/11/2018 (No Known [...] Status:Closed by ARY TREJO CNP on 05/11/18 GUT PULLER OFFICE VISIT Observed: 05/11/2018 Status: F Source: [place] REPORT 11:13 AM [facility] [address] [place] [address] OFFICE VISIT Date of Service: 05/11/18 MR#: [id number] Acct: [id number] Name: HILARIO TRAMMELL Rep #: [id number] : 1990 Provider: PETRA Rivera Age/Sex: 28/F Location: [facility] Status: Signed Intake Vital Signs05/11/18 Height 5 ft 5 in 05/11/18 Weight: 254 lb 6 oz 05/11/18 Body Mass Index (BMI) 42.3 05/11/18 Blood Pressure 130/78 H Intake Visit Reasons: est ob 32 weeks Fire Engine Pump Operator Required: No Is patient in pain?: No [...] home: Yes 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 Elevated troponin R74.8 8. Syncope, unspecified [...] BARROW Cosigner Signature: Date (if applicable) CC: GUT PULLER OFFICE VISIT Observed: 04/26/2018 Status: F Source: [place] REPORT 10:15 AM [facility] 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 doing well no complaints Nyla [...] ivf ; urine culture negative 11/30/2017 at [facility] 2. Cutaneous mastocytosis D47.01 3. 30 weeks [...] Status: COMPLETED Source: [place] 10:30 AM [facility] REPOSITORY Met with patient. 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 Consent to share information with FTC team, OB and virtualization architect signed. Pt plans to deliver at [place] with Dr. Mancuso. Vocational Ed Instructor is JOSE Trevinooster. Female fetus- name is [...] 04/17/2018 Status: COMPLETED Source: [place] 10:30 AM [facility] REPOSITORY The total patient time of the visit was 30 minutes, of which greater than 50% of the time was spent counseling and coordinating care. FIBRINOGEN Collected: 04/13/2018 Status: F Source: [place] 9:00 AM [facility] REPOSITORY TYPE CODE TESTS RESULT OUT OF RANGE REFERENCE UNITS LAB L300.4700 203-444 mg/dl High FIB 663 Performed By: #### L300.4700 #### [facility] [address] [place], [address] DONNA Collected: 04/13/2018 Status: F Source: [place] 9:00 AM [facility] REPOSITORY TYPE CODE TESTS RESULT OUT OF RANGE REFERENCE UNITS LAB L803.2300 Normal INOCENCIA MARK Negative Result Comment: Oniel Mark Study Reference: Negative No cells seen. TESTING PERFORMED AT [facility]. ORIGINAL REPORT ON FILE IN LAB CONTAINS ADDITIONAL TEST SITE INFORMATION. RESULTS CALLED TO GEOVANNA MEJIA 04/14/18 1433 Gaudencio Bejarano. REPORT READ BACK BY GEOVANNA MEJIA . Performed By: #### L803.2300 #### [facility] [address] [place], [address] HISTORY AND PHYSICAL Observed: 04/13/2018 Status: F Source: [place] EXAM 6:53 AM [facility] REPOSITORY [facility] Medical Records Department [address] [place] [address] History and Physical 04/13/18 0649 MR#: [id number] Acct: [id number] Name: HILARIO TRAMMELL Rep #: [id number] : 1990 28 From: yNla Mancuso MD PCP: Ana Tucker III, MD Status: REG CLI Y Location: [address] - Problem List (1) Vaginal bleeding [...] ivf ; urine culture negative 11/30/2017 at [facility] (7) Supervision of normal Status: Acute Qualifiers: Comment: FRANCISCO 07/06/18 Girl Mendez Ke ANU [facility], IVF (8) Cutaneous mastocytosis Status: Chronic History [...] GeLabor LenAnesthesiDelivery Provider FOB Date ght [facility] a Location Review of Systems Constitutional: [...] Symmetrical, Neuro grossly intact. Negative for: Clonus DIRECTOR PUBLIC: Normal external genitalia. Negative for: Vulvar lesions [...] 04/13/2018 Status: F Source: [place] 5:00 AM [facility] REPOSITORY TYPE CODE TESTS RESULT OUT OF [...] 2.16 Performed By: #### L100.0100, L300.4700 #### [facility] [address] [place], [address] FIBRINOGEN Collected: 04/13/2018 Status: F Source: [place] 5:00 AM [facility] REPOSITORY TYPE CODE TESTS RESULT OUT OF RANGE REFERENCE UNITS LAB L300.4700 203-444 mg/dl High FIB 654 Performed By: #### L100.0100, L300.4700 #### [facility] [address] [place], [address] OB LIMITED WITH Observed: 04/13/2018 Status: F Source: [place] BIOMETRICS 4:28 AM [facility] REPOSITORY [facility] Imaging Services [address] [place] [address] OB Limited With Biometrics MR#: [id number] Acct: [id number] Name: HILARIO TRAMMELL Rep #: [id number] : 1990 F 28 From: Don Young MD PCP: Ana Tucker III, MD Status: REG CLI Study: OB Limited With Biometrics Date of Exam: 04/13/18 Exam# [id number] Ordering Dr: Nyla Mancuso MD STUDY: SECOND [...] Don Young MD at 14:22 EST Tel [phone], Service support , CC: Ana Tucker III, MD; Nyla Mancuso MD Installer Interior Assemblies: Signed PROGRESS Observed: 04/10/2018 Status: COMPLETED Source: [place] 1:05 PM [facility] REPOSITORY HNO ID: [id number] Author: Rocio Ch APN Student Service: (none) Author Type: (none) Type: Progress Notes Filed: 04/10/2018 1:43 PM Note Text: Chief Complaint Patient presents with: Medication Follow-up: patient is and needing to discuss medications HPI Hilario Trammell is a 28 year old female who presents here today for Above Complaints. Patient is 27 weeks with first . Due 07/06/17. 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 Reviewed with Wanda Rivera CNP at GUT PULLER office who concurs. Hilario wishes to trial [...] Addressed: Tdap and flu vaccine given at GUT PULLER office. Ary Trejo, MSN CROZE MACHINE OPERATOR.ELECTRIC MOTOR TESTER CNOV Observed: 04/10/2018 Status: COMPLETED Source: [place] 1:00 PM [facility] REPOSITORY Office Visit (FAMPWS) HILARIO TRAMMELL ([id number]) 1990 F DAYSI Date Time Provider Department 04/10/18 1:00 PM [facility]Y CELL [facility] During your visit today, we recorded the following information about you: Temperature Pulse Respiration Blood pressure 99 degrees 84/minute 18/minute 120/70 Weight 112.9 kg Rocio Ch RADIOACTIVITY TECHNICIAN Student 04/10/2018 1:14 PM Signed Chief Complaint Patient presents with: Medication Follow-up: patient is and needing to discuss medications HPI Hilario Trammell is a 28 year old female who presents here today for Above Complaints. Patient is 27 weeks with first . Due 07/06/17. It was suggested by her GUT PULLER that she talk to her PCP about [...] children: 0 Occupational History Occupation Employer Comment [employer] Social History Main Topics Smoking status: Never [...] Zoloft. Reviewed with Wanda Rivera CNP at [employer] office who concurs. Hilario wishes to trial [...] Addressed: Tdap and flu vaccine given at GUT PULLER office. Ary Trejo MSN CROZE MACHINE OPERATOR.ELECTRIC MOTOR TESTER Allergies As of Date: 04/10/2018 (No Known [...] F Source: [place] NO DIFF 6:58 AM [facility] REPOSITORY TYPE CODE TESTS RESULT OUT OF [...] 10.0 Performed By: #### L100.0500, L300.4700 #### [facility] [address] [place], [address] FIBRINOGEN Collected: 04/09/2018 Status: F Source: [place] 6:58 AM [facility] REPOSITORY TYPE CODE TESTS RESULT OUT OF RANGE REFERENCE UNITS LAB L300.4700 203-444 mg/dl High FIB 629 Performed By: #### L100.0500, L300.4700 #### [facility] [address] [place], [address] TYPE AND SCREEN Collected: 04/09/2018 Status: F Source: [place] 6:58 AM [facility] REPOSITORY Order Comment: Has pt arrived? Y Reason for Type AND Screen/Red Cells: ROUTINE TYPE CODE TESTS RESULT OUT OF RANGE REFERENCE UNITS LAB B10.0800 O Normal BLOOD TYPE GEL POSITIVE LAB B100.4000 Normal Antibody NEGATIVE Screen Performed By: #### B101.7450 #### [facility] [address] [place], [place], [address] URINALYSIS, COMPLETE Collected: 04/09/2018 Status: F Source: [place] 5:40 AM [facility] REPOSITORY Order Comment: Has pt arrived? Y How was Urine Obtained? ASSISTANT GENERAL MANAGER TO SPECIFY TYPE CODE TESTS RESULT OUT [...] URINE SEEN Performed By: #### L400.0001 #### [facility] [address] [place], [address] COMPREHENSIVE METABOLIC Collected: 04/07/2018 Status: F Source: [facility] 12:57 PM [facility] REPOSITORY Order Comment: Comments: Bile Acid work [...] GAP 10 Performed By: #### L500.4050 #### [facility] [address] [place], [address] MISCELLANEOUS LAB Collected: 04/07/2018 Status: F Source: [place] PROCEDURE 12:57 PM [facility] REPOSITORY Order Comment: Comments: Bile Acid work up SER FZ Comments: Bile Acid work up Test(s) Ordered: [id number] BILE ACID SER FZ TYPE CODE TESTS RESULT OUT OF RANGE REFERENCE UNITS LAB L801.1541 Normal [facility] LAB TEST Result Comment: TEST RESULT LIMITS Bile Acids 5.8 umol/L 4.7 - 24.5 female reference interval (15 - 45 years): 3.7 - 14.5 TESTING PERFORMED AT [facility]. ORIGINAL REPORT ON FILE IN LAB CONTAINS ADDITIONAL TEST SITE INFORMATION. Performed By: #### L801.1541 #### [facility] [address] [place], [address] GESTATIONAL GTT 3HR Collected: 04/07/2018 Status: F Source: [place] 100G 9:57 AM [facility] REPOSITORY Order Comment: Is Patient Fasting? Y [...] 3HR 77 Performed By: #### L500.4710 #### [facility] [address] [place], [place], [address] CBC W/DIFF, AUTOMATED Collected: 03/30/2018 Status: F Source: [place] 9:20 AM [facility] REPOSITORY TYPE CODE TESTS RESULT OUT OF [...] Lymph 1.47 Performed By: #### L100.0100 #### [facility] [address] [facility] [place], [address] GLUCOSE CHALLENGE GEST Collected: 03/30/2018 Status: F Source: [place] 1H 50G 9:20 AM [facility] REPOSITORY Order Comment: PT DRAWN FOR GLUCH AT 0920 TYPE CODE TESTS RESULT OUT OF RANGE REFERENCE UNITS LAB L501.0250 70-140 mg/dL High GLU GEST 147 50g 1H Performed By: #### L501.0250 #### [facility] [address] [facility] [place], [address] THYROID STIM HORMONE Collected: 03/30/2018 Status: F Source: [place] (TSH) 9:10 AM [facility] REPOSITORY TYPE CODE TESTS RESULT OUT OF RANGE REFERENCE UNITS LAB L501.9520 0.358-3.74 uIU/mL Normal TSH 1.97 Performed By: #### L501.9520, L506.0400 #### [facility] [address] [facility] [address] [place], [address] T4 FREE DIRECT Collected: 03/30/2018 Status: F Source: [place] 9:10 AM [facility] REPOSITORY TYPE CODE TESTS RESULT OUT OF RANGE REFERENCE UNITS LAB L506.0400 0.76-1.46 ng/dL Normal T4 FREE 1.01 DIRECT Performed By: #### L501.9520, L506.0400 #### [facility] [address] [facility] [place], [address] TYPE AND SCREEN Collected: 03/30/2018 Status: F Source: [place] 9:10 AM [facility] REPOSITORY Order Comment: Reason for Type AND Screen/Red Cells: TYPE CODE TESTS RESULT OUT OF RANGE REFERENCE UNITS LAB B10.0800 O Normal BLOOD TYPE GEL POSITIVE LAB B100.4000 Normal Antibody NEGATIVE Screen Performed By: #### B101.7450 #### [place] [facility] [address] [place], [address] GUT PULLER OFFICE VISIT Observed: 03/30/2018 Status: F Source: [place] REPORT 9:07 AM [facility] REPOSITORY [facility] [address] [place] [place] [place] [address] OFFICE VISIT Date of Service: 03/30/18 MR#: [id number] Acct: [id number] Name: HILARIO TRAMMELL Rep #: [id number] : 1990 Provider: Nyla Mancuso MD Age/Sex: 28/F Location: [facility] Status: Signed with Addenda ADDENDUM by Nhi Agrawal on 03/30/18 at 0906 OFFICE PROCEDURES Office Procedure Documentation entered by Nhi Agrawal 03/30/18 09:06: Immunizations Boostrix Tdap Performing Provider: Nyla Mancuso MD Administered by: Nhi Agrawal on 03/30/18 09:04 Dose Route Admin Location Lot Number Expiration Date [facility] Rubber Compounder Supervisor 0.5 mL IM Right Arm (SQ) [id number] 05/04/24 07788-858-41 [employer] VIS Given Date VIS Publication Date 03/30/18 07/30/14 Eligibility Eligibility Date Office Meds Flucelvax Quad [id number] (PF) Performing Provider: Nyla Mancuso MD Administered by: Nhi Agrawal on 03/30/18 09:06 Dose Route Admin Location Lot Number Expiration Date [facility] Rubber Compounder Supervisor 60 mcg IM left IM [id number] 12/03/18 07695-026-93 SEQIRUS 03/30/18 0907 <Electronically signed by Nhi Agrawal > Date Nhi Agrawal cc: * Signed ADDENDUM by Nhi Agrawal on 03/30/18 at 0905 OFFICE PROCEDURES Office Procedure Documentation entered by Nhi Agrawal 03/30/18 09:05: Immunizations Boostrix Tdap Performing Provider: Nyla Mancuso MD Administered by: Nhi Agrawal on 03/30/18 09:04 Dose Route Admin Location Lot Number Expiration Date [facility] Rubber Compounder Supervisor 0.5 mL IM Right Arm (SQ) [id number] 05/04/24 20144-454-45 SANOFI[employer]PASTEUR VIS Given Date VIS Publication Date 03/30/18 07/30/14 Eligibility Eligibility Date 03/30/18904 <Electronically signed by Nhi Agrawal > Date Nhi Agrawal cc: * Signed Intake Vital Signs03/30/18 Height 5 ft 5 in 03/30/18 Weight: 251 lb 4 oz 03/30/18 Body Mass Index (BMI) 41.8 03/30/18 Blood Pressure 130/76 H Intake Visit Reasons: est ob 26 weeks Chief Complaint: est ob Fire Engine Pump Operator Required: No Is patient in pain?: No [...] home: Yes additional 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 J Clin Endocrinol Metab, 2012:97:0893-5363. 2. Evan WYNNE. Overview of thyroid disease in . UpToDate. 2016. Accessed on November 21, 2015. Performed By: #### TSH #### [facility] [address] [place], [place] [address] GUT PULLER OFFICE VISIT Observed: 03/01/2018 Status: F Source: [place] REPORT 1:27 PM [facility] REPOSITORY [facility] 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 with history [...] ANATOMY SCAN Observed: 02/15/2018 Status: F Source: [place] 3:54 PM [facility] REPOSITORY [facility] Imaging Services [place] [address] OB Anatomy Scan MR#: [id number] Acct: [id number] Name: HILARIO TRAMMELL Rep #: [id number] : 1990 F 28 From: Jose Mayorga MD PCP: Ana Tucker III, MD Status: REG CLI Study: OB Anatomy Scan Date of Exam: 02/15/18 Exam# [id number] Ordering Dr: Nora Rivera STUDY: SECOND AND [...] CC: PETRA Rivera; Ana Tucker III, MD Installer Interior Assemblies: Signed THYROID STIM HORMONE Collected: 01/25/2018 Status: F Source: [place] (TSH) 3:34 PM [facility] REPOSITORY TYPE CODE TESTS RESULT OUT OF RANGE REFERENCE UNITS LAB L501.9520 0.358-3.74 uIU/mL Normal TSH 1.44 Performed By: #### L501.9520, L506.0400 #### [facility] [address] [place], [place], [address] T4 FREE DIRECT Collected: 01/25/2018 Status: F Source: [place] 3:34 PM [facility] REPOSITORY TYPE CODE TESTS RESULT OUT OF RANGE REFERENCE UNITS LAB L506.0400 0.76-1.46 ng/dL Normal T4 FREE 1.07 DIRECT Performed By: #### L501.9520, L506.0400 #### [facility] [address] [place], [address] GUT PULLER OFFICE VISIT Observed: 01/25/2018 Status: F Source: [place] REPORT 3:28 PM [facility] REPOSITORY [facility] 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 The electrolytes, liver function tests, kidney function tests, and blood sugar are normal. The wellness form has been completed. Ana Tucker III, MD, SERGIO COMP METABOLIC PANEL Collected: 01/21/2018 Status: F Source: [place] 9:35 AM [facility] REPOSITORY TYPE CODE TESTS RESULT OUT OF REFERENCE UNITS RANGE LAB TP 6.3-8.0 g/dL Protein, Total 6.8 LAB ALB 3.9-4.9 g/dL Low Albumin 3.8 LAB CA 8.5-10.2 mg/dL Calcium, Total 9.2 LAB TBIL 0.2-1.3 mg/dL Bilirubin, Total 0.3 LAB ALKP 32-117 U/L Alkaline Phosphatase 61 LAB AST 13-35 U/L AST 20 LAB GLU 74-99 mg/dL Glucose 80 Result Comment: The [place] Diabetes Association (ADA) provides guidance for cutoff [...] Standards of Medical Care in Diabetes 2016, [place] [employer] Association. Diabetes Care. 2016.39(Suppl 1). LAB [...] actual GFR. Performed By: #### CMP #### [facility] [address] [place], [place] [address] LIPID PANEL, BASIC Collected: 01/21/2018 Status: F Source: [place] 9:35 AM [facility] REPOSITORY TYPE CODE TESTS RESULT [...] Desk Reference: National Heart, Lung, and Blood [place]. National Institutes of Health. 2001: NIH Publication No. 01-3305. 2. An International Atherosclerosis Society position paper: global recommendations for the management of dyslipidemia: executive summary, Atherosclerosis. 2014: 232(2):410-413. Performed By: #### LIPB #### [facility] [address] [place] [address] PROGRESS Observed: 01/20/2018 Status: COMPLETED Source: [place] 2:25 PM [facility] REPOSITORY HNO ID: [id number] Author: Ana Tucker III Service: (none) Author [...] MD CNOV Observed: 01/20/2018 Status: COMPLETED Source: [place] 2:00 PM [facility] REPOSITORY [facility] HILAR[facility] TRAMMELL ([id number]) 1990 F [facility] Date Time Provider Department 01/20/18 2:00 [...] III MD Referring Provider: ANA TUCKER III [[id number]] Allergies As of Date: 01/20/2018 (No Known Allergies) Date Reviewed: 01/20/2018 Reviewed by: July 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 [employer] - Fully Assessed Reason for Visit: Physical [83] Primary Visit Diagnosis:Encounter for routine adult health examination without abnormal findings [Z00.00] Other Visit Diagnoses:First trimester [Z34.90] Acquired hypothyroidism [E03.9] Gastroesophageal reflux disease without esophagitis [K21.9] Mastocytosis [D47.09] Anxiety disorder, unspecified type [F41.9] Screening for lipid disorders [Z13.220] Diabetes mellitus screening [Z13.1] Order(s):COMP METABOLIC PANEL [SQCMP] Order #: [id number] FUTURE LIPID PANEL BASIC [SQLIPB] Order #: [id number] FUTURE Prescriptions as of 01/20/2018 Sig: ESCITALOPRAM [...] will be completed fasting labs 01/21. Ana Tuckre III MD Medications Discontinued During This Encounter esomeprazole magnesium (NEXIUM 24HR)* 0 01/20/2016 01/20/2018 Class: OTC Route: ORAL Sig: Take 1 capsule by mouth daily before breakfast. Disc: Course of therapy completed Encounter Status:Closed by ANA TUCKER III, MD on 01/20/18 PROGRESS Observed: 01/08/2018 Status: COMPLETED Source: [place] 6:25 PM [facility] REPOSITORY HNO ID: [id number] Author: Ana Tucker III Service: (none) Author Type: Physician Type: Progress Notes Filed: 01/08/2018 6:25 PM Note Text: Hilario, Your results are either normal or within normal limits. Ana Tucker III MD TSH Collected: 01/07/2018 Status: F Source: [place] 10:40 AM [facility] REPOSITORY TYPE CODE TESTS RESULT [...] Clinical Practice Guideline. J Clin Endocrinol Metab, 2012:97:2449-6204. 2. Evan WYNNE. Overview of thyroid disease in . UpToDate. 2016. Accessed on November 21, 2015. Performed By: #### TSH #### [facility] [address] [place], [place] [address] GUT PULLER OFFICE VISIT Observed: 12/31/2017 Status: F Source: [place] REPORT 9:48 PM [facility] REPOSITORY [facility] 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 [employer] 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 History 1 Elective abortions Hx [...] LEAD ELECTROCARDIOGRAM Observed: 12/15/2017 Status: F Source: [place] 1:10 PM [facility] REPOSITORY [facility] Cardiovascular Services [address] [place] [address] 12 Lead EKG 12/11/17 2204 MR#: [id number] Acct: [id number] Name: HILARIO TRAMMELL Rep #: [id number] : 1990 27 From: Orion Harris MD Attending Dr: Shalom Holley DO Status: DIS RUBINA Ordering Dr: Junior Higginbotham MD Date: 12/11/17 Location: [facility] Sex: F C Admitted: 12/12/17 Test Reason : SYNCOPE Blood Pressure : / mmHG Vent. Rate : 088 BPM Atrial Rate : 088 BPM P-R Int : 140 ms QRS Dur : 096 ms QT Int : 370 ms P-R-T Axes : 036 032 019 degrees QTc Int : 447 ms Normal sinus rhythm Normal ECG Confirmed by CAM ANNE, ORION ([id number]), supervising editor trailer MATILDA IVEY ([id number]) on 12/15/2017 1:10:02 PM Referred By: MR Confirmed By:ORION HARRIS MD 12/15/17 1310 Date Orion Harris MD CC: Shalom Holley DO; Ana Tucker III, MD; Junior Higginbotham Signed PROGRESS Observed: 12/13/2017 Status: COMPLETED Source: [place] 12:43 PM [facility] REPOSITORY O ID: [id number] Author: Nia Mancilla MA Service: (none) Author Type: Flight Steward Type: Progress Notes Filed: 12/13/2017 12:47 PM Note Text: TRANSITION CARE MANAGEMENT (TCM) INITIAL CONTACT Flight Steward Outreach Provider Action/FYI: [facility]-admitted on 12/12 for vasovagal syncope, d/c on 12/12 Initial contact with patient post discharge, spoke to patient. Patient identified by name and . SUMMARY: -Pt discharged from [facility] on 12/12/2017. -Admitted for: vasovagal syncope Do [...] review CONSULTATION Observed: 12/13/2017 Status: F Source: [place] 9:24 AM [facility] REPOSITORY [facility] Medical Records Department [address] [place] [address] Consultation 12/12/17 0717 MR#: [id number] Acct: [id number] Name: HILARIO TRAMMELL Rep #: [id number] : 1990 27 From: Ryder Byrne MD PCP: Ana Tucker III, MD Status: DIS IN Y [id number] Reason for Consult Date of Consultation: 12/12/17 [...] Date Recorded By Document 12/12/17 03:18 AML [id number] 12/12/17 03:19 AML Intake and Output for [...] 82.1 H, Lymph % (Auto) 12.5 L, [place] % (Auto) 3.9, Eos % (Auto) 1.3, [...] We will discuss this further with the GUT PULLER afterwards. * * Thank you for allowing me to participate in the care of your patient. Please don't hesitate to call if any issues arise 12/13/17 0924 <Electronically signed by Ryder Byrne MD> Date Ryder Byrne MD Cosigner Signature (if applicable): Date CC: Ryder Byrne MD; Ana Tucker III, MD; Nyla Mancuso MD Signed [facility] Observed: 12/13/2017 Status: COMPLETED Source: [place] 12:00 AM [facility] REPOSITORY Patient Outreach (FAMPWS) HILARIO TRAMMELL ([id number]) 1990 F DAYSI Date Time Provider Department 12/13/17 NIA MANCILLA) FAMPWS During your visit today, we recorded the following information about you: Nia Mancilla CMA, MA 12/13/2017 12:47 PM Signed TRANSITION CARE MANAGEMENT (TCM) INITIAL CONTACT Flight Steward Outreach Provider Action/FYI: [facility]-admitted on 12/12 for vasovagal syncope, d/c on 12/12 Initial contact with patient post discharge, spoke to patient. Patient identified by name and . SUMMARY: -Pt discharged from [facility] on 12/12/2017. -Admitted for: vasovagal syncope Do [...] for Visit: Transition Of Care [4074] Cmt: [facility]-admitted on 12/12 for vasovagal syncope, d/c on [...] disorder [F41.9] INVALID FOR* Encounter Status:Closed by NAI MANCILLA CMA on 12/13/17 DISCHARGE SUMMARY Observed: 12/12/2017 Status: F Source: [place] 1:42 PM [facility] REPOSITORY [facility] Medical Records Department [address] [place] [address] Discharge Summary 12/12/17 1027 MR#: [id number] Acct: [id number] Name: HILARIO TRAMMELL Rep #: [id number] : 1990 27 From: Elena Grant DRY CELL TESTERErvinC PCP: Ana Tucker III, MD Status: ADM IN Y Location: [place] [address] <Elena Grant - Last Filed: 12/12/17 12:59> [...] received IV fluids. Follow-up as outpatient with GUT PULLER and primary care physician. Patient has contacted her fertility specialist in [place] for further recommendations regarding progesterone injections. Patient [...] applicable Code Visit OBSV E AND M: 99678 Observation care discharge 12/12/17 1259 <Electronically signed by Elena BARROW> Date Elena LEHMANC 12/12/17 1342<Electronically signed by Shalom Holley DO> Cosigner Signature (if applicable): Date Shalom Holley DO CC: PUSHPA Grant; Shalom Holley DO; Ana Tucker III, MD Signed ECHOCARDIOGRAM COMPLETE Observed: 12/12/2017 Status: F Source: [place] 12:14 PM [facility] REPOSITORY [facility] [place] [address] Echo Complete 12/12/1732 MR#: [id number] Acct: [id number] Name: HILARIO TRAMMELL Rep #: [id number] : 1990 27 From: Ryder Byrne MD Attending Dr: Shalom Holley DO Status: ADM IN Ordering Dr: Dariusz Abrams MD Date: 12/12/17 Location: [facility] Sex: F C Admitted: 12/12/17 Reason For [...] Date Dictated: 12/12/1732 Date Transcribed: 12/12/17 1213 Installer Interior Assemblies: Signed CONSULTATION Observed: 12/12/2017 Status: F Source: [place] 10:46 AM [facility] REPOSITORY [facility] Medical Records Department [address] [place] [address] Consultation 12/12/17 1042 MR#: [id number] Acct: [id number] Name: HILARIO TRAMMELL Rep #: [id number] : 1990 27 From: Nyla Mancuso MD PCP: Ana Tucker III, MD Status: ADM IN Location: [place] [address] Problem List (1) with history of infertility [...] noncontributory Psychiatric History: No pertinent psych hx DIRECTOR PUBLIC History: - - infertility Lives: Spouse/ Significant [...] Date Recorded By Document 12/12/17 03:18 AML [id number] 12/12/17 03:19 AML Orthostatic Vitals Standing -Blood [...] 12/12/2017 Status: F Source: [place] 10:25 AM [facility] REPOSITORY [facility] Medical Records Department [address] [place] [address] Instructions for Home/Discharge Instructions 12/12/17 1019 MR#: [id number] Acct: [id number] Name: HILARIO TRAMMELL Rep #: [id number] : 1990 27 From: Elena Grant DRY CELL TESTER-C PCP: Ana Tucker III, MD Status: ADM [...] AND PHYSICAL Observed: 12/12/2017 Status: F Source: [place] EXAM 6:43 AM [facility] REPOSITORY [facility] Medical Records Department [address] [place] [address] History and Physical 12/12/17 0630 MR#: [id number] Acct: [id number] Name: HILARIO TRAMMELL Rep #: [id number] : 1990 27 From: Dariusz Abrams MD PCP: Ana Tucker III, MD Status: ADM IN Y Location: [place] [id number] Problem List (1) Cutaneous mastocytosis Status: Chronic [...] Date Recorded By Document 12/12/17 03:18 AML [id number] 12/12/17 03:19 AML Orthostatic Vitals Standing -Blood [...] Status: F Source: [place] PROFIL 5:30 AM [facility] REPOSITORY Order Comment: 'TROP' Serial specimen #1, [...] 9 Performed By: #### L500.4050, L501.4010 #### [facility] [address] [facility] [place], [place], [address] TROPONIN-I Collected: 12/12/2017 Status: F Source: [place] 5:30 AM [facility] REPOSITORY Order Comment: 'TROP' Serial specimen #1, #2 or #3: 3 'TROP' Serial specimen #1, #2, #3, or #4: 3 TYPE CODE TESTS RESULT OUT OF RANGE REFERENCE UNITS LAB L501.4010 <0.045 ng/mL High 0.118 TROPONIN-I Result Comment: TROPONIN-I EXPECTED VALUES <0.045 Negative 0.045 - 0.590 Consistent with Cardiac Damage > OR = 0.600 Critical Value Not every elevated troponin is indicative of IL. These values should be used with clinical judgement in examining the patient's clinical picture for diagnosis. To establish a diagnosis of IL versus myocardial injury, there must be a demonstrated rise and/or fall in the troponin values, in addition to ischemic symptoms, EKG changes, new regional wall motion abnormality, and/or angiographical evidence. PLEASE NOTE: REFERENCE RANGES EDITED 17 Performed By: #### L500.4050, L501.4010 #### [facility] [address] [facility] [place], [address] CBC W/DIFF, AUTOMATED Collected: 12/12/2017 Status: F Source: [place] 5:30 AM [facility] REPOSITORY TYPE CODE TESTS RESULT OUT OF [...] Lymph 1.78 Performed By: #### L100.0100 #### [facility] [address] [place], [address] EMERGENCY DEPARTMENT Observed: 12/12/2017 Status: F Source: [place] SUMMARY 3:07 AM [facility] REPOSITORY [facility] Medical Records Department [address] [place] [address] Emergency Department Summary 12/12/17 0116 MR#: [id number] Acct: [id number] Name: HILARIO TRAMMELL Rep #: [id number] : 1990 27 From: Junior Higginbotham MD [...] hormone use. I discussed this with on-call GUT PULLER, and they are in agreement, and we [...] 3. 10-week This note was generated with [employer] dictation software. It may contain incorrect words, [...] your Primary Care Provider. Call [facility] ([phone]) or report to the closest Emergency Room. Call 911 if necessary. 12/12/17 0307 <Electronically signed by Junior Higginbotham MD> Date Junior Higginbotham MD Cosigner Signature (If Indicated): Date CC: Ana Tucker III, MD TROPONIN-I Collected: 12/12/2017 Status: F Source: [place] 2:55 AM [facility] REPOSITORY Order Comment: 'TROP' Serial specimen #1, #2 or #3: 2 TYPE CODE TESTS RESULT OUT OF RANGE REFERENCE UNITS LAB L501.4010 <0.045 ng/mL High 0.188 TROPONIN-I Result Comment: TROPONIN-I EXPECTED VALUES <0.045 Negative 0.045 - 0.590 Consistent with Cardiac Damage > OR = 0.600 Critical Value Not every elevated troponin is indicative of IL. These values should be used with clinical judgement in examining the patient's clinical picture for diagnosis. To establish a diagnosis of IL versus myocardial injury, there must be a demonstrated rise and/or fall in the troponin values, in addition to ischemic symptoms, EKG changes, new regional wall motion abnormality, and/or angiographical evidence. PLEASE NOTE: REFERENCE RANGES EDITED 17 Performed By: #### L501.4010 #### [facility] [address] [place], [address] MAGNESIUM Collected: 12/12/2017 Status: F Source: [place] 2:55 AM [facility] REPOSITORY TYPE CODE TESTS RESULT OUT OF RANGE REFERENCE UNITS LAB L501.5200 1.6-2.6 mg/dL Normal MG 1.9 Performed By: #### L501.5200, L501.9520 #### [facility] [address] [facility] [place], [address] THYROID STIM HORMONE Collected: 12/12/2017 Status: F Source: [place] (TSH) 2:55 AM [facility] REPOSITORY TYPE CODE TESTS RESULT OUT OF RANGE REFERENCE UNITS LAB L501.9520 0.358-3.74 uIU/mL Normal TSH 1.48 Performed By: #### L501.5200, L501.9520 #### [facility] [address] [facility] [place], [address] CTA CHEST W/WO Observed: 12/11/2017 Status: F Source: [place] CONTRAST 11:43 PM [facility] REPOSITORY [facility] Imaging Services [address] [place] [address] CTA Chest W/WO Contrast MR#: [id number] Acct: [id number] Name: HILARIO TRAMMELL Rep #: [id number] : 1990 F 27 From: Leigha Dominguez MD PCP: Ana Tucker III, MD Status: REG ER Study: CTA Chest W/WO Contrast Date of Exam: 12/11/17 Exam# [id number] Ordering Dr: Junior Higginbotham MD STUDY: CTA [...] CC: Ana Tucker III, MD; Junior Higginbotham Installer Interior Assemblies: Signed CBC W/DIFF, AUTOMATED Collected: 12/11/2017 Status: F Source: [place] 10:20 PM [facility] REPOSITORY TYPE CODE TESTS RESULT OUT OF [...] Lymph 1.54 Performed By: #### L100.0100 #### [facility] [address] [place] [address]. [place], [address] BASIC METABOLIC Collected: 12/11/2017 Status: F Source: [place] PROFILE (BMP) 10:20 PM [facility] REPOSITORY TYPE CODE TESTS RESULT OUT OF [...] 9 Performed By: #### L500.2500, L501.4010 #### [facility] [address] [facility] [place], [address] TROPONIN-I Collected: 12/11/2017 Status: F Source: [place] 10:20 PM [facility] REPOSITORY TYPE CODE TESTS RESULT OUT OF RANGE REFERENCE UNITS LAB L501.4010 <0.045 ng/mL High 0.174 TROPONIN-I Result Comment: TROPONIN-I EXPECTED VALUES <0.045 Negative 0.045 - 0.590 Consistent with Cardiac Damage > OR = 0.600 Critical Value Not every elevated troponin is indicative of IL. These values should be used with clinical judgement in examining the patient's clinical picture for diagnosis. To establish a diagnosis of IL versus myocardial injury, there must be a demonstrated rise and/or fall in the troponin values, in addition to ischemic symptoms, EKG changes, new regional wall motion abnormality, and/or angiographical evidence. PLEASE NOTE: REFERENCE RANGES EDITED 17 Performed By: #### L500.2500, L501.4010 #### [facility] [address] [facility] [place], [address] PROGRESS Observed: 09/17/2017 Status: COMPLETED Source: [place] 9:42 AM [facility] REPOSITORY HNO ID: [id number] Author: Ana Tucker III Service: (none) Author Type: Physician Type: Progress Notes Filed: 09/17/2017 9:42 AM Note Text: Hilario, You have normal thyroid and vitamin D levels Ana Tucker III MD VITAMIN D 25 HYDROXY Collected: 09/16/2017 Status: F Source: [place] 11:16 AM [facility] REPOSITORY TYPE CODE TESTS RESULT OUT OF REFERENCE UNITS RANGE LAB VITD 31.0-80.0 ng/mL Vitamin D 25 40.6 Hydroxy Result Comment: Classification of 25 [place] Vitamin D status: Insufficiency/Moderate Deficiency: < or = 30 ng/mL Sufficiency/Optimal Levels: 31 to 80 ng/mL Toxicity: > 100 ng/mL Test performed by chemiluminescent immunoassay. Performed By: #### VITD, TSH #### [facility] [employer] [address] [place], [place] [address] TSH Collected: 09/16/2017 Status: F Source: [place] 11:16 AM [facility] REPOSITORY TYPE CODE TESTS RESULT [...] Clinical Practice Guideline. J Clin Endocrinol Metab, 2012:97:1988-8176. 2. Evan WYNNE. Overview of thyroid disease in . UpToDate. 2016. Accessed on November 21, 2015. Performed By: #### VITD, TSH #### [facility] [employer] [address] [place], [place] [address] ONCOLOGY VISIT REPORT Observed: 08/29/2017 Status: F Source: [place] 11:15 AM [facility] REPOSITORY [facility] [address] [place] [address] OFFICE VISIT Date of Service: 08/29/17 1103 MR#: [id number] Acct: [id number] Name: HILARIO TRAMMELL Rep #: [id number] : 1990 From: Keyur Bates MD Age/Sex: [...] 08/29/2017 Status: F Source: [place] 10:32 AM [facility] REPOSITORY TYPE CODE TESTS RESULT OUT OF [...] Lymph 2.34 Performed By: #### L100.0100 #### [facility] [address] [place], [place], [address] COMPREHENSIVE METABOLIC Collected: 08/29/2017 Status: F Source: [place] HANS 10:29 AM [facility] REPOSITORY Order Comment: Reason for Laboratory Test [...] GAP 6 Performed By: #### L500.4050 #### [facility] [address] [place], [address] 75G 2HR NONGEST OGTT Collected: 07/09/2017 Status: F Source: [place] 9:09 AM [facility] REPOSITORY TYPE CODE TESTS RESULT OUT OF RANGE REFERENCE UNITS LAB GT0 74-99 mg/dL Glucose, 82 0 Hour Result Comment: [place] [employer] guidelines state a diabetes mellitus [...] not established, and should be clinically determined. [place] [employer] guidelines state a diabetes mellitus [...] mg/dL Glucose, 2 Hour 92 Result Comment: [place] [employer] guidelines state a diabetes mellitus [...] 199 mg/dL. Performed By: #### GTNG2 #### [facility] [address] [place], [place] [address] OBSOLETE Observed: 07/04/2017 Status: COMPLETED Source: [place] 12:00 AM [facility] HILARIO TRAMMELL ([id number]) 1990 F [facility] Date Time Provider Department 07/04/17 [facility] During your visit today, we recorded the following information about you: BLACK Lira ELECTRIC MOTOR TESTER 07/04/2017 5:31 PM Signed The following approved medication requests have been transmitted electronically. Signed Prescriptions Disp Refills escitalopram oxalate (LEXAPRO) 20 mg tablet 30 tablet 5 Sig: TAKE ONE TABLET BY MOUTH EVERY DAY DAYAMI: No Authorizing Provider: ARY TREJO (DRY CELL TESTER) Ary S Trejo, MSN ELECTRIC MOTOR TESTER Allergies As of Date: 07/04/2017 (No Known [...] on file. Encounter Status:Closed by ARY TREJO ELECTRIC MOTOR TESTER on 07/04/17 ALLERGIES ALLERGIES DATE TYPE / CODE NAME / CODE REACTION SEVERITY SOURCE 06/28/2018 Drug No Known Unknown [place] Allergy/700333628(S Allergies/F0019 [facility] NOMED CT) [address](RXNORM) Hospital Repository Miscellaneous NO KNOWN [place] Allergy/201331397(S ALLERGIES [facility] Hospital Repository Drug NO KNOWN [place] Class/296581126(SNO ALLERGIES [facility] [place] Repository ENCOUNTERS ENCOUNTERS ADMIT/DISCHARGE ACCOUNT ADMITTING ENCOUNTER LOCATION SOURCE NUMBER CLASS 06/28/2018 [id number] Ambulatory [facility] ing:WC Repository 06/26/2018 [id number] Ambulatory [facility] ing:LABSPEC Repository 06/26/2018/06/26/19 [id number] Ambulatory BMSBuilding:[place] [facility] [place] Repository 06/23/2018 [id number] Ambulatory [facility] ing:LAB Repository 06/23/2018/06/23/19 [id number] Ambulatory BMSBuilding:[place] [facility] Repository 06/15/2018/06/19/19 [id number] Shawn, Inpatient [place] [facility] ing:WPRoom: Repository PE031Mjv: 1 06/15/2018 [id number] Shawn, Ambulatory BMSBuilding:[place] Repository 06/15/2018 [id number] Shawn, Ambulatory BMSBuilding:[place] Repository 06/15/2018 [id number] Shawn, Ambulatory BMSBuilding:[place] Repository 06/15/2018 [id number] Shawn, Ambulatory BMSBuilding:[place] Repository 06/15/2018 [id number] Shawn, Ambulatory BMSBuilding:[place] Repository 06/15/2018 [id number] Ambulatory BMSBuilding:[place] Repository 06/12/2018 [id number] Ambulatory Building:[facility] Repository 06/12/2018 [id number] Ambulatory [facility] ing:PAVLAB Repository 06/12/2018/06/12/19 [id number] Ambulatory BMSBuilding:B [place] Repository 06/09/2018 [id number] [facility] Repository 06/09/2018/06/09/19 [id number] [address] ing:WPOUTRoom Repository : WP013 06/09/2018/06/09/19 [id number] Ambulatory BMSBuilding:B [place] 19 [place] Repository 06/05/2018 [id number] [facility]LAB.[facility] Repository E 06/05/2018/06/05/20 [id number] Ambulatory BMSBuilding:B [place] 18 [place] Repository 06/02/2018 [id number] [facility]LAB Repository 05/31/2018 [id number] [facility]LAB Repository 05/27/2018 [id number] [facility]:LAB Repository 05/25/2018/05/25/20 [id number] Ambulatory [address] Repository 05/24/2018 [id number] [facility]:LABSPEC Repository 05/24/2018/05/24/20 [id number] Ambulatory BMSBuilding:B [place] 18 [facility] Repository 05/15/2018/05/15/20 [id number] Ambulatory Building:[address] Repository 05/11/2018 [id number] [facility] ing:LABSPEC Repository 05/11/2018/05/11/20 [id number] Ambulatory [address] Repository 05/11/2018/05/11/20 [id number] Ambulatory BMSBuilding:B [place] 18 [facility] Repository 04/26/2018/04/26/20 [id number] Ambulatory BMSBuilding:B [place] 18 [facility] Repository 04/17/2018 [id number] Ambulatory BMSBuilding:B [place] Repository 04/17/2018/04/17/20 [id number] Ambulatory Building:[address] Repository 04/17/2018/04/17/20 [id number] Ambulatory Building:[address] Repository 04/14/2018 [id number] Ambulatory BMSBuilding:B [place] Repository 04/13/2018 [id number] Ambulatory BMSBuilding:[place] Repository 04/13/2018/04/14/20 [id number] Ambulatory [address] Hospital ing:WPOUTRoom Repository : WP014 04/10/2018/04/12/20 [id number] Ambulatory [address] Repository 04/09/2018/04/09/20 [id number] [address] ing:WPOUTRoom Repository : WP013 04/07/2018 [id number] Ambulatory [facility] Hospital ing:LAB Repository 03/30/2018 [id number] [facility] ing:PAVLAB Repository 03/30/2018/03/30/20 [id number] Ambulatory BMSBuilding:B [place] 18 [facility] Repository 03/01/2018/03/01/20 [id number] Ambulatory [address] Repository 03/01/2018/03/01/20 [id number] Ambulatory BMSBuilding:B [place] 18 [facility] Repository 02/15/2018 [id number] Ambulatory [facility] Hospital ing:US Repository 01/25/2018 [id number] Ambulatory [facility] Hospital ing:POLAB3 Repository 01/25/2018 [id number] Ambulatory BMSBuilding:B [place] Repository 01/25/2018/01/26/20 [id number] Ambulatory BMSBuilding:B [place] 18 [facility] Repository 01/23/2018/01/24/20 [id number] Ambulatory [address] Repository 01/21/2018/01/22/20 [id number] Ambulatory [address] Repository 01/20/2018/01/25/20 [id number] Ambulatory [address] Repository 01/10/2018 [id number] Ambulatory BMSBuilding:[place] Repository 01/07/2018/01/08/20 [id number] Ambulatory [address] Repository 12/28/2017/12/29/19 [id number] Ambulatory BMSBuilding:B [place] 18 [facility] Repository 12/24/2017 [id number] Ambulatory [facility] Repository 12/12/2017/12/13/19 [id number] [facility] Ambulatory [address] ing:PCURoom: Repository [id number]: 1 12/12/2017 [id number] Aliza, [facility] Ambulatory BMSBuilding:B [place] Repository 12/12/2017 [id number] [facility] Ambulatory BMSBuilding:B [place].[facility] Repository 12/12/2017 [id number] [facility] Ambulatory BMSBuilding:B [place].[facility] Repository 11/30/2017 [id number] Ambulatory [facility] Repository 09/16/2017/09/17/19 [id number] Ambulatory [address] Repository 08/29/2017 [id number] Ambulatory [facility] ing:OMD Repository 08/29/2017 [id number] Ambulatory BMSBuilding:B [place] Repository 07/09/2017/07/09/19 [id number] Ambulatory [address] Repository PAYERS PAYERS ENCOUNTER GUARANTOR PAYER SUBSCRIBER SOURCE 06/28/2018 HILARIO NOLAN [place] [id number] Insurance:[facility]: [facility] y Number: [id number] [id number] Repository 233[address]Tsm: (330) Date:0242-79-57Qb [phone] ([address] [address]TF: 06/28/2018 Secondary NOT GIVENUNK [place] Insurance:SELF PAY [facility] Number: Effective Repository Date:2018-06-27 06/26/2018 HILARIO N Primary AN C [place] [id number] Insurance:ANTHEMPolic WELSHDOB: [facility] y Number: [id number], [place] [id number] Repository [address]Xjs: (330) Date:8274-98-81Dw [phone] () [address] [place] [address]AV: 06/26/2018 Secondary NOT GIVENUNK [place] Insurance:SELF PAY [facility] Number: Effective Repository Date:2018-06-26 06/26/2018 HILARIO N Primary AN C [place] [id number] Insurance:ANTHEMPolic WELSHDOB: [facility] y Number: [id number] [place] [id number] Repository [address]Otk: (330) Date:4685-85-61Ni [phone] () [address] [place] [address] 201[address]KK: 06/26/2018 Secondary NOT GIVENUNK [place] Insurance:SELF PAY [facility] Number: Effective Repository Date:2018-06-26 06/23/2018 HILARIO N Primary AN C [place] [id number] Insurance:ANTHEMPolic WELSHDOB: [facility] y Number: [id number], [place] [id number] Repository [address]Kie: 330) Date:3015-80-60Ua [phone] () [id number] [place] [address]ZR: 06/23/2018 Secondary NOT GIVENUNK [place] Insurance:SELF PAY [facility] Number: Effective Repository Date:2018-06-23 06/23/2018 HILARIO N Primary AN C [place] [id number] Insurance:ANTHEMPolic WELSHDOB: [facility] y Number: [id number] [place], [place] [id number] Repository [address]Bji: (330) Date:5459-16-50Ue [phone] () [id number] Ballard 287[address]BR: 06/23/2018 Secondary NOT GIVENUNK Paty Insurance:SELF PAY [facility] Number: Effective Repository Date:2018-06-23 06/15/2018 HILARIO N Primary AN C Paty [id number] Insurance:ANTHEMPolic WELSHDOB: Community [facility] y Number: [id number] [id number] Repository 56061Nqr: (330) Date:1400-34-19Wf [phone] () SHANA Walls 353[address]NU: 06/15/2018 Secondary NOT GIVENUNK [place] Insurance:SELF PAY [facility] Number: Effective Repository Date:2018-06-14 06/15/2018 HILARIO N Primary AN C Paty [id number] Insurance:ANTHEMPolic WELSHDOB: Community [facility] y Number: [id number] [place], [place] [id number] Repository 76508Jpv: (330) Date:2967-85-15Ro [address] [phone] () 360574CytakqoSHANA Ballard 27447QG: 06/15/2018 Secondary NOT GIVENUNK [place] Insurance:SELF PAY [facility] Number: Effective Repository Date:2018-06-15 06/15/2018 HILARIO N Primary AN C [place] [id number] Insurance:ANTHEMPolic WELSHDOB: [facility] y Number: [id number] [place], [place] [id number] Repository 33287Mpz: (330) Date:5606-64-53Ll [address] [phone] () [id number] Ballard 01445UF: 06/15/2018 Secondary NOT GIVENUNK [place] Insurance:SELF PAY [facility] Number: Effective Repository Date:2018-06-15 06/15/2018 HILARIO N Primary AN C [place] [id number] Insurance:ANTHEMPolic WELSHDOB: Community [facility] y Number: [id number] [place], [place] [id number] Repository 52973Vcv: (330) Date:8583-40-07Sz [phone] () 707565IvhklyoSHANA Ballard 04233GG: 06/15/2018 Secondary NOT GIVENUNK [place] Insurance:SELF PAY [facility] Number: Effective Repository Date:2018-06-15 06/15/2018 HILARIO N Primary AN C [place] [id number] Insurance:ANTHEMPolic WELSHDOB: [facility] y Number: [id number] [place] [id number] Repository 19147Kyc: (330) Date:9763-09-71Er [address] [phone] () 478548Qjweovm, [place] [address]LW: 06/15/2018 Secondary NOT GIVENUNK [place] Insurance:SELF PAY [facility] Number: Effective Repository Date:2018-06-15 06/15/2018 HILARIO N Primary AN C [place] [id number] Insurance:ANTHEMPolic WELSHDOB: [facility] y Number: [id number] [place] [id number] Repository 53772Jon: (330) Date:7694-13-13Dc [phone] () 452131Mwxgwyq, [place] [address]YD: 06/15/2018 Secondary NOT GIVENUNK [place] Insurance:SELF PAY [facility] Number: Effective Repository Date:2018-06-15 06/15/2018 HILARIO N Primary AN C [place] [id number] Insurance:ANTHEMPolic WELSHDOB: [facility] y Number: [id number] [place] [id number] Repository 17385Vfn: (330) Date:6059-53-07Hm [address] [phone] () 619869Wkncqtv, [place] [address]RL: 06/15/2018 Secondary NOT GIVENUNK [place] Insurance:SELF PAY [facility] Number: Effective Repository Date:2018-06-15 06/12/2018 HILARIO WELSHDOB: Primary HILARIO WELSHDOB: [facility] [id number] Insurance:ANTHEMPolic [id number] [facility] y Number: [address] [place], [place] [id number] [place], [place] [address]Dvl: (330) Date: [phone] () 06/12/2018 HILARIO N Primary AN C [place] [id number] Insurance:ANTHEMPolic WELDOB: [facility] y Number: [id number] [place] [id number] Repository 89996Nqo: (330) Date:1054-71-61Ep Box [phone] () 405268Cxbuoix, [place] [address]CL: 06/12/2018 Secondary NOT GIVENUNK [place] Insurance:SELF PAY [facility] Number: Effective Repository Date:2018-06-12 06/12/2018 HILARIO N Primary AN C [place] [id number] [facility]: [facility] y Number: [id number] [place], [place] [id number] Repository 83916Mie: (330) Date:8928-19-08Mh Box [phone] () [id number] [place] [address]SH: 06/12/2018 Secondary NOT GIVENUNK [place] Insurance:SELF PAY [facility] Number: Effective Repository Date:2018-06-12 06/09/2018 HILARIO N Primary AN C [place] [id number] Insurance:ANTHEMPolic WELDOB: [facility] y Number: [id number] [place], [place] [id number] Repository 97232Cit: (330) Date:9952-28-98Gz [address] [phone] () 879257Itniprw, [place] [address]UV: 06/09/2018 Secondary NOT GIVENUNK [place] Insurance:SELF PAY [facility] Number: Effective Repository Date:2018-06-09 06/09/2018 HILARIO N Primary AN Yates [place] [id number] Insurance:ANTHEMPolic WELSHDOB: [facility] y Number: [id number] [place], [place] [id number] Repository 91913Qwj: (330) Date:1231-30-34Vj [address] [phone] () [address] [place] [address] 93088YH: 06/09/2018 Secondary NOT GIVENUNK [place] Insurance:SELF PAY [facility] Number: Effective Repository Date:2018-06-09 06/09/2018 HILARIO N Primary AN C [place] [id number] Insurance:ANTHEMPolic WELSHDOB: [facility] y Number: [id number] Platte, [place] [id number] Repository 90420Dqn: (330) Date:0513-04-41Ig [address] [phone] () [address] [place] [address] 71683TL: 06/09/2018 Secondary NOT GIVENUNK [place] Insurance:SELF PAY [facility] Number: Effective Repository Date:2018-06-09 06/05/2018 HILARIO N Primary AN C [place] [id number] Insurance:ANTHEMPolic WELSHDOB: [facility] y Number: [id number] [place] [id number] Repository 40231Fxs: (330) Date:1809-43-50Fb [phone] () [address] [place] [address] 30043YR: 06/05/2018 Secondary NOT GIVENUNK [place] Insurance:SELF PAY [facility] Number: Effective Repository Date:2018-06-04 06/05/2018 HILARIO N Primary AN C [place] [id number] Insurance:ANTHEMPolic WELSHDOB: [facility] y Number: [id number] [place] [id number] Repository 22235Ccx: (330) Date:9049-33-08Vz [address] [phone] () 830587Xdhzyaa, [place] [address]HJ: 06/05/2018 Secondary NOT GIVENUNK [place] Insurance:SELF PAY [facility] Number: Effective Repository Date:2018-06-05 06/02/2018 HILARIO N Primary AN C [place] [id number] Insurance:ANTHEMPolic WELSHDOB: [facility] y Number: [id number] [place], [place] [id number] Repository 68253Vjs: (330) Date:5103-99-53Qg [phone] () 287492Izxyris, [place] [address]SX: 06/02/2018 Secondary NOT GIVENUNK [place] Insurance:SELF PAY [facility] Number: Effective Repository Date:2018-06-02 05/31/2018 HILARIO N Primary AN C [place] [id number] Insurance:ANTHEMPolic WELSHDOB: [facility] y Number: [id number] [place], [place] [id number] Repository 10310Pfo: (330) Date:9245-87-80Qm [address] [phone] () 790611Qbojmcf, [place] [address]DG: 05/31/2018 Secondary NOT GIVENUNK [place] Insurance:SELF PAY [facility] Number: Effective Repository Date:2018-05-31 05/27/2018 HILARIO N Primary AN C [place] [id number] Insurance:ANTHEMPolic WELSHDOB: [facility] y Number: [id number] [place] [id number] Repository 39282Xwz: (330) Date:4028-88-27Yy [address] [phone] () 533427Hfaxwju, [place] [address]WS: 05/27/2018 Secondary NOT GIVENUNK [place] Insurance:SELF PAY [facility] Number: Effective Repository Date:2018-05-24 05/24/2018 HILARIO N Primary AN C [place] [id number] Insurance:ANTHEMPolic WELSHDOB: [facility] y Number: [id number] Platte, [place] [id number] Repository 55639Csa: (330) Date:9240-56-84Gc Box [phone] () 160698Yzxjibm, [place] [address]SD: 05/24/2018 Secondary NOT GIVENUNK [place] Insurance:SELF PAY [facility] Number: Effective Repository Date:2018-05-24 05/24/2018 HILARIO N Primary AN C [place] [id number] Insurance:ANTHEMPolic WELSHDOB: [facility] y Number: [id number] Platte, [place] [id number] Repository 17216Wbg: (330) Date:6676-36-30Vs [address] [phone] () 906046Vtehiza, [place] [address]QT: 05/24/2018 Secondary NOT GIVENUNK [place] Insurance:SELF PAY [facility] Number: Effective Repository Date:2018-05-24 05/15/2018 HILARIO WELSHDOB: Primary HILARIO WELSHDOB: [facility] [id number] Insurance:ANTHEMPolic [id number] [facility] y Number: [address] [place], [place] [id number] [place], [place] [address]Snt: (330) Date: 00195 [phone] () 05/11/2018 HILARIO N Primary AN C [place] [id number] Insurance:ANTHEMPolic WELSHDOB: [facility] y Number: [id number] [place] [id number] Repository 75432Tsy: (330) Date:1184-51-76Wi Box [phone] () 127511Qdlkgan, [place] [address]VS: 05/11/2018 Secondary NOT GIVENUNK [place] Insurance:SELF PAY [facility] Number: Effective Repository Date:2018-05-11 05/11/2018 HILARIO N Primary AN C [place] [id number] Insurance:ANTHEMPolic BURKINANDOB: [facility] y Number: [id number] [place] [id number] Repository 25304Sic: (330) Date:6271-59-91Iv [address] () [address] [place] [address] 79751BA: 05/11/2018 Secondary NOT GIVENUNK [place] Insurance:SELF PAY [facility] Number: Effective Repository Date:2018-05-11 04/26/2018 HILARIO N Primary AN C [place] [id number] Insurance:ANTHEMPGouverneur HealthB: [facility] y Number: [id number] [place], [place] [id number] Repository 51545Zle: (330) Date:8977-21-05Cs [address] [phone] () [address]ud[address] [place] [address] 65[address]JQ: 04/26/2018 Secondary NOT GIVENUNK [place] Insurance:SELF PAY [facility] Number: Effective Repository Date:2018-04-26 04/17/2018 HILARIO N Primary NOT GIVENUNK [place] [id number] Insurance[place] Number: Effective Repository [address]Xou: (330) Date:2018-04-17 () 04/17/2018 HILARIO WELSHDOB: Primary HILARIO WELSHDOB: [facility] [id number] [facility] [id number] y Number: [address] [place], [place] [id number] [place], [place] [address]Mlo: (330) Date: () 04/17/2018 HILARIO WELSHDOB: Primary HILARIO WELSHDOB: [facility] [id number] [facility] [id number] y Number: [address] [place], [place] [id number] [place] [address]Gzd: (330) Date: () 04/14/2018 HILARIO N Primary AN C [place] [id number] Insurance:ANTHEMPolic WELSHDOB: [facility] y Number: [id number] [place], [place] [id number] Repository 95356Nhg: (330) Date:7180-02-26Yg [address] [phone] () SHANA Walls 99[address]DC: 04/14/2018 Secondary NOT GIVENUNK [place] Insurance:SELF PAY [facility] Number: Effective Repository Date:2018-04-14 04/13/2018 HILARIO N Primary AN C [place] [id number] Insurance:ANTHEMPolic WELSHDOB: [facility] y Number: [id number] [place], [place] [id number] Repository 10931Mzs: (330) Date:5738-35-62Tn [address] [phone] () 122047Agzkzwe, [place] [address]HH: 04/13/2018 Secondary NOT GIVENUNK [place] Insurance:SELF PAY [facility] Number: Effective Repository Date:2018-04-13 04/13/2018 HILARIO N Primary AN C [place] [id number] Insurance:ANTHEMPolic WELSHDOB: [facility] y Number: [id number] [place]atte, [place] [id number] Repository 49438Luv: (330) Date:0092-49-04Zz Box [phone] () 246035Qetmxbj, [place] [address]ZH: 04/13/2018 Secondary NOT GIVENUNK [place] Insurance:SELF PAY [facility] Number: Effective Repository Date:2018-04-13 04/09/2018 HILARIO N Primary AN C [place] [id number] Insurance:ANTHEMPolic WELSHDOB: [facility] y Number: [id number] [place]atte, [place] [id number] Repository 10609Aqh: (330) Date:6438-10-58In [address] [phone] () 914245Ypxvvtd, [place] [address]IL: 04/09/2018 Secondary NOT GIVENUNK [place] Insurance:SELF PAY [facility] Number: Effective Repository Date:2018-04-09 04/07/2018 HILARIO N Primary AN Yates [place] [id number] Insurance:ANTHEMPolic WELSHDOB: [facility] [place] y Number: [id number] Platte, [place] [id number] Repository 63560Yfl: (330) Date:4696-75-55Um [address] [phone] () [address] [place] [address]3447CT: 04/07/2018 Secondary NOT GIVENUNK [place] Insurance:SELF PAY [facility] Number: Effective Repository Date:2018-03-31 03/30/2018 HILARIO N Primary AN Yates [place] [id number] Insurance:ANTHEMPolic WELSHDOB: [facility] [place] y Number: [id number] [place] [id number] Repository 42584Vme: (330) Date:9348-58-01Ds Box [phone] () [address] [place] [address] 58999EQ: 03/30/2018 Secondary NOT GIVENUNK [place] Insurance:SELF PAY [facility] Number: Effective Repository Date:2018-03-30 03/30/2018 HILARIO N Primary AN Yates [place] [id number] Insurance:ANTHEMPolic WELSHDOB: [facility] y Number: [id number] [place], [place] [id number] Repository 92108Cik: (330) Date:3169-62-81Ah Box [phone] () [address] [place] [address] 10511ZN: 03/30/2018 Secondary NOT GIVENUNK [place] Insurance:SELF PAY [facility] Number: Effective Repository Date:2018-03-30 03/01/2018 HILARIO N Primary AN C [place] [id number] Insurance:ANTHEMPolic WELSHDOB: [facility] y Number: [id number] [place] [id number] Repository 69989Dov: (330) Date:2814-17-39Ir Box [phone] () 341115QmaczopSHANA Ballard [address]3676LN: 03/01/2018 Secondary NOT GIVENUNK [place] Insurance:SELF PAY [facility] Number: Effective Repository Date:2018-03-01 02/15/2018 HILARIO N Primary AN C [place] [id number] Insurance:ANTHEMPolic WELSHDOB: [facility] y Number: [id number] [place], [place] [id number] Repository 45148Bsu: (330) Date:6524-69-88Hv [address] [phone] () 252655Nsdyadx, [place] [address]DX: 02/15/2018 Secondary NOT GIVENUNK [place] Insurance:SELF PAY [facility] Number: Effective Repository Date:2018-01-26 01/25/2018 HILARIO N Primary AN C [place] [id number] Insurance:ANTHEMPolic WELSHDOB: [facility] y Number: [id number] [place] [id number] Repository 61058Skb: (330) Date:0881-16-56Aq Box [phone] () 108409Dfflzzi, [place] [address]LU: 01/25/2018 Secondary NOT GIVENUNK [place] Insurance:SELF PAY [facility] Number: Effective Repository Date:2018-01-25 01/25/2018 HILARIO N Primary AN C [place] [id number] Insurance:ANTHEMPolic WELSHDOB: [facility] y Number: [id number] [place], [place] [id number] Repository 82795Svo: (330) Date:7053-63-44Bx [address] [phone] () 623166Zmiaijn, [place] [address]AD: 01/25/2018 Secondary NOT GIVENUNK [place] Insurance:SELF PAY [facility] Number: Effective Repository Date:2017-12-28 01/25/2018 HILARIO N Primary AN C [place] [id number] Insurance:ANTHEMPolic WELSHDOB: [facility] y Number: [id number] [place]atte, [place] [id number] Repository 44155Wye: (330) Date:0437-50-13Od Box [phone] () [id number] [place] [address]GK: 01/25/2018 Secondary NOT GIVENUNK [place] Insurance:SELF PAY [facility] Number: Effective Repository Date:2018-01-25 01/10/2018 HILARIO N Primary AN C [place] [id number] Insurance:ANTHEMPolic WELSHDOB: [facility] [place] y Number: [id number] [place] [id number] Repository 62411Ghm: (330) Date:1744-06-63Ip Box [phone] () 870650Lwxmgby, [place] [address]FY: 01/10/2018 Secondary NOT GIVENUNK [place] Insurance:SELF PAY [facility] Number: Effective Repository Date:2018-01-02 12/28/2017 HILARIO N Primary AN C [place] [id number] Insurance:ANTHEMPolic WELSHDOB: [facility] [place] y Number: [id number] [place] [id number] Repository 07917Nbb: (330) Date:7409-35-91Fi Box [phone] () 753031Snowtre, [place] [address]BZ: 12/28/2017 Secondary NOT GIVENUNK [place] Insurance:SELF PAY [facility] Number: Effective Repository Date:2017-12-28 12/24/2017 HILARIO N Primary AN C [place] [id number] Insurance:ANTHEMPolic WELSHDOB: [facility] [place] y Number: [id number] Platte, [place] [id number] Repository 15225Ylr: (330) Date:4210-74-27Gi Box [phone] () 433197Mtoqvqg, [place] [address]UE: 12/24/2017 Secondary NOT GIVENUNK [place] Insurance:SELF PAY [facility] Number: Effective Repository Date:2017-12-24 12/12/2017 Hilario N Primary AN C [place] [id number] Insurance:ANTHEMPolic WELSHDOB: [facility] y Number: [id number] [place] [id number] Repository 99075Bjo: (330) Date:4460-30-38Lj Box [phone] () 172497EwuozamSHANA Ballard [address]VQ: 12/12/2017 Secondary NOT GIVENUNK [place] Insurance:SELF PAY [facility] Number: Effective Repository Date:2017-12-11 12/12/2017 Hilario N Primary AN C [place] [id number] Insurance:ANTHEMPolic WELSHDOB: [facility] y Number: [id number] [place] [id number] Repository 22724Iby: (330) Date:6999-43-49Xq Box [phone] () 107059WzpbcgsSHANA Ballard [address]14[address]SW: 12/12/2017 Secondary NOT GIVENUNK [place] Insurance:SELF PAY [facility] Number: Effective Repository Date:2017-12-12 12/12/2017 HILARIO N Primary AN C [place] [id number] Insurance:ANTHEMPolic WELSHDOB: [facility] y Number: [id number] [place] [id number] Repository 55710Srg: (330) Date:7596-07-73Kw Box [phone] () 252937Zdhgifc, [place] [address]CZ: 12/12/2017 Secondary NOT GIVENUNK [place] Insurance:SELF PAY [facility] Number: Effective Repository Date:2017-12-12 12/12/2017 Hilario N Primary AN C [place] [id number] Insurance:ANTHEMPolic WELSHDOB: [facility] y Number: [id number] [place]atte, [place] [id number] Repository 97349Yax: (330) Date:3101-97-26Sw Box [phone] () 711781AambtvxSHANA Ballard 25817WE: 12/12/2017 Secondary NOT GIVENUNK [place] Insurance:SELF PAY [facility] Number: Effective Repository Date:2017-12-12 11/30/2017 HILARIO N Primary AN Yates [place] [id number] Insurance:ANTHEMPolic WELSHDOB: [facility] y Number: [id number] [place], [place] [id number] Repository 49993Wxv: (330) Date:3164-80-40Zz [address] [phone] () 20[address]Ngbhsf[address] [place] [address] 19953MS: 11/30/2017 Secondary NOT GIVENUNK [place] Insurance:SELF PAY [facility] Number: Effective Repository Date:2017-11-30 08/29/2017 Hilario N Primary AN Yates [place] [id number] Insurance:ANTHEMPolic WELSHDOB: [facility] y Number: [id number], [place] [id number] Repository 53353Rkt: (330) Date:7904-32-76Cb [address] [phone] () 9[address]Sdmex[address] [place] [address] 88563YN: 08/29/2017 Secondary NOT GIVENUNK [place] Insurance:SELF PAY [facility] Number: Effective Repository Date:2016-08-25 08/29/2017 Hilario N Primary AN Yates [place] [id number] Insurance:ANTHEMPolic WELSHDOB: [facility] y Number: [id number], [place] [id number] Repository 36183Ukt: (330) Date:7182-50-48Mw Box [phone] () 010048Rxxqpko, [place] [address]ZR: 08/29/2017 Secondary NOT GIVENUNK [place] Insurance:SELF PAY [facility] Number: Effective Repository Date:2017-08-29
== END ==
PROVIDERS: Family Provider Family Medicine; PCP Family Medicine; Referring Provider Nurse Practitioner Women's Health; Visit Provider Nurse Practitioner Women's Health
DX: T81.42XD Infection following a procedure, deep incisional surgical site, subsequent encounter (principal)
CPT/HCPCS: 87070; 87075; 87076; 87077; 87186; 87205

== ENCOUNTER 2018-07-05 10:45 | Outpatient (RCR) | payer BC, SELFPAY ==
[2018-06-26 16:14] VITALS: BMI 44.1
[2018-06-28 10:41] VITALS: BP 139/83; PULSE 93; RESP 20; TEMP 36.5; BMI 40.8
--- NOTE | 2018-06-28 12:28 | PCM.WC.HP ---
(1) Surgical wound dehiscence Status: Acute Current Visit: Yes Code(s): T81.31XA - Disruption of external operation (surgical) wound, not elsewhere classified, initial encounter History of Present Illness Chief Complaint: Surgical wound breakdown. History of Wound: Ms. Damico is a 28-year-old status post a section on 17 June who noted breakdown of her wound on 24 June and was subsequently referred here by her bucket operator. Initially noted some pain and redness around the area before he subsequently broke open. She was seen by her bucket operator and had culture taken. She also had the wound packed. She has noticed significant drainage from the wound. She denies chills, fever, nausea or vomiting. She however is on antibiotics prescribed by her bucket operator. Her new born daughter is also been managed at the intensive care unit at [facility] due to E. coli sepsis. Past Medical History Past Medical History: Chronic Problems (Last Reviewed 06/26/18 @ 16:11 by Agnes Echeverria) Cutaneous mastocytosis (Chronic) Surgical History: noncontributory Allergies/Adverse Reactions: Allergies No Known Allergies Allergy (Verified 06/28/18 11:04) Home Medications: Ambulatory Orders Medication Instructions Recorded Cetirizine HCl [Zyrtec] 10 mg PO QHS 08/27/16 Epinephrine [Epipen 2-Mika] 1 ml SQ PRN PRN 08/27/16 Ranitidine [Zantac] 150 mg PO BID 08/27/16 levothyroxine 150 mcg tablet 150 mcg PO DAILY #30 tab 12/28/17 Vits [Prenatabs FA] 1 tab PO DAILY 04/09/18 sertraline 50 mg tablet 50 mg PO DAILY 05/24/18 clindamycin HCl 300 mg capsule 300 mg PO TID #30 cap 06/23/18 fluconazole 150 mg tablet 150 mg PO .COMPLEX #2 tab 06/23/18 Smoking Status: Never smoker Review of Systems Constitutional: Denies: Anorexia, Chills, Malaise, Weakness HEENT: Denies: Difficulty Hearing, Difficulty Swallowing Cardiovascular: Denies: Chest Pain, Chest Pressure Respiratory: Denies: Hemoptysis Gastrointestinal: Denies: Hematemesis, Vomiting Genitourinary: Denies: Hematuria Skin: Denies: Jaundice - Physical Exam Vital Signs Temp Pulse Resp BP 97.7 F L 93 20 H 139/83 H 06/28/18 10:41 06/28/18 10:41 06/28/18 10:41 06/28/18 10:41 General: Alert, Oriented x3, Cooperative, No apparent distress HEENT: Atraumatic, Normocephalic Oral: Moist Mucosa Neck: Supple Lungs: Normal air movement Cardiovascular: Regular rate, Regular Rhythm Abdomen: Soft, Obese Extremities: No cyanosis Skin: Ulcer/ Wound Wound Measurements and Assessment WC - Nurse 1 - General Ulcer Measurement Start: 06/28/18 10:39 Freq: Status: Active Protocol: Activity Type Activity Date Activity User E-Sign Co-Sign Detail Recorded Client Recorded Date Recorded By Document 06/28/18 10:41 DL [id number] 06/28/18 11:00 DL 06/28/18 10:41 Wound Center Nurse 1 [Ulcer Assessment] #1 Lower Abd -Current Size (cm) - Length 1 -Current Size (cm) - Width 7.7 -Current Size (cm) - Depth 3.8 -Total Square Cm 7.7 -Photo Taken Yes -Classification - Thickness Full Thickness without Exposed Support Structure -Exudate Amt Medium -Exudate Type Serosanguineous -Wound Margin Distinct, Outline Attached -Granulation Amt Medium (34-66%) -Granulation Quality [place] Red -Necrosis Amt Medium (34-66%) -Necrotic Tissue Type Adherent Slough -Structure Exposed N/A -Texture (Lorri-wound Skin Appearance) Induration Localized Edema Scarring -Color (Lorri-wound Skin Appearance) Erythema Rubor -Temperature (Lorri-wound Skin No Abnormality Appearance) (Pt Warm) -Tenderness on Palpation (Lorri-wound No Skin Appearance) -Ulcer Cleansing Wound Cleanser -Foul Odor after Cleansing No -Anesthetic Used 4% Lidocaine Solution WC - Nurse 2 - General Ulcer CM Notes Start: 06/28/18 10:39 Freq: Status: Active Protocol: Activity Type Activity Date Activity User E-Sign Co-Sign Detail Recorded Client Recorded Date Recorded By Document 06/28/18 11:19 MW [id number] 06/28/18 11:30 MW 06/28/18 11:19 Wound Center Nurse 2 [Procedure/Treatment] -Time 11:22 -Correct Patient Yes -Correct Side, Site, Position Yes -Correct Procedure Yes -Procedure Performed Yes -Type of Procedure Debridement -Clinical Debridement Subcutaneous -Post Debridement Size (cm) - Length 1.0 -Post Debridement Size (cm) - Width 8.0 -Post Debridement Size (cm) - Depth 4.5 -Total Square Cm 8.00 -Wound/Ulcer Outcome Not Healed -Ulcer Cleansing Rinsed/ Irrigated with Saline -Foul Odor after Cleansing No -Bioengineered Tissue No -Bleeding Controlled with Pressure -Offloading No -Treatment Response Procedure Tolerated Well [See Physician Procedure note for Specifics] Pain Scale: 0-10 Numeric [Pain] -Is Patient Pain Free? Yes Musculoskeletal: No Muscle Wasting Neurological: Cranial nerves II-XII grossly intact Psych/Mental Status: Normal Affect Debridement Note Post-Debridement Measurements/Treatment WC - Nurse 2 - General Ulcer CM Notes Start: 06/28/18 10:39 Freq: Status: Active Protocol: Activity Type Activity Date Activity User E-Sign Co-Sign Detail Recorded Client Recorded Date Recorded By Document 06/28/18 11:19 MW [id number] 06/28/18 11:30 MW 06/28/18 11:19 Wound Center Nurse 2 #1 Lower Abd -Time 11:22 -Correct Patient Yes -Correct Side, Site, Position Yes -Correct Procedure Yes -Procedure Performed Yes -Type of Procedure Debridement -Clinical Debridement Subcutaneous -Post Debridement Size (cm) - Length 1.0 -Post Debridement Size (cm) - Width 8.0 -Post Debridement Size (cm) - Depth 4.5 -Total Square Cm 8.00 -Wound/Ulcer Outcome Not Healed -Ulcer Cleansing Rinsed/ Irrigated with Saline -Foul Odor after Cleansing No -Bioengineered Tissue No -Bleeding Controlled with Pressure -Offloading No -Treatment Response Procedure Tolerated Well Pain Scale: 0-10 Numeric Is Patient Pain Free? Yes Wound debrided: Lower abdominal Wound Grade/Stage: Stage III Type of Debridement: Excisional debridement Anesthesia Used: 4% Lidocaine Solution Depth: Down to and including healthy tissue, in the subcutaneous layer Percentage of wound debrided: 100 Instrument Used: 5mm curette Tissue Removed: Slough, devitalized tissue, purulent material. Severity: Fat Layer Exposed Amount of bleeding with debridement: Mild Bleeding Controlled with: Pressure Patient tolerated procedure well Assessment/Plan Active Problems (Last Reviewed 06/26/18 @ 16:11 by Agnes Echeverria) Surgical wound dehiscence (Acute) Assessment: Surgical wound dehiscence with possible postsurgical infection. E. coli sepsis. Plan: Debridement done as documented above. Procedure was well-tolerated. Significant drainage and purulence substance noted in the wound. Also with significant depth and friable skin. I believe she will benefit significantly from a wound VAC. Application on the way. Culture has been taken by her bucket operator, will await results. For now Aquacel AG daily to twice daily (depending on drainage) with Adaptic over top. Increased protein intake recommended. Continue current antibiotic for now. She was advised to call with any further questions or concerns otherwise, follow-up in 1 week.
--- NOTE | 2018-06-28 12:40 | HP.PCM_ITS ---
(1) Surgical wound dehiscence Status: Acute Current Visit: Yes Code(s): T81.31XA - Disruption of external operation (surgical) wound, not elsewhere classified, initial encounter History of Present Illness Chief Complaint: Surgical wound breakdown. History of Wound: Ms. Damico is a 28-year-old status post a section on 17 June who noted breakdown of her wound on 24 June and was subsequently referred here by her dairy farmworker. Initially noted some pain and redness around the area before he subsequently broke open. She was seen by her dairy farmworker and had culture taken. She also had the wound packed. She has noticed significant drainage from the wound. She denies chills, fever, nausea or vomiting. She however is on antibiotics prescribed by her dairy farmworker. Her new born daughter is also been managed at the intensive care unit at [facility] due to E. coli sepsis. Past Medical History Past Medical History: Chronic Problems (Last Reviewed 06/26/18 @ 16:11 by Agnes Echeverria) Cutaneous mastocytosis (Chronic) Surgical History: noncontributory Allergies/Adverse Reactions: Allergies No Known Allergies Allergy (Verified 06/28/18 11:04) Home Medications: Ambulatory Orders Medication Instructions Recorded Cetirizine HCl [Zyrtec] 10 mg PO QHS 08/27/16 Epinephrine [Epipen 2-Mika] 1 ml SQ PRN PRN 08/27/16 Ranitidine [Zantac] 150 mg PO BID 08/27/16 levothyroxine 150 mcg tablet 150 mcg PO DAILY #30 tab 12/28/17 Vits [Prenatabs FA] 1 tab PO DAILY 04/09/18 sertraline 50 mg tablet 50 mg PO DAILY 05/24/18 clindamycin HCl 300 mg capsule 300 mg PO TID #30 cap 06/23/18 fluconazole 150 mg tablet 150 mg PO .COMPLEX #2 tab 06/23/18 Smoking Status: Never smoker Review of Systems Constitutional: Denies: Anorexia, Chills, Malaise, Weakness HEENT: Denies: Difficulty Hearing, Difficulty Swallowing Cardiovascular: Denies: Chest Pain, Chest Pressure Respiratory: Denies: Hemoptysis Gastrointestinal: Denies: Hematemesis, Vomiting Genitourinary: Denies: Hematuria Skin: Denies: Jaundice - Physical Exam Vital Signs Temp Pulse Resp BP 97.7 F L 93 20 H 139/83 H 06/28/18 10:41 06/28/18 10:41 06/28/18 10:41 06/28/18 10:41 General: Alert, Oriented x3, Cooperative, No apparent distress HEENT: Atraumatic, Normocephalic Oral: Moist Mucosa Neck: Supple Lungs: Normal air movement Cardiovascular: Regular rate, Regular Rhythm Abdomen: Soft, Obese Extremities: No cyanosis Skin: Ulcer/ Wound Wound Measurements and Assessment WC - Nurse 1 - General Ulcer Measurement Start: 06/28/18 10:39 Freq: Status: Active Protocol: Activity Type Activity Date Activity User E-Sign Co-Sign Detail Recorded Client Recorded Date Recorded By Document 06/28/18 10:41 DL [id number] 06/28/18 11:00 DL 06/28/18 10:41 Wound Center Nurse 1 [Ulcer Assessment] #1 Lower Abd -Current Size (cm) - Length 1 -Current Size (cm) - Width 7.7 -Current Size (cm) - Depth 3.8 -Total Square Cm 7.7 -Photo Taken Yes -Classification - Thickness Full Thickness without Exposed Support Structure -Exudate Amt Medium -Exudate Type Serosanguineous -Wound Margin Distinct, Outline Attached -Granulation Amt Medium (34-66%) -Granulation Quality [place] Red -Necrosis Amt Medium (34-66%) -Necrotic Tissue Type Adherent Slough -Structure Exposed N/A -Texture (Lorri-wound Skin Appearance) Induration Localized Edema Scarring -Color (Lorri-wound Skin Appearance) Erythema Rubor -Temperature (Lorri-wound Skin No Abnormality Appearance) (Pt Warm) -Tenderness on Palpation (Lorri-wound No Skin Appearance) -Ulcer Cleansing Wound Cleanser -Foul Odor after Cleansing No -Anesthetic Used 4% Lidocaine Solution WC - Nurse 2 - General Ulcer CM Notes Start: 06/28/18 10:39 Freq: Status: Active Protocol: Activity Type Activity Date Activity User E-Sign Co-Sign Detail Recorded Client Recorded Date Recorded By Document 06/28/18 11:19 MW [id number] 06/28/18 11:30 MW 06/28/18 11:19 Wound Center Nurse 2 [Procedure/Treatment] -Time 11:22 -Correct Patient Yes -Correct Side, Site, Position Yes -Correct Procedure Yes -Procedure Performed Yes -Type of Procedure Debridement -Clinical Debridement Subcutaneous -Post Debridement Size (cm) - Length 1.0 -Post Debridement Size (cm) - Width 8.0 -Post Debridement Size (cm) - Depth 4.5 -Total Square Cm 8.00 -Wound/Ulcer Outcome Not Healed -Ulcer Cleansing Rinsed/ Irrigated with Saline -Foul Odor after Cleansing No -Bioengineered Tissue No -Bleeding Controlled with Pressure -Offloading No -Treatment Response Procedure Tolerated Well [See Physician Procedure note for Specifics] Pain Scale: 0-10 Numeric [Pain] -Is Patient Pain Free? Yes Musculoskeletal: No Muscle Wasting Neurological: Cranial nerves II-XII grossly intact Psych/Mental Status: Normal Affect Debridement Note Post-Debridement Measurements/Treatment WC - Nurse 2 - General Ulcer CM Notes Start: 06/28/18 10:39 Freq: Status: Active Protocol: Activity Type Activity Date Activity User E-Sign Co-Sign Detail Recorded Client Recorded Date Recorded By Document 06/28/18 11:19 MW [id number] 06/28/18 11:30 MW 06/28/18 11:19 Wound Center Nurse 2 #1 Lower Abd -Time 11:22 -Correct Patient Yes -Correct Side, Site, Position Yes -Correct Procedure Yes -Procedure Performed Yes -Type of Procedure Debridement -Clinical Debridement Subcutaneous -Post Debridement Size (cm) - Length 1.0 -Post Debridement Size (cm) - Width 8.0 -Post Debridement Size (cm) - Depth 4.5 -Total Square Cm 8.00 -Wound/Ulcer Outcome Not Healed -Ulcer Cleansing Rinsed/ Irrigated with Saline -Foul Odor after Cleansing No -Bioengineered Tissue No -Bleeding Controlled with Pressure -Offloading No -Treatment Response Procedure Tolerated Well Pain Scale: 0-10 Numeric Is Patient Pain Free? Yes Wound debrided: Lower abdominal Wound Grade/Stage: Stage III Type of Debridement: Excisional debridement Anesthesia Used: 4% Lidocaine Solution Depth: Down to and including healthy tissue, in the subcutaneous layer Percentage of wound debrided: 100 Instrument Used: 5mm curette Tissue Removed: Slough, devitalized tissue, purulent material. Severity: Fat Layer Exposed Amount of bleeding with debridement: Mild Bleeding Controlled with: Pressure Patient tolerated procedure well Assessment/Plan Active Problems (Last Reviewed 06/26/18 @ 16:11 by Agnes Echeverria) Surgical wound dehiscence (Acute) Assessment: Surgical wound dehiscence with possible postsurgical infection. E. coli sepsis. Plan: Debridement done as documented above. Procedure was well-tolerated. Significant drainage and purulence substance noted in the wound. Also with significant depth and friable skin. I believe she will benefit significantly from a wound VAC. Application on the way. Culture has been taken by her dairy farmworker, will await results. For now Aquacel AG daily to twice daily (depending on drainage) with Adaptic over top. Increased protein intake recommended. Continue current antibiotic for now. She was advised to call with any further questions or concerns otherwise, follow-up in 1 week.
[2018-07-03 12:23] VITALS: BP 136/78; PULSE 96; RESP 18; TEMP 36.6; BMI 40.8
[2018-07-05 10:57] VITALS: BP 129/72; PULSE 89; RESP 20; TEMP 37; BMI 40.8
--- NOTE | 2018-07-05 11:38 | PCM.WC.PN ---
(1) Surgical wound dehiscence Status: Acute Current Visit: Yes Code(s): T81.31XA - Disruption of external operation (surgical) wound, not elsewhere classified, initial encounter Type of Wound Chief Complaint: Surgical wound breakdown. History of Wound: Ms. Damico is a 28-year-old status post a section on 17 June who noted breakdown of her wound on 24 June and was subsequently referred here by her supervisor advice. Initially noted some pain and redness around the area before he subsequently broke open. She was seen by her supervisor advice and had culture taken. She also had the wound packed. She has noticed significant drainage from the wound. She denies chills, fever, nausea or vomiting. She however is on antibiotics prescribed by her supervisor advice. Her new born daughter is also been managed at the intensive care unit at [facility] due to E. coli sepsis. Progress of Wound: Stable. No new concerns at this time. Tolerating wound vac well. - Physical Exam Vital Signs Temp Pulse Resp BP 98.6 F 89 20 H 129/72 H 07/05/18 10:57 07/05/18 10:57 07/05/18 10:57 07/05/18 10:57 General: Alert, Oriented x3, Cooperative, No apparent distress HEENT: Atraumatic, Normocephalic Oral: Moist Mucosa Neck: Supple Lungs: Normal air movement Abdomen: Soft, Obese Skin: Ulcer/ Wound Wound Measurements and Assessment WC - Nurse 1 - General Ulcer Measurement Start: 06/28/18 10:39 Freq: Status: Active Protocol: Activity Type Activity Date Activity User E-Sign Co-Sign Detail Recorded Client Recorded Date Recorded By Document 07/05/18 10:57 DL [id number] 07/05/18 11:07 DL 07/05/18 10:57 Wound Center Nurse 1 [Ulcer Assessment] #1 Lower Abd -Current Size (cm) - Length 1.5 -Current Size (cm) - Width 9.8 -Current Size (cm) - Depth 3.9 -Total Square Cm 14.70 -Photo Taken No -Exudate Amt Medium -Exudate Type Serosanguineous -Wound Margin Distinct, Outline Attached -Granulation Amt Large (67-100%) -Granulation Quality Red -Necrosis Amt Small (1-33%) -Necrotic Tissue Type Adherent Slough -Structure Exposed N/A -Texture (Lorri-wound Skin Appearance) Scarring -Moisture (Lorri-wound Skin Appearance No Abnormality ) -Color (Lorri-wound Skin Appearance) No Abnormality -Temperature (Lorri-wound Skin No Abnormality Appearance) (Pt Warm) -Tenderness on Palpation (Lorri-wound No Skin Appearance) -Ulcer Cleansing Wound Cleanser -Foul Odor after Cleansing No -Anesthetic Used 4% Lidocaine Solution WC - Nurse 2 - General Ulcer CM Notes Start: 06/28/18 10:39 Freq: Status: Active Protocol: Activity Type Activity Date Activity User E-Sign Co-Sign Detail Recorded Client Recorded Date Recorded By Document 07/05/18 11:22 MW [id number] 07/05/18 11:26 MW 07/05/18 11:22 Wound Center Nurse 2 [Procedure/Treatment] -Time 11:23 -Correct Patient Yes -Correct Side, Site, Position Yes -Correct Procedure Yes -Procedure Performed Yes -Type of Procedure Debridement -Clinical Debridement Subcutaneous -Post Debridement Size (cm) - Length 1.3 -Post Debridement Size (cm) - Width 11.7 -Post Debridement Size (cm) - Depth 3.8 -Total Square Cm 15.21 -Wound/Ulcer Outcome Not Healed -Ulcer Cleansing Rinsed/ Irrigated with Saline -Foul Odor after Cleansing No -Bioengineered Tissue No -Bleeding Controlled with Pressure -Offloading No -Treatment Response Procedure Tolerated Well [See Physician Procedure note for Specifics] Pain Scale: 0-10 Numeric [Pain] -Is Patient Pain Free? Yes Musculoskeletal: No Muscle Wasting Neurological: Cranial nerves II-XII grossly intact Psych/Mental Status: Normal Affect Debridement Note Post-Debridement Measurements/Treatment - Nurse 2 - General Ulcer CM Notes Start: 06/28/18 10:39 Freq: Status: Active Protocol: Activity Type Activity Date Activity User E-Sign Co-Sign Detail Recorded Client Recorded Date Recorded By Document 06/28/18 11:19 MW [id number] 06/28/18 11:30 MW Document 07/05/18 11:22 MW [id number] 07/05/18 11:26 MW 06/28/18 07/05/18 11:19 11:22 Wound Center Nurse 2 #1 Lower Abd -Time 11:22 11:23 -Correct Patient Yes Yes -Correct Side, Site, Position Yes Yes -Correct Procedure Yes Yes -Procedure Performed Yes Yes -Type of Procedure Debridement Debridement -Clinical Debridement Subcutaneous Subcutaneous -Post Debridement Size (cm) - Length 1.0 1.3 -Post Debridement Size (cm) - Width 8.0 11.7 -Post Debridement Size (cm) - Depth 4.5 3.8 -Total Square Cm 8.00 15.21 -Wound/Ulcer Outcome Not Healed Not Healed -Ulcer Cleansing Rinsed/ Rinsed/ Irrigated with Irrigated with Saline Saline -Foul Odor after Cleansing No No -Bioengineered Tissue No No -Bleeding Controlled with Pressure Pressure -Offloading No No -Treatment Response Procedure Procedure Tolerated Well Tolerated Well Pain Scale: 0-10 Numeric Is Patient Pain Free? Yes Yes Wound debrided: Abdominal Wound Grade/Stage: Stage III Type of Debridement: Excisional debridement Anesthesia Used: 4% Lidocaine Solution Depth: Down to and including healthy tissue, in the subcutaneous layer Percentage of wound debrided: 100 Tissue Removed: Slough and devitalized tissue Severity: Fat Layer Exposed Amount of bleeding with debridement: Mild Bleeding Controlled with: Pressure Patient tolerated procedure well Assessment/Plan Active Problems (Last Reviewed 06/26/18 @ 16:11 by Agnes Echeverria) Surgical wound dehiscence (Acute) Assessment: Surgical wound dehiscence with possible postsurgical infection. E. coli sepsis. Plan: Wound depth improving. Better granulation tissue. Tolerating wound VAC well at 125 mmHg. Debridement done as documented above. Procedure was well-tolerated. Currently on levofloxacin per culture and sensitivity. She was advised to not breast-feed for at least 6 hours after antibiotics or supplement breast-feeding for now until she is done with the antibiotics. Surrounding skin however still friable. Increased wound VAC to 150 mmHg. Protect/pad Surrounding skin. Continue increased protein intake. She was advised to call with any further questions or concerns otherwise, follow-up in 1 week.
--- NOTE | 2018-07-05 11:42 | PN.PCM_ITS ---
(1) Surgical wound dehiscence Status: Acute Current Visit: Yes Code(s): T81.31XA - Disruption of external operation (surgical) wound, not elsewhere classified, initial encounter Type of Wound Chief Complaint: Surgical wound breakdown. History of Wound: Ms. Damico is a 28-year-old status post a section on 17 June who noted breakdown of her wound on 24 June and was subsequently referred here by her assistant health educator. Initially noted some pain and redness around the area before he subsequently broke open. She was seen by her assistant health educator and had culture taken. She also had the wound packed. She has noticed sig nificant drainage from the wound. She denies chills, fever, nausea or vomiting. She however is on antibiotics prescribed by her assistant health educator. Her new born daughter is also been managed at the intensive care unit at [facility] due to E. coli sepsis. Progress of Wound: Stable. No new concerns at this time. Tolerating wound vac well. - Physical Exam Vital Signs Temp Pulse Resp BP 98.6 F 89 20 H 129/72 H 07/05/18 10:57 07/05/18 10:57 07/05/18 10:57 07/05/18 10:57 General: Alert, Oriented x3, Cooperative, No apparent distress HEENT: Atraumatic, Normocephalic Oral: Moist Mucosa Neck: Supple Lungs: Normal air movement Abdomen: Soft, Obese Skin: Ulcer/ Wound Wound Measurements and Assessment WC - Nurse 1 - General Ulcer Measurement Start: 06/28/18 10:39 Freq: Status: Active Protocol: Activity Type Activity Date Activity User E-Sign Co-Sign Detail Recorded Client Recorded Date Recorded By Document 07/05/18 10:57 DL [id number] 07/05/18 11:07 DL 07/05/18 10:57 Wound Center Nurse 1 [Ulcer Assessment] #1 Lower Abd -Current Size (cm) - Length 1.5 -Current Size (cm) - Width 9.8 -Current Size (cm) - Depth 3.9 -Total Square Cm 14.70 -Photo Taken No -Exudate Amt Medium -Exudate Type Serosanguineous -Wound Margin Distinct, Outline Attached -Granulation Amt Large (67-100%) -Granulation Quality Red -Necrosis Amt Small (1-33%) -Necrotic Tissue Type Adherent Slough -Structure Exposed N/A -Texture (Lorri-wound Skin Appearance) Scarring -Moisture (Lorri-wound Skin Appearance No Abnormality ) -Color (Lorri-wound Skin Appearance) No Abnormality -Temperature (Lorri-wound Skin No Abnormality Appearance) (Pt Warm) -Tenderness on Palpation (Lorri-wound No Skin Appearance) -Ulcer Cleansing Wound Cleanser -Foul Odor after Cleansing No -Anesthetic Used 4% Lidocaine Solution WC - Nurse 2 - General Ulcer CM Notes Start: 06/28/18 10:39 Freq: Status: Active Protocol: Activity Type Activity Date Activity User E-Sign Co-Sign Detail Recorded Client Recorded Date Recorded By Document 07/05/18 11:22 MW [id number] 07/05/18 11:26 MW 07/05/18 11:22 Wound Center Nurse 2 [Procedure/Treatment] -Time 11:23 -Correct Patient Yes -Correct Side, Site, Position Yes -Correct Procedure Yes -Procedure Performed Yes -Type of Procedure Debridement -Clinical Debridement Subcutaneous -Post Debridement Size (cm) - Length 1.3 -Post Debridement Size (cm) - Width 11.7 -Post Debridement Size (cm) - Depth 3.8 -Total Square Cm 15.21 -Wound/Ulcer Outcome Not Healed -Ulcer Cleansing Rinsed/ Irrigated with Saline -Foul Odor after Cleansing No -Bioengineered Tissue No -Bleeding Controlled with Pressure -Offloading No -Treatment Response Procedure Tolerated Well [See Physician Procedure note for Specifics] Pain Scale: 0-10 Numeric [Pain] -Is Patient Pain Free? Yes Musculoskeletal: No Muscle Wasting Neurological: Cranial nerves II-XII grossly intact Psych/Mental Status: Normal Affect Debridement Note Post-Debridement Measurements/Treatment - Nurse 2 - General Ulcer CM Notes Start: 06/28/18 10:39 Freq: Status: Active Protocol: Activity Type Activity Date Activity User E-Sign Co-Sign Detail Recorded Client Recorded Date Recorded By Document 06/28/18 11:19 MW [id number] 06/28/18 11:30 MW Document 07/05/18 11:22 MW [id number] 07/05/18 11:26 MW 06/28/18 07/05/18 11:19 11:22 Wound Center Nurse 2 #1 Lower Abd -Time 11:22 11:23 -Correct Patient Yes Yes -Correct Side, Site, Position Yes Yes -Correct Procedure Yes Yes -Procedure Performed Yes Yes -Type of Procedure Debridement Debridement -Clinical Debridement Subcutaneous Subcutaneous -Post Debridement Size (cm) - Length 1.0 1.3 -Post Debridement Size (cm) - Width 8.0 11.7 -Post Debridement Size (cm) - Depth 4.5 3.8 -Total Square Cm 8.00 15.21 -Wound/Ulcer Outcome Not Healed Not Healed -Ulcer Cleansing Rinsed/ Rinsed/ Irrigated with Irrigated with Saline Saline -Foul Odor after Cleansing No No -Bioengineered Tissue No No -Bleeding Controlled with Pressure Pressure -Offloading No No -Treatment Response Procedure Procedure Tolerated Well Tolerated Well Pain Scale: 0-10 Numeric Is Patient Pain Free? Yes Yes Wound debrided: Abdominal Wound Grade/Stage: Stage III Type of Debridement: Excisional debridement Anesthesia Used: 4% Lidocaine Solution Depth: Down to and including healthy tissue, in the subcutaneous layer Percentage of wound debrided: 100 Tissue Removed: Slough and devitalized tissue Severity: Fat Layer Exposed Amount of bleeding with debridement: Mild Bleeding Controlled with: Pressure Patient tolerated procedure well Assessment/Plan Active Problems (Last Reviewed 06/26/18 @ 16:11 by Agnes Echeverria) Surgical wound dehiscence (Acute) Assessment: Surgical wound dehiscence with possible postsurgical infection. E. coli sepsis. Plan: Wound depth improving. Better granulation tissue. Tolerating wound VAC well at 125 mmHg. Debridement done as documented above. Procedure was well- tolerated. Currently on levofloxacin per culture and sensitivity. She was advised to not breast-feed for at least 6 hours after antibiotics or supplement breast-feeding for now until she is done with the antibiotics. Surrounding skin however still friable. Increased wound VAC to 150 mmHg. Protect/pad Surrounding skin. Continue increased protein intake. She was advised to call with any further questions or concerns otherwise, follow-up in 1 week.
--- OUTSIDE RECORDS SUMMARY | 2018-08-30 07:46 | XMS RPT_ITS ---
:1990 Author Organization OHIP Support Name Relationship Address Phone HILGAR Unavailable [address] + [place] [address] ALBANIAN, KE Unavailable [address] + [place] [address] HILGAR Unavailable [address] + [place] [address] ALBANIAN, KE Unavailable [address] + [place] [address] HILGAR Unavailable [address] + [place] [address] ALBANIAN, KE Unavailable [address] + [place] [address] HILGAR Unavailable [address] + [place] [address] ALBANIAN, KE Unavailable [address] + [place] [address] HILGAR Unavailable [address] + [place] [address] ALBANIAN, KE Unavailable [address] + [place] [address] HILGAR Unavailable [address] + [place] [address] ALBANIAN, KE Unavailable [address] + [place] [address] HILGAR Unavailable [address] + [place] [address] ALBANIAN, KE Unavailable [address] + [place] [address] HILGAR Unavailable [address] + [place] [address] ALBANIAN, KE Unavailable [address] + [place] [address] HILGAR Unavailable [address] + [place] [address] ALBANIAN, KE Unavailable [address] + [place] [address] HILGAR Unavailable [address] + [place] [address] ALBANIAN, KE Unavailable [address] + [place] [address] HILGAR Unavailable [address] + [place] [address] ALBANIAN, KE Unavailable [address] + [place] [address] HILGAR Unavailable [address] + [place] [address] ALBANIAN, KE Unavailable [address] + [place] [address] ALBANIAN, KE Unavailable Unavailable + HILGAR Unavailable [address] + [place] [address] ALBANIAN, KE Unavailable [address] + [place] [address] HILGAR Unavailable [address] + [place] [address] ALBANIAN, KE Unavailable [address] + [place] [address] HILGAR Unavailable [address] + [place] [address] ALBANIAN, KE Unavailable [address] + [place] [address] HILGAR Unavailable [address] + [place] [address] ALBANIAN, KE Unavailable [address] + [place] [address] HILGAR Unavailable [address] + [place] [address] ALBANIAN, KE Unavailable [address] + [place] [address] HILGAR Unavailable [address] + [place] [address] ALBANIAN, KE Unavailable [address] + [place] [address] HILGAR Unavailable [address] + [place] [address] ALBANIAN, KE Unavailable [address] + [place] [address] HILGAR Unavailable [address] + [place] [address] ALBANIAN, KE Unavailable [address] + [place] [address] HILGAR Unavailable [address] + [place] [address] ALBANIAN, KE Unavailable [address] + [place] [address] HILGAR Unavailable [address] + [place] [address] ALBANIAN, KE Unavailable [address] + [place] [address] HILGAR Unavailable [address] + [place] [address] ALBANIAN, KE Unavailable [address] + [place] [address] HILGAR Unavailable [address] + [place] [address] ALBANIAN, KE Unavailable [address] + [place] [address] ALBANIAN, KE Unavailable Unavailable + HILGAR Unavailable [address] + [place] [address] ALBANIAN, KE Unavailable [address] + [place] [address] HILGAR Unavailable [address] + [place] [address] ALBANIAN, KE Unavailable [address] + [place] [address] HILGAR Unavailable [address] + [place] [address] ALBANIAN, KE Unavailable [address] + [place] [address] HILGAR Unavailable [address] + [place] [address] ALBANIAN, KE Unavailable [address] + [place] [address] ALBANIAN, KE Unavailable Unavailable + ALBANIAN, KE Unavailable Unavailable + HILGAR Unavailable [address] + [place] [address] ALBANIAN, KE Unavailable [address] + [place] [address] HILGAR Unavailable [address] + [place] [address] ALBANIAN, KE Unavailable [address] + [place] [address] HILGAR Unavailable [address] + [place] [address] ALBANIAN, KE Unavailable [address] + [place] [address] HILGAR Unavailable [address] + [place] [address] ALBANIAN, KE Unavailable [address] + [place] [address] HILGAR Unavailable [address] + [place] [address] ALBANIAN, KE Unavailable [address] + [place] [address] HILGAR Unavailable [address] + [place] [address] ALBANIAN, KE Unavailable [address] + [place] [address] HILGAR Unavailable [address] + [place] [address] ALBANIAN, KE Unavailable [address] + [place] [address] HILGAR Unavailable [address] + [place] [address] ALBANIAN, KE Unavailable [address] + [place] [address] HILGAR Unavailable [address] + [place] [address] ALBANIAN, KE Unavailable [address] + [place] [address] HILGAR Unavailable [address] + [place] [address] ALBANIAN, KE Unavailable [address] + [place] [address] HILGAR Unavailable [address] + [place] [address] ALBANIAN, KE Unavailable [address] + [place] [address] HILGAR Unavailable [address] + [place] [address] ALBANIAN, KE Unavailable [address] + [place] [address] HILGAR Unavailable [address] + [place] [address] ALBANIAN, KE Unavailable [address] + [place] [address] HILGAR Unavailable [address] + [place] [address] ALBANIAN, KE Unavailable [address] + [place] [address] HILGAR Unavailable [address] + [place] [address] ALBANIAN, KE Unavailable [address] + [place] [address] HILGAR Unavailable [address] + [place] [address] ALBANIAN, KE Unavailable [address] + [place] [address] BROOKS CONTI Unavailable [address] + [place] [address] HILGAR Unavailable [address] + [place] [address] ALBANIAN, KE Unavailable [address] + [place] [address] BROOKS CONTI Unavailable [address] + [place] [address] HILGAR Unavailable [address] + [place] [address] HILGAR Unavailable [address] + [place] [address] ALBANIAN, KE Unavailable [address] + [place] [address] HILGAR Unavailable [address] + [place] [address] ALBANIAN, KE Unavailable [address] + [place] [address] BROOKS CONTI Unavailable [address] + [place] [address] HILGAR Unavailable [address] + [place] [address] ALBANIAN, KE Unavailable [address] + [place] [address] HILGAR Unavailable [address] + [place] [address] ALBANIAN, KE Unavailable [address] + [place] [address] BROOKS CONTI Unavailable [address] + [place] [address] HILGAR Unavailable [address] + [place] [address] ALBANIAN, KE Unavailable [address] + [place] [address] BROOKS CONTI Unavailable [address] + [place] [address] Care Team Providers Name Role Phone JENELLEVALERIANO ALO WILLOUGHBY Referring Unavailable CEBUL III, ANA A Referring Unavailable ARY TREJO (CLIN TECH) Referring Unavailable CEBUL III, ANA A Attending Unavailable CEBUL III, ANA A Referring Unavailable CEBUL III, ANA A Referring Unavailable CEBUL III, ANA A Referring Unavailable ARY TREJO (CLIN TECH) Attending Unavailable ARY TREJO (CLIN TECH) Attending Unavailable ARY TREJO (CLIN TECH) Referring Unavailable CEBUL III, ANA A Referring Unavailable JENNY LOUIS Attending Unavailable NYLA MANCUSO [place] [facility] [place] Un[place] JENNY LOUIS Attending Unavailable NYLA MANCUSO Referring Unavailable [place] [facility] [place] Unavailable LOVE OROSCO Attending Unavailable NYLA MANCUSO Referring Unavailable [place] [facility] [place] Unavailable DONALD MACK Attending Unavailable NYLA MANCUSO Referring Unavailable [place], [facility] [place] Unavailable Nyla [...] Nyla Consulting Unavailable Marcanthony, Nyla Admitting Unavailable Miguel, Nora Attending Unavailable Marcanthony, Nyla Referring Unavailable Cebul III, Ana Primary Care Unavailable Marcanthony, Nyla Consulting Unavailable Marcanthony, Nyla Admitting Unavailable Salem, Nora Attending Unavailable Marcanthony, Nyla Referring Unavailable Cebul III, Ana Primary Care Unavailable Nyla Mancuso Consulting Unavailable MiguelNora Attending Unavailable Cebul III, Ana Referring Unavailable Salem, Nora Attending Unavailable Miguel, Nora Referring Unavailable Cebul III, Ana Primary Care Unavailable Miguel, Nora Attending Unavailable Cebul III, Ana Referring Unavailable Miguel, Nora Attending Unavailable Cebul III, Ana Primary Care Unavailable Salem, Nroa Referring Unavailable Yahaira, Mary Attending Unavailable Cebul III, Ana Primary Care Unavailable Keyur Batse Attending Unavailable Cebul III, Ana Primary Care Unavailable Yahaira, Mary Consulting Unavailable Cebul III, Ana Primary Care Unavailable Aliza, Dariusz Admitting Unavailable AmbroseanthonyNyla Consulting Unavailable Jopperi, Shalom Attending Unavailable Chavez, Ryder Consulting Unavailable Aliza, Dariusz Admitting Unavailable MarcNyla yost Attending Unavailable Cebul III, Ana Primary Care Unavailable AmbroseanthNyla corrales Consulting Unavailable Chavez, Ryder Consulting Unavailable Jopperi, Shalom Consulting Unavailable Aliza, Dariusz Admitting Unavailable Cebul III, Ana Primary Care Unavailable MarcanthonyNyla Consulting Unavailable Carolee Mobley Attending Unavailable Chavez, Ryder Consulting Unavailable Jopperi, Shalom Consulting Unavailable Aliza, Dariusz Admitting Unavailable Chavez, Hancock Attending Unavailable Cebul III, Ana Primary Care Unavailable AmbroseanthNyla corrlaes Consulting Unavailable Chavez, Hancock Consulting Unavailable Jopperi, Shalom Consulting Unavailable Nyla Mancuso Attending Unavailable Cebul III, Ana Referring Unavailable Cebul III, Ana Primary Care Unavailable SalemNora Attending Unavailable Cebul III, Ana Referring Unavailable Jaki Garner D.C. Attending Unavailable Cebul III, Ana Referring Unavailable MiguelNora Attending Unavailable Cebul III, Ana Referring Unavailable Cebul III, Ana Primary Care Unavailable MiguelNora Attending Unavailable Cebul III, Ana Primary Care Unavailable SalemNora Attending Unavailable Cebul III, Ana Primary Care Unavailable SalemNora Attending Unavailable Cebul III, Ana Referring Unavailable Nyla Mancuso Attending Unavailable Cebul III, Ana Referring Unavailable MarcanthNyla corrales Attending Unavailable AmbroseanthonyNyla Referring Unavailable Cebul III, Ana Primary Care [...] Attending Unavailable Cebul III, Ana Referring Unavailable Salem, Nora Attending Unavailable Cebul III, Ana Referring Unavailable Salem, Nora Attending Unavailable Cebul III, Ana Primary Care Unavailable Salem, Nora Referring Unavailable David Umana Attending Unavailable Cebul III, Ana Primary Care Unavailable PROBLEMS PROBLEMS DATE TYPE CONDITION / CODE ATTENDING STATUS SOURCE 06/27/2018 Unknown T81.42XD - Infection Miguel, Nora Active [place] following a Community procedure, deep Hospital incisional surgical Repository site, subsequent encounter / T81.42XD(ICD-10) 06/23/2018 Unknown R50.9 - Fever, Miguel, Nora Active [place] unspecified / Community R50.9(ICD-10) Hospital Repository 06/23/2018 Unknown O09.93 - Supervision Salem, Nora Active [place] of [facility] , Hospital unspecified, third Repository trimester / O09.93(ICD-10) 06/23/2018 Unknown G89.18 - Other acute Miguel, Nora Active [place] postprocedural pain Community / G89.18(ICD-10) Hospital Repository 06/12/2018 Unknown O09.90 - Supervision Marcanthony, Active [place] of high risk [facility] , Hospital unspecified, Repository unspecified trimester / O09.90(ICD-10) 06/12/2018 Unknown O16.9 - Unspecified Marcanthony, Active [place] maternal [facility] hypertension, Hospital unspecified Repository trimester / O16.9(ICD-10) 06/09/2018 Unknown O09.03 - Supervision Shawn, Active [place] of with [facility] history of Hospital infertility, third Repository trimester / O09.03(ICD-10) 06/09/2018 Unknown D47.01 - Cutaneous Marcanthony, Active [place] mastocytosis / [facility] D47.01(ICD-10) Hospital Repository 06/09/2018 Unknown R73.09 - Other Marcanthony, Active [place] abnormal glucose / [facility] R73.09(ICD-10) Hospital Repository 06/09/2018 Unknown O99.213 - Obesity Marcanthsavanna, Active [place] complicating [facility] , third Hospital trimester / Repository O99.213(ICD-10) 06/09/2018 Unknown Z3A.34 - 34 weeks Marcanthony, Active [place] gestation of [facility] / Hospital Z3A.34(ICD-10) Repository 06/09/2018 Unknown E03.9 - Marcanthony, Active [place] Hypothyroidism, [facility] unspecified / Hospital E03.9(ICD-10) Repository 06/05/2018 Unknown K76.89 - Other Marcanthony, Active [place] specified diseases [facility] of liver / Hospital K76.89(ICD-10) Repository 06/09/2018 Unknown R94.5 - Abnormal Marcanthony, Active [place] results of liver [facility] function studies / Hospital R94.5(ICD-10) Repository 05/25/2018 Active Pruritus, NA Active [place] unspecified / Clinic Main L29.9(ICD-10) [place] Repository 05/12/2018 Unknown Z34.90 - Encounter SalemNora craig Active [place] for supervision of [facility] normal , Hospital unspecified, Repository unspecified trimester / Z34.90(ICD-10) 05/11/2018 Unknown Z3A.32 - 32 weeks Salem, Nora Active [place] gestation of [facility] / Hospital Z3A.32(ICD-10) Repository 05/11/2018 Unknown H04.69 - Other Salem, Nora Active [place] changes of lacrimal Community passages / Hospital H04.69(ICD-10) Repository 05/11/2018 Unknown O35.8XX0 - Maternal Miguel, Nora Active [place] care for other [facility] (suspected) Hospital abnormality and Repository damage, not applicable or unspecified / O35.8XX0(ICD-10) 05/11/2018 Unknown R74.8 - Abnormal Miguel, Nora Active [place] levels of other [facility] serum enzymes / Hospital R74.8(ICD-10) Repository 05/11/2018 Unknown R55 - Syncope and [place], Nora Active [place] collapse / Community R55(ICD-10) Hospital Repository 04/26/2018 Unknown Z3A.30 - 30 weeks Marcanthony, Active [place] gestation of [facility] / Hospital Z3A.30(ICD-10) Repository 04/26/2018 Unknown O46.90 - Antepartum Marcanthony, Active [place] hemorrhage, [facility] unspecified, Hospital unspecified Repository trimester / O46.90(ICD-10) 04/26/2018 Unknown O99.210 - Obesity Marcanthony, Active [place] complicating [facility] , Hospital unspecified Repository trimester / O99.210(ICD-10) 04/18/2018 Unknown L50.8 - Other Marcanthony, Active [place] urticaria / [facility] L50.8(ICD-10) Hospital Repository 03/30/2018 Unknown O09.02 - Supervision Marcanthony, Active [place] of with [facility] history of Hospital infertility, second Repository trimester / O09.02(ICD-10) 03/30/2018 Unknown Z34.02 - Encounter Marcanthony, Active [place] for supervision of [facility] normal [facility] , second Repository trimester / Z34.02(ICD-10) 03/30/2018 Unknown Z3A.26 - 26 weeks Marcanthony, Active [place] gestation of [facility] / Hospital Z3A.26(ICD-10) Repository 03/30/2018 Unknown Z23 - Encounter for Marcanthony, Active [place] immunization / [facility] Z23(ICD-10) Hospital Repository 03/01/2018 Active Endocrine, NA Active [place] nutritional and [facility] Main metabolic diseases [place] complicating Repository , unspecified trimester / O99.280(ICD-10) 03/01/2018 Unknown Z34.01 - Encounter SalemNora craig Active [place] for supervision of [facility] normal [facility] , first Repository trimester / Z34.01(ICD-10) 03/01/2018 Unknown Z3A.21 - 21 weeks Miguel, Molly Active [place] gestation of Community / Hospital Z3A.21(ICD-10) Repository 01/25/2018 Unknown O09.00 - Supervision Nora Rivera Active [place] of with Community history of Hospital infertility, Repository unspecified trimester / O09.00(ICD-10) 01/23/2018 Active Encounter for NA Active [place] screening for lipoid Clinic Main disorders / [place] Z13.220(ICD-10) Repository 01/21/2018 Active Encounter for NA Active [place] screening for Clinic Main diabetes mellitus / [place] Z13.1(ICD-10) Repository 09/16/2017 Active Hypothyroidism, NA Active [place] unspecified / Clinic Main E03.9(ICD-10) [place] Repository 09/16/2017 Active Vitamin D Active [place] deficiency, Clinic Main unspecified / [place] E55.9(ICD-10) Repository 08/29/2017 Unknown 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 Initially noted some pain and redness around the area before he subsequently broke open. She was seen by her metals sales representative and had culture taken. She also had the wound packed. She has noticed significant drainage from the wound. She denies chills, fever, nausea or vomiting. She however is on antibiotics prescribed by her metals sales representative. Her new born daughter is also been managed at the intensive care unit at [facility] due to E. coli sepsis. Past [...] Date Recorded By Document 06/28/18 10:41 DL [id number] 06/28/18 11:00 DL Wound Center Nurse 1 [...] Date Recorded By Document 06/28/18 11:19 MW [id number] 06/28/18 11:30 MW Musculoskeletal: No Muscle Wasting Neurological: Cranial nerves II-XII grossly intact Psych/Mental Status: Normal Affect Debridement Note Post-Debridement Measurements/Treatment WC - Nurse 2 - General Ulcer CM Notes Start: 06/28/18 10:39 Freq: Status: Active Protocol: Activity Type Activity Date Activity User E-Sign Co-Sign Detail Recorded Client Recorded Date Recorded By Document 06/28/18 11:19 MW [id number] 06/28/18 11:30 MW Wound Center Nurse 2 [...] way. Culture has been taken by her metals sales representative, will await results. For now Aquacel AG daily to twice daily (depending on drainage) with Adaptic over top. Increased protein intake recommended. Continue current antibiotic for now. She was advised to call with any further questions or concerns otherwise, follow-up in 1 week. 06/29/18 489 <Electronically signed by David Umana MD> Date David Umana MD CC: Signed Observed: 06/26/2018 Status: P Source: [place] CULTURE, SURGERY DEEP 5:23 PM [facility] WOUND REPOSITORY List Antibiotics Last 48 Hours? [...] <=20 S (NF) indicates non-formulary drug at [facility]. Approval by Infectious Disease Specialist required before non-formulary drugs may be ordered and/or dispensed. Cult, Anaerobic Checking for anaerobes, further studies to follow. Performed By: #### M100.1550 #### [facility] [address] [place], [address] MANAGER ASSESSMENT OFFICE VISIT Observed: 06/26/2018 Status: F Source: [place] REPORT 4:49 PM [facility] REPOSITORY [facility] 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 [facility] C/S site drainage: Details: HILARIO TRAMMELL is a 28 year old who presents for drainage of incision site, c section 1 week ago. Baby in [place], E coli and on antibiotics. Patient with fever at time of surgery. Pregancy History 1 Elective abortions Hx Para 1 Spontaneous abortions Past Pregnancies Del. DatName [place]/WeeksOutcome [facility] LgAn[facility]Del LocaProviderFOB e ht en th ia tn 06/15/18Emersyn 37 live birC-sectio7 lbs 10Female epiduralWCH WOO th - fuln oz l term Delivery Date: 06/15/18 On 06/19/18 @ 11:13 Terra Lares SAND OPERATOR; FTP; CPD, Cat III tracing, chorioamnionitis [...] infection type: deep incisional surgical site 06/26/18 4379 <Electronically signed by Nora BARROW> Date Nora Rivera CLIN TECH-C Cosigner Signature: Date (if applicable) CC: CBC W/DIFF, AUTOMATED Collected: 06/23/2018 Status: F Source: [place] 1:20 PM [facility] REPOSITORY TYPE CODE TESTS RESULT OUT [...] [employer] Performed By: #### L100.0100 #### [facility] [address] [place], [address] MANAGER ASSESSMENT OFFICE VISIT Observed: 06/23/2018 Status: F Source: [place] REPORT 1:10 PM [facility] REPOSITORY [facility] [address] [place] [address] OFFICE VISIT Date of Service: 06/23/18 MR#: [id number] Acct: [id number] Name: HILARIO TRAMMELL Rep #: [id number] : 1990 Provider: PETRA Rivera Age/Sex: 28/F [place] [facility] [place] Status: Signed Intake Vital Signs06/23/18 Body Mass Index (BMI) 44.1 06/23/18 Weight: 260 lb 06/23/18 Blood Pressure 118/76 Intake Visit Reasons: redness, swelling and pain at C/S site. 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 : Details: HILARIO TRAMMELL is a 28 year old who presents for postop pain incision and abdomen C section 6 days ago. Baby in [place], e coli infection and IV antibiotics. Note patient with low grade temp. Pregancy History 1 Elective abortions Hx Para 1 Spontaneous abortions Past Pregnancies Del. DatName GA/WeeksOutcome Route [facility] LgAnesthesDel LocaProviderFOB e ht en th ia tn 06/15/18Emersyn 37 live birC-sectio7 lbs 10Female epiduralWCH WOO th - fuln oz l term Delivery Date: 06/15/18 On 06/19/18 @ 11:13 Terra Lares SAND OPERATOR; FTP; CPD, Cat III tracing, chorioamnionitis [...] DISCHARGE SUMMARY Observed: 06/23/2018 Status: F Source: [place] 11:18 AM [facility] REPOSITORY [facility] Medical Records Department [address] [place] [address] Discharge Summary 06/23/18 1115 MR#: [id number] Acct: [id number] Name: HILARIO TRAMMELL Rep #: [id number] : 1990 28 From: Nora BARROW PCP: Ana Tucker III, MD Status: DIS IN Y Location: [id number] Discharge Date and Diagnosis Date of Admission: [...] 06/19/2018 Status: F Source: [place] 8:14 AM [facility] REPOSITORY [facility] Medical Records Department [address] [place] [address] Instructions for Home/Discharge Instructions 06/19/18 0814 MR#: [id number] Acct: [id number] Name: HILARIO TRAMMELL Rep #: [id number] : 1990 28 From: Nora LEHMANC PCP: Ana Tucker III, MD Status: ADM [...] Tucker III, MD [Primary Care Provider] - 06/19/18813 <Electronically signed by Nora BARROW> Date Nora BARROW CC: Ana Tucker III, MD Signed CBC-COMPLETE BLOOD CNT Collected: 06/18/2018 Status: F Source: [place] NO DIFF 6:00 AM [facility] REPOSITORY Order Comment: Comments: Day #1 Reason [...] MPV 10.7 Performed By: #### L100.0500 #### [facility] [address] [place], [address] PATHOLOGY SPECIMEN OB Collected: 06/17/2018 Status: F Source: [place] 3:52 PM [facility] REPOSITORY Order Comment: Comments: maternal fever Reason for Laboratory Test Placenta for Lab studies Send Specimen For (Specify): Studies @ [facility] Lab:Routine Time of Procedure: 1315 Date of Procedure: 06/17/18 Reason specimen being sent to pathology (Hx/complications): maternal fever Type of specimen: Placenta Type of procedure performed: TYPE CODE TESTS RESULT OUT OF RANGE REFERENCE UNITS LAB L350.1800 SEE Normal PATH. PATHOLOGY Spec. OB REPORT Result Comment: Specimen submitted to Anatomical Pathology Department for testing. Performed By: #### L350.1800 #### [facility] [address] [place], [address] OPERATIVE REPORT Observed: 06/17/2018 Status: F Source: [place] 2:19 PM [facility] REPOSITORY [facility] Medical Records Department [address] [place] [address] Operative Report 06/17/18 1310 MR#: [id number] Acct: [id number] Name: HILARIO TRAMMELL Rep #: [id number] : 1990 28 From: Nyla Mancuso MD PCP: Ana Tucker III, MD Status: ADM IN Y Location: [id number] Problem List (1) Preeclampsia Status: Acute Qualifiers: Comment: deliver at 37. 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 Placental disc, and maternal surfaces SJ:reginald 06/19/18 TC:2 CPT: 34348 HEADER OPERATION: PRE-OP DIAGNOSIS: Maternal fever TISSUE [...] on file> Performed By: #### PPLAC #### [facility] [address] [place], [place], [address] PROTHROMBIN TIME W/INR Collected: 06/15/2018 Status: F Source: [place] 11:30 AM [facility] REPOSITORY Order Comment: REDRAW. PREVIOUS SPECIMEN REJECTED DUE TO CLOT/QNS. 06/15/18 1103 Ann Marie Tabor. TYPE CODE TESTS RESULT OUT OF RANGE REFERENCE UNITS LAB L300.4150 11.7-14.9 SECONDS Normal PROTIME 13.1 LAB L300.4200 Normal INR 1.0 Performed By: #### L300.3900, L300.4310 #### [facility] [address] [place], [place], [address] PARTIAL THROMBOPLAST Collected: 06/15/2018 Status: F Source: [place] TIME 11:30 AM [facility] REPOSITORY Order Comment: REDRAW. PREVIOUS SPECIMEN REJECTED DUE TO CLOT/QNS. 06/15/18 Stephanie Tabor. TYPE CODE TESTS RESULT OUT OF RANGE REFERENCE UNITS LAB L300.4310 24.1-36.2 Seconds Normal PTT 29.1 Performed By: #### L300.3900, L300.4310 #### [facility] [address] [place], [address] PROTEIN+CREATININE Collected: Status: F Source: [place] RATIO,URINE 06/15/2018 11:15 AM [facility] REPOSITORY TYPE CODE TESTS RESULT OUT OF RANGE REFERENCE UNITS LAB L501.1200 NO RANGE EST. mg/dL Normal UR CREAT 86.80 LAB L501.1930 <11.9 mg/dL High 16.9 PROTEIN,UR.R AN. LAB L501.1940 0-200 mg/g CRE Normal PROT:CRE 195 RATIO Performed By: #### L501.0900 #### [facility] [address] [place], [address] SERUM CREATININE AND Collected: 06/15/2018 Status: F Source: [place] GFR 10:25 AM [facility] REPOSITORY TYPE CODE TESTS RESULT OUT [...] By: #### L501.1105, L501.1400, L501.4100, L501.4405 #### [facility] [address] [place], [address] URIC ACID Collected: 06/15/2018 Status: F Source: [place] 10:25 AM [facility] REPOSITORY TYPE CODE TESTS RESULT OUT OF RANGE REFERENCE UNITS LAB L501.1400 2.6-6.0 mg/dL Normal URIC 5.8 Result Comment: The drugs N-Acetylcysteine and Metamizole may falsely depress this assay. Performed By: #### L501.1105, L501.1400, L501.4100, L501.4405 #### [facility] [address] [place], [address] AST(SGOT) Collected: 06/15/2018 Status: F Source: [place] 10:25 AM [facility] REPOSITORY TYPE CODE TESTS RESULT OUT OF RANGE REFERENCE UNITS LAB L501.4100 15-37 U/L Normal AST 21 Performed By: #### L501.1105, L501.1400, L501.4100, L501.4405 #### [facility] [address] [place], [address] ALANINE AMINOTRANSFERAS Collected: 06/15/2018 Status: F Source: [place] (SGPT) 10:25 AM [facility] REPOSITORY TYPE CODE TESTS RESULT OUT OF RANGE REFERENCE UNITS LAB L501.4405 13-56 U/L Normal ALT 24 Performed By: #### L501.1105, L501.1400, L501.4100, L501.4405 #### [facility] [address] [place], [address] CBC-COMPLETE BLOOD CNT Collected: 06/15/2018 Status: F Source: [place] NO DIFF 8:04 AM [facility] REPOSITORY TYPE CODE TESTS RESULT OUT [...] MPV 11.3 Performed By: #### L100.0500 #### [facility] [address] [place], [place], [address] TYPE AND SCREEN Collected: 06/15/2018 Status: F Source: [place] 8:04 AM [facility] REPOSITORY Order Comment: Reason for Type AND Screen/Red Cells: TYPE CODE TESTS RESULT OUT OF RANGE REFERENCE UNITS LAB B10.0800 O Normal BLOOD TYPE GEL POSITIVE LAB B100.4000 Normal Antibody NEGATIVE Screen Performed By: #### B101.7450 #### [facility] [address] [place], [address] HISTORY AND PHYSICAL Observed: 06/15/2018 Status: F Source: [place] EXAM 7:41 AM [facility] REPOSITORY [facility] Medical Records Department [address] [place] [address] History and Physical 06/15/18 0737 MR#: [id number] Acct: [id number] Name: HILARIO TRAMMELL Rep #: [id number] : 1990 28 From: Nyla Mancuso MD PCP: Ana Tucker III, MD Status: ADM IN Y Location: [id number] - Problem List (1) Preeclampsia Status: Acute [...] PRR FRANCISCO 07/06/18 Girl Mendez Ke ANU I, IVF (7) abn NEC-antepar Status: Acute Comment: [...] ivf ; urine culture negative 11/30/2017 at [facility] (14) Cutaneous mastocytosis Status: Chronic (15) Syncope [...] variability reactive no decelerations category I tracing\ [place]: regular History Past Pregnancies: Past Pregnancies Delivery Name GA/Weeks Outcome Route WeiInfant GeLabor LenAnesthesiDelivery Provider FOB Date t [facility] Location Labs: Social History Hx Smoking No [...] Symmetrical, Neuro grossly intact. Negative for: Clonus BRIDAL SALES CONSULTANT: Normal external genitalia. Negative for: Vulvar lesions [...] preeclampsia labs I have reviewed the [facility] and made any clinically relevant updates. 06/15/18 0741 <Electronically signed by Nyla Mancuso MD> Date Nyla Mancuso MD Cosigner Signature: Date (if applicable) CC: Ana Tucker III, MD; Nyla Mancuso MD Signed OFFICE VISIT REPORT Observed: 06/12/2018 Status: F Source: [place] 9:51 AM [address] [address] OFFICE VISIT Date of Service: 06/12/18 MR#: [id number] Acct: [id number] Patient: HILARIO TRAMMELL Rep #: [id number] : 1990 Provider: Nyla Mancuso MD Age/Sex: 28/F [place] [facility] Status: Signed Intake Vital Signs06/12/18 Blood Pressure [...] home bp monitoring, nst tuesday reactive, labs mondy and growth scan Orders Orders: 06/12/18 0951 <Electronically signed by Nyla Mancuso MD> Date Nyla Mancuso MD Cosigner Signature: Date (if applicable) CC: CBC W/DIFF, AUTOMATED Collected: 06/12/2018 Status: F Source: [place] 8:57 AM [facility] REPOSITORY TYPE CODE TESTS RESULT OUT [...] Lymph 1.82 Performed By: #### L100.0100 #### [facility] [address] [place], [place], [address] COMPREHENSIVE METABOLIC Collected: 06/12/2018 Status: F Source: [place] MAXWELL 8:57 AM [facility] REPOSITORY TYPE CODE TESTS RESULT OUT [...] GAP 10 Performed By: #### L500.4050 #### [facility] [address] [place], [address] Observed: 06/09/2018 Status: F Source: [place] CULTURE, GROUP B 3:31 PM [facility] STREPTOCOCCUS REPOSITORY IRINA Culture Group B Beta Streptococcus is not isolated. Performed By: #### M100.1800 #### [facility] [address] [place], [address] PROTHROMBIN TIME W/INR Collected: 06/09/2018 Status: F Source: [place] 1:00 PM [facility] REPOSITORY TYPE CODE TESTS RESULT OUT OF RANGE REFERENCE UNITS LAB L300.4150 11.7-14.9 SECONDS Normal PROTIME 13.1 LAB L300.4200 Normal INR 1.0 Performed By: #### L300.3900, L300.4310 #### [facility] [address] [facility] [address] [place], [address] PARTIAL THROMBOPLAST Collected: 06/09/2018 Status: F Source: [place] TIME 1:00 PM [facility] REPOSITORY TYPE CODE TESTS RESULT OUT OF RANGE REFERENCE UNITS LAB L300.4310 24.1-36.2 Seconds Normal PTT 30.6 Performed By: #### L300.3900, L300.4310 #### [facility] [address] [place], [address] CBC-COMPLETE BLOOD CNT Collected: 06/09/2018 Status: F Source: [place] NO DIFF 1:00 PM [facility] REPOSITORY TYPE CODE TESTS RESULT OUT [...] MPV 10.6 Performed By: #### L100.0500 #### [facility] [address] [place], [address] PROTEIN+CREATININE Collected: Status: F Source: [place] RATIO,URINE 06/09/2018 1:00 PM [facility] REPOSITORY TYPE CODE TESTS RESULT OUT OF RANGE REFERENCE UNITS LAB L501.1200 NO RANGE EST. mg/dL Normal UR CREAT 59.50 LAB L501.1930 <11.9 mg/dL High 18.3 PROTEIN,UR.R AN. LAB L501.1940 0-200 mg/g CRE High PROT:CRE 308 RATIO Performed By: #### L501.0900 #### [facility] [address] [place], [address] SERUM CREATININE AND Collected: 06/09/2018 Status: F Source: [place] GFR 1:00 PM [facility] REPOSITORY TYPE CODE TESTS RESULT OUT [...] By: #### L501.1105, L501.1400, L501.4100, L501.4405 #### [facility] [address] [place], [address] URIC ACID Collected: 06/09/2018 Status: F Source: [place] 1:00 PM [facility] REPOSITORY TYPE CODE TESTS RESULT OUT OF RANGE REFERENCE UNITS LAB L501.1400 2.6-6.0 mg/dL Normal URIC 5.2 Result Comment: The drugs N-Acetylcysteine and Metamizole may falsely depress this assay. Performed By: #### L501.1105, L501.1400, L501.4100, L501.4405 #### [facility] [address] [place], [address] AST(SGOT) Collected: 06/09/2018 Status: F Source: [place] 1:00 PM [facility] REPOSITORY TYPE CODE TESTS RESULT OUT OF RANGE REFERENCE UNITS LAB L501.4100 15-37 U/L Normal AST 23 Performed By: #### L501.1105, L501.1400, L501.4100, L501.4405 #### [facility] [address] [place], [address] ALANINE AMINOTRANSFERAS Collected: 06/09/2018 Status: F Source: [place] (SGPT) 1:00 PM [facility] REPOSITORY TYPE CODE TESTS RESULT OUT OF RANGE REFERENCE UNITS LAB L501.4405 13-56 U/L Normal ALT 24 Performed By: #### L501.1105, L501.1400, L501.4100, L501.4405 #### [facility] [address] [place], [address] MANAGER ASSESSMENT OFFICE VISIT Observed: 06/09/2018 Status: F Source: [place] REPORT 12:16 PM [facility] REPOSITORY [facility] 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 Cutaneous mastocytosis D47.01 3. Elevated glucose [...] Supervision of high risk in third trimester O09. Trimester: third trimester 06/09/18 1216 <Electronically signed by Nyla Mancuso MD> Date Nyla Mancuso MD Cosign Signature: Date (if applicable) CC: MANAGER ASSESSMENT OFFICE VISIT Observed: 06/07/2018 Status: F Source: [place] REPORT 4:10 AM [facility] REPOSITORY [facility] Women[facility] 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 mg/dL Normal UR CREAT 50.40 LAB L501.1930 <11.9 mg/dL Normal 10.5 PROTEIN,UR.R AN. LAB L501.1940 0-200 mg/g CRE High PROT:CRE 208 RATIO Performed By: #### L501.0900 #### [facility] [address] [place], [address] CBC W/DIFF, AUTOMATED Collected: 06/05/2018 Status: F Source: [place] 11:54 AM [facility] REPOSITORY TYPE CODE TESTS RESULT OUT [...] Lymph 2.03 Performed By: #### L100.0100 #### [facility] [address] [place], [place], [address] COMPREHENSIVE METABOLIC Collected: 06/05/2018 Status: F Source: [place] HANS 11:54 AM [facility] REPOSITORY TYPE CODE TESTS RESULT OUT [...] GAP 13 Performed By: #### L500.4050 #### [facility] [address] [place] [address]. [place], [place], [address] PROGRESS Observed: 06/04/2018 Status: COMPLETED Source: [place] 4:57 PM [facility] REPOSITORY HNO ID: [id number] Author: Ana Tucker III Service: (none) Author Type: Physician Type: Progress Notes Filed: 06/04/2018 4:57 PM Note Text: Hilario, The bile acids are all normal. The other lab results are fine. Ana Tucker III, MD, FAAFP GESTATIONAL GTT 3HR Collected: 06/02/2018 Status: F Source: [address] 9:53 AM [facility] REPOSITORY Order Comment: Is Patient Fasting? Y [...] 3HR 68 Performed By: #### L500.4710 #### [facility] [address] [place], [address] MISCELLANEOUS LAB Collected: 05/27/2018 Status: F Source: [place] PROCEDURE 9:48 AM [facility] REPOSITORY Order Comment: Comments: [id number] BILE ACIDS SST FROZEN Test(s) Ordered: [id number] BILE ACIDS SST FROZEN TYPE CODE TESTS RESULT OUT OF RANGE REFERENCE UNITS LAB L801.1541 Normal [facility] [place] Result Comment: TEST RESULT UNITS REF INTERVAL Bile Acids 10.4 umol/L 4.7 - 24.5 female reference interval (15 - 45 years): 3.7 - 14.5 TESTING PERFORMED AT [facility]. ORIGINAL REPORT ON FILE IN LAB CONTAINS ADDITIONAL TEST SITE INFORMATION. Performed By: #### L801.1541 #### [facility] [address] [place], [address] MANAGER ASSESSMENT OFFICE VISIT Observed: 05/27/2018 Status: F Source: [place] REPORT 4:08 AM [facility] REPOSITORY [facility] 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 Cutaneous mastocytosis D47.01 3. Elevated glucose [...] AND DIFFERENTIAL Collected: 05/25/2018 Status: F Source: [place] 8:22 AM [facility] REPOSITORY TYPE [...] k/uL Abs Lymph 2.25 LAB AMONO % [place]% 5.6 LAB AAMONO <0.87 k/uL Abs [place] 0.49 LAB AEOS % Eosin% 1.5 LAB AAEOS <0.46 k/uL Abs Eosin 0.13 LAB ABASO % Baso% 0.2 LAB AABASO <0.11 k/uL Abs Baso <0.03 LAB AUNRBC 0 /100 WBC NRBCs 0.0 LAB ABNRBC <0.01 k/uL Absolute nRBC <0.01 LAB DTYP DTYPE Auto Diff Performed By: #### CBCDIF, CMP, TSH #### [facility] [address] [place], [place] [address] #### BILE #### [facility] [address] [place] [address] [phone] COMP METABOLIC PANEL Collected: 05/25/2018 Status: F Source: [place] 8:22 AM [facility] REPOSITORY TYPE CODE TESTS RESULT [...] 74-99 mg/dL Glucose 79 Result Comment: The [place] Diabetes Association (ADA) provides guidance for cutoff [...] Standards of Medical Care in Diabetes 2016, [place] [employer]. Diabetes Care. 2016.39(Suppl 1). LAB [...] Performed By: #### CBCDIF, CMP, TSH #### [facility] [address] [place] [address] #### BILE #### [facility] [address] [place] [address] [phone] TSH Collected: 05/25/2018 Status: F Source: [place] 8:22 AM [facility] REPOSITORY TYPE CODE TESTS RESULT [...] Clinical Practice Guideline. J Clin Endocrinol Metab, 2012:97:8020-7555. 2. Evan WYNNE. Overview of thyroid disease in . UpToDate. 2016. Accessed on November 21, 2015. Performed By: #### CBCDIF, CMP, TSH #### [facility] [address] [place] [address] #### BILE #### [facility] [address] [place] [address] [phone] BILE ACDS,FRACT/TOT Collected: 05/25/2018 Status: F Source: [place] 8:22 [facility] REPOSITORY TYPE CODE TESTS RESULT OUT OF REFERENCE UNITS RANGE LAB URSODE 0.0-1.0 umol/L Ursodeoxycholic Acid 0.3 LAB CHOLAC 0.0-1.9 umol/L Cholic Acid 0.8 LAB DEOXCA 0.0-2.5 umol/L Deoxycholic Acid 0.3 LAB SCHILLING 0.0-3.4 umol/L Chenodeoxycholic Acd 0.5 LAB TOTBA 0.0-7.0 umol/L Total Bile Acids 1.9 Result Comment: (NOTE) INTERPRETIVE INFORMATION: Bile Acids, Fractionated and Total Test developed and characteristics determined by [employer]. See Compliance Statement B: [employer]/CS Performed by [employer], [address] [place], [place] [id number] [email or web address], Mauricio Yi MD, Lab. Director Performed By: #### CBCDIF, CMP, TSH #### [facility] [address] [place], [place] [address] #### BILE #### [facility] [address] [place] [address] [phone] Observed: 05/24/2018 Status: F Source: [place] CULTURE, URINE 5:43 PM [facility] REPOSITORY Urine Culture ORGANISM 1: Mixed Gram Positive Organisms [place] Count 1000-10,000 MIX CULTURE Mixed contaminants. Submit a new specimen if indicated. Performed By: #### M100.0650 #### [facility] [address] [place], [place], [address] Observed: 05/11/2018 Status: F Source: [place] CULTURE, URINE 8:34 PM [facility] REPOSITORY Urine Culture Below infection level. ORGANISM 1: Mixed Gram Positive Organisms [place] Count 1000-10,000 Performed By: #### M100.0650 #### [facility] [address] [facility] [place], [address] PROGRESS Observed: 05/11/2018 Status: COMPLETED Source: [place] 4:01 PM [facility] REPOSITORY HNO ID: [id number] Author: Ary Calvin (Petra) Neil Service: (none) [...] the Zoloft prior to bedtime. Follows with Mc[facility] MANAGER ASSESSMENT, apt earlier today, doing well. The ROS [...] children: 0 Occupational History Occupation Employer Comment [employer] Social History Main Topics Smoking status: Never [...] SERTRALINE 50 MG TABLET Ary Trejo, MSN ALGOLOGY TEACHER.ADINA CNOV Observed: 05/11/2018 Status: COMPLETED Source: [place] 3:40 PM [facility] REPOSITORY Office Visit (FAMPWS) HILARIO TRAMMELL ([id number]) 1990 F DAYSI Date Time Provider Department 05/11/18 3:40 PM ARY TREJO (CLIN TECH) FAMPWS During your visit today, we recorded the following information about you: Temperature Pulse Respiration Blood pressure 98.7 degrees 110/minute 18/minute 134/84 Weight 115.7 kg BLACK Lira ALGOLOGY TEACHER.ADINA 05/11/2018 4:17 PM Signed Chief Complaint Patient [...] the Zoloft prior to bedtime. Follows with [facility] MANAGER ASSESSMENT, apt earlier today, doing well. 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 No VB, NADIA PUSHPA Carrillo on 03/01/18 Visit Date: 01/25/18 Doing well. NO VB, NADIA PUSHPA Carrillo on 01/25/18 Visit Date: 12/28/17 ANU from [facility], ivf . doing well no complaints Nyla [...] Urine Glucose Negative Last Edit by Lupe Gerenberg on 05/11/18 11:07 Office Urine Protein Negative [...] ivf ; urine culture negative 11/30/2017 at [facility] 7. Elevated troponin R74.8 8. Syncope, unspecified [...] [place]ARROW Cosigner Signature: Date (if applicable) CC: MANAGER ASSESSMENT OFFICE VISIT Observed: 04/26/2018 Status: F Source: [place] REPORT 10:15 AM [facility] [address] [place], [place] [address] OFFICE VISIT Date of Service: 04/26/18 MR#: [id number] Acct: [id number] Name: HILARIO TRAMMELL Rep #: [id number] : 1990 Provider: Nyla Mancuso MD Age/Sex: 28/F Location[place] [facility] Status: Signed Intake Vital Signs04/26/18 Height 5 ft 5 in 04/26/18 Weight: 249 lb 04/26/18 Body Mass Index (BMI) 41.4 04/26/18 Blood Pressure 130/68 H Intake Visit Reasons: est ob 30 weeks Chief Complaint: est ob Desulphurizer Operator Required: No Is patient in pain?: No Allergies No Known Allergies Allergy (Verified 04/26/18 09:15) Medications Cetirizine HCl [Zyrtec] 10 mg PO QHS 08/27/16 [History Confirmed 04/26/18] Epinephrine [Epipen 2-Mika] 1 ml SQ PRN PRN 03/24/17 [History Confirmed 04/26/18] Ranitidine [Zantac] 150 mg [...] home: Yes 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 doing well no complaints Nyla [...] ivf ; urine culture negative 11/30/2017 at [facility] 2. Cutaneous mastocytosis D47.01 3. 30 weeks gestation of Z3A.30 nipt normal. anatomy scan normal. 4. Hypothyroidism, unspecified type E03.9 check q trimester 5. Vaginal bleeding during O46.90 6. Obesity affecting O99.210 weekly BPP at 32 wk per [facility] 7. Supervision of high risk in third trimester O09.93 FRANCISCO 07/06/18 Girl Mendez Ke ANU I, IVF 8. Elevated glucose tolerance test R73.09 [...] 04/17/2018 Status: COMPLETED Source: [place] 10:30 AM [facility] REPOSITORY Met with patient. 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 Consent to share information with FTC team, OB and med peds signed. Pt plans to deliver at [place] with Dr. Mancuso. Shank Breaker is JOSE Newman. Female fetus- name is Scarletsyn Method of feeding: breast- booklet provided Ultrasound [...] PROGRESS NOTE Observed: 04/17/2018 Status: COMPLETED Source: [place] 10:30 AM [facility] REPOSITORY The total patient time of the visit was 30 minutes, of which greater than 50% of the time was spent counseling and coordinating care. FIBRINOGEN Collected: 04/13/2018 Status: F Source: [place] 9:00 AM [facility] REPOSITORY TYPE CODE TESTS RESULT OUT OF RANGE REFERENCE UNITS LAB L300.4700 203-444 mg/dl High FIB 663 Performed By: #### L300.4700 #### [facility] [address] [place], [address] DONNA Collected: 04/13/2018 Status: F Source: [place] 9:00 AM [facility] REPOSITORY TYPE CODE TESTS RESULT OUT OF RANGE REFERENCE UNITS LAB L803.2300 Normal INOCENCIA MARK Negative Result Comment: Oniel Mark Study Reference: Negative No cells seen. TESTING PERFORMED AT [facility]. ORIGINAL REPORT ON FILE IN LAB CONTAINS ADDITIONAL TEST SITE INFORMATION. RESULTS CALLED TO GEOVANNA MEJIA 04/14/18 1433 Gaudencio Bejarano. REPORT READ BACK BY GEOVANNA MEJIA . Performed By: #### L803.2300 #### [facility] [address] [place], [address] HISTORY AND PHYSICAL Observed: 04/13/2018 Status: F Source: [place] EXAM 6:53 AM [facility] REPOSITORY [facility] Medical Records Department [address] [place] [address] History and Physical 04/13/18 0649 MR#: [id number] Acct: [id number] Name: HILARIO TRAMMELL Rep #: [id number] : 1990 28 From: Nyla Mancuso MD PCP: Ana Tucker III, MD Status: REG CLI Y Location: IN993-7 - Problem List (1) Vaginal bleeding during [...] ivf ; urine culture negative 11/30/2017 at [facility] (7) Supervision of normal Status: Acute Qualifiers: Comment: FRANCISCO 07/06/18 Girl Mendez Ke AUN [facility], IVF (8) Cutaneous mastocytosis Status: Chronic History [...] GeLabor LenAnesthesiDelivery Provider FOB Date ght nder [facility] a Location Review of Systems Constitutional: Denies: [...] Symmetrical, Neuro grossly intact. Negative for: Clonus BRIDAL SALES CONSULTANT: Normal external genitalia. Negative for: Vulvar lesions [...] 04/13/2018 Status: F Source: [place] 5:00 AM [facility] REPOSITORY TYPE CODE TESTS RESULT OUT [...] 2.16 Performed By: #### L100.0100, L300.4700 #### [facility] [address] [facility] [place], [address] FIBRINOGEN Collected: 04/13/2018 Status: F Source: [place] 5:00 AM [facility] REPOSITORY TYPE CODE TESTS RESULT OUT OF RANGE REFERENCE UNITS LAB L300.4700 203-444 mg/dl High FIB 654 Performed By: #### L100.0100, L300.4700 #### [facility] [address] [facility] [place], [address] OB LIMITED WITH Observed: 04/13/2018 Status: F Source: [place] BIOMETRICS 4:28 AM [facility] REPOSITORY [facility] Imaging Services [address] [place] [address] OB Limited With Biometrics MR#: [id number] Acct: [id number] Name: HILARIO TRAMMELL Rep #: [id number] : 1990 F 28 From: Don Young MD PCP: Ana Tucker III, MD Status: REG CLI Study: OB Limited With Biometrics Date of Exam: 04/13/18 Exam# [id number] Ordering Dr: Nyla Mancuso MD STUDY: SECOND [...] Don Young MD at 14:22 EST Tel [phone], Service support , CC: Ana Tucker III, MD; Nyla Mancuso MD Chargeback Analyst: Signed PROGRESS Observed: 04/10/2018 Status: COMPLETED Source: [place] 1:05 PM [facility] REPOSITORY O ID: [id number] Author: Rocio Ch APN Student Service: (none) Author Type: (none) Type: Progress Notes Filed: 04/10/2018 1:43 PM Note Text: Chief Complaint Patient presents with: Medication Follow-up: patient is and needing to discuss medications HPI Hilario Trammell is a 28 year old female who presents here today for Above Complaints. Patient is 27 weeks with first . Due 07/06/17. 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 Reviewed with Wanda Rivera CNP at MANAGER ASSESSMENT office who concurs. Hilario wishes to trial [...] Addressed: Tdap and flu vaccine given at MANAGER ASSESSMENT office. Ary Trejo, MSN ALGOLOGY TEACHER.BELT CHANGER CNOV Observed: 04/10/2018 Status: COMPLETED Source: [place] 1:00 PM [facility] REPOSITORY Office Visit (FAMPWS) HILARIO TRAMMELL ([id number]) 1990 F DAYSI Date Time Provider Department 04/10/18 1:00 PM [facility] During your visit today, we recorded the following information about you: Temperature Pulse Respiration Blood pressure 99 degrees 84/minute 18/minute 120/70 Weight 112.9 kg Rocio Ch OBIEE OBIA SOLUTION ARCHITECT Student 04/10/2018 1:14 PM Signed Chief Complaint Patient presents with: Medication Follow-up: patient is and needing to discuss medications HPI Hilario Trammell is a 28 year old female who presents here today for Above Complaints. Patient is 27 weeks with first . Due 07/06/17. 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 Reviewed with Wanda Rivera CNP at MANAGER ASSESSMENT office who concurs. Hilario wishes to trial [...] Addressed: Tdap and flu vaccine given at MANAGER ASSESSMENT office. Ary Trejo, MSN ALGOLOGY TEACHER.BELT CHANGER Allergies As of Date: 04/10/2018 (No Known [...] BLOOD CNT Collected: 04/09/2018 Status: F Source: [place] NO DIFF 6:58 AM [facility] REPOSITORY TYPE CODE TESTS RESULT OUT [...] 10.0 Performed By: #### L100.0500, L300.4700 #### [facility] [address] [place], [address] FIBRINOGEN Collected: 04/09/2018 Status: F Source: [place] 6:58 AM [facility] REPOSITORY TYPE CODE TESTS RESULT OUT OF RANGE REFERENCE UNITS LAB L300.4700 203-444 mg/dl High FIB 629 Performed By: #### L100.0500, L300.4700 #### [facility] [address] [facility] [place], [address] TYPE AND SCREEN Collected: 04/09/2018 Status: F Source: [place] 6:58 AM [facility] REPOSITORY Order Comment: Has pt arrived? Y Reason for Type AND Screen/Red Cells: ROUTINE TYPE CODE TESTS RESULT OUT OF RANGE REFERENCE UNITS LAB B10.0800 O Normal BLOOD TYPE GEL POSITIVE LAB B100.4000 Normal Antibody NEGATIVE Screen Performed By: #### B101.7450 #### [facility] [address] [place], [address] URINALYSIS, COMPLETE Collected: 04/09/2018 Status: F Source: [place] 5:40 AM [facility] REPOSITORY Order Comment: Has pt arrived? Y How was Urine Obtained? GROUP INSURANCE SPECIALIST TO SPECIFY TYPE CODE TESTS RESULT OUT [...] URINE SEEN Performed By: #### L400.0001 #### [facility] [address] [place], [address] COMPREHENSIVE METABOLIC Collected: 04/07/2018 Status: F Source: [place] MAXWELL 12:57 PM [facility] REPOSITORY Order Comment: Comments: Bile Acid work [...] GAP 10 Performed By: #### L500.4050 #### [facility] [address] [place], [address] MISCELLANEOUS LAB Collected: 04/07/2018 Status: F Source: [place] PROCEDURE 12:57 PM [facility] REPOSITORY Order Comment: Comments: Bile Acid work up SER FZ Comments: Bile Acid work up Test(s) Ordered: [id number] BILE ACID SER FZ TYPE CODE TESTS RESULT OUT OF RANGE REFERENCE UNITS LAB L801.1541 Normal [facility] [place] Result Comment: TEST RESULT LIMITS Bile Acids 5.8 umol/L 4.7 - 24.5 female reference interval (15 - 45 years): 3.7 - 14.5 TESTING PERFORMED AT [facility]. ORIGINAL REPORT ON FILE IN LAB CONTAINS ADDITIONAL TEST SITE INFORMATION. Performed By: #### L801.1541 #### [facility] [address] [place], [address] GESTATIONAL GTT 3HR Collected: 04/07/2018 Status: F Source: [place] 100G 9:57 AM [facility] REPOSITORY Order Comment: Is Patient Fasting? Y [...] 3HR 77 Performed By: #### L500.4710 #### [facility] [place], [address] CBC W/DIFF, AUTOMATED Collected: 03/30/2018 Status: F Source: [place] 9:20 AM [facility] REPOSITORY TYPE CODE TESTS RESULT OUT [...] Lymph 1.47 Performed By: #### L100.0100 #### [facility] [address] [facility] [place], [address] GLUCOSE CHALLENGE GEST Collected: 03/30/2018 Status: F Source: [place] 1H 50G 9:20 AM [facility] REPOSITORY Order Comment: PT DRAWN FOR GLUCH AT 0920 TYPE CODE TESTS RESULT OUT OF RANGE REFERENCE UNITS LAB L501.0250 70-140 mg/dL High GLU GEST 147 50g 1H Performed By: #### L501.0250 #### [facility] [address] [place], [address] THYROID STIM HORMONE Collected: 03/30/2018 Status: F Source: [place] (TSH) 9:10 AM [facility] REPOSITORY TYPE CODE TESTS RESULT OUT OF RANGE REFERENCE UNITS LAB L501.9520 0.358-3.74 uIU/mL Normal TSH 1.97 Performed By: #### L501.9520, L506.0400 #### [facility] [address] [place], [address] T4 FREE DIRECT Collected: 03/30/2018 Status: F Source: [place] 9:10 AM [facility] REPOSITORY TYPE CODE TESTS RESULT OUT OF RANGE REFERENCE UNITS LAB L506.0400 0.76-1.46 ng/dL Normal T4 FREE 1.01 DIRECT Performed By: #### L501.9520, L506.0400 #### [facility] [address] [place], [address] TYPE AND SCREEN Collected: 03/30/2018 Status: F Source: [place] 9:10 AM [facility] REPOSITORY Order Comment: Reason for Type AND Screen/Red Cells: TYPE CODE TESTS RESULT OUT OF RANGE REFERENCE UNITS LAB B10.0800 O Normal BLOOD TYPE GEL POSITIVE LAB B100.4000 Normal Antibody NEGATIVE Screen Performed By: #### B101.7450 #### [facility] [address] [place], [address] MANAGER ASSESSMENT OFFICE VISIT Observed: 03/30/2018 Status: F Source: [place] REPORT 9:07 AM [facility] [address] [place] [place] [address] OFFICE VISIT Date of Service: 03/30/18 MR#: [id number] Acct: [id number] Name: HILARIO TRAMMELL Rep #: [id number] : 1990 Provider: Nyla Mancuso MD Age/Sex: 28/F [place] [facility] Status: Signed with Addenda ADDENDUM by Nhi Agrawal on 03/30/18 at 0906 OFFICE PROCEDURES Office Procedure Documentation entered by Nhi Agrawal 03/30/18 09:06: Immunizations Boostrix Tdap Performing Provider: Nyla Mancuso MD Administered by: Nhi Agrawal on 03/30/18 09:04 Dose Route Admin Location Lot Number Expiration Date NDC Elevator Technician 0.5 mL IM Right Arm (SQ) [id number] 05/04/24 80419-059-39 SANOFI-PASTEUR VIS Given Date VIS Publication Date 03/30/18 07/30/14 Eligibility Eligibility Date Office Meds Flucelvax Quad [id number] (PF) Performing Provider: Nyla Mancuso MD Administered by: Nhi Agrawal on 03/30/18 09:06 Dose Route Admin Location Lot Number Expiration Date NDC Elevator Technician 60 mcg IM left IM [id number] 12/03/18 [id number] SEQIRUS 03/30/18 0907 <Electronically signed by Nhi Agrawal > Date Nhi Agrawal cc: * Signed ADDENDUM by Nhi Agrawal on 03/30/18 at 0905 OFFICE PROCEDURES Office Procedure Documentation entered by Nhi Agrawal 03/30/18 09:05: Immunizations Boostrix Tdap Performing Provider: Nyla Mancuso MD Administered by: Nhi Agrawal on 03/30/18 09:04 Dose Route Admin Location Lot Number Expiration Date NDC Elevator Technician 0.5 mL IM Right Arm (SQ) [id number] 05/04/24 [id number] SANOFI-PASTEUR VIS Given Date VIS Publication Date 03/30/18 07/30/14 Eligibility Eligibility Date 03/30/18904 <Electronically signed by Nhi Agrawal > Date Tanja,Nhi Gama cc: * Signed Intake Vital Signs03/30/18 Height 5 ft 5 in 03/30/18 Weight: 251 lb 4 oz 03/30/18 Body Mass Index (BMI) 41.8 03/30/18 Blood Pressure 130/76 H Intake Visit Reasons: est ob 26 weeks Chief Complaint: est ob Desulphurizer Operator Required: No Is patient in pain?: [...] home: Yes 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 J Clin Endocrinol Metab, 2012:97:4518-6916. 2. Evan WYNNE. Overview of thyroid disease in . UpToDate. 2016. Accessed on November 21, 2015. Performed By: #### TSH #### [facility] [address] [place], [place] [address] MANAGER ASSESSMENT OFFICE VISIT Observed: 03/01/2018 Status: F Source: [place] REPORT 1:27 PM [facility] REPOSITORY [place] 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 No VB, LOF Nora Rivera CLIN TECH-C on 03/01/18 Visit Date: 01/25/18 Doing well. NO VB, LOF Nora Rivera CLIN TECH-C on 01/25/18 Visit Date: 12/28/17 ANU from [...] 1327 <Electronically signed by Nora BARROW> Date oNra BARROW Cosigner Signature: Date (if applicable) CC: OB ANATOMY SCAN Observed: 02/15/2018 Status: F Source: [place] 3:54 PM [facility] REPOSITORY [facility] Imaging Services [address] [place] [address] OB Anatomy Scan MR#: [id number] Acct: [id number] Name: HILARIO TRAMMELL Rep #: [id number] : 1990 F 28 From: Jose Mayorga MD PCP: Ana Tucker III, MD Status: REG CLI Study: OB Anatomy Scan Date of Exam: 02/15/18 Exam# [id number] Ordering Dr: Nora Rivera STUDY: SECOND AND [...] CC: PETRA Rivera; Ana Tucker III, MD Chargeback Analyst: Signed THYROID STIM HORMONE Collected: 01/25/2018 Status: F Source: [place] (TSH) 3:34 PM [facility] REPOSITORY TYPE CODE TESTS RESULT OUT OF RANGE REFERENCE UNITS LAB L501.9520 0.358-3.74 uIU/mL Normal TSH 1.44 Performed By: #### L501.9520, L506.0400 #### [facility] [address] [place], [address] T4 FREE DIRECT Collected: 01/25/2018 Status: F Source: [place] 3:34 PM [facility] REPOSITORY TYPE CODE TESTS RESULT OUT OF RANGE REFERENCE UNITS LAB L506.0400 0.76-1.46 ng/dL Normal T4 FREE 1.07 DIRECT Performed By: #### L501.9520, L506.0400 #### [facility] [address] [place], [address] MANAGER ASSESSMENT OFFICE VISIT Observed: 01/25/2018 Status: F Source: [place] REPORT 3:28 PM [facility] REPOSITORY [facility] 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 The electrolytes, liver function tests, kidney function tests, and blood sugar are normal. The wellness form has been completed. Ana Tucker III, MD, SERGIO COMP METABOLIC PANEL Collected: 01/21/2018 Status: F Source: [place] 9:35 AM [facility] REPOSITORY TYPE CODE TESTS RESULT OUT OF REFERENCE UNITS RANGE LAB TP 6.3-8.0 g/dL Protein, Total 6.8 LAB ALB 3.9-4.9 g/dL Low Albumin 3.8 LAB CA 8.5-10.2 mg/dL Calcium, Total 9.2 LAB TBIL 0.2-1.3 mg/dL Bilirubin, Total 0.3 LAB ALKP 32-117 U/L Alkaline Phosphatase 61 LAB AST 13-35 U/L AST 20 LAB GLU 74-99 mg/dL Glucose 80 Result Comment: The [place] Diabetes Association (ADA) provides guidance for cutoff [...] Standards of Medical Care in Diabetes 2016, [place] Diabetes Association. Diabetes Care. 2016.39(Suppl 1). LAB [...] actual GFR. Performed By: #### CMP #### [facility] [address] [place], [place] [address] LIPID PANEL, BASIC Collected: 01/21/2018 Status: F Source: [place] 9:35 AM [facility] REPOSITORY TYPE CODE TESTS [...] Desk Reference: National Heart, Lung, and Blood [place]. National Institutes of Health. 2001: NIH Publication No. 01-3305. 2. An International Atherosclerosis Society position paper: global recommendations for the management of dyslipidemia: executive summary, Atherosclerosis. 2014: 232(2):410-413. Performed By: #### LIPB #### [facility] [address] [place] [address] PROGRESS Observed: 01/20/2018 Status: COMPLETED Source: [place] 2:25 PM [facility] REPOSITORY O ID: [id number] Author: Ana Tucker III Service: (none) Author [...] MD CNOV Observed: 01/20/2018 Status: COMPLETED Source: [place] 2:00 PM [facility] REPOSITORY [facility] JPHILARIO Grey ([id number]) 1990 F [facility] Date Time Provider Department 01/20/18 2:00 PM [...] III MD Referring Provider: ANA TUCKER III [[id number]] Allergies As of Date: 01/20/2018 (No Known Allergies) Date Reviewed: 01/20/2018 Reviewed by: July Islas Instructor Industrial Design - Fully Assessed Reason for Visit: Physical [83] Primary Visit Diagnosis:Encounter for routine adult health examination without abnormal findings [Z00.00] Other Visit Diagnoses:First trimester [Z34.90] Acquired hypothyroidism [E03.9] Gastroesophageal reflux disease without esophagitis [K21.9] Mastocytosis [D47.09] Anxiety disorder, unspecified type [F41.9] Screening for lipid disorders [Z13.220] Diabetes mellitus screening [Z13.1] Order(s):COMP METABOLIC PANEL [SQCMP] Order #: [id number] FUTURE LIPID PANEL BASIC [SQLIPB] Order #: [id number] FUTURE Prescriptions as of 01/20/2018 Sig: ESCITALOPRAM [...] 01/20/18 PROGRESS Observed: 01/08/2018 Status: COMPLETED Source: [place] 6:25 PM [facility] REPOSITORY HNO ID: [id number] Author: Ana Tucker III Service: (none) Author Type: Physician Type: Progress Notes Filed: 01/08/2018 6:25 PM Note Text: Hilario, Your results are either normal or within normal limits. Ana Tucker III MD TSH Collected: 01/07/2018 Status: F Source: [place] 10:40 AM [facility] REPOSITORY TYPE CODE TESTS RESULT OUT OF RANGE REFERENCE UNITS LAB TSH 0.400-5.500 uU/mL TSH 1.530 Result Comment: If the patient is , TSH reference range varies by gestational period: First Trimester 0.100-2.500 uU/mL Second Trimester 0.200-3.000 uU/mL Third Trimester 0.300-3.000 uU/mL References: 1. De Daphnie L, Nita M, Ever EK, et al. Management of Thyroid Dysfunction during and : An Endocrine Society Clinical Practice Guideline. J Clin Endocrinol Metab, 2012:97:1155-8077. 2. Evan WYNNE. Overview of thyroid disease in . UpToDate. 2016. Accessed on November 21, 2015. Performed By: #### TSH #### [facility] [address] [place] [address] MANAGER ASSESSMENT OFFICE VISIT Observed: 12/31/2017 Status: F Source: [place] REPORT 9:48 PM [facility] 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[employer] [employer] Pregancy History 1 Elective abortions Hx Para [...] Nyla Mancuso MD> Date [facility] Signature: Date (if applicable) CC: 12 LEAD ELECTROCARDIOGRAM Observed: 12/15/2017 Status: F Source: [place] 1:10 PM [facility] REPOSITORY [facility] Cardiovascular Services [address] [place] [address] 12 Lead EKG 12/11/174 MR#: [id number] Acct: [id number] Name: HILARIO TRAMMELL Rep #: [id number] : 1990 27 From: Orion Harris MD Attending Dr: Shalom Holley DO Status: DIS RUBINA Ordering Dr: Junior Higginbotham MD Date: 12/11/17 Location: [facility] Sex: F C Admitted: 12/12/17 Test Reason : SYNCOPE Blood Pressure : / mmHG Vent. Rate : 088 BPM Atrial Rate : 088 BPM P-R Int : 140 ms QRS Dur : 096 ms QT Int : 370 ms P-R-T Axes : 036 032 019 degrees QTc Int : 447 ms Normal sinus rhythm Normal ECG Confirmed by CAM ANNE, ORION ([id number]), editor book MATILDA IVEY ([id number]) on 12/15/2017 1:10:02 PM Referred By: MR Confirmed By:ORION HARRIS MD 12/15/17 1310 Date Orion Harris MD CC: Shalom Holley DO; Ana Tucker III, MD; Junior Higginbotham Signed PROGRESS Observed: 12/13/2017 Status: COMPLETED Source: [place] 12:43 PM [facility] REPOSITORY O ID: [id number] Author: Nia Mancilla MA Service: (none) Author Type: Conveyor Operator Type: Progress Notes Filed: 12/13/2017 12:47 PM Note Text: TRANSITION CARE MANAGEMENT (TCM) INITIAL CONTACT Conveyor Operator Outreach Provider Action/FYI: [facility]-admitted on 12/12 for vasovagal syncope, d/c on 12/12 Initial contact with patient post discharge, spoke to patient. Patient identified by name and . SUMMARY: -Pt discharged from [facility] on 12/12/2017. -Admitted for: vasovagal syncope Do [...] review CONSULTATION Observed: 12/13/2017 Status: F Source: [place] 9:24 AM [facility] REPOSITORY [facility] Medical Records Department [address] [place] [address] [place] [address] Consultation 12/12/17716 MR#: [id number] Acct: [id number] Name: HILARIO TRAMMELL Rep #: [id number] : 1990 27 From: Ryder Byrne MD PCP: Ana Tucker III, MD Status: DIS IN Y Location: [place] [address] Reason for Consult Date of Consultation: 12/12/17 [...] Date Recorded By Document 12/12/17 03:18 AML [id number] 12/12/17 03:19 AML Intake and Output for Last 24 Hours Intake Total 2308 Balance 2308 General: Awake, Alert, Oriented x 3 HEENT: [...] 82.1 H, Lymph % (Auto) 12.5 L, [place] % (Auto) 3.9, Eos % (Auto) 1.3, [...] We will discuss this further with the MANAGER ASSESSMENT afterwards. * * Thank you for allowing me to participate in the care of your patient. Please don't hesitate to call if any issues arise 12/13/17923 <Electronically signed by Ryder Byrne MD> Date Ryder Byrne MD Cosigner Signature (if applicable): Date CC: Ryder Byrne MD; Ana Tucker III, MD; Nyla Mancuso MD Signed CNPTOUTREACH Observed: 12/13/2017 Status: COMPLETED Source: [place] 12:00 AM [facility] REPOSITORY Patient Outreach (FAMPWS) HILARIO TRAMMELL ([id number]) 1990 F DAYSI Date Time Provider Department 12/13/17 NIA MANCILLA) FAMPWS During your visit today, we recorded the following information about you: Nia Mancilla CMA, NM 12/13/2017 12:47 PM Signed TRANSITION CARE MANAGEMENT (TCM) INITIAL CONTACT Conveyor Operator Outreach Provider Action/FYI: [facility]-admitted on 12/12 for vasovagal syncope, d/c on 12/12 Initial contact with patient post discharge, spoke to patient. Patient identified by name and . SUMMARY: -Pt discharged from [facility] on 12/12/2017. -Admitted for: vasovagal syncope Do [...] for Visit: Transition Of Care [4074] Cmt: [facility]-admitted on 12/12 for vasovagal syncope, d/c on [...] DISCHARGE SUMMARY Observed: 12/12/2017 Status: F Source: [place] 1:42 PM [facility] REPOSITORY [facility] Medical Records Department [address] [place] [address] Discharge Summary 12/12/17 1027 MR#: [id number] Acct: [id number] Name: HILARIO TRAMMELL Rep #: [id number] : 1990 27 From: Elena Grant CLIN TECHErvinC PCP: Trae LANGLEY MD,Ana Status: ADM IN Y Location: [place] [address] <Elena Grant - Last Filed: 12/12/17 12:59> [...] received IV fluids. Follow-up as outpatient with MANAGER ASSESSMENT and primary care physician. Patient has contacted her fertility specialist in [place] for further recommendations regarding progesterone injections. Patient [...] applicable Code Visit OBSV E AND M: 02322 Observation care discharge 12/12/17 1259 <Electronically signed by lEena BARROW> Date Elena LEHMANC 12/12/17 1342<Electronically signed by Shalom Holley DO> Cosigner Signature (if applicable): Date Shalom Holley DO CC: PUSHPA Grant; Shalom Holley DO; Ana Tucker III, MD Signed ECHOCARDIOGRAM COMPLETE Observed: 12/12/2017 Status: F Source: [place] 12:14 PM [facility] REPOSITORY [facility] Cardiovascular Services [address] [place] [address] [place] [address] Echo Complete 12/12/17931 MR#: [id number] Acct: [id number] Name: HILARIO TRAMMELL Rep #: [id number] : 1990 27 From: Ryder Byrne MD Attending Dr: Shalom Holley DO Status: ADM IN Ordering Dr: Dariusz Abrams MD Date: 12/12/17 Location: [facility] Sex: F C Admitted: 12/12/17 Reason For [...] Referring Physician: Ana Tucker Performed By: Sarita Schreiber RDCS, ARMANDT 12/12/17 1213 Date Ryder Byrne MD CC: Shalom Holley DO; Ana Tucker III, MD; Dariusz Abrams MD Date Dictated: 12/12/17931 Date Transcribed: 12/12/17 1213 Chargeback Analyst: Signed CONSULTATION Observed: 12/12/2017 Status: F Source: [place] 10:46 AM [facility] REPOSITORY [facility] Medical Records Department [address] [place] [address] Consultation 12/12/17 1042 MR#: [id number] Acct: [id number] Name: HILARIO TRAMMELL Rep #: [id number] : 1990 27 From: Nyla Mancuso MD PCP: Ana Tucker III, MD Status: ADM IN Y Location: [place] [address] Problem List (1) with history of infertility [...] noncontributory Psychiatric History: No pertinent psych hx [employer] History: - - infertility Lives: Spouse/ Significant [...] Date Recorded By Document 12/12/17 03:18 AML [id number] 12/12/17 03:19 AML Orthostatic Vitals Standing -Blood Pressure (90/60-120/80) 129/86 H -Extremity Use Left Arm -Pulse Rate (60-100) 115 H Sitting -Blood Pressure (90/60-120/80) 132/80 H Intake and Output for Last 24 Hours Intake Total 2309 / 2309 Balance 230 / 2309 Laboratory Tests Past 24 Hrs [...] DISCHARGE INSTRUCTION Observed: 12/12/2017 Status: F Source: [place] 10:25 AM [facility] REPOSITORY [facility] Medical Records Department [address] [place] [address] Instructions for Home/Discharge Instructions 12/12/17 1019 MR#: [id number] Acct: [id number] Name: HILARIO TRAMMELL Rep #: [id number] : 1990 27 From: Elena BARROW PCP: Ana Tucker III, MD Status: ADM [...] appointment, if applicable. Please Follow Up With: Nlya Mancuso MD When: As scheduled Proposed Discharge Date: 12/12/17 12/12/17 1025 <Electronically signed by Elena BARROW> Date Elena BARROW CC: Ryder Byrne MD; Ana Tucker III, MD; Nyla Mancuso MD HISTORY AND PHYSICAL Observed: 12/12/2017 Status: F Source: [place] EXAM 6:43 AM [facility] REPOSITORY [facility] Medical Records Department [address] [place] [address] History and Physical 12/12/17 0630 MR#: [id number] Acct: [id number] Name: HILARIO TRAMMELL Rep #: [id number] : 1990 27 From: Dariusz Abrams MD PCP: Ana Tucker III, MD Status: ADM IN Y Location: [place] [address] Problem List (1) Cutaneous mastocytosis Status: Chronic [...] Date Recorded By Document 12/12/17 03:18 AML [id number] 12/12/17 03:19 AML Orthostatic Vitals Standing -Blood [...] SCD 12/12/17 0643 <Electronically signed by Dariusz Aliza MD> Date Dariusz Abrams MD Cosigner Signature: Date (if applicable) CC: Ana Tucker III, MD; Dariusz Abrams MD Signed COMPREHENSIVE METABOLIC Collected: 12/12/2017 Status: F Source: [place] PROFIL 5:30 AM [facility] REPOSITORY Order Comment: 'TROP' Serial specimen #1, [...] 9 Performed By: #### L500.4050, L501.4010 #### [facility] [address] [facility] [place], [place], [address] TROPONIN-I Collected: 12/12/2017 Status: F Source: [place] 5:30 AM [facility] REPOSITORY Order Comment: 'TROP' Serial specimen #1, #2 or #3: 3 'TROP' Serial specimen #1, #2, #3, or #4: 3 TYPE CODE TESTS RESULT OUT OF RANGE REFERENCE UNITS LAB L501.4010 <0.045 ng/mL High 0.118 TROPONIN-I Result Comment: TROPONIN-I EXPECTED VALUES <0.045 Negative 0.045 - 0.590 Consistent with Cardiac Damage > OR = 0.600 Critical Value Not every elevated troponin is indicative of SC. These values should be used with clinical judgement in examining the patient's clinical picture for diagnosis. To establish a diagnosis of SC versus myocardial injury, there must be a demonstrated rise and/or fall in the troponin values, in addition to ischemic symptoms, EKG changes, new regional wall motion abnormality, and/or angiographical evidence. PLEASE NOTE: REFERENCE RANGES EDITED 17 Performed By: #### L500.4050, L501.4010 #### [facility] [address] [facility] [place], [address] CBC W/DIFF, AUTOMATED Collected: 12/12/2017 Status: F Source: [place] 5:30 AM [facility] REPOSITORY TYPE CODE TESTS RESULT OUT [...] Lymph 1.78 Performed By: #### L100.0100 #### [facility] [address] [facility] [place], [address] EMERGENCY DEPARTMENT Observed: 12/12/2017 Status: F Source: [place] SUMMARY 3:07 AM [facility] REPOSITORY [facility] Medical Records Department [address] [place] [address] Emergency Department Summary 12/12/17 0116 MR#: [id number] Acct: [id number] Name: HILARIO TRAMMELL Rep #: [id number] : 1990 27 From: Junior Higginbotham MD [...] hormone use. I discussed this with on-call MANAGER ASSESSMENT, and they are in agreement, and we [...] 3. 10-week This note was generated with Cloudbotation software. It may contain incorrect words, spelling, [...] problems, contact your Primary Care Provider. Call [facility] ([phone]) or report to the closest Emergency Room. Call 911 if necessary. 12/12/17 0307 <Electronically signed by Junior Higginbotham MD> Date Junior Higginbotham MD Cosigner Signature (If Indicated): Date CC: Ana Tucker III, MD TROPONIN-I Collected: 12/12/2017 Status: F Source: [place] 2:55 AM [facility] REPOSITORY Order Comment: 'TROP' Serial specimen #1, #2 or #3: 2 TYPE CODE TESTS RESULT OUT OF RANGE REFERENCE UNITS LAB L501.4010 <0.045 ng/mL High 0.188 TROPONIN-I Result Comment: TROPONIN-I EXPECTED VALUES <0.045 Negative 0.045 - 0.590 Consistent with Cardiac Damage > OR = 0.600 Critical Value Not every elevated troponin is indicative of SC. These values should be used with clinical judgement in examining the patient's clinical picture for diagnosis. To establish a diagnosis of SC versus myocardial injury, there must be a demonstrated rise and/or fall in the troponin values, in addition to ischemic symptoms, EKG changes, new regional wall motion abnormality, and/or angiographical evidence. PLEASE NOTE: REFERENCE RANGES EDITED 17 Performed By: #### L501.4010 #### [facility] [address] [facility] [address], [address] MAGNESIUM Collected: 12/12/2017 Status: F Source: [place] 2:55 AM [facility] REPOSITORY TYPE CODE TESTS RESULT OUT OF RANGE REFERENCE UNITS LAB L501.5200 1.6-2.6 mg/dL Normal MG 1.9 Performed By: #### L501.5200, L501.9520 #### [facility] [address] [facility] [place], [address] THYROID STIM HORMONE Collected: 12/12/2017 Status: F Source: [place] (TSH) 2:55 AM [facility] REPOSITORY TYPE CODE TESTS RESULT OUT OF RANGE REFERENCE UNITS LAB L501.9520 0.358-3.74 uIU/mL Normal TSH 1.48 Performed By: #### L501.5200, L501.9520 #### [facility] [address] [place], [address] CTA CHEST W/WO Observed: 12/11/2017 Status: F Source: [place] CONTRAST 11:43 PM [facility] REPOSITORY [facility] Imaging Services [address] [place] [address] CTA Chest W/WO Contrast MR#: [id number] Acct: [id number] Name: HILARIO TRAMMELL Rep #: [id number] : 1990 F 27 From: Leigha Dominguez MD PCP: Ana Tucker III, MD Status: REG ER Study: CTA Chest W/WO Contrast Date of Exam: 12/11/17 Exam# [id number] Ordering Dr: Junior Higginbotham MD STUDY: CTA [...] CC: Ana Tucker III, MD; Junior Higginbotham Chargeback Analyst: Signed CBC W/DIFF, AUTOMATED Collected: 12/11/2017 Status: F Source: [place] 10:20 PM [facility] REPOSITORY TYPE CODE TESTS RESULT OUT [...] Lymph 1.54 Performed By: #### L100.0100 #### [facility] [address] [place], [place], [address] BASIC METABOLIC Collected: 12/11/2017 Status: F Source: [place] PROFILE (BMP) 10:20 PM [facility] REPOSITORY TYPE CODE TESTS RESULT OUT [...] 9 Performed By: #### L500.2500, L501.4010 #### [facility] [address] [facility] [place], [place], [address] TROPONIN-I Collected: 12/11/2017 Status: F Source: [place] 10:20 PM [facility] REPOSITORY TYPE CODE TESTS RESULT OUT OF RANGE REFERENCE UNITS LAB L501.4010 <0.045 ng/mL High 0.174 TROPONIN-I Result Comment: TROPONIN-I EXPECTED VALUES <0.045 Negative 0.045 - 0.590 Consistent with Cardiac Damage > OR = 0.600 Critical Value Not every elevated troponin is indicative of SC. These values should be used with clinical judgement in examining the patient's clinical picture for diagnosis. To establish a diagnosis of SC versus myocardial injury, there must be a demonstrated rise and/or fall in the troponin values, in addition to ischemic symptoms, EKG changes, new regional wall motion abnormality, and/or angiographical evidence. PLEASE NOTE: REFERENCE RANGES EDITED 17 Performed By: #### L500.2500, L501.4010 #### [facility] [address] [place], [place], [address] PROGRESS Observed: 09/17/2017 Status: COMPLETED Source: [place] 9:42 AM [facility] REPOSITORY HNO ID: [id number] Author: Ana Tucker III Service: (none) Author Type: Physician Type: Progress Notes Filed: 09/17/2017 9:42 AM Note Text: Hilario, You have normal thyroid and vitamin D levels Ana Tucker III MD VITAMIN D 25 HYDROXY Collected: 09/16/2017 Status: F Source: [place] 11:16 AM [facility] REPOSITORY TYPE CODE TESTS RESULT OUT OF REFERENCE UNITS RANGE LAB VITD 31.0-80.0 ng/mL Vitamin D 25 40.6 Hydroxy Result Comment: Classification of 25 [place] Vitamin D status: Insufficiency/Moderate Deficiency: < or = 30 ng/mL Sufficiency/Optimal Levels: 31 to 80 ng/mL Toxicity: > 100 ng/mL Test performed by chemiluminescent immunoassay. Performed By: #### VITD, TSH #### [facility] [address] [place] [id number] TSH Collected: 09/16/2017 Status: F Source: [place] 11:16 AM [facility] REPOSITORY TYPE CODE TESTS RESULT OUT OF RANGE REFERENCE UNITS LAB TSH 0.400-5.500 uU/mL TSH 1.620 Result Comment: If the patient is , TSH reference range varies by gestational period: First Trimester 0.100-2.500 uU/mL Second Trimester 0.200-3.000 uU/mL Third Trimester 0.300-3.000 uU/mL References: 1. De Daphnie L, Nita M, Ever EK, et al. Management of Thyroid Dysfunction during and : An Endocrine Society Clinical Practice Guideline. J Clin Endocrinol Metab, 2012:97:9679-6410. 2. Evan WYNNE. Overview of thyroid disease in . UpToDate. 2016. Accessed on November 21, 2015. Performed By: #### VITD, TSH #### [facility] [address] [place], [place] [address] ONCOLOGY VISIT REPORT Observed: 08/29/2017 Status: F Source: [place] 11:15 AM [facility] REPOSITORY [facility] [address] [facility] [place] [address] OFFICE VISIT Date of Service: 08/29/17 1103 MR#: [id number] Acct: [id number] Name: HILARIO TRAMMELL Rep #: [id number] : 1990 From: Keyur Bates MD Age/Sex: [...] 08/29/2017 Status: F Source: [place] 10:32 AM [facility] REPOSITORY TYPE CODE TESTS RESULT OUT [...] Lymph 2.34 Performed By: #### L100.0100 #### [facility] [address] [place], [place], [address] COMPREHENSIVE METABOLIC Collected: 08/29/2017 Status: F Source: [facility] 10:29 AM [facility] REPOSITORY Order Comment: Reason for Laboratory Test [...] GAP 6 Performed By: #### L500.4050 #### [facility] [address] [place], [address] 75G 2HR NONGEST OGTT Collected: 07/09/2017 Status: F Source: [place] 9:09 AM [facility] REPOSITORY TYPE CODE TESTS RESULT OUT OF RANGE REFERENCE UNITS LAB GT0 74-99 mg/dL Glucose, 82 0 Hour Result Comment: [employer] [place] [employer] guidelines state a diabetes mellitus [...] not established, and should be clinically determined. [employer] guidelines state a diabetes mellitus [...] mg/dL Glucose, 2 Hour 92 Result Comment: [employer] guidelines state a diabetes mellitus [...] 199 mg/dL. Performed By: #### GTNG2 #### [facility] [address] [place] [id number] ALLERGIES ALLERGIES DATE TYPE / CODE NAME / CODE REACTION SEVERITY SOURCE 06/28/2018 Drug No Known Unknown [place] Allergy/304361591(S Allergies/F0019 [facility] [place]) [address](RXNORM) Hospital Repository Miscellaneous NO KNOWN [place] Allergy/689184680(S ALLERGIES [facility]) Hospital Repository Drug NO KNOWN [place] Class/817418811(SNO ALLERGIES [facility]) [place] [facility] ENCOUNTERS ENCOUNTERS ADMIT/DISCHARGE ACCOUNT ADMITTING ENCOUNTER LOCATION SOURCE NUMBER CLASS 07/03/2018 [id number] [facility] ing:WC Repository 06/26/2018 [id number] [facility] ing:LABSPEC Repository 06/26/2018/06/26/19 [id number] Ambulatory BMSBuilding:B [place] [facility] [place] Repository 06/23/2018 [id number] [facility] ing:LAB Repository 06/23/2018/06/23/19 [id number] Ambulatory BMSBuilding:B [place] 19 [place].[facility] Repository 06/15/2018/06/19/19 [id number] Shawn, Inpatient [place] [facility] [place] [facility]: Repository [id number]: 1 06/15/2018 [id number] Marcanthony, Ambulatory BMSBuilding:[place] Hospital Repository 06/15/2018 [id number] Marcanthony, Ambulatory BMSBuilding:[place] Hospital Repository 06/15/2018 [id number] Marcanthony, Ambulatory BMSBuilding:[place] Hospital Repository 06/15/2018 [id number] Marcanthony, Ambulatory BMSBuilding:[place] Repository 06/15/2018 [id number] Marcanthony, Ambulatory BMSBuilding:[place] Repository 06/15/2018 [id number] Ambulatory BMSBuilding:[place] Repository 06/12/2018 [id number] Ambulatory Building:[facility] Repository 06/12/2018 [id number] Ambulatory [facility] HospitalBuild Hospital ing:PAVLAB Repository 06/12/2018/06/12/19 [id number] Ambulatory BMSBuilding:[place] 19 [place].[facility] Hospital Repository 06/09/2018 [id number] Ambulatory [facility] Hospitalild Hospital ing:LABSPEC Repository 06/09/2018/06/09/19 [id number] Ambulatory [address] HospitalBuild Hospital ing:WPOUTRoom Repository : WP013 06/09/2018/06/09/19 [id number] Ambulatory BMSBuilding:[place] 19 [place].[facility] Hospital Repository 06/05/2018 [id number] Ambulatory [facility] HospitalBuild Hospital ing:LAB.FUTUR Repository E 06/05/2018/06/05/20 [id number] Ambulatory BMSBuilding:[place] 18 [place].[facility] Hospital Repository 06/02/2018 [id number] Ambulatory [facility] HospitalBuild Hospital ing:LAB Repository 05/31/2018 [id number] Ambulatory [facility] HospitalBuild Hospital ing:LAB Repository 05/27/2018 [id number] Ambulatory [facility] Hospital ing:LAB Repository 05/25/2018/05/25/20 [id number] Ambulatory [address] Repository 05/24/2018 [id number] Ambulatory [facility] Hospital ing:LABSPEC Repository 05/24/2018/05/24/20 [id number] Ambulatory BMSBuilding:B [place] 18 [place].[facility] Repository 05/15/2018/05/15/20 [id number] Ambulatory Building:[address] Repository 05/11/2018 [id number] Ambulatory [facility] Hospital ing:LABSPEC Repository 05/11/2018/05/11/20 [id number] Ambulatory [address] Repository 05/11/2018/05/11/20 [id number] Ambulatory BMSBuilding:B [place] 18 [place].[facility] Repository 04/26/2018/04/26/20 [id number] Ambulatory BMSBuilding:B [place] 18 [place].[facility] Repository 04/17/2018 [id number] Ambulatory BMSBuilding:B [place] Repository 04/17/2018/04/17/20 [id number] Ambulatory Building:[address] Repository 04/17/2018/04/17/20 [id number] Ambulatory Building:[address] Repository 04/14/2018 [id number] Ambulatory BMSBuilding:[place] Hospital Repository 04/13/2018 [id number] Ambulatory BMSBuilding:[place] Repository 04/13/2018/04/14/20 [id number] Ambulatory [address] Hospital ing:WPOUTRoom Repository : WP014 04/10/2018/04/12/20 [id number] Ambulatory [address] Repository 04/09/2018/04/09/20 [id number] Ambulatory [address] Hospital ing:WPOUTRoom Repository : WP013 04/07/2018 [id number] [facility]LAB Repository 03/30/2018 [id number] [facility]ulatory [facility] Hospital ing:PAVLAB Repository 03/30/2018/03/30/20 [id number] Ambulatory BMSBuilding:B [place] 18 [place].[facility] Repository 03/01/2018/03/01/20 [id number] Ambulatory [address] Repository 03/01/2018/03/01/20 [id number] Ambulatory BMSBuilding:B [place] 18 [place].[facility] Repository 02/15/2018 [id number] Ambulatory [facility] Hospital ing:US Repository 01/25/2018 [id number] Ambulatory [facility] Hospital ing:POLAB3 Repository 01/25/2018 [id number] Ambulatory BMSBuilding:B [place] Repository 01/25/2018/01/26/20 [id number] Ambulatory BMSBuilding:B [place] 18 [place].[facility] Repository 01/23/2018/01/24/20 [id number] Ambulatory [address] Repository 01/21/2018/01/22/20 [id number] Ambulatory [address] Repository 01/20/2018/01/25/20 [id number] Ambulatory [address] Repository 01/10/2018 [id number] Ambulatory BMSBuilding:B [place] Repository 01/07/2018/01/08/20 [id number] Ambulatory [address] Repository 12/28/2017/12/29/19 [id number] Ambulatory BMSBuilding:B [place] 18 [place].[facility] Repository 12/24/2017 [id number] Ambulatory BMS [facility] Repository 12/12/2017/12/13/19 [id number] Dariusz Abrams Ambulatory [address] Hospital ing:PCURoom: Repository [id number]: 1 12/12/2017 [id number] Dariusz Abrams Ambulatory BMSBuilding:B [place] Repository 12/12/2017 [id number] Dariusz Abrams Ambulatory BMSBuilding:[place].WIP [facility] Repository 12/12/2017 [id number] Dariusz Abrams Ambulatory BMSBuilding:[place] Repository 11/30/2017 [id number] Ambulatory BMS [facility] Repository 09/16/2017/09/17/19 [id number] Ambulatory [address] Repository 08/29/2017 [id number] Ambulatory [facility] [facility] ing:OMD Repository 08/29/2017 [id number] Ambulatory BMSBuilding:Taurus Newman MS.CF.[facility] Repository 07/09/2017/07/09/19 [id number] Ambulatory [address] Repository PAYERS PAYERS ENCOUNTER GUARANTOR PAYER SUBSCRIBER SOURCE 07/03/2018 HILARIO N Primary AN C [place] [id number] [facility] y Number: [id number], [place] [id number] Repository 59[address]Msp: 330) Date:1984-77-81[phone] () 580364Goqtuaf, [place] [address]MN: 07/03/2018 Secondary NOT GIVENUNK [place] Insurance:SELF PAY [facility] Number: Effective Repository Date:2018-06-27 06/26/2018 HILARIO N Primary AN C Paty [id number] [facility] y Number: [id number], [place] [id number] Repository 65555Wtb: (330) Date:4812-77-03Do [phone] () 983874Erbokdv, [place] [address]QN: 06/26/2018 Secondary NOT GIVENUNK [place] Insurance:SELF PAY [facility] Number: Effective Repository Date:2018-06-26 06/26/2018 HILARIO N Primary AN C [place] [id number] Insurance:[facility]: [facility] y Number: [id number], [place] [id number] Repository 28088Zad: (330) Date:0530-82-13Bu [phone] () 745078Ygkbisd, [place] [address]YW: 06/26/2018 Secondary NOT GIVENUNK [place] Insurance:SELF PAY [facility] Number: Effective Repository Date:2018-06-26 06/23/2018 HILARIO N Primary AN C Pat[place] [id number] Insurance:ANTHEMPolic WELSHDOB: [facility] [place] y Number: [id number], [place] [id number] Repository 14858Vut: (330) Date:6432-63-13Np [phone] () 979280Gxowivm, [place] [address]DX: 06/23/2018 Secondary NOT GIVENUNK [place] Insurance:SELF PAY [facility] Number: Effective Repository Date:2018-06-23 06/23/2018 HILARIO N Primary AN C Paty [id number] Insurance:ANTHEMPolic WELSHDOB: [facility] [place] y Number: [id number], [place] [id number] Repository 12844Jbk: (330) Date:2914-16-31Tq [phone] () 657266Akgfmct, [place] [address]IS: 06/23/2018 Secondary NOT GIVENUNK [place] Insurance:SELF PAY [facility] Number: Effective Repository Date:2018-06-23 06/15/2018 HILARIO N Primary AN C [place] [id number] Insurance:ANTHEMPolic WELSHDOB: [facility] [place] y Number: [id number], [place] [id number] Repository 04544Zja: (330) Date:5674-57-94Tu [phone] () 800161Mzhpcrx, [place] [address]NO: 06/15/2018 Secondary NOT GIVENUNK [place] Insurance:SELF PAY [facility] Number: Effective Repository Date:2018-06-14 06/15/2018 HILARIO N Primary AN C [place] [id number] Insurance:ANTHEMPolic WELSHDOB: [facility] y Number: [id number], [place] [id number] Repository 93505Yzl: (330) Date:4668-03-22Fi [phone] () 404628OcdfjhuSHANA Ballard [address]RC: 06/15/2018 Secondary NOT GIVENUNK [place] Insurance:SELF PAY [facility] Number: Effective Repository Date:2018-06-15 06/15/2018 HILARIO N Primary AN C [place] [id number] Insurance:ANTHEMPolic WELSHDOB: [facility] y Number: [id number], [place] [id number] Repository 73724Puo: (330) Date:8958-86-29Nm [phone] () 121043Pkzhrue, [place] [address]LL: 06/15/2018 Secondary NOT GIVENUNK [place] Insurance:SELF PAY [facility] Number: Effective Repository Date:2018-06-15 06/15/2018 HILARIO N Primary AN C [place] [id number] Insurance:ANTHEMPolic WELSHDOB: [facility] y Number: [id number], [place] [id number] Repository 82978Kdi: (330) Date:3980-34-46Lg [phone] () 612287Pzudywv, [place] [address]TP: 06/15/2018 Secondary NOT GIVENUNK [place] Insurance:SELF PAY [facility] Number: Effective Repository Date:2018-06-15 06/15/2018 HILARIO N Primary AN C [place] [id number] Insurance:ANTHEMPolic WELSHDOB: [facility] y Number: [id number], [place] [id number] Repository 16289Lvy: (330) Date:6531-32-85Ca [phone] () 009725Drdwirf, [place] [address]AD: 06/15/2018 Secondary NOT GIVENUNK [place] Insurance:SELF PAY [facility] Number: Effective Repository Date:2018-06-15 06/15/2018 HILARIO N Primary AN C [place] [id number] Insurance:ANTHEMPolic WELSHDOB: [facility] y Number: [id number], [place] [id number] Repository 40581Zgk: (330) Date:8122-23-98Fo [phone] () [address] [place] [address] [place] [address]EK: 06/15/2018 Secondary NOT GIVENUNK [place] Insurance:SELF PAY [facility] Number: Effective Repository Date:2018-06-15 06/15/2018 HILARIO N Primary AN C [place] [id number] Insurance:ANTHEMPolic WELSHDOB: [facility] y Number: [id number], [place] [id number] Repository 21165Dul: (330) Date:6221-02-42Yu [phone] () [address] [place] [address]YS: 06/15/2018 Secondary NOT GIVENUNK [place] Insurance:SELF PAY [facility] Number: Effective Repository Date:2018-06-15 06/12/2018 HILARIO WELSHDOB: Primary HILARIO WELSHDOB: [facility] [id number] Insurance:ANTHEMPolic [id number] [facility] y Number: [address] [place], [place] [id number] [place], [place] [address]Ftu: (330) Date: [phone] () 06/12/2018 HILARIO N Primary AN C [place] [id number] Insurance:ANTHEMPolic WELDOB: [facility] y Number: [id number], [place] [id number] Repository 33209Tpp: (330) Date:3689-55-53Ia [phone] () 085602Mntuvxv, [place] [address]DK: 06/12/2018 Secondary NOT GIVENUNK [place] Insurance:SELF PAY [facility] Number: Effective Repository Date:2018-06-12 06/12/2018 HILARIO N Primary AN C [place] [id number] Insurance:ANTHEMPolic WELSHDOB: [facility] y Number: [id number], [place] [id number] Repository 94508Jal: (330) Date:3798-31-83Mk [phone] () [address] [place] [address]IE: 06/12/2018 Secondary NOT GIVENUNK [place] Insurance:SELF PAY [facility] Number: Effective Repository Date:2018-06-12 06/09/2018 HILARIO N Primary AN C [place] [id number] Insurance:ANTHEMPolic WELSHDOB: [facility] y Number: [id number], [place] [id number] Repository 76679Ymd: (330) Date:1416-91-00Nd [phone] () [address] [place] [address] 265[address]SY: 06/09/2018 Secondary NOT GIVENUNK [place] Insurance:SELF PAY [facility] Number: Effective Repository Date:2018-06-09 06/09/2018 HILARIO N Primary AN C [place] [id number] Insurance:ANTHEMPolic WELSHDOB: [facility] y Number: [id number], [place] [id number] Repository 78117Ani: (330) Date:8894-78-63Tr [phone] () [address]Yq[address] [place] [address] 93[address]TT: 06/09/2018 Secondary NOT GIVENUNK [place] Insurance:SELF PAY [facility] Number: Effective Repository Date:2018-06-09 06/09/2018 HILARIO N Primary AN C [place] [id number] Insurance:ANTHEMPolic WELSHDOB: [facility] y Number: [id number], [place] [id number] Repository 48949Gzu: (330) Date:1207-56-41Up [phone] () 954373DamdgqeSHANA Ballard [address]ME: 06/09/2018 Secondary NOT GIVENUNK [place] Insurance:SELF PAY [facility] Number: Effective Repository Date:2018-06-09 06/05/2018 HIALRIO N Primary AN C [place] [id number] Insurance:ANTHEMPolic WELSHDOB: [facility] [place] y Number: [id number], [place] [id number] Repository 42508Vqo: (330) Date:1168-69-24Qm [phone] () 610914Fvwzzoo, [place] [address]OM: 06/05/2018 Secondary NOT GIVENUNK [place] Insurance:SELF PAY [facility] Number: Effective Repository Date:2018-06-04 06/05/2018 HILARIO N Primary AN C [place] [id number] Insurance:ANTHEMPolic WELSHDOB: [facility] y Number: [id number], [place] [id number] Repository 55539Nkc: (330) Date:7757-66-46Mg [phone] () 664633BacmonaSHANA Ballard [address]ML: 06/05/2018 Secondary NOT GIVENUNK [place] Insurance:SELF PAY [facility] Number: Effective Repository Date:2018-06-05 06/02/2018 HILARIO N Primary AN C [place] [id number] Insurance:ANTHEMPolic WELSHDOB: [facility] [place] y Number: [id number], [place] [id number] Repository 98503Xwk: (330) Date:6544-39-81Zc [phone] () 220873VyvfddxSHANA Ballard [address]MS: 06/02/2018 Secondary NOT GIVENUNK [place] Insurance:SELF PAY [facility] Number: Effective Repository Date:2018-06-02 05/31/2018 HILARIO N Primary AN C [place] [id number] Insurance:ANTHEMPolic WELSHDOB: [facility] [place] y Number: [id number], [place] [id number] Repository 85088Hzb: (330) Date:0307-82-11Vy [phone] () 173456Kzvqaaj, [place] [address]VI: 05/31/2018 Secondary NOT GIVENUNK [place] Insurance:SELF PAY [facility] Number: Effective Repository Date:2018-05-31 05/27/2018 HILARIO N Primary AN C [place] [id number] Insurance:ANTHEMPolic WELSHDOB: [facility] y Number: [id number], [place] [id number] Repository 48677Upu: (330) Date:8934-18-84Hi [phone] () 892203Mvuslho, [place] [address]OL: 05/27/2018 Secondary NOT GIVENUNK [place] Insurance:SELF PAY [facility] Number: Effective Repository Date:2018-05-24 05/24/2018 HILARIO N Primary AN C [place] [id number] Insurance:ANTHEMPolic WELSHDOB: [facility] y Number: [id number], [place] [id number] Repository 49603Emo: (330) Date:4763-11-04Zt [phone] () 583682Dxsfuwp, [place] [address]BT: 05/24/2018 Secondary NOT GIVENUNK [place] Insurance:SELF PAY [facility] Number: Effective Repository Date:2018-05-24 05/24/2018 HILARIO N Primary AN C [place] [id number] Insurance:ANTHEMPolic WELSHDOB: [facility] y Number: [id number], [place] [id number] Repository 88059Mat: (330) Date:2079-85-70Wd [phone] () 943235Wzwujku, [place] [address]RR: 05/24/2018 Secondary NOT GIVENUNK [place] Insurance:SELF PAY [facility] Number: Effective Repository Date:2018-05-24 05/15/2018 HILARIO WELSHDOB: Primary HILARIO WELSHDOB: [facility] [id number] Insurance:ANTHEMPolic [id number] [place] [address] y Number: [address] [place] Repository [place] [id number] [place] [address]Zpj: (330) Date: [phone] () 05/11/2018 HILARIO N Primary AN C [place] [id number] Insurance:ANTHEMPolic WELSHDOB: [facility] y Number: [id number], [place] [id number] Repository 96751Eao: (330) Date:8017-09-27Gi [phone] () [address] [place] [address] [place] [address]IU: 05/11/2018 Secondary NOT GIVENUNK [place] Insurance:SELF PAY [facility] Number: Effective Repository Date:2018-05-11 05/11/2018 HILARIO N Primary AN C [place] [id number] Insurance:ANTHEMPolic WELSHDOB: [facility] y Number: [id number], [place] [id number] Repository 54378Vxt: (330) Date:0325-69-96Aj [phone] () [address] [place] [address] [place] [address]QS: 05/11/2018 Secondary NOT GIVENUNK [place] Insurance:SELF PAY [facility] Number: Effective Repository Date:2018-05-11 04/26/2018 HILARIO N Primary AN C [place] [id number] Insurance:ANTHEMPolic WELSHDOB: [facility] y Number: [id number], [place] [id number] Repository 61151Qin: (330) Date:8420-66-66Ih [phone] () [address] [place] [address] [place] [address]NG: 04/26/2018 Secondary NOT GIVENUNK [place] Insurance:SELF PAY [facility] Number: Effective Repository Date:2018-04-26 04/17/2018 HILARIO N Primary NOT GIVENUNK [place] [id number] Insurance[place] Number: Effective Repository 632[address]Pgk: (330) Date:2018-04-17 (HP) 04/17/2018 HILARIO WELSHDOB: Primary HILARIO WELSHDOB: [facility] [id number] Insurance:ANTHEMPolic [id number] y Number: [address] [place] Repository [place] [id number] [place] [address]Quj: (330) Date: [phone] (HP) 04/17/2018 HILARIO WELSHDOB: Primary HILARIO WELSHDOB: [facility] [id number] [facility] [id number] y Number: [address] [place] Repository [place] [id number] [place] [address]Zkn: (330) Date: 04912 (HP) 04/14/2018 HILARIO N Primary AN C [place] [id number] [facility] y Number: [id number], [place] [id number] Repository 46[address]Vqc: (330) Date:2241-19-03Us [address] (HP) SHANA Walls [address]XE: 04/14/2018 Secondary NOT GIVENUNK [place] Insurance:SELF PAY [facility] Number: Effective Repository Date:2018-04-14 04/13/2018 HILARIO N Primary AN C [place] [id number] [facility] y Number: [id number], [place] [id number] Repository 32605Kwk: (330) Date:9328-33-75Yk [phone] (HP) 879860Faipwpd, [place] [address]XT: 04/13/2018 Secondary NOT GIVENUNK [place] Insurance:SELF PAY [facility] Number: Effective Repository Date:2018-04-13 04/13/2018 HILARIO N Primary AN Yates [place] [id number] Insurance:ANTHEMPolic WELSHDOB: [facility] y Number: [id number], [place] [id number] Repository 12981Udg: (330) Date:9184-80-01Uh [phone] () [address]Kcfyyvc[address] [place] [address] 32693EG: 04/13/2018 Secondary NOT GIVENUNK [place] Insurance:SELF PAY [facility] Number: Effective Repository Date:2018-04-13 04/09/2018 HILARIO N Primary AN Yates [place] [id number] Insurance:ANTHEMPolic WELSHDOB: [facility] y Number: [id number], [place] [id number] Repository 65174Dlk: (330) Date:7818-76-47Xy [phone] () [address] [place] [address] 73402WU: 04/09/2018 Secondary NOT GIVENUNK [place] Insurance:SELF PAY [facility] Number: Effective Repository Date:2018-04-09 04/07/2018 HILARIO N Primary AN Yates [place] [id number] Insurance:ANTHEMPolic WELSHDOB: [facility] y Number: [id number], [place] [id number] Repository 75695Rgy: (330) Date:2772-26-72Pd [phone] () 070085Rjhdjpi, [place] [address]KC: 04/07/2018 Secondary NOT GIVENUNK [place] Insurance:SELF PAY [facility] Number: Effective Repository Date:2018-03-31 03/30/2018 HILARIO N Primary AN Yates [place] [id number] Insurance:ANTHEMPolic WELSHDOB: [facility] y Number: [id number], [place] [id number] Repository 72892Umv: (330) Date:2422-04-01Dn [phone] () 134043Uhneoby, [place] [address]CV: 03/30/2018 Secondary NOT GIVENUNK [place] Insurance:SELF PAY [facility] Number: Effective Repository Date:2018-03-30 03/30/2018 HILARIO N Primary AN C [place] [id number] Insurance:ANTHEMPolic WELSHDOB: [facility] [place] y Number: [id number], [place] [id number] Repository 55145Fkj: (330) Date:6315-95-99Ad [phone] () 117420Oimpodo, [place] [address]UQ: 03/30/2018 Secondary NOT GIVENUNK [place] Insurance:SELF PAY [facility] Number: Effective Repository Date:2018-03-30 03/01/2018 HILARIO N Primary AN C [place] [id number] Insurance:ANTHEMPolic WELSHDOB: [facility] y Number: [id number], [place] [id number] Repository 23723Vpd: (330) Date:7314-42-45Pt [phone] () 739698Jesxzcl, [place] [address]QH: 03/01/2018 Secondary NOT GIVENUNK [place] Insurance:SELF PAY [facility] Number: Effective Repository Date:2018-03-01 02/15/2018 HILARIO N Primary AN C [place] [id number] Insurance:ANTHEMPolic WELSHDOB: [facility] [place] y Number: [id number], [place] [id number] Repository 50516Igb: (330) Date:8827-13-65Av [phone] () 889760Xkspail, [place] [address]ZP: 02/15/2018 Secondary NOT GIVENUNK [place] Insurance:SELF PAY [facility] Number: Effective Repository Date:2018-01-26 01/25/2018 HILARIO N Primary AN C [place] [id number] Insurance:ANTHEMPolic WELSHDOB: [facility] [place] y Number: [id number], [place] [id number] Repository 40609Meq: (330) Date:0527-41-21Dx [phone] () 397000Znqfgwa, [place] [address]LA: 01/25/2018 Secondary NOT GIVENUNK [place] Insurance:SELF PAY [facility] Number: Effective Repository Date:2018-01-25 01/25/2018 HILARIO N Primary AN [place] [id number] Insurance:ANTHEMPolic WELSHDOB: [facility] [place] y Number: [id number], [place] [id number] Repository 40178Zmn: (330) Date:9615-59-73Eq [phone] () 822091Mdsbcxt, [place] [address]JD: 01/25/2018 Secondary NOT GIVENUNK [place] Insurance:SELF PAY [facility] Number: Effective Repository Date:2017-12-28 01/25/2018 HILARIO N Primary AN [place] [id number] Insurance:ANTHEMPolic WELSHDOB: [facility] y Number: [id number], [place] [id number] Repository 65454Ndp: (330) Date:3298-61-59Ew [phone] () 107601Irkvzpz, [place] [address]FD: 01/25/2018 Secondary NOT GIVENUNK [place] Insurance:SELF PAY [facility] Number: Effective Repository Date:2018-01-25 01/10/2018 HILARIO N Primary AN [place] [id number] Insurance:ANTHEMPolic WELSHDOB: [facility] y Number: [id number], [place] [id number] Repository 47188Kbk: (330) Date:1473-61-00Hc [phone] () 647552Ibgcgbr, [place] [address]NP: 01/10/2018 Secondary NOT GIVENUNK [place] Insurance:SELF PAY [facility] Number: Effective Repository Date:2018-01-02 12/28/2017 HILARIO N Primary AN [place] [id number] Insurance:ANTHEMPolic WELSHDOB: [facility] y Number: [id number], [place] [id number] Repository 43271Gvd: (330) Date:2908-90-05Sx [phone] () 069494Hgxbbbg, [place] [address]YW: 12/28/2017 Secondary NOT GIVENUNK [place] Insurance:SELF PAY [facility] Number: Effective Repository Date:2017-12-28 12/24/2017 HILARIO N Primary AN C [place] [id number] Insurance:ANTHEMPolic WELSHDOB: [facility] y Number: [id number], [place] [id number] Repository 81187Ifm: (330) Date:8367-68-59Yp [phone] () 658342Gkoifeg, [place] [address]EN: 12/24/2017 Secondary NOT GIVENUNK [place] Insurance:SELF PAY [facility] Number: Effective Repository Date:2017-12-24 12/12/2017 Hilario N Primary AN [place] [id number] Insurance:ANTHEMPolic WELSHDOB: [facility] y Number: [id number], [place] [id number] Repository 40686Jlz: (330) Date:9716-79-76Tv [phone] () 799835Upnwhwy, [place] [address]AI: 12/12/2017 Secondary NOT GIVENUNK [place] Insurance:SELF PAY [facility] Number: Effective Repository Date:2017-12-11 12/12/2017 Hilario N Primary AN C [place] [id number] Insurance:ANTHEMPolic WELSHDOB: [facility] y Number: [id number], [place] [id number] Repository 03048Iuf: (330) Date:6439-98-05Ng [phone] () SHANA Walls [address]EH: 12/12/2017 Secondary NOT GIVENUNK [place] Insurance:SELF PAY [facility] Number: Effective Repository Date:2017-12-12 12/12/2017 HILARIO N Primary AN [place] [id number] Insurance:ANTHEMPolic WELSHDOB: [facility] [place] y Number: [id number], [place] [id number] Repository 05363Zhq: (330) Date:8741-31-82Cl [phone] () [address] [place] [address]OH: 12/12/2017 Secondary NOT GIVENUNK [place] Insurance:SELF PAY [facility] Number: Effective Repository Date:2017-12-12 12/12/2017 Hilario N Primary AN [place] [id number] Insurance:ANTHEMPolic WELSHDOB: [facility] y Number: [id number], [place] [id number] Repository 34875Dsz: (330) Date:3360-68-40Gz [phone] () [address]Opmmk[address] [place] [address] 055[address]LY: 12/12/2017 Secondary NOT GIVENUNK [place] Insurance:SELF PAY [facility] Number: Effective Repository Date:2017-12-12 11/30/2017 HILARIO N Primary AN C [place] [id number] Insurance:ANTHEMPolic WELSHDOB: [facility] y Number: [id number], [place] [id number] Repository 70517Fjl: (330) Date:1269-96-49Ik [phone] () 833253Ocojsrz, [place] [address]EY: 11/30/2017 Secondary NOT GIVENUNK [place] Insurance:SELF PAY [facility] Number: Effective Repository Date:2017-11-30 08/29/2017 Hilario N Primary AN C Paty [id number] Insurance:ANTHEMPolic WELSHDOB: [facility] y Number: [id number], [place] [id number] Repository 36305Wjx: (330) Date:1140-10-52Qj [address] [phone] () 459210Fmrqmfe, [place] [address]XO: 08/29/2017 Secondary NOT GIVENUNK [place] Insurance:SELF PAY [facility] Number: Effective Repository Date:2016-08-25 08/29/2017 [facility]ilario Grey [id number]: [facility] Number: [id number], [place] [id number] Repository 47335Jmc: (330) Date:2262-51-45Qa [phone] () 158697Xufdcex, [place] [address]PI: 08/29/2017 Secondary NOT GIVENUNK [place] Insurance:SELF PAY [facility] Number: Effective Repository Date:2017-08-29
== END 2018-07-06 23:59 ==
LOC: WC 10:45
PROVIDERS: Family Provider Family Medicine; PCP Family Medicine; Visit Provider Internal Medicine
DX: T81.31XA Disruption of external operation (surgical) wound, not elsewhere classified, initial encounter (principal); Y83.8 Other surgical procedures as the cause of abnormal reaction of the patient, or of later complication, without mention of misadventure at the time of the procedure; D47.01 Cutaneous mastocytosis
CPT/HCPCS: 11042; 97605; 99212; G0463

== ENCOUNTER 2018-08-02 10:00 | Outpatient (RCR) | payer BC, SELFPAY ==
[2018-07-07 01:53] VITALS: BP 129/72; PULSE 89; RESP 20; TEMP 37
[2018-07-07 11:54] VITALS: BP 123/59; PULSE 77; RESP 18; TEMP 36.4; BMI 40.8
[2018-07-10 13:22] VITALS: BP 126/75; PULSE 88; RESP 16; TEMP 36.6; BMI 40.8
[2018-07-12 10:49] VITALS: BP 124/68; PULSE 84; RESP 18; TEMP 37; BMI 40.8
--- NOTE | 2018-07-12 11:40 | PCM.WC.PN ---
(1) Surgical wound dehiscence Status: Acute Current Visit: Yes Code(s): T81.31XA - Disruption of external operation (surgical) wound, not elsewhere classified, initial encounter Type of Wound Chief Complaint: Surgical wound breakdown. History of Wound: Ms. Damico is a 28-year-old status post a section on 17 June who noted breakdown of her wound on 24 June and was subsequently referred here by her oxygen equipment technician. Initially noted some pain and redness around the area before he subsequently broke open. She was seen by her oxygen equipment technician and had culture taken. She also had the wound packed. She has noticed significant drainage from the wound. She denies chills, fever, nausea or vomiting. She however is on antibiotics prescribed by her oxygen equipment technician. Her new born daughter is also been managed at the intensive care unit at [facility] due to E. coli sepsis. Progress of Wound: Improving. No new concerns at this time. - Physical Exam Vital Signs Temp Pulse Resp BP 98.6 F 84 18 124/68 H 07/12/18 10:49 07/12/18 10:49 07/12/18 10:49 07/12/18 10:49 General: Alert, Oriented x3, Cooperative, No apparent distress HEENT: Atraumatic, Normocephalic Oral: Moist Mucosa Neck: Supple Lungs: Normal air movement Abdomen: Soft, Non Tender, Obese Extremities: No cyanosis Skin: Ulcer/ Wound Wound Measurements and Assessment WC - Nurse 1 - General Ulcer Measurement Start: 07/07/18 11:52 Freq: Status: Active Protocol: Activity Type Activity Date Activity User E-Sign Co-Sign Detail Recorded Client Recorded Date Recorded By Document 07/12/18 10:49 [id number] 07/12/18 11:02 AN 07/12/18 10:49 Wound Center Nurse 1 [Ulcer Assessment] #1 Lower Abd -Current Size (cm) - Length 1.8 -Current Size (cm) - Width 10.2 -Current Size (cm) - Depth 3.0 -Total Square Cm 18.36 -Photo Taken No -Epithelialization None Present -Tunneling No -Undermining/Tunneling No -Circular Undermining No -Classification - Thickness Full Thickness without Exposed Support Structure -Exudate Amt Large -Exudate Type Serosanguineous -Wound Margin Flat & Intact -Granulation Amt Large (67-100%) -Granulation Quality Red -Slough/Fibrin Yes -Necrosis Amt Small (1-33%) -Necrotic Tissue Type Adherent Slough -Structure Exposed Fascia -Texture (Lorri-wound Skin Appearance) Assessed -Moisture (Lorri-wound Skin Appearance Assessed ) -Color (Lorri-wound Skin Appearance) Assessed -Temperature (Lorri-wound Skin No Abnormality Appearance) (Pt Warm) -Tenderness on Palpation (Lorri-wound No Skin Appearance) -Ulcer Cleansing Rinsed/ Irrigated with Saline -Foul Odor after Cleansing No -Anesthetic Used 4% Lidocaine Solution 5% Lidocaine Gel WC - Nurse 2 - General Ulcer CM Notes Start: 07/07/18 11:52 Freq: Status: Active Protocol: Activity Type Activity Date Activity User E-Sign Co-Sign Detail Recorded Client Recorded Date Recorded By Document 07/12/18 11:15 MW [id number] 07/12/18 11:17 MW 07/12/18 11:15 Wound Center Nurse 2 [Procedure/Treatment] -Time 11:16 -Correct Patient Yes -Correct Side, Site, Position Yes -Correct Procedure Yes -Procedure Performed Yes -Type of Procedure Debridement -Clinical Debridement Subcutaneous -Post Debridement Size (cm) - Length 1.0 -Post Debridement Size (cm) - Width 10.0 -Post Debridement Size (cm) - Depth 2.0 -Total Square Cm 10.00 -Wound/Ulcer Outcome Not Healed -Ulcer Cleansing Rinsed/ Irrigated with Saline -Foul Odor after Cleansing No -Bioengineered Tissue No -Bleeding Controlled with Pressure -Offloading No -Treatment Response Procedure Tolerated Well [See Physician Procedure note for Specifics] Pain Scale: 0-10 Numeric [Pain] -Is Patient Pain Free? Yes Musculoskeletal: No Muscle Wasting Neurological: Cranial nerves II-XII grossly intact Psych/Mental Status: Normal Affect Debridement Note Post-Debridement Measurements/Treatment - Nurse 2 - General Ulcer CM Notes Start: 07/07/18 11:52 Freq: Status: Active Protocol: Activity Type Activity Date Activity User E-Sign Co-Sign Detail Recorded Client Recorded Date Recorded By Document 07/12/18 11:15 MW [id number] 07/12/18 11:17 MW 07/12/18 11:15 Wound Center Nurse 2 #1 Lower Abd -Time 11:16 -Correct Patient Yes -Correct Side, Site, Position Yes -Correct Procedure Yes -Procedure Performed Yes -Type of Procedure Debridement -Clinical Debridement Subcutaneous -Post Debridement Size (cm) - Length 1.0 -Post Debridement Size (cm) - Width 10.0 -Post Debridement Size (cm) - Depth 2.0 -Total Square Cm 10.00 -Wound/Ulcer Outcome Not Healed -Ulcer Cleansing Rinsed/ Irrigated with Saline -Foul Odor after Cleansing No -Bioengineered Tissue No -Bleeding Controlled with Pressure -Offloading No -Treatment Response Procedure Tolerated Well Pain Scale: 0-10 Numeric Is Patient Pain Free? Yes Wound debrided: Abdominal Wound Grade/Stage: Stage III Type of Debridement: Excisional debridement Anesthesia Used: 4% Lidocaine Solution Depth: Down to and including healthy tissue, in the subcutaneous layer Percentage of wound debrided: 100 Instrument Used: 5mm curette Tissue Removed: Slough and devitalized tissue Severity: Fat Layer Exposed Amount of bleeding with debridement: Mild Bleeding Controlled with: Pressure Patient tolerated procedure well Assessment/Plan Active Problems (Last Reviewed 06/26/18 @ 16:11 by Agnes Echeverria) Surgical wound dehiscence (Acute) Assessment: Surgical wound dehiscence with possible postsurgical infection. E. coli sepsis. Plan: Wound continues to show good improvement. No new concerns at this time. Debridement done as documented above. Procedure was well-tolerated. Continue wound VAC at 150 mmHg. Protect/pad Surrounding skin. Skin however looks better. Continue increased protein intake. She was advised to call with any further questions or concerns otherwise, follow-up in 1 week.
--- NOTE | 2018-07-12 11:43 | PN.PCM_ITS ---
(1) Surgical wound dehiscence Status: Acute Current Visit: Yes Code(s): T81.31XA - Disruption of external operation (surgical) wound, not elsewhere classified, initial encounter Type of Wound Chief Complaint: Surgical wound breakdown. History of Wound: Ms. Damico is a 28-year-old status post a section on 17 June who noted breakdown of her wound on 24 June and was subsequently referred here by her blunger loader. Initially noted some pain and redness around the area before he subsequently broke open. She was seen by her blunger loader and had culture taken. She also had the wound packed. She has noticed sig nificant drainage from the wound. She denies chills, fever, nausea or vomiting. She however is on antibiotics prescribed by her blunger loader. Her new born daughter is also been managed at the intensive care unit at [facility] due to E. coli sepsis. Progress of Wound: Improving. No new concerns at this time. - Physical Exam Vital Signs Temp Pulse Resp BP 98.6 F 84 18 124/68 H 07/12/18 10:49 07/12/18 10:49 07/12/18 10:49 07/12/18 10:49 General: Alert, Oriented x3, Cooperative, No apparent distress HEENT: Atraumatic, Normocephalic Oral: Moist Mucosa Neck: Supple Lungs: Normal air movement Abdomen: Soft, Non Tender, Obese Extremities: No cyanosis Skin: Ulcer/ Wound Wound Measurements and Assessment WC - Nurse 1 - General Ulcer Measurement Start: 07/07/18 11:52 Freq: Status: Active Protocol: Activity Type Activity Date Activity User E-Sign Co-Sign Detail Recorded Client Recorded Date Recorded By Document 07/12/18 10:49 [id number] 07/12/18 11:02 AN 07/12/18 10:49 Wound Center Nurse 1 [Ulcer Assessment] #1 Lower Abd -Current Size (cm) - Length 1.8 -Current Size (cm) - Width 10.2 -Current Size (cm) - Depth 3.0 -Total Square Cm 18.36 -Photo Taken No -Epithelialization None Present -Tunneling No -Undermining/Tunneling No -Circular Undermining No -Classification - Thickness Full Thickness without Exposed Support Structure -Exudate Amt Large -Exudate Type Serosanguineous -Wound Margin Flat & Intact -Granulation Amt Large (67-100%) -Granulation Quality Red -Slough/Fibrin Yes -Necrosis Amt Small (1-33%) -Necrotic Tissue Type Adherent Slough -Structure Exposed Fascia -Texture (Lorri-wound Skin Appearance) Assessed -Moisture (Lorri-wound Skin Appearance Assessed ) -Color (Lorri-wound Skin Appearance) Assessed -Temperature (Lorri-wound Skin No Abnormality Appearance) (Pt Warm) -Tenderness on Palpation (Lorri-wound No Skin Appearance) -Ulcer Cleansing Rinsed/ Irrigated with Saline -Foul Odor after Cleansing No -Anesthetic Used 4% Lidocaine Solution 5% Lidocaine Gel WC - Nurse 2 - General Ulcer CM Notes Start: 07/07/18 11:52 Freq: Status: Active Protocol: Activity Type Activity Date Activity User E-Sign Co-Sign Detail Recorded Client Recorded Date Recorded By Document 07/12/18 11:15 MW [id number] 07/12/18 11:17 MW 07/12/18 11:15 Wound Center Nurse 2 [Procedure/Treatment] -Time 11:16 -Correct Patient Yes -Correct Side, Site, Position Yes -Correct Procedure Yes -Procedure Performed Yes -Type of Procedure Debridement -Clinical Debridement Subcutaneous -Post Debridement Size (cm) - Length 1.0 -Post Debridement Size (cm) - Width 10.0 -Post Debridement Size (cm) - Depth 2.0 -Total Square Cm 10.00 -Wound/Ulcer Outcome Not Healed -Ulcer Cleansing Rinsed/ Irrigated with Saline -Foul Odor after Cleansing No -Bioengineered Tissue No -Bleeding Controlled with Pressure -Offloading No -Treatment Response Procedure Tolerated Well [See Physician Procedure note for Specifics] Pain Scale: 0-10 Numeric [Pain] -Is Patient Pain Free? Yes Musculoskeletal: No Muscle Wasting Neurological: Cranial nerves II-XII grossly intact Psych/Mental Status: Normal Affect Debridement Note Post-Debridement Measurements/Treatment WC - Nurse 2 - General Ulcer CM Notes Start: 07/07/18 11:52 Freq: Status: Active Protocol: Activity Type Activity Date Activity User E-Sign Co-Sign Detail Recorded Client Recorded Date Recorded By Document 07/12/18 11:15 MW [id number] 07/12/18 11:17 MW 07/12/18 11:15 Wound Center Nurse 2 #1 Lower Abd -Time 11:16 -Correct Patient Yes -Correct Side, Site, Position Yes -Correct Procedure Yes -Procedure Performed Yes -Type of Procedure Debridement -Clinical Debridement Subcutaneous -Post Debridement Size (cm) - Length 1.0 -Post Debridement Size (cm) - Width 10.0 -Post Debridement Size (cm) - Depth 2.0 -Total Square Cm 10.00 -Wound/Ulcer Outcome Not Healed -Ulcer Cleansing Rinsed/ Irrigated with Saline -Foul Odor after Cleansing No -Bioengineered Tissue No -Bleeding Controlled with Pressure -Offloading No -Treatment Response Procedure Tolerated Well Pain Scale: 0-10 Numeric Is Patient Pain Free? Yes Wound debrided: Abdominal Wound Grade/Stage: Stage III Type of Debridement: Excisional debridement Anesthesia Used: 4% Lidocaine Solution Depth: Down to and including healthy tissue, in the subcutaneous layer Percentage of wound debrided: 100 Instrument Used: 5mm curette Tissue Removed: Slough and devitalized tissue Severity: Fat Layer Exposed Amount of bleeding with debridement: Mild Bleeding Controlled with: Pressure Patient tolerated procedure well Assessment/Plan Active Problems (Last Reviewed 06/26/18 @ 16:11 by Agnes Echeverria) Surgical wound dehiscence (Acute) Assessment: Surgical wound dehiscence with possible postsurgical infection. E. coli sepsis. Plan: Wound continues to show good improvement. No new concerns at this time. Debridement done as documented above. Procedure was well-tolerated. Continue wound VAC at 150 mmHg. Protect/pad Surrounding skin. Skin however looks better. Continue increased protein intake. She was advised to call with any further questions or concerns otherwise, follow-up in 1 week.
[2018-07-14 10:19] VITALS: BP 118/64; PULSE 75; RESP 18; TEMP 36.3; BMI 40.8
[2018-07-17 11:38] VITALS: BP 126/86; PULSE 88; RESP 18; TEMP 36.5; BMI 40.8
[2018-07-19 08:35] VITALS: BP 117/68; PULSE 78; RESP 18; TEMP 36.2; BMI 40.8
--- NOTE | 2018-07-19 09:36 | PCM.WC.PN ---
(1) Surgical wound dehiscence Status: Acute Current Visit: Yes Code(s): T81.31XA - Disruption of external operation (surgical) wound, not elsewhere classified, initial encounter Type of Wound Chief Complaint: Surgical wound breakdown. History of Wound: Ms. Damico is a 28-year-old status post a section on 17 June who noted breakdown of her wound on 24 June and was subsequently referred here by her dynamite reclaimer. Initially noted some pain and redness around the area before he subsequently broke open. She was seen by her dynamite reclaimer and had culture taken. She also had the wound packed. She has noticed significant drainage from the wound. She denies chills, fever, nausea or vomiting. She however is on antibiotics prescribed by her dynamite reclaimer. Her new born daughter is also been managed at the intensive care unit at [facility] due to E. coli sepsis. Progress of Wound: Improving. No new concerns at this time. - Physical Exam Vital Signs Temp Pulse Resp BP 97.1 F L 78 18 117/68 07/19/18 08:35 07/19/18 08:35 07/19/18 08:35 07/19/18 08:35 General: Alert, Oriented x3, Cooperative, No apparent distress HEENT: Atraumatic, Normocephalic Oral: Moist Mucosa Neck: Supple Lungs: Normal air movement Abdomen: Soft, Non Tender, Obese Extremities: No cyanosis Skin: Ulcer/ Wound Wound Measurements and Assessment WC - Nurse 1 - General Ulcer Measurement Start: 07/07/18 11:52 Freq: Status: Active Protocol: Activity Type Activity Date Activity User E-Sign Co-Sign Detail Recorded Client Recorded Date Recorded By Document 07/17/18 11:38 MW [id number] 07/17/18 11:41 MW Document 07/19/18 08:35 AN [id number] 07/19/18 08:43 AN 07/17/18 07/19/18 11:38 08:35 Wound Center Nurse 1 [Ulcer Assessment] #1 Lower Abd -Combined with other wound No -Current Size (cm) - Length 0.7 1.0 -Current Size (cm) - Width 8.5 9.0 -Current Size (cm) - Depth 0.4 0.5 -Total Square Cm 5.95 9.00 -Photo Taken No No -Epithelialization Medium 34-66% None Present -Tunneling No No -Undermining/Tunneling No No -Circular Undermining No No -Classification - Thickness Full Thickness without Exposed Support Structure -Exudate Amt Small Small -Exudate Type Serosanguineous Sanguineous -Wound Margin Flat & Intact Distinct, Outline Attached -Granulation Amt Large (67-100%) Large (67-100%) -Granulation Quality [place] Red -Slough/Fibrin Yes Yes -Necrosis Amt Small (1-33%) Small (1-33%) -Necrotic Tissue Type Adherent Slough Adherent Slough -Structure Exposed N/A None/Limited to Skin Breakdown -Texture (Lorri-wound Skin Appearance) Assessed Assessed Scarring Scarring -Moisture (Lorri-wound Skin Appearance No Abnormality Assessed ) Assessed -Color (Lorri-wound Skin Appearance) No Abnormality Assessed Assessed -Temperature (Lorri-wound Skin No Abnormality No Abnormality Appearance) (Pt Warm) (Pt Warm) -Tenderness on Palpation (Lorri-wound No No Skin Appearance) -Ulcer Cleansing soap and water Rinsed/ Irrigated with Saline -Foul Odor after Cleansing No No -Anesthetic Used 4% Lidocaine Solution [Edema Assessment] -Lower Limb Edema Present No WC - Nurse 2 - General Ulcer CM Notes Start: 07/07/18 11:52 Freq: Status: Active Protocol: Activity Type Activity Date Activity User E-Sign Co-Sign Detail Recorded Client Recorded Date Recorded By Document 07/19/18 09:07 MW [id number] 07/19/18 09:09 MW 07/19/18 09:07 Wound Center Nurse 2 [Procedure/Treatment] -Time 09:07 -Correct Patient Yes -Correct Side, Site, Position Yes -Correct Procedure Yes -Procedure Performed Yes -Type of Procedure Debridement -Clinical Debridement Subcutaneous -Post Debridement Size (cm) - Length 1.0 -Post Debridement Size (cm) - Width 9.0 -Post Debridement Size (cm) - Depth 0.6 -Total Square Cm 9.00 -Wound/Ulcer Outcome Not Healed -Ulcer Cleansing Rinsed/ Irrigated with Saline -Foul Odor after Cleansing No -Bioengineered Tissue No -Bleeding Controlled with Pressure -Offloading No -Treatment Response Procedure Tolerated Well [See Physician Procedure note for Specifics] Pain Scale: 0-10 Numeric [Pain] -Is Patient Pain Free? Yes Musculoskeletal: No Muscle Wasting Neurological: Cranial nerves II-XII grossly intact Psych/Mental Status: Normal Affect Debridement Note Post-Debridement Measurements/Treatment WC - Nurse 2 - General Ulcer CM Notes Start: 07/07/18 11:52 Freq: Status: Active Protocol: Activity Type Activity Date Activity User E-Sign Co-Sign Detail Recorded Client Recorded Date Recorded By Document 07/12/18 11:15 MW [id number] 07/12/18 11:17 MW Document 07/19/18 09:07 MW [id number] 07/19/18 09:09 MW 07/12/18 07/19/18 11:15 09:07 Wound Center Nurse 2 #1 Lower Abd -Time 11:16 09:07 -Correct Patient Yes Yes -Correct Side, Site, Position Yes Yes -Correct Procedure Yes Yes -Procedure Performed Yes Yes -Type of Procedure Debridement Debridement -Clinical Debridement Subcutaneous Subcutaneous -Post Debridement Size (cm) - Length 1.0 1.0 -Post Debridement Size (cm) - Width 10.0 9.0 -Post Debridement Size (cm) - Depth 2.0 0.6 -Total Square Cm 10.00 9.00 -Wound/Ulcer Outcome Not Healed Not Healed -Ulcer Cleansing Rinsed/ Rinsed/ Irrigated with Irrigated with Saline Saline -Foul Odor after Cleansing No No -Bioengineered Tissue No No -Bleeding Controlled with Pressure Pressure -Offloading No No -Treatment Response Procedure Procedure Tolerated Well Tolerated Well Pain Scale: 0-10 Numeric Is Patient Pain Free? Yes Yes Wound debrided: Lower abdominal Wound Grade/Stage: Stage III Type of Debridement: Excisional debridement Anesthesia Used: 4% Lidocaine Solution Depth: Down to and including healthy tissue, in the subcutaneous layer Percentage of wound debrided: 100 Instrument Used: 5mm curette Tissue Removed: Slough and devitalized tissue Severity: Fat Layer Exposed Amount of bleeding with debridement: Mild Bleeding Controlled with: Pressure Patient tolerated procedure well Assessment/Plan Active Problems (Last Reviewed 06/26/18 @ 16:11 by Agnes Echeverria) Surgical wound dehiscence (Acute) Assessment: Surgical wound dehiscence with possible postsurgical infection. E. coli sepsis. Plan: Wound continues to show good improvement. No new concerns at this time. Debridement done as documented above. Procedure was well-tolerated. VAC holiday for now. Fibracol daily with Adaptic over top. Continue increased protein intake. She was advised to call with any further questions or concerns otherwise, follow-up in 1 week.
[2018-08-02 10:08] VITALS: BP 151/82; PULSE 91; RESP 16; TEMP 36.6; BMI 40.8
--- NOTE | 2018-08-02 10:45 | PCM.WC.PN ---
(1) Surgical wound dehiscence Status: Acute Current Visit: Yes Code(s): T81.31XA - Disruption of external operation (surgical) wound, not elsewhere classified, initial encounter Type of Wound Chief Complaint: Surgical wound breakdown. History of Wound: Ms. Damico is a 28-year-old status post a section on 17 June who noted breakdown of her wound on 24 June and was subsequently referred here by her data center architect. Initially noted some pain and redness around the area before he subsequently broke open. She was seen by her data center architect and had culture taken. She also had the wound packed. She has noticed significant drainage from the wound. She denies chills, fever, nausea or vomiting. She however is on antibiotics prescribed by her data center architect. Her new born daughter is also been managed at the intensive care unit at [facility] due to E. coli sepsis. Progress of Wound: Improving. No new concerns at this time. - Physical Exam Vital Signs Temp Pulse Resp BP 98 F 91 16 151/82 H 08/02/18 10:08 08/02/18 10:08 08/02/18 10:08 08/02/18 10:08 General: Alert, No apparent distress HEENT: Atraumatic, Normocephalic Oral: Moist Mucosa Neck: Supple Lungs: Normal air movement Abdomen: Soft, Non Tender Extremities: No cyanosis, No edema Skin: Ulcer/ Wound Wound Measurements and Assessment WC - Nurse 1 - General Ulcer Measurement Start: 07/07/18 11:52 Freq: Status: Active Protocol: Activity Type Activity Date Activity User E-Sign Co-Sign Detail Recorded Client Recorded Date Recorded By Document 08/02/18 10:08 [facility] [id number] 08/02/18 10:16 [facility] 08/02/18 10:08 Wound Center Nurse 1 [Ulcer Assessment] #1 Lower Abd -Combined with other wound No -Current Size (cm) - Length 0.3 -Current Size (cm) - Width 8.1 -Current Size (cm) - Depth 0.1 -Total Square Cm 2.43 -Date of Last Picture (Recall this 08/02/18 field) -Photo Taken Yes -Epithelialization Large 67-100% -Tunneling No -Undermining/Tunneling No -Circular Undermining No -Exudate Amt Small -Exudate Type Serous -Wound Margin Flat & Intact -Granulation Amt Large (67-100%) -Granulation Quality [place] -Slough/Fibrin No -Necrosis Amt None Present (0 %) -Texture (Lorri-wound Skin Appearance) Scarring -Moisture (Lorri-wound Skin Appearance Dry/Scaly ) -Color (Lorri-wound Skin Appearance) Assessed -Temperature (Lorri-wound Skin No Abnormality Appearance) (Pt Warm) -Tenderness on Palpation (Lorri-wound No Skin Appearance) -Ulcer Cleansing Rinsed/ Irrigated with Saline -Foul Odor after Cleansing No -Anesthetic Used 4% Lidocaine Solution - Nurse 2 - General Ulcer CM Notes Start: 07/07/18 11:52 Freq: Status: Active Protocol: Activity Type Activity Date Activity User E-Sign Co-Sign Detail Recorded Client Recorded Date Recorded By Document 08/02/18 10:36 MW [id number] 08/02/18 10:40 MW 08/02/18 10:36 Wound Center Nurse 2 [Procedure/Treatment] -Time 10:37 -Correct Patient Yes -Correct Side, Site, Position Yes -Correct Procedure Yes -Procedure Performed Yes -Type of Procedure Debridement -Clinical Debridement Subcutaneous -Post Debridement Size (cm) - Length 0.4 -Post Debridement Size (cm) - Width 7.5 -Post Debridement Size (cm) - Depth 0.1 -Total Square Cm 3.00 -Wound/Ulcer Outcome Not Healed -Ulcer Cleansing Rinsed/ Irrigated with Saline -Foul Odor after Cleansing No -Bioengineered Tissue No -Bleeding Controlled with Pressure -Offloading No -Treatment Response Procedure Tolerated Well [See Physician Procedure note for Specifics] Pain Scale: 0-10 Numeric [Pain] -Is Patient Pain Free? Yes Musculoskeletal: No Muscle Wasting Neurological: Cranial nerves II-XII grossly intact Psych/Mental Status: Normal Affect Debridement Note Post-Debridement Measurements/Treatment - Nurse 2 - General Ulcer CM Notes Start: 07/07/18 11:52 Freq: Status: Active Protocol: Activity Type Activity Date Activity User E-Sign Co-Sign Detail Recorded Client Recorded Date Recorded By Document 07/12/18 11:15 MW [id number] 07/12/18 11:17 MW Document 07/19/18 09:07 MW [id number] 07/19/18 09:09 MW Document 08/02/18 10:36 MW [id number] 08/02/18 10:40 MW 02/11/2207/19/18 08/02/18 11:15 09:07 10:36 Wound Center Nurse 2 #1 Lower Abd -Time 11:16 09:07 10:37 -Correct Patient Yes Yes Yes -Correct Side, Site, Position Yes Yes Yes -Correct Procedure Yes Yes Yes -Procedure Performed Yes Yes Yes -Type of Procedure Debridement Debridement Debridement -Clinical Debridement Subcutaneous Subcutaneous Subcutaneous -Post Debridement Size (cm) - Length 1.0 1.0 0.4 -Post Debridement Size (cm) - Width 10.0 9.0 7.5 -Post Debridement Size (cm) - Depth 2.0 0.6 0.1 -Total Square Cm 10.00 9.00 3.00 -Wound/Ulcer Outcome Not Healed Not Healed Not Healed -Ulcer Cleansing Rinsed/ Rinsed/ Rinsed/ Irrigated with Irrigated with Irrigated with Saline Saline Saline -Foul Odor after Cleansing No No No -Bioengineered Tissue No No No -Bleeding Controlled with Pressure Pressure Pressure -Offloading No No No -Treatment Response Procedure Procedure Procedure Tolerated Well Tolerated Well Tolerated Well Pain Scale: 0-10 Numeric Is Patient Pain Free? Yes Yes Yes Wound debrided: Abdominal Wound Grade/Stage: Stage III Type of Debridement: Excisional debridement Anesthesia Used: 4% Lidocaine Solution Depth: Down to and including healthy tissue, in the subcutaneous layer Percentage of wound debrided: 100 Instrument Used: 3mm curette Tissue Removed: Slough and devitalized tissue Severity: Fat Layer Exposed Amount of bleeding with debridement: Mild Bleeding Controlled with: Pressure Patient tolerated procedure well Assessment/Plan Active Problems (Last Reviewed 08/01/18 @ 14:28 by Nhi Agrawal) Surgical wound dehiscence (Acute) Assessment: Surgical wound dehiscence with possible postsurgical infection. E. coli sepsis. Plan: Wound continues to show good improvement. No new concerns at this time. Debridement done as documented above. Procedure was well-tolerated. DC Vac.Continue Fibracol daily with Adaptic over top. Continue increased protein intake. She was advised to call with any further questions or concerns otherwise, follow-up in 1 week. This note was generated with [employer] software. It may contain incorrect words, spelling, and punctuation that were not noted in checking the note before signing.
--- NOTE | 2018-08-02 10:50 | PN.PCM_ITS ---
(1) Surgical wound dehiscence Status: Acute Current Visit: Yes Code(s): T81.31XA - Disruption of external operation (surgical) wound, not elsewhere classified, initial encounter Type of Wound Chief Complaint: Surgical wound breakdown. History of Wound: Ms. Damico is a 28-year-old status post a section on 17 June who noted breakdown of her wound on 24 June and was subsequently referred here by her deboner. Initially noted some pain and redness around the area before he subsequently broke open. She was seen by her deboner and had culture taken. She also had the wound packed. She has noticed sig nificant drainage from the wound. She denies chills, fever, nausea or vomiting. She however is on antibiotics prescribed by her deboner. Her new born daughter is also been managed at the intensive care unit at [facility] due to E. coli sepsis. Progress of Wound: Improving. No new concerns at this time. - Physical Exam Vital Signs Temp Pulse Resp BP 98 F 91 16 151/82 H 08/02/18 10:08 08/02/18 10:08 08/02/18 10:08 08/02/18 10:08 General: Alert, No apparent distress HEENT: Atraumatic, Normocephalic Oral: Moist Mucosa Neck: Supple Lungs: Normal air movement Abdomen: Soft, Non Tender Extremities: No cyanosis, No edema Skin: Ulcer/ Wound Wound Measurements and Assessment WC - Nurse 1 - General Ulcer Measurement Start: 07/07/18 11:52 Freq: Status: Active Protocol: Activity Type Activity Date Activity User E-Sign Co-Sign Detail Recorded Client Recorded Date Recorded By Document 08/02/18 10:08 [facility] [id number] 08/02/18 10:16 [facility] 08/02/18 10:08 Wound Center Nurse 1 [Ulcer Assessment] #1 Lower Abd -Combined with other wound No -Current Size (cm) - Length 0.3 -Current Size (cm) - Width 8.1 -Current Size (cm) - Depth 0.1 -Total Square Cm 2.43 -Date of Last Picture (Recall this 08/02/18 field) -Photo Taken Yes -Epithelialization Large 67-100% -Tunneling No -Undermining/Tunneling No -Circular Undermining No -Exudate Amt Small -Exudate Type Serous -Wound Margin Flat & Intact -Granulation Amt Large (67-100%) -Granulation Quality [place] -Slough/Fibrin No -Necrosis Amt None Present (0 %) -Texture (Lorri-wound Skin Appearance) Scarring -Moisture (Lorri-wound Skin Appearance Dry/Scaly ) -Color (Lorri-wound Skin Appearance) Assessed -Temperature (Lorri-wound Skin No Abnormality Appearance) (Pt Warm) -Tenderness on Palpation (Lorri-wound No Skin Appearance) -Ulcer Cleansing Rinsed/ Irrigated with Saline -Foul Odor after Cleansing No -Anesthetic Used 4% Lidocaine Solution - Nurse 2 - General Ulcer CM Notes Start: 07/07/18 11:52 Freq: Status: Active Protocol: Activity Type Activity Date Activity User E-Sign Co-Sign Detail Recorded Client Recorded Date Recorded By Document 08/02/18 10:36 MW [id number] 08/02/18 10:40 MW 08/02/18 10:36 Wound Center Nurse 2 [Procedure/Treatment] -Time 10:37 -Correct Patient Yes -Correct Side, Site, Position Yes -Correct Procedure Yes -Procedure Performed Yes -Type of Procedure Debridement -Clinical Debridement Subcutaneous -Post Debridement Size (cm) - Length 0.4 -Post Debridement Size (cm) - Width 7.5 -Post Debridement Size (cm) - Depth 0.1 -Total Square Cm 3.00 -Wound/Ulcer Outcome Not Healed -Ulcer Cleansing Rinsed/ Irrigated with Saline -Foul Odor after Cleansing No -Bioengineered Tissue No -Bleeding Controlled with Pressure -Offloading No -Treatment Response Procedure Tolerated Well [See Physician Procedure note for Specifics] Pain Scale: 0-10 Numeric [Pain] -Is Patient Pain Free? Yes Musculoskeletal: No Muscle Wasting Neurological: Cranial nerves II-XII grossly intact Psych/Mental Status: Normal Affect Debridement Note Post-Debridement Measurements/Treatment - Nurse 2 - General Ulcer CM Notes Start: 07/07/18 11:52 Freq: Status: Active Protocol: Activity Type Activity Date Activity User E-Sign Co-Sign Detail Recorded Client Recorded Date Recorded By Document 07/12/18 11:15 MW [id number] 07/12/18 11:17 MW Document 07/19/18 09:07 MW [id number] 07/19/18 09:09 MW Document 08/02/18 10:36 MW [id number] 08/02/18 10:40 MW 07/12/18 07/19/18 08/02/18 11:15 09:07 10:36 Wound Center Nurse 2 #1 Lower Abd -Time 11:16 09:07 10:37 -Correct Patient Yes Yes Yes -Correct Side, Site, Position Yes Yes Yes -Correct Procedure Yes Yes Yes -Procedure Performed Yes Yes Yes -Type of Procedure Debridement Debridement Debridement -Clinical Debridement Subcutaneous Subcutaneous Subcutaneous -Post Debridement Size (cm) - Length 1.0 1.0 0.4 -Post Debridement Size (cm) - Width 10.0 9.0 7.5 -Post Debridement Size (cm) - Depth 2.0 0.6 0.1 -Total Square Cm 10.00 9.00 3.00 -Wound/Ulcer Outcome Not Healed Not Healed Not Healed -Ulcer Cleansing Rinsed/ Rinsed/ Rinsed/ Irrigated with Irrigated with Irrigated with Saline Saline Saline -Foul Odor after Cleansing No No No -Bioengineered Tissue No No No -Bleeding Controlled with Pressure Pressure Pressure -Offloading No No No -Treatment Response Procedure Procedure Procedure Tolerated Well Tolerated Well Tolerated Well Pain Scale: 0-10 Numeric Is Patient Pain Free? Yes Yes Yes Wound debrided: Abdominal Wound Grade/Stage: Stage III Type of Debridement: Excisional debridement Anesthesia Used: 4% Lidocaine Solution Depth: Down to and including healthy tissue, in the subcutaneous layer Percentage of wound debrided: 100 Instrument Used: 3mm curette Tissue Removed: Slough and devitalized tissue Severity: Fat Layer Exposed Amount of bleeding with debridement: Mild Bleeding Controlled with: Pressure Patient tolerated procedure well Assessment/Plan Active Problems (Last Reviewed 08/01/18 @ 14:28 by Nhi Agrawal) Surgical wound dehiscence (Acute) Assessment: Surgical wound dehiscence with possible postsurgical infection. E. coli sepsis. Plan: Wound continues to show good improvement. No new concerns at this time. Debridement done as documented above. Procedure was well-tolerated. DC Vac.Continue Fibracol daily with Adaptic over top. Continue increased protein intake. She was advised to call with any further questions or concerns otherwise, follow-up in 1 week. This note was generated with [email or web address] software. It may contain incorrect words, spelling, and punctuation that were not noted in checking the note before signing.
== END 2018-08-03 23:59 ==
LOC: WC 10:00
PROVIDERS: Family Provider Family Medicine; PCP Family Medicine; Visit Provider Internal Medicine
DX: T81.31XA Disruption of external operation (surgical) wound, not elsewhere classified, initial encounter (principal); Y83.8 Other surgical procedures as the cause of abnormal reaction of the patient, or of later complication, without mention of misadventure at the time of the procedure
CPT/HCPCS: 11042; 97605; 99212; 99213; G0463

== ENCOUNTER 2018-08-24 10:45 | Outpatient (RCR) | payer BC, SELFPAY ==
[2018-08-04 01:26] VITALS: BP 151/82; PULSE 91; RESP 16; TEMP 36.6
[2018-08-09 09:48] VITALS: BP 137/67; PULSE 82; RESP 16; TEMP 36.2; BMI 40.8
--- NOTE | 2018-08-09 10:53 | PCM.WC.PN ---
(1) Nonhealing surgical wound Status: Acute Current Visit: Yes Code(s): T81.89XA - Other complications of procedures, not elsewhere classified, initial encounter (2) Surgical wound dehiscence Status: Acute Current Visit: Yes Code(s): T81.31XA - Disruption of external operation (surgical) wound, not elsewhere classified, initial encounter Type of Wound Chief Complaint: Surgical wound breakdown. History of Wound: Ms. Damico is a 28-year-old status post a section on 17 June who noted breakdown of her wound on 24 June and was subsequently referred here by her croze cutter. Initially noted some pain and redness around the area before he subsequently broke open. She was seen by her croze cutter and had culture taken. She also had the wound packed. She has noticed significant drainage from the wound. She denies chills, fever, nausea or vomiting. She however is on antibiotics prescribed by her croze cutter. Her new born daughter is also been managed at the intensive care unit at [facility] due to E. coli sepsis. Progress of Wound: Improving. No new concerns at this time. - Physical Exam Vital Signs Temp Pulse Resp BP 97.1 F L 82 16 137/67 H 08/09/18 09:48 08/09/18 09:48 08/09/18 09:48 08/09/18 09:48 General: Alert, Oriented x3, Cooperative, No apparent distress HEENT: Atraumatic, Normocephalic Oral: Moist Mucosa Neck: Supple Lungs: Normal air movement Abdomen: Soft, Non Tender Extremities: No cyanosis Skin: Ulcer/ Wound Wound Measurements and Assessment WC - Nurse 1 - General Ulcer Measurement Start: 08/09/18 09:48 Freq: Status: Active Protocol: Activity Type Activity Date Activity User E-Sign Co-Sign Detail Recorded Client Recorded Date Recorded By Document 08/09/18 09:48 [facility] [id number] 08/09/18 09:56 [facility] 08/09/18 09:48 Wound Center Nurse 1 [Ulcer Assessment] #1 Lower Abd -Combined with other wound No -Current Size (cm) - Length 0.3 -Current Size (cm) - Width 5.2 -Current Size (cm) - Depth 0.1 -Total Square Cm 1.56 -Photo Taken No -Epithelialization Small 1-33% -Tunneling No -Undermining/Tunneling No -Circular Undermining No -Exudate Amt Small -Exudate Type Serous -Wound Margin Flat & Intact -Granulation Amt Large (67-100%) -Granulation Quality [place] -Slough/Fibrin No -Necrosis Amt None Present (0 %) -Texture (Lorri-wound Skin Appearance) Scarring -Moisture (Lorri-wound Skin Appearance Assessed ) -Color (Lorri-wound Skin Appearance) Assessed -Temperature (Lorri-wound Skin No Abnormality Appearance) (Pt Warm) -Tenderness on Palpation (Lorri-wound No Skin Appearance) -Ulcer Cleansing Rinsed/ Irrigated with Saline -Foul Odor after Cleansing No -Anesthetic Used 4% Lidocaine Solution WC - Nurse 2 - General Ulcer CM Notes Start: 08/09/18 09:48 Freq: Status: Active Protocol: Activity Type Activity Date Activity User E-Sign Co-Sign Detail Recorded Client Recorded Date Recorded By Document 08/09/18 10:15 MW [id number] 08/09/18 10:17 MW 08/09/18 10:15 Wound Center Nurse 2 [Procedure/Treatment] -Time 10:15 -Correct Patient Yes -Correct Side, Site, Position Yes -Correct Procedure Yes -Procedure Performed Yes -Type of Procedure Debridement -Clinical Debridement Subcutaneous -Post Debridement Size (cm) - Length 0.3 -Post Debridement Size (cm) - Width 4.5 -Post Debridement Size (cm) - Depth 0.1 -Total Square Cm 1.35 -Wound/Ulcer Outcome Not Healed -Ulcer Cleansing Rinsed/ Irrigated with Saline -Foul Odor after Cleansing No -Bioengineered Tissue No -Bleeding Controlled with Pressure -Offloading No -Treatment Response Procedure Tolerated Well [See Physician Procedure note for Specifics] Pain Scale: 0-10 Numeric [Pain] -Is Patient Pain Free? Yes Musculoskeletal: No Muscle Wasting Neurological: Cranial nerves II-XII grossly intact Psych/Mental Status: Normal Affect Debridement Note Post-Debridement Measurements/Treatment WC - Nurse 2 - General Ulcer CM Notes Start: 08/09/18 09:48 Freq: Status: Active Protocol: Activity Type Activity Date Activity User E-Sign Co-Sign Detail Recorded Client Recorded Date Recorded By Document 08/09/18 10:15 MW [id number] 08/09/18 10:17 MW 08/09/18 10:15 Wound Center Nurse 2 #1 Lower Abd -Time 10:15 -Correct Patient Yes -Correct Side, Site, Position Yes -Correct Procedure Yes -Procedure Performed Yes -Type of Procedure Debridement -Clinical Debridement Subcutaneous -Post Debridement Size (cm) - Length 0.3 -Post Debridement Size (cm) - Width 4.5 -Post Debridement Size (cm) - Depth 0.1 -Total Square Cm 1.35 -Wound/Ulcer Outcome Not Healed -Ulcer Cleansing Rinsed/ Irrigated with Saline -Foul Odor after Cleansing No -Bioengineered Tissue No -Bleeding Controlled with Pressure -Offloading No -Treatment Response Procedure Tolerated Well Pain Scale: 0-10 Numeric Is Patient Pain Free? Yes Wound debrided: Abdominal Wound Grade/Stage: Stage III Anesthesia Used: 4% Lidocaine Solution Depth: Down to and including healthy tissue, in the subcutaneous layer Percentage of wound debrided: 100 Instrument Used: 3mm curette Tissue Removed: Often devitalized tissue Severity: Fat Layer Exposed Amount of bleeding with debridement: Mild Bleeding Controlled with: Pressure Patient tolerated procedure well Assessment/Plan Active Problems (Last Reviewed 08/01/18 @ 14:28 by Nhi Agrawal) Surgical wound dehiscence (Acute) Nonhealing surgical wound (Acute) Assessment: Surgical wound dehiscence with possible postsurgical infection. E. coli sepsis. Plan: Wound continues to show good improvement. No new concerns at this time. Debridement done as documented above. Procedure was well-tolerated. Continue Fibracol daily with Adaptic over top. Continue increased protein intake. She was advised to call with any further questions or concerns otherwise, follow-up in 1 week. This note was generated with [employer] dictation software. It may contain incorrect words, spelling, and punctuation that were not noted in checking the note before signing.
--- NOTE | 2018-08-09 10:57 | PN.PCM_ITS ---
(1) Nonhealing surgical wound Status: Acute Current Visit: Yes Code(s): T81.89XA - Other complications of procedures, not elsewhere classified, initial encounter (2) Surgical wound dehiscence Status: Acute Current Visit: Yes Code(s): T81.31XA - Disruption of external operation (surgical) wound, not elsewhere classified, initial encounter Type of Wound Chief Complaint: Surgical wound breakdown. History of Wound: Ms. Damico is a 28-year-old status post a section on 17 June who noted breakdown of her wound on 24 June and was subsequently referred here by her comfort advisor. Initially noted some pain and redness around the area before he subsequently broke open. She was seen by her comfort advisor and had culture taken. She also had the wound packed. She has noticed significant drainage from the wound. She denies chills, fever, nausea or vomiting. She however is on antibiotics prescribed by her comfort advisor. Her new born daughter is also been managed at the intensive care unit at [facility] due to E. coli sepsis. Progress of Wound: Improving. No new concerns at this time. - Physical Exam Vital Signs Temp Pulse Resp BP 97.1 F L 82 16 137/67 H 08/09/18 09:48 08/09/18 09:48 08/09/18 09:48 08/09/18 09:48 General: Alert, Oriented x3, Cooperative, No apparent distress HEENT: Atraumatic, Normocephalic Oral: Moist Mucosa Neck: Supple Lungs: Normal air movement Abdomen: Soft, Non Tender Extremities: No cyanosis Skin: Ulcer/ Wound Wound Measurements and Assessment WC - Nurse 1 - General Ulcer Measurement Start: 08/09/18 09:48 Freq: Status: Active Protocol: Activity Type Activity Date Activity User E-Sign Co-Sign Detail Recorded Client Recorded Date Recorded By Document 08/09/18 09:48 [facility] [id number] 08/09/18 09:56 [facility] 08/09/18 09:48 Wound Center Nurse 1 [Ulcer Assessment] #1 Lower Abd -Combined with other wound No -Current Size (cm) - Length 0.3 -Current Size (cm) - Width 5.2 -Current Size (cm) - Depth 0.1 -Total Square Cm 1.56 -Photo Taken No -Epithelialization Small 1-33% -Tunneling No -Undermining/Tunneling No -Circular Undermining No -Exudate Amt Small -Exudate Type Serous -Wound Margin Flat & Intact -Granulation Amt Large (67-100%) -Granulation Quality [place] -Slough/Fibrin No -Necrosis Amt None Present (0 %) -Texture (Lorri-wound Skin Appearance) Scarring -Moisture (Lorri-wound Skin Appearance Assessed ) -Color (Lorri-wound Skin Appearance) Assessed -Temperature (Lorri-wound Skin No Abnormality Appearance) (Pt Warm) -Tenderness on Palpation (Lorri-wound No Skin Appearance) -Ulcer Cleansing Rinsed/ Irrigated with Saline -Foul Odor after Cleansing No -Anesthetic Used 4% Lidocaine Solution WC - Nurse 2 - General Ulcer CM Notes Start: 08/09/18 09:48 Freq: Status: Active Protocol: Activity Type Activity Date Activity User E-Sign Co-Sign Detail Recorded Client Recorded Date Recorded By Document 08/09/18 10:15 MW [id number] 08/09/18 10:17 MW 08/09/18 10:15 Wound Center Nurse 2 [Procedure/Treatment] -Time 10:15 -Correct Patient Yes -Correct Side, Site, Position Yes -Correct Procedure Yes -Procedure Performed Yes -Type of Procedure Debridement -Clinical Debridement Subcutaneous -Post Debridement Size (cm) - Length 0.3 -Post Debridement Size (cm) - Width 4.5 -Post Debridement Size (cm) - Depth 0.1 -Total Square Cm 1.35 -Wound/Ulcer Outcome Not Healed -Ulcer Cleansing Rinsed/ Irrigated with Saline -Foul Odor after Cleansing No -Bioengineered Tissue No -Bleeding Controlled with Pressure -Offloading No -Treatment Response Procedure Tolerated Well [See Physician Procedure note for Specifics] Pain Scale: 0-10 Numeric [Pain] -Is Patient Pain Free? Yes Musculoskeletal: No Muscle Wasting Neurological: Cranial nerves II-XII grossly intact Psych/Mental Status: Normal Affect Debridement Note Post-Debridement Measurements/Treatment WC - Nurse 2 - General Ulcer CM Notes Start: 08/09/18 09:48 Freq: Status: Active Protocol: Activity Type Activity Date Activity User E-Sign Co-Sign Detail Recorded Client Recorded Date Recorded By Document 08/09/18 10:15 MW [id number] 08/09/18 10:17 MW 08/09/18 10:15 Wound Center Nurse 2 #1 Lower Abd -Time 10:15 -Correct Patient Yes -Correct Side, Site, Position Yes -Correct Procedure Yes -Procedure Performed Yes -Type of Procedure Debridement -Clinical Debridement Subcutaneous -Post Debridement Size (cm) - Length 0.3 -Post Debridement Size (cm) - Width 4.5 -Post Debridement Size (cm) - Depth 0.1 -Total Square Cm 1.35 -Wound/Ulcer Outcome Not Healed -Ulcer Cleansing Rinsed/ Irrigated with Saline -Foul Odor after Cleansing No -Bioengineered Tissue No -Bleeding Controlled with Pressure -Offloading No -Treatment Response Procedure Tolerated Well Pain Scale: 0-10 Numeric Is Patient Pain Free? Yes Wound debrided: Abdominal Wound Grade/Stage: Stage III Anesthesia Used: 4% Lidocaine Solution Depth: Down to and including healthy tissue, in the subcutaneous layer Percentage of wound debrided: 100 Instrument Used: 3mm curette Tissue Removed: Often devitalized tissue Severity: Fat Layer Exposed Amount of bleeding with debridement: Mild Bleeding Controlled with: Pressure Patient tolerated procedure well Assessment/Plan Active Problems (Last Reviewed 08/01/18 @ 14:28 by Nhi Agrawal) Surgical wound dehiscence (Acute) Nonhealing surgical wound (Acute) Assessment: Surgical wound dehiscence with possible postsurgical infection. E. coli sepsis. Plan: Wound continues to show good improvement. No new concerns at this time. Debridement done as documented above. Procedure was well-tolerated. Continue Fibracol daily with Adaptic over top. Continue increased protein intake. She was advised to call with any further questions or concerns otherwise, follow-up in 1 week. This note was generated with [employer] dictation software. It may contain incorrect words, spelling, and punctuation that were not noted in checking the note before signing.
[2018-08-16 09:59] VITALS: BP 133/69; PULSE 88; RESP 16; TEMP 36.8; BMI 40.8
--- NOTE | 2018-08-16 10:56 | PCM.WC.PN ---
(1) Nonhealing surgical wound Status: Acute Current Visit: Yes Code(s): T81.89XA - Other complications of procedures, not elsewhere classified, initial encounter (2) Surgical wound dehiscence Status: Acute Current Visit: Yes Code(s): T81.31XA - Disruption of external operation (surgical) wound, not elsewhere classified, initial encounter Type of Wound Chief Complaint: Surgical wound breakdown. History of Wound: Ms. Damico is a 28-year-old status post a section on 17 June who noted breakdown of her wound on 24 June and was subsequently referred here by her creative services writer. Initially noted some pain and redness around the area before he subsequently broke open. She was seen by her creative services writer and had culture taken. She also had the wound packed. She has noticed significant drainage from the wound. She denies chills, fever, nausea or vomiting. She however is on antibiotics prescribed by her creative services writer. Her new born daughter is also been managed at the intensive care unit at [facility] due to E. coli sepsis. Progress of Wound: Improving. No new concerns at this time. - Physical Exam Vital Signs Temp Pulse Resp BP 98.2 F 88 16 133/69 H 08/16/18 09:59 08/16/18 09:59 08/16/18 09:59 08/16/18 09:59 General: Alert, Oriented x3, Cooperative, No apparent distress HEENT: Atraumatic, Normocephalic Oral: Moist Mucosa Neck: Supple Lungs: Normal air movement Abdomen: Non Tender, Obese Extremities: No cyanosis Skin: Ulcer/ Wound Wound Measurements and Assessment WC - Nurse 1 - General Ulcer Measurement Start: 08/09/18 09:48 Freq: Status: Active Protocol: Activity Type Activity Date Activity User E-Sign Co-Sign Detail Recorded Client Recorded Date Recorded By Document 08/16/18 09:59 [facility] [id number] 08/16/18 10:07 [facility] 08/16/18 09:59 Wound Center Nurse 1 [Ulcer Assessment] #1 Lower Abd -Combined with other wound No -Current Size (cm) - Length 0.1 -Current Size (cm) - Width 0.1 -Current Size (cm) - Depth 0.1 -Total Square Cm 0.01 -Photo Taken No -Epithelialization Large 67-100% -Tunneling No -Undermining/Tunneling No -Circular Undermining No -Exudate Amt Small -Exudate Type Serous -Wound Margin Flat & Intact -Granulation Amt Large (67-100%) -Granulation Quality [place] -Slough/Fibrin No -Necrosis Amt None Present (0 %) -Texture (Lorri-wound Skin Appearance) Excoriation -Moisture (Lorri-wound Skin Appearance Maceration ) -Color (Lorri-wound Skin Appearance) Palor -Temperature (Lorri-wound Skin No Abnormality Appearance) (Pt Warm) -Tenderness on Palpation (Lorri-wound No Skin Appearance) -Ulcer Cleansing Rinsed/ Irrigated with Saline -Foul Odor after Cleansing No -Anesthetic Used 5% Lidocaine Gel WC - Nurse 2 - General Ulcer CM Notes Start: 08/09/18 09:48 Freq: Status: Active Protocol: Activity Type Activity Date Activity User E-Sign Co-Sign Detail Recorded Client Recorded Date Recorded By Document 08/16/18 10:42 MW [id number] 08/16/18 10:44 MW 08/16/18 10:42 Wound Center Nurse 2 [Procedure/Treatment] -Time 10:43 -Correct Patient Yes -Correct Side, Site, Position Yes -Correct Procedure Yes -Procedure Performed Yes -Type of Procedure Debridement -Clinical Debridement Selective -Post Debridement Size (cm) - Length 0.1 -Post Debridement Size (cm) - Width 0.1 -Post Debridement Size (cm) - Depth 0.1 -Total Square Cm 0.01 -Wound/Ulcer Outcome Not Healed -Ulcer Cleansing Rinsed/ Irrigated with Saline -Foul Odor after Cleansing No -Bioengineered Tissue No -Bleeding Controlled with Pressure -Offloading No -Treatment Response Procedure Tolerated Well [See Physician Procedure note for Specifics] Pain Scale: 0-10 Numeric [Pain] -Is Patient Pain Free? Yes Musculoskeletal: No Muscle Wasting Neurological: Cranial nerves II-XII grossly intact Psych/Mental Status: Normal Affect Debridement Note Post-Debridement Measurements/Treatment WC - Nurse 2 - General Ulcer CM Notes Start: 08/09/18 09:48 Freq: Status: Active Protocol: Activity Type Activity Date Activity User E-Sign Co-Sign Detail Recorded Client Recorded Date Recorded By Document 08/09/18 10:15 MW [id number] 08/09/18 10:17 MW Document 08/16/18 10:42 MW [id number] 03/13/19 10:44 MW 08/09/18 08/16/18 10:15 10:42 Wound Center Nurse 2 #1 Lower Abd -Time 10:15 10:43 -Correct Patient Yes Yes -Correct Side, Site, Position Yes Yes -Correct Procedure Yes Yes -Procedure Performed Yes Yes -Type of Procedure Debridement Debridement -Clinical Debridement Subcutaneous Selective -Post Debridement Size (cm) - Length 0.3 0.1 -Post Debridement Size (cm) - Width 4.5 0.1 -Post Debridement Size (cm) - Depth 0.1 0.1 -Total Square Cm 1.35 0.01 -Wound/Ulcer Outcome Not Healed Not Healed -Ulcer Cleansing Rinsed/ Rinsed/ Irrigated with Irrigated with Saline Saline -Foul Odor after Cleansing No No -Bioengineered Tissue No No -Bleeding Controlled with Pressure Pressure -Offloading No No -Treatment Response Procedure Procedure Tolerated Well Tolerated Well Pain Scale: 0-10 Numeric Is Patient Pain Free? Yes Yes Wound debrided: Abdominal Wound Grade/Stage: Stage III Type of Debridement: Selective debridement Anesthesia Used: 4% Lidocaine Solution Depth: Down to and including healthy tissue, in the subcutaneous layer Percentage of wound debrided: 100 Instrument Used: 3mm curette Tissue Removed: Biofilm and devitalized tissue Severity: Fat Layer Exposed Amount of bleeding with debridement: None Patient tolerated procedure well Assessment/Plan Active Problems (Last Reviewed 08/01/18 @ 14:28 by Nhi Agrawal) Surgical wound dehiscence (Acute) Nonhealing surgical wound (Acute) Assessment: Surgical wound dehiscence with possible postsurgical infection. E. coli sepsis. Plan: Wound continues to show good improvement. No new concerns at this time. Minimal area left. Debridement done as documented above. Procedure was well-tolerated. Continue Fibracol daily with Adaptic over top. Continue increased protein intake. She was advised to call with any further questions or concerns otherwise, follow-up in 1 week. This note was generated with [employer] software. It may contain incorrect words, spelling, and punctuation that were not noted in checking the note before signing.
[2018-08-24 10:42] VITALS: BP 132/75; PULSE 93; RESP 16; TEMP 36.6; BMI 40.8
--- NOTE | 2018-08-24 12:20 | PCM.WC.PN ---
(1) Nonhealing surgical wound Status: Acute Current Visit: Yes Code(s): T81.89XA - Other complications of procedures, not elsewhere classified, initial encounter (2) Surgical wound dehiscence Status: Acute Current Visit: Yes Code(s): T81.31XA - Disruption of external operation (surgical) wound, not elsewhere classified, initial encounter Type of Wound Chief Complaint: Surgical wound breakdown. History of Wound: Ms. Damico is a 28-year-old status post a section on 17 June who noted breakdown of her wound on 24 June and was subsequently referred here by her crime scene photographer. Initially noted some pain and redness around the area before he subsequently broke open. She was seen by her crime scene photographer and had culture taken. She also had the wound packed. She has noticed significant drainage from the wound. She denies chills, fever, nausea or vomiting. She however is on antibiotics prescribed by her crime scene photographer. Her new born daughter is also been managed at the intensive care unit at [facility] due to E. coli sepsis. Progress of Wound: Healed. - Physical Exam Vital Signs Temp Pulse Resp BP 98 F 93 16 132/75 H 08/24/18 10:42 08/24/18 10:42 08/24/18 10:42 08/24/18 10:42 General: Alert, Oriented x3, Cooperative, No apparent distress HEENT: Atraumatic, Normocephalic Oral: No Gingival or Mucosal Lesions/ Ulcerations Neck: Supple Lungs: Normal air movement Abdomen: Non Tender, Obese Extremities: No cyanosis Wound Measurements and Assessment WC - Nurse 1 - General Ulcer Measurement Start: 08/09/18 09:48 Freq: Status: Active Protocol: Activity Type Activity Date Activity User E-Sign Co-Sign Detail Recorded Client Recorded Date Recorded By Document 08/24/18 10:42 [facility] [id number] 08/24/18 10:47 [facility] 08/24/18 10:42 Wound Center Nurse 1 [Ulcer Assessment] #1 Lower Abd -Combined with other wound No -Current Size (cm) - Length 0 -Current Size (cm) - Width 0 -Current Size (cm) - Depth 0 -Total Square Cm 0 -Date of Last Picture (Recall this 08/24/18 field) -Photo Taken Yes -Epithelialization Large 67-100% -Tunneling No -Undermining/Tunneling No -Circular Undermining No -Texture (Lorri-wound Skin Appearance) Assessed Scarring -Moisture (Lorri-wound Skin Appearance Assessed ) -Color (Lorri-wound Skin Appearance) Assessed -Temperature (Lorri-wound Skin No Abnormality Appearance) (Pt Warm) -Tenderness on Palpation (Lorri-wound No Skin Appearance) -Ulcer Cleansing Rinsed/ Irrigated with Saline -Foul Odor after Cleansing No Musculoskeletal: No Muscle Wasting Neurological: Cranial nerves II-XII grossly intact Psych/Mental Status: Normal Affect Debridement Note Post-Debridement Measurements/Treatment WC - Nurse 2 - General Ulcer CM Notes Start: 08/09/18 09:48 Freq: Status: Active Protocol: Activity Type Activity Date Activity User E-Sign Co-Sign Detail Recorded Client Recorded Date Recorded By Document 08/09/18 10:15 MW [id number] 08/09/18 10:17 MW Document 08/16/18 10:42 MW [id number] 08/16/18 10:44 MW 08/09/18 08/16/18 10:15 10:42 Wound Center Nurse 2 #1 Lower Abd -Time 10:15 10:43 -Correct Patient Yes Yes -Correct Side, Site, Position Yes Yes -Correct Procedure Yes Yes -Procedure Performed Yes Yes -Type of Procedure Debridement Debridement -Clinical Debridement Subcutaneous Selective -Post Debridement Size (cm) - Length 0.3 0.1 -Post Debridement Size (cm) - Width 4.5 0.1 -Post Debridement Size (cm) - Depth 0.1 0.1 -Total Square Cm 1.35 0.01 -Wound/Ulcer Outcome Not Healed Not Healed -Ulcer Cleansing Rinsed/ Rinsed/ Irrigated with Irrigated with Saline Saline -Foul Odor after Cleansing No No -Bioengineered Tissue No No -Bleeding Controlled with Pressure Pressure -Offloading No No -Treatment Response Procedure Procedure Tolerated Well Tolerated Well Pain Scale: 0-10 Numeric Is Patient Pain Free? Yes Yes No debridement was completed today Assessment/Plan Active Problems (Last Reviewed 08/01/18 @ 14:28 by Nhi Agrawal) Surgical wound dehiscence (Acute) Nonhealing surgical wound (Acute) Assessment: Surgical wound dehiscence with possible postsurgical infection. E. coli sepsis. Plan: Healed. No concerns at this time. Keep area dry always. Advised to wear absorbable clothing. Due to pannus, she would need long-term antifungal powder to the area. She was advised to call with any further questions or concerns. Discharged from the wound center. This note was generated with [employer] dictation software. It may contain incorrect words, spelling, and punctuation that were not noted in checking the note before signing.
== END 2018-09-03 23:59 ==
LOC: WC 10:45
PROVIDERS: Family Provider Family Medicine; PCP Family Medicine; Visit Provider Internal Medicine
DX: T81.31XA Disruption of external operation (surgical) wound, not elsewhere classified, initial encounter (principal); Y83.8 Other surgical procedures as the cause of abnormal reaction of the patient, or of later complication, without mention of misadventure at the time of the procedure; T81.89XA Other complications of procedures, not elsewhere classified, initial encounter
CPT/HCPCS: 11042; 97597; 99213; G0463

== ENCOUNTER → 2018-11-24 | Outpatient (CLI) | payer BC, SELFPAY ==
[2018-11-20 13:33] VITALS: BMI 38.2
--- NOTE | 2018-11-24 09:23 | US_ITS ---
STUDY: ULTRASOUND BREAST - RIGHT REASON FOR EXAM: Female, 28 years old. TECHNIQUE: Axial and longitudinal images of the RIGHT breast were performed with a high resolution ultrasound transducer. COMPARISON: None. FINDINGS: RIGHT Breast: There is 0.8 x 0.6 x 0.3 cm subcutaneous lesion medial inferior aspect of the breast at the level of the skin fold(around 5:00 o'clock) consistent with an inflammatory lesion such as a boil this is not within the breast parenchyma. Recommend follow-up and clinical correlation. Electronically Signed: Giselmario Branden, at 16:12 EDT Tel , Service support , US/Breast Limited Unilateral
--- NOTE | 2018-11-24 09:23 | BI_ITS ---
MAMMOGRAPHY - BILATERAL DIAGNOSTIC REASON FOR EXAM: Female, 28 years old. PERTINENT HISTORY: Non-contributory. TECHNIQUE: Digital examination. Mediolateral oblique (MLO) and craniocaudad (CC) views of both breasts were obtained. CAD: COMPARISON: June 13, 2015. FINDINGS: Breast Composition: Scattered fibroglandular tissue no obvious dilatation, microcalcifications, skin thickening or nipple retraction there is a metallic marker behind the left nipple because of previous biopsy in this location. BI/DIAG MAMM W/CAD, BILAT IMPRESSION: Stable bilateral diagnostic mammogram. ASSESSMENT CATEGORY: BIRADS-2. Approximately 10% of breast cancers are not detected by mammography. A normal mammogram should not delay biopsy of a clinically suspicious abnormality. Electronically Signed: Nora Otero, at 16:20 EDT Tel , Service support ,
== END | disposition home or self-care (01) ==
LOC: OPUS 09:22
PROVIDERS: Family Provider Family Medicine; PCP Family Medicine; Referring Provider Nurse Practitioner Women's Health; Visit Provider Nurse Practitioner Women's Health
DX: N63.10 Unspecified lump in the right breast, unspecified quadrant (principal)
CPT/HCPCS: 76642; 77062; 77066; G0279

== ENCOUNTER → 2019-06-25 13:58 | Outpatient (CLI) | payer BC, SELFPAY ==
[2019-06-24 12:19] VITALS: BMI 43.9
[2019-06-25 14:23] LABS: Bacteria 0 SEEN /hpf (None Seen); Mucous, Urine 0 SEEN /hpf (<or=2+)
[2019-06-25 14:31] LABS: Color, Urine Yellow (Yellow); Glucose, Dipstick Normal (Normal); Ketone-Dipstick Negative (Negative); Leukocyte Esterase-Dipstick Negative /ul (Negative); Nitrite-Dipstick Negative (Negative); Occult Blood-Urine Negative /ul (Negative); Protein-Dipstick Negative (Negative); Urine Bilirubin Dipstick Negative (Negative); Urine Clarity Clear (Clear); Urine Urobilinogen Normal (Normal)
[2019-06-25 14:37] LABS: Red Blood Cells-Urine 0-5 SEEN /hpf (0-5); Squamous Epithelial Cells - UA 0-5 SEEN /hpf (5-10); White Blood Cells 0-5 SEEN /hpf (0-5)
== END ==
PROVIDERS: PCP Family Medicine; Referring Provider Physician Assistant; Visit Provider Physician Assistant
DX: R30.0 Dysuria (principal)
CPT/HCPCS: 81001; 87086; 87088

== ENCOUNTER → 2019-10-16 | Outpatient (CLI) | payer BC, SELFPAY ==
[2019-10-14 13:05] VITALS: BMI 43.9
[2019-10-16 11:30] LABS: Mucous, Urine 0 SEEN /hpf (<or=2+); Red Blood Cells-Urine 0 SEEN /hpf (0-5); White Blood Cells 0 SEEN /hpf (0-5)
[2019-10-16 11:47] LABS: Color, Urine Yellow (Yellow); Glucose, Dipstick Normal (Normal); Ketone-Dipstick Negative (Negative); Leukocyte Esterase-Dipstick Negative /ul (Negative); Nitrite-Dipstick Negative (Negative); Occult Blood-Urine Negative /ul (Negative); Protein-Dipstick Negative (Negative); Specific Gravity, Urine 1.015 (1.002-1.030); Urine Bilirubin Dipstick Negative (Negative); Urine Clarity Clear (Clear); Urine Urobilinogen Normal (Normal)
[2019-10-16 11:55] LABS: Bacteria RARE /hpf (None Seen); Squamous Epithelial Cells - UA 0-5 SEEN /hpf (5-10)
== END | disposition home or self-care (01) ==
LOC: LABSPEC 10:55
PROVIDERS: PCP Family Medicine; Referring Provider Physician Assistant Medical; Visit Provider Physician Assistant Medical
DX: R30.0 Dysuria (principal)
CPT/HCPCS: 81001; 87086

== ENCOUNTER → 2019-10-18 | Outpatient (CLI) | payer BC, SELFPAY ==
[2019-10-18 15:24] VITALS: BMI 43.9
== END | disposition home or self-care (01) ==
PROVIDERS: Visit Provider Nurse Practitioner Women's Health
DX: R35.0 Frequency of micturition (principal); R10.2 Pelvic and perineal pain
CPT/HCPCS: 87070; 87086; 87088; 87205

== ENCOUNTER → 2019-10-26 15:45 | Outpatient (CLI) | payer BC, SELFPAY ==
[2019-10-18 15:24] VITALS: BMI 43.9
--- NOTE | 2019-10-26 15:47 | US_ITS ---
STUDY: ULTRASOUND OF THE FEMALE PELVIS - COMPLETE REASON FOR EXAM: Female, 29 years old. PELVIC PAIN -ALL ACROSS HX C SECTION LMP: 10/05/2019 TECHNIQUE: Transabdominal real-time exam with grayscale image documentation. Transvaginal ultrasound was required for adequate visualization of the uterus and adnexal areas. TECHNICAL QUALITY: Adequate. COMPARISON: None. FINDINGS: The uterus is anteverted and is in a midline position. The uterus measures 8.8 x 6.2 x 4.3 cm. Multiple small nabothian cysts of the cervix. The endometrium measures 14 mm in thickness, and is hyperechoic. There is no demonstrated endometrial mass. There is no demonstrated myometrial mass. I.U.D. - The patient does not have an I.U.D. The right ovary is visualized. The right ovary measures 2.9 x 2.8 x 2.2 cm. Dominant follicle of 1.0 x 1.1 x 0.8 cm There is no visualized right adnexal mass or complex lesion. There is normal arterial and normal venous vascularity. The left ovary is visualized. The left ovary measures 2.5 x 2.1 x 1.8 cm. There is no left ovarian cyst or ovarian mass. There is no visualized left adnexal mass or complex lesion. There is normal arterial and normal venous vascularity. There is no fluid in the cul-de-sac. Unremarkable nondistended urinary bladder. Polycystic ovary disease: No. US/Transvaginal Non- IMPRESSION: Normal female pelvis. Electronically Signed: Marina Eugene MD at 16:46 EDT , Service support ,
== END ==
PROVIDERS: PCP Family Medicine; Referring Provider Nurse Practitioner Women's Health; Visit Provider Nurse Practitioner Women's Health
DX: R10.2 Pelvic and perineal pain (principal)
CPT/HCPCS: 76830; 93976

== ENCOUNTER → 2020-11-25 09:28 | Outpatient (CLI) | payer BC, SELFPAY ==
[2020-05-16 15:54] VITALS: BMI 43.2
[2020-11-25 10:53] LABS: Thyroid Stim Hormone (TSH) 2.95 uIU/mL (0.358-3.74)
== END ==
PROVIDERS: PCP Family Medicine; Referring Provider Obstetrics & Gynecology Reproductive Endocrinology; Visit Provider Obstetrics & Gynecology Reproductive Endocrinology
DX: E02 Subclinical iodine-deficiency hypothyroidism (principal)
CPT/HCPCS: 36415; 84443

== ENCOUNTER 2021-02-14 21:34 | Emergency (ER) | payer BC, SELFPAY ==
[2021-02-14 21:35] VITALS: BP 126/64; PULSE 86; RESP 15; TEMP 36.6; O2SAT 98; BMI 40.9
--- NOTE | 2021-02-14 22:08 | EKG12_ITS ---
Test Reason : ALT LOC Blood Pressure : / mmHG Vent. Rate : 074 BPM Atrial Rate : 074 BPM P-R Int : 146 ms QRS Dur : 098 ms QT Int : 392 ms P-R-T Axes : 043 019 017 degrees QTc Int : 435 ms Normal sinus rhythm with sinus arrhythmia Normal ECG Confirmed by CAM ANNE, LISETTE ([id number]), video editor TRISH ROSS ([id number]) on 02/19/2021 10:14:37 AM Referred By: YULIYA Confirmed By:LISETTE LEVY MD
[2021-02-14] MEDS: 0.9% Normal Saline 1,000 ML 999 ML IV (22:16)
[2021-02-14 22:25] LABS: Absolute Lymphocyte Count 4.81 X10^3/uL (0.83-4.51); Absolute Neutrophil Count 4.6 X10^3/uL (2.0-7.7); Basophil# 0.01 X10^3/uL; Basophil% 0.1 % (0-1); Eosinophil# 0.17 X10^3/uL; Eosinophils% 1.7 % (0-5); Hematocrit 35.9 % (37-47); Lymphocyte # 4.81 X10^3/ul (0.83-4.51); Lymphocyte % 48.9 % (19-41); Mean Corp Hgb Conc 30.6 g/dL (32-36); Mean Corpuscular Volume 81.6 fL (81-99); Mean Platelet Vol. 9.5 fl (6.2-12.0); Monocyte# 0.18 X10^3/uL; Monocyte% 1.8 % (0-10); NRBC Flagged by Analyzer 0 % (0-5); Neutrophil # 4.62 X10^3/uL (2.7-7.7); POSITIVE MORPHOLOGY YES; Platelet Count 589 K/mm3 (150-450); RBC Distribution Width SD 47.6 fl (35.1-43.9); White Blood Count 9.8 K/mm3 (4.4-11.0)
--- NOTE | 2021-02-14 22:33 | EX.ED.DYSGE1 ---
HPI History of Present Illness Chief Complaint: Alt LOC Narrative Narrative: Patient is a 31-year-old female who presents with complaint of syncope. She states that she is approximately 8 weeks and had to become through in vitro fertilization. She states that she has a take progesterone shots nightly. She states with her last she had a similar event where after injection she had a syncopal event. She reports she was admitted at that time and was told that her symptoms were vasovagal. She states this evening she received one of her injections and then next thing she remembers is waking up on the floor. She denies any abdominal pain chest pain shortness of breath vaginal bleeding or discharge and states that this feels similar nature to her previous event with her last . She has no complaints at this time but secondary to the syncope was sent in for evaluation [facility] Medical History Gave to child recently GERD (gastroesophageal reflux disease) History of in vitro fertilization Hyperthyroidism Mastocytosis Home Medications sertraline 50 mg tablet 150 mg PO DAILY 05/24/18 [History Last Taken 06/14/18] cetirizine 10 mg capsule 10 mg PO DAILY 06/24/19 [History Last Taken Unknown] cimetidine 200 mg tablet 200 mg PO DAILY 06/24/19 [History Last Taken Unknown] estradiol 2 mg PO BID 02/14/21 [History Last Taken Unknown] levothyroxine 150 mcg PO DAILY 02/14/21 [History Last Taken Unknown] vit 43-[id number]-cjxbn-dha [ + DHA] 1 pkg PO DAILY 02/14/21 [History Last Taken Unknown] Allergy/AdvReac Type Severity Reaction Status Date / Time No Known Allergies Allergy Verified 02/14/21 21:39 Family History Mother Breast cancer Father Skin cancer Social History Smoking Status: Never smoker substance use type: does not use caffeine: No what type of physical activity do you participate in: walking frequency: 1-2 times per week seatbelt use: always do you feel safe at home: Yes additional social history: - 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 [employer] ED Constitutional Constitutional ED: Denies chills or fever(s) ENT ENT ED: Denies sore throat Cardiovascular Cardiovascular: Reports other Details: Positive syncope ; Denies chest pain or palpitations Respiratory/Chest Respiratory/Chest: Denies cough or dyspnea Gastrointestinal Gastrointestinal: Denies abdominal pain, diarrhea, nausea or vomiting Genitourinary Genitourinary ED: Denies dysuria Musculoskeletal Musculoskeletal: Denies myalgias Integumentary Denies rash Neurologic Neurologic: Denies headache(s) Hematologic/Lymphatic Hematologic/Lymphatic: Denies easy bleeding or easy bruising EXAM Physical Exam Const Vital Signs: 02/14/21 21:35 02/14/21 21:39 02/14/21 23:06 Temperature 97.8 F Temperature Source Oral Pulse Rate 86 85 Respiratory Rate 15 18 Respiratory Effort Normal Non-Labored Respiratory Pattern Normal Blood Pressure 126/64 H 129/60 H Blood Pressure Mean 84 83 Pulse Ox 98 98 Oxygen Delivery Method Room Air Room Air Positive well nourished and well developed General Appearance ED: well developed HEENT Reports moist mucous membranes HEENT Narrative: No tongue or cheek biting Eyes PERRL and EOMs intact bilaterally Neck supple Neck Narrative: No carotid bruit noted Resp normal respiratory effort and clear to auscultation bilaterally Cardio regular rate and regular rhythm GI non-tender and non-distended Auscultation: normoactive bowel sounds Palpation: soft Extremity normal to inspection Neuro oriented x3 and CN's II-XII intact bilaterally Sensorium / Orientation: alert Psych mental status grossly normal Skin no rashes or lesions noted MDM MDM MDM Narrative Medical decision making narrative: Patient presented to the ER awake and alert with normal neurologic exam and stable vitals. Her history and exam is consistent with a vasovagal event from her injection. I elected to perform basic laboratory studies to rule underlying electrolyte derangement as a cause. Work-up revealed no clinically significant findings and on reevaluation the patient is resting comfortably with a normal neurologic exam. The patient did have +1 bacteria in her urine but there was gross contamination with approximate 25 skin cells .she does not have any dysuria either and therefore I feel this is contamination and will not treat . therefore as there are no signs of cardiac damage or neurologic damage I do not feel there is need for placement and she is safe for discharge Lab Data Labs: Laboratory Results - last 24 hr 02/14/21 02/14/21 02/14/21 21:50 21:50 23:00 WBC 9.8 RBC 4.40 Hgb 11.0 L Hct 35.9 L MCV 81.6 MCH 25.0 L MCHC 30.6 L RDW Std Deviation 47.6 H RDW Coeff of Jemal 16.0 H Plt Count 589 H MPV 9.5 Immature Gran % (Auto) 0.500 Neut % (Auto) 47.0 Lymph % (Auto) 48.9 H Pinal % (Auto) 1.8 Eos % (Auto) 1.7 Baso % (Auto) 0.1 Absolute Neuts (auto) 4.6 Absolute Lymphs (auto) 4.81 H Nucleated RBC % 0 Differential Comment SCANNED Sodium 141 Potassium 3.4 L Chloride 107 Carbon Dioxide 22.0 Anion Gap 12 BUN 13 Creatinine 1.00 Estim Creat Clear Calc 72.00 Est GFR (MDRD) Af Amer 82 Est GFR (MDRD) Non-Af 68 BUN/Creatinine Ratio 13.0 Glucose 131 H Calcium 9.7 Magnesium 2.0 Troponin I High Sens 5 Urine Color Yellow Urine Clarity Sl. Cloudy Urine pH 6.5 Ur Specific [place] 1.020 Urine Protein 100 H Urine Glucose (UA) Normal Urine Ketones Negative Urine Occult Blood 250 H Urine Nitrite Negative Urine Bilirubin Negative Urine Urobilinogen Normal Ur Leukocyte Esterase 100 H Urine RBC 10-25 SEEN Urine WBC 0-5 SEEN Ur Squamous Epith Cells 10-25 SEEN Urine Bacteria 1+ Urine Mucus 0 SEEN Discharge Plan Triage Chief Complaint: Alt LOC ED Provider: Catalino Moreau Dx/Rx/DC Orders Clinical Impression: Vasovagal syncope Instructions: Causes of Syncope Prescriptions: No Action sertraline [Zoloft] 50 mg tablet 150 mg PO DAILY RF: 0 Zyrtec 10 mg capsule 10 mg PO DAILY RF: 0 cimetidine 200 mg tablet 200 mg PO DAILY RF: 0 estradiol 2 mg Tablet 2 mg PO BID RF: 0 + DHA 28 mg iron- 975 mcg-200 mg Combo Pack 1 pkg PO DAILY RF: 0 levothyroxine 150 mcg tablet 150 mcg PO DAILY RF: 0 Primary Care Provider: Magdy Whitlock NP Referrals: Magdy Whitlock NP, KAITARA TARAKA-C [Primary Care Provider] - Disposition Disposition: Home, Self Care
[2021-02-14 22:49] LABS: Anion Gap 12 (5-15); BUN 13 mg/dL (7-18); Calcium,Total 9.7 mg/dL (8.5-10.1); Chloride 107 mmol/L (98-107); EST Glomerular Filtration Rate 68 mL/min (>60); Est Glom Filt Rate - Afr Amer 82 mL/min (>60); Glucose 131 mg/dL (74-106); Potassium 3.4 mmol/L (3.5-5.1); Sodium Level 141 mmol/L (136-145); Troponin-I HS 5 pg/mL (3.0-54.0)
[2021-02-14 22:58] LABS: Differential Indicated SCAN CRITERIA MET
[2021-02-14 23:02] LABS: Differential Comment SCANNED
[2021-02-14 23:06] VITALS: BP 129/60; PULSE 85; RESP 18; O2SAT 98
[2021-02-14 23:08] LABS: Mucous, Urine 0 SEEN /hpf (<or=2+)
[2021-02-14 23:09] LABS: Color, Urine Yellow (Yellow); Glucose, Dipstick Normal (Normal); Ketone-Dipstick Negative (Negative); Leukocyte Esterase-Dipstick 100 /ul (Negative); Nitrite-Dipstick Negative (Negative); Occult Blood-Urine 250 /ul (Negative); Protein-Dipstick 100 mg/dl (Negative); Urine Bilirubin Dipstick Negative (Negative); Urine Clarity Sl. Cloudy (Clear); Urine Urobilinogen Normal (Normal); Urine pH 6.5 (5.0 - 8.0)
[2021-02-14 23:16] LABS: Red Blood Cells-Urine 10-25 SEEN /hpf (0-5); Squamous Epithelial Cells - UA 10-25 SEEN /hpf (5-10)
[2021-02-14 23:17] LABS: Bacteria 1+ /hpf (None Seen); White Blood Cells 0-5 SEEN /hpf (0-5)
[2021-02-14 23:58] VITALS: BP 116/59; PULSE 93; RESP 16; O2SAT 97
== END 2021-02-15 | disposition home or self-care (01) ==
PROVIDERS: Emergency Provider Emergency Medicine; PCP Nurse Practitioner Family
DX: O26.891 Other specified pregnancy related conditions, first trimester (principal); R55 Syncope and collapse; O09.811 Supervision of pregnancy resulting from assisted reproductive technology, first trimester; O99.281 Endocrine, nutritional and metabolic diseases complicating pregnancy, first trimester; E05.90 Thyrotoxicosis, unspecified without thyrotoxic crisis or storm; O99.611 Diseases of the digestive system complicating pregnancy, first trimester; K21.9 Gastro-esophageal reflux disease without esophagitis; Z3A.08 8 weeks gestation of pregnancy
CPT/HCPCS: 80048; 81001; 83735; 84484; 85025; 93005; 96360; 99285; J7030; A4216

== ENCOUNTER 2021-08-31 09:30 | Inpatient (IN) | payer BC, SELFPAY ==
--- NOTE | 2021-08-28 12:24 | HP.PCM.OB_ITS ---
HPI - General HPI Narrative HPI: The patient is a 31 year old female presenting for pre-operative visit. She is scheduled for , for poly, previous c/s, 36 6/7 weeks, gest HTN on 08/31/21. Procedure discussed along with risks, benefits and complications. Other alternatives discussed for management. Consent form signed? Yes. ? ? PAST MEDICAL HISTORY PAST MEDICAL HISTORY Diagnosis Date ? Anemia ? ? anxiety ? ? Anxiety state ? ? Bleeding from breast 2014 ? left ? COVID-19 06/09/2021 ? Elevated troponin 12/12/2017 ? 0.17 ? Female infertility ? ? Gastroesophageal reflux disease without esophagitis 01/08/2015 ? hypothyroidism ? ? Mastocytosis ? ? depression ? ? Pre-eclampsia ? ? Sleep apnea ? ? Syncope 12/12/2017 ? vasal vagal ? Wound dehiscence ? ? ? PAST SURGICAL HISTORY PAST SURGICAL HISTORY Procedure Laterality Date ? SECTION HX ? ? ? EMBRYO FROZEN TRANSFER ? ? ? HSG ? ? ? HYSTEROSCOPY, DIAGNOSTIC (SEPARATE ? ? ? US BREAST NEEDLE CORE BIOPSY LT Left 04/17/2015 ? WOUND VAC ? CURRENT MEDICATIONS Current Outpatient Medications Medication Sig Dispense Refill ? omeprazole (PRILOSEC) 20 mg capsule Take 1 capsule by mouth twice daily as needed. 60 capsule 1 ? levothyroxine (SYNTHROID) 175 mcg tablet Take 1 tablet by mouth daily before breakfast. 90 tablet 3 ? sertraline (ZOLOFT) 100 mg tablet Take 1 tablet by mouth once daily. 90 tablet 3 ? sertraline (ZOLOFT) 50 mg tablet Take 1 tablet by mouth once daily. 100 + 50 =150 mg. Daily 90 tablet 3 ? EPINEPHrine (EPIPEN) 0.3 mg/0.3 mL auto-injector Epinephrine 1 ML SQ NEEDED PRN For Anaphylaxis 1 Each 0 ? multivitamin (CLASSIC ) 28 mg iron- 800 mcg tab(s) Take 1 tablet by mouth once daily. ? ? ? loratadine (CLARITIN ORAL) Take by mouth. ? ? ? Iron Fum and [id number] 151-60-10-1 qn-fe-vfs-mg tab Take by mouth. ? ? ? No current facility-administered medications for this visit. ? ? ALLERGIES: Nsaids (Non-Steroidal Anti-Inflammatory Drug) ? PERSONAL HISTORY: SOCIAL HISTORY Social History ? Tobacco Use ? Smoking status: Never Smoker ? Smokeless tobacco: Never Used Vaping Use ? Vaping Use: Never used Substance Use Topics ? Alcohol use: No ? Drug use: No ? FAMILY HISTORY: FAMILY HISTORY FAMILY HISTORY Problem Relation Age of Onset ? Breast Cancer Mother ? ? age 48 ? No Known Problems Father ? ? No Known Problems Brother ? ? Thyroid Maternal Grandmother ? ? hypothyroidism ? other (Hodgkin's disease) Maternal Grandmother ? ? Heart Failure Maternal Grandfather ? ? No Known Problems Paternal Grandmother ? ? Lung Cancer Paternal Grandfather ? ? lung ? No Known Problems Daughter ? ? No Known Problems Daughter ? ? Thyroid Maternal Uncle ? ? hypothyroidism ? Cancer Paternal Uncle ? ? lung ? ? REVIEW OF SYMPTOMS: GENERAL: denies fevers or chills ENDOCRINOLOGY: has not been on steroids Cardiology : denies palpitations or chest pain Respiratory: denies SOB or cough Hematology: denies history of prolonged bleeding or easy bruising or VTE Allergy: Denies history of personal or family history of allergy to anesthesia ? PHYSICAL EXAMINATION: ? VITALS: There were no vitals taken for this visit. ? GENERAL: The patient is well nourished, well hydrated in no acute distress. , The patient is oriented to time, place, and person. NECK: Supple. No lynphadenopathy, normal thyroid, no thyromegaly. LUNGS: Clear to auscultation bilaterally. no wheezes, rhonchi or rales HEART: Regular rate and rhythm, Normal heart sounds and No murmurs or gallops GENITALIA: Normal external genitalia, Urethral meatus normal, Bladder nontender, normal vagina and normal vaginal tone, normal cervix, normal uterus, size and consistency, normal adnexa without masses or tenderness and perineum WNL ? IMPRESSION: 36 6/7 weeks, poly, obesity, previous c/s, gest HTN ? PLAN: The risks/benefits/alternatives and personal involved for the planned repeat c/s were reviewed with the patient. Her questions were answered to her satisfaction and she desires to proceed. Consent was signed. I reviewed with her postop instructions and expectations. ? ? I have reviewed and updated past medical and surgical history, medications and allergies Maternal Data Information Final FRANCISCO: 09/22/21 Gestational age: 36 6/7 [facility] Medical History Gave to child recently GERD (gastroesophageal reflux disease) History of in vitro fertilization Hyperthyroidism Mastocytosis Home Medications sertraline 50 mg tablet 150 mg PO DAILY 05/24/18 [History Last Taken 06/14/18] cetirizine 10 mg capsule 10 mg PO DAILY 06/24/19 [History Last Taken Unknown] cimetidine 200 mg tablet 200 mg PO DAILY 06/24/19 [History Last Taken Unknown] estradiol 2 mg PO BID 02/14/21 [History Last Taken Unknown] levothyroxine 150 mcg PO DAILY 02/14/21 [History Last Taken Unknown] vit 20-ljzc-zmbqx-dha [ + DHA] 1 pkg PO DAILY 02/14/21 [History Last Taken Unknown] Allergy/AdvReac Type Severity Reaction Status Date / Time No Known Allergies Allergy Verified 02/14/21 21:39 Family History Mother Breast cancer Father Skin cancer Social History Smoking Status: Never smoker substance use type: does not use caffeine: No what type of physical activity do you participate in: walking frequency: 1-2 times per week seatbelt use: always do you feel safe at home: Yes additional social history: - 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 Date Name GA/Weeks Outcome Route Bth Weight Infant Gen Labor Lgth Anesthesia Del Locatn Provider FOB 06/15/18 Emersyn 37 live - full term 7 lbs 10oz Fem stevie epidural [facility] Delivery Date: 06/15/18 CARTON FOLDER; FTP; CPD, Cat III tracing, chorioamnionitis preeclampsia [facility] Labs Labs Labs: Blood Type O POSITIVE Antibody Screen NEGATIVE Hct 35.9 % (37-47) L Hgb 11.0 g/dL (12.0-15.0) L Pap Smear Negative Obstetrics US Glucose 1 Hr 50 gm 147 mg/dL (70-140) H Rhogam given: No Miscellaneous Test Assessment & Plan (1) High risk multigravida in third trimester: (2) Previous delivery, antepartum: (3) Maternal obesity syndrome in third trimester: (4) Body mass index [BMI] 45.0-49.9, adult: (5) Polyhydramnios affecting in third trimester: (6) Gestational hypertension:
[2021-08-31] VITALS (17 sets, daily range): BP systolic 122–157; BP diastolic 62–88; PULSE 81–112; RESP 16–18; TEMP 35.6–36.7; O2SAT 97–100; BMI 46.4
[2021-08-31] MEDS: Lactated Ringers 1,000 ML 999 ML IV (09:55)
[2021-08-31 10:22] LABS: Absolute Lymphocyte Count 2.02 X10^3/uL (0.83-4.51); Absolute Neutrophil Count 7.5 X10^3/uL (2.0-7.7); Basophil# 0.02 X10^3/uL; Basophil% 0.2 % (0-1); Eosinophil# 0.14 X10^3/uL; Eosinophils% 1.4 % (0-5); Hematocrit 30.9 % (37-47); Hemoglobin 9.3 g/dL (12.0-15.0); Lymphocyte # 2.02 X10^3/ul (0.83-4.51); Lymphocyte % 20.1 % (19-41); Mean Corp Hgb Conc 30.1 g/dL (32-36); Mean Corpuscular Volume 83.1 fL (81-99); Monocyte# 0.33 X10^3/uL; Monocyte% 3.3 % (0-10); NRBC Flagged by Analyzer 0 % (0-5); Neutrophil # 7.52 X10^3/uL (2.7-7.7); Neutrophil % 74.8 % (47-70); Platelet Count 370 K/mm3 (150-450); Red Blood Count 3.72 M/mm3 (4.2-5.4); White Blood Count 10.1 K/mm3 (4.4-11.0)
[2021-08-31] MEDS: Acetaminophen 500 MG Tablet 1000 MG PO ×2 (10:45→18:50)
--- NOTE | 2021-08-31 10:47 | NURSING ---
Addendum entered by Vanna Washington 08/31/21 10:51: correction in spelling -- mastocytosis Original Note: pt has skin condition called mastocystitis
[2021-08-31] MEDS: Lactated Ringers 1,000 ML 150 ML IV (11:04)
[2021-08-31] MEDS: Sodium Citrate/Citric Acid 30 ML UDC PO (11:45)
--- NOTE | 2021-08-31 12:05 | EX.PCM.OBRPT ---
Assessment & Plan (1) High risk multigravida in third trimester: (2) Previous delivery, antepartum: (3) Maternal obesity syndrome in third trimester: (4) Body mass index [BMI] 45.0-49.9, adult: (5) Polyhydramnios affecting in third trimester: (6) Gestational hypertension: (7) 36 weeks gestation of : Maternal Data Information Final FRANCISCO: 09/22/21 Gestational age: 36 6/7 Details Operative Information Date of Procedure: 08/31/21 Pre-Operative Diagnosis: polyhydramnios, gest hTN Post-Operative Diagnosis: same - large abdominal incision hernia, adhesions of omentum to anterior abdominal wall and pelvic side wall Indications for : Repeat Elective Classification: Scheduled Procedure Type: low transverse (and see Dr. Hunt's report for hernia repair, incisional closure) school lunch manager #1: Sergey Magallon Type of Anesthesia: Spinal Anesthesiologist: Benjy Hatfield Special Medications: duramorph Antibiotic Given: Ancef 3 grams IV x1 Drain: Conrad to straight drain Estimated Blood Loss: 900 Fluids Replaced: 1300 Procedure Start Time: :22 Time of Delivery: 12:34 Findings Description of Procedure: anterior hernia- incisional, normal uterus tubes and ovaries The patient was taken to the operating room. She was prepped and draped in the dorsal supine position with a leftward tilt. Madrigal straps were used to retract the abdominal pannus. A skin incision was made approximately through her previous incision above the symphysis pubis and on initial incision, bowel protruded from the abdomen. We had entered the hernia sac. The bowel was examined, it was small bowel and it was intact. Care was then taken to open the rest of the incision with care. There were large amount of adhesions of omentum and bowel to the left anterior abdominal wall. Some of these had to be taken down in order to access the uterus. This did take some time.. The rectus muscle does not need to be and no fascia was dissected off them. The peritoneal incision was already made it was carried superiorly and inferiorly with Bovie cauterization. It was then stretched. There was a lack of stretch and this was noted immediately. I used the Bovie to partially transect the left abdominal rectus muscle. I was then able to pack away the bowel that kept protruding. I did not place the Massimo O retractor due to bowel adhesions along the left gutter that would be compressed by the retractor. The uterine incision was made in a low transverse fashion with the scalpel and extended superiorly and inferiorly with blunt dissection. The amniotic membranes were ruptured bluntly and clear amniotic fluid returned. The large amount of fluid was leaked out and the head was brought to the incision. At that point, the uterine incision was unable to be stretched and the lower uterine segment was not well developed. I extended the incision on both sides with the bandage scissors. I placed the vacuum on the felxion point. One pull was done with 550 mmHg and 1 pop-off. The head was not even really engaged in the incision. At that point the head floated away. I was able to identify both feet and brought them out through the incision footling breech. The arms were swept out individually. A finger was placed in the mouth and fundal pressure was used to try to deliver the head in the flexed position. I was unable to do so I then tried to place my hand into the uterus to help flex and deliver the head. The baby was back up with a towel around it. I then cut the uterus more with the bandage scissors. I was then able to deliver the head. Estimated time from delivery of the body to complete delivery was between 60-90 seconds. The cord was quickly clamped and cut as the was not immediately vigorous. The was handed off to the waiting nursing staff and taken to the warmer where it was attended to by synthetic filament spinner. The cord was clamped for cord gases. The placenta was extracted manually. The uterus was exteriorized and cleared of all clots and debris. The cervix was dilated with a ring forcep. The uterine incision was closed with #1 Vicryl in a running locked fashion. A second layer of the same suture was used in an imbricating fashion. The incision was examined and was found to be hemostatic. Several [id number] 0 Vicryl sutures were needed to obtain hemostasis. The uterus was placed back into the peritoneal cavity. Stasis was again ensured. Some Hermes was placed over the uterine incision. The rectus muscles were examined and any bleeding was Bovie cauterized. It was noted at this time I could not follow the fascia all the way around. There was a large hernia sac. Decision was made to consult intraoperatively Dr. Hunt from general surgery for an evaluation. The surgical teams outer gloves were then changed. When Dr. Hunt arrived he freed up the fascia and closed the posterior rectus sheath. See his dictation for closure of the wound. The subcutaneous tissue was reapproximated with 3-0 Vicryl suture. The skin was closed in a subcuticular fashion by the PRESCHOOL SPECIAL EDUCATION TEACHER with me present in the labor and delivery suite. I performed the remainder of the procedure with assistance. All sponge, lap, and needle counts were correct. The patient was taken to her room for recovery in a stable condition. Apgars unavailable at time of this entry Presentation: Positive for Vertex Amniotic Membrane Rupture Type: Artificial Amniotic Fluid Description: Clear Placental Delivery Description: Manual Removal Placenta Disposition: Sent with transport team Cord Vessel Description: 3 Vessels Cord Entanglement: None Cord Gases: ABG and VBG (unable to be drawn) A Gender: Female Delayed Cord Clamping: No Complications Complications: none Admit VTE Documentation VTE Present on Admission: No VTE Mechan Device Prophylaxis: SCD's VTE Pharm Prophylaxis Ordered: Yes
--- NOTE | 2021-08-31 13:45 | PCM.OPRPT ---
Problems Associated Problem List Diagnoses (1) Fascial hernia: Report of Operation Date of Procedure: 08/31/21 Pre-Operative Diagnosis: Ventral hernia Post-Operative Diagnosis: Same Surgery/Procedure Performed:: Repair of ventral hernia Surgeon: Magdy Hunt Type of Anesthesia: Epidural Anesthesiologist: Benjy Hatfield Description of Procedure: Dr. Miranda done a the patient where she needed to do a very extended Pfannenstiel and cutting partially the rectus abdominis muscles on both the left and right side. I came in and obtained an accurate needle and sponge count. I then debrided the inferior fascia taking the bladder off of the fascial area. She had obviously a previous hernia here that extended down the left side as well. I think this was actually from her previous . Once this was debrided I then brought the posterior fascia together with 0 Vicryl. This kept the omentum in. I was going to try to bring the muscle back together but it was really shredded and I could not bring anything together, I did place some Hermes in this muscle area. I ended up just closing the anterior fascia with interrupted #1 Vicryls. This brought the area together quite nicely. Subcu was brought together with 3-0 Vicryls in a running 4-0 Monocryl on the skin. Steri-Strips were applied sterile dressings were applied. Needle and sponge count were accurate at the end of this. It is highly likely that this patient is going to develop a hernia again. And she probably is going to have to have tissue component separation to bring things together appropriately.
[2021-08-31] MEDS: Oxytocin 30 units/NS 500 ml 30 UNITS/500 ML IV.SOLN 167 UNITS IV (14:30)
[2021-08-31] MEDS: 0.9% Saline Lock 10 ML Syringe IV ×2 (15:19→21:16)
[2021-08-31] MEDS: Ketorolac 30 MG/ML Syringe IV ×2 (15:19→21:16)
--- NOTE | 2021-08-31 15:43 | NURSING ---
Around 2pm to bedside to assist Patient with pumping. It was stated on admission that mother had a desire to pump. Patient states she does want to pump but plans to mostly formula feed because she had a very low supply with her last child. The was breifly shown but patient reports that she is not ready to pump at this time is just too upset. Education given to patient about how to increase the likleyhood of making more milk this time (early pump initiation, frequency, duration) Patient indicates understanding, appears thankful for the pump and information and reports she will let her nurse know when she feels she is able to start pumping. RN informed
[2021-08-31] MEDS: Lactated Ringers 1,000 ML 100 ML IV (17:40)
--- NOTE | 2021-08-31 23:32 | NURSING ---
This RN assuming care of patient at this time. Report received from Brooke AUSTIN.
[2021-09-01] VITALS (9 sets, daily range): BP systolic 130–140; BP diastolic 68–78; PULSE 90–108; RESP 16–18; TEMP 36.2–37; O2SAT 96–100
[2021-09-01] MEDS: Enoxaparin 40 MG/0.4 ML Syringe SC ×2 (00:35→08:33)
[2021-09-01] MEDS: Acetaminophen 500 MG Tablet 1000 MG PO ×3 (00:35→11:37)
[2021-09-01] MEDS: 0.9% Saline Lock 10 ML Syringe IV ×2 (03:05→10:44)
[2021-09-01] MEDS: Ketorolac 30 MG/ML Syringe IV ×2 (03:05→08:33)
[2021-09-01] MEDS: Levothyroxine 175 MCG Tablet PO (06:30)
--- NOTE | 2021-09-01 06:52 | NURSING ---
Ilan Rn tried collecting CBC x1 unsuccessful, Jaun Sweet attempted x1 unsuccessful. Lab called to come and draw lab this AM. They state they will be down this way in a few to collect it.
[2021-09-01 07:53] LABS: Hematocrit 25.7 % (37-47); Hemoglobin 7.8 g/dL (12.0-15.0); Mean Corp Hgb Conc 30.4 g/dL (32-36); Mean Corpuscular Hgb 25.8 pg (27.0-32.0); Mean Corpuscular Volume 85.1 fL (81-99); Mean Platelet Vol. 10.1 fl (6.2-12.0); POSITIVE MORPHOLOGY YES; Platelet Count 274 K/mm3 (150-450); RBC Distribution Width CV 20.5 % (11.6-14.6); RBC Distribution Width SD 57.8 fl (35.1-43.9); Red Blood Count 3.02 M/mm3 (4.2-5.4)
[2021-09-01 08:01] LABS: Scan Indicated on CBC? Y/N YES- FLAGS NOTED
--- NOTE | 2021-09-01 09:07 | PN.OBGYN_ITS ---
Subjective Subjective Pain controlled. Feels well & would like to be discharged today to be with baby in [place]. Objective Data Objective Data Vital Signs: Vital Signs Temp Pulse Resp BP Pulse Ox 97.7 F L 96 16 134/70 H 100 09/01/21 08:19 09/01/21 08:19 09/01/21 08:19 09/01/21 08:19 09/01/21 08:19 Oxygen Delivery Method Room Air Weight: 279 lb 2 oz Body Mass Index (BMI) 46.4 Intake & Output: Intake and Output for Last 24 Hours 08/30/21 08/31/21 09/01/21 23:59 23:59 23:59 Intake Total 3544.17 / 3544.17 Output Total 325 / 325 700 / 700 Balance 3219.17 / 3219.17 -700 / -700 Lab / Micro Data Result Diagrams: 09/01/21 07:40 Labs: Laboratory Results - last 24 hr 08/31/21 09:55: WBC 10.1, RBC 3.72 L, Hgb 9.3 L, Hct 30.9 L, MCV 83.1, MCH 25.0 L, MCHC 30.1 L, RDW Std Deviation 55.0 H, RDW Coeff of Jemal 20.0 H, Plt Count 370, MPV 11.0, Immature Gran % (Auto) 0.200, Neut % (Auto) 74.8 H, Lymph % (Auto) 20.1, [place] % (Auto) 3.3, Eos % (Auto) 1.4, Baso % (Auto) 0.2, Absolute Ne uts (auto) 7.5, Absolute Lymphs (auto) 2.02, Nucleated RBC % 0 08/31/21 09:55: Blood Type O POSITIVE, Antibody Screen NEGATIVE 09/01/21 07:40: WBC 9.0, RBC 3.02 L, Hgb 7.8 L, Hct 25.7 L, MCV 85.1, MCH 25.8 L , MCHC 30.4 L, RDW Std Deviation 57.8 H, RDW Coeff of Jemal 20.5 H, Plt Count 274, MPV 10.1, Differential Comment Physical Exam Const alert, oriented x3 and no apparent distress HEENT normocephalic GI soft to palpation, non-tender and non-distended GI Narrative: fundus firm, mid & below umbilicus Incision - bandage c/d/i Extremity normal to inspection and no calf tenderness Assessment & Plan (1) Previous delivery, antepartum: COMMENT: POD#1 PLAN: Heme - HDS, continue iron for anemia of . plan for IV iron before discharge. - no issues GI - ADAT ID - AF, no signs infection Plan for discharge later today as baby in [facility] (2) Gestational hypertension: QUALIFIERS: Trimester: unspecified trimester Qualified Code(s): O13.9 - Gestational [-induced] hypertension without significant proteinuria, unspecified trimester COMMENT: POD#1 PLAN: BP's normal to mildly elevated Will monitor & patient to monitor BP when discharged No symptoms of preE
--- NOTE | 2021-09-01 09:10 | PCM.DC ---
Discharge Instructions Diet Discharge Diet: No restrictions Activity Discharge Activity: May Not Shower May resume sexual activity in: 6 weeks Weight Bearing Status: Weight bearing as tolerated Dressing / Incision Call your doctor if your incision/area has: Continuous Slow Oozing, Sudden Increased Bleeding, Increased Pain/ Swelling, Increased Redness, Foul Smelling Discharge and Swelling at the incision site Call your doctor if you observe: Fever of 101 or Higher, Coldness, Increased Pain, Change in Color, Inability to urinate, Inability to have a bowel movement, Using more than 1 pad per hour, Shortness of breath, Dizziness, Fainting spells, Chest pain, Increased palpitations (irregular heartbeat), Calf discomfort and Uncontrolled pain Suture Line Care: Avoid Pulling/Pushing and Avoid Pinching/Bending Remove Dressing in: 1 week Cleanse incision/area with: Soap & Water Follow Up Care Please Follow Up With: Allegra Miranda MD When: Follow up in 1 and 6 weeks for visits. Test Results: Test results from this visit will be discussed in further detail at your follow-up appointment, if applicable. Discharge Plan Admission Admit Date/Time: 08/31/21 09:30 Primary Reason for Your Visit: section Attending Provider: Allegra Miranda Primary Care Provider: Magdy Whitlock NP Instructions Additional Instructions / Restrictions: Oxycodone prescription sent for patient from [facility] office. Discharge Orders/Prescriptions Prescriptions: New acetaminophen 500 mg Tablet 1,000 mg PO Q6 Qty: 0 RF: 0 naproxen 500 mg Tablet 500 mg PO Q8 Qty: 0 RF: 0 Continued sertraline [Zoloft] 50 mg tablet 150 mg PO DAILY RF: 0 Zyrtec 10 mg capsule 10 mg PO DAILY RF: 0 cimetidine 200 mg tablet 200 mg PO DAILY RF: 0 + DHA 28 mg iron- 975 mcg-200 mg Combo Pack 1 pkg PO DAILY RF: 0 levothyroxine 150 mcg tablet 175 mcg PO DAILY RF: 0 omeprazole 20 mg PO/SL DAILY RF: 0 Claritin 1 tab PO/SL DAILY RF: 0 Referrals / Follow Up: Magdy Whitlock NP, [employer] [Primary Care Provider] - Disposition Disposition (needs filled in before D/C Order can be placed): Home, Self Care
--- NOTE | 2021-09-01 09:29 | NURSING ---
This nurse received new orders from she ordered iv iron 200mg to be given this am. And to call prior to pt's discharge with an update on bp's.
[2021-09-01] MEDS: Senna/Docusate Sodium 1 Tablet PO (10:43)
--- NOTE | 2021-09-04 14:48 | CASEMGMT ---
Social Work Labor and Delivery Referral received due to maternal history of PPD, anxiety, and treatment with Zoloft. [facility] called for this delivery. Baby transferred to main campus at [facility] due to respiratory issues and 36 week prematurity. Met with MOB and father of baby (FOB) prior to MOB's discharge today. Let family know that social work is available at [place], but this typewriter ribbon winder wanted to check in with parents and see how doing. Explored PPD. MOB reports to talk with FOB and support system when having a hard time, AND plans to remain on antidepressant medication. MOB endorses belief that Zoloft if helpful to MOB and no intention of going off of this. Emotional support offered. No concerns about baby supplies or support system. There is an older child at home, Joanna who was born on 2019, and this child is being cared for by family. Provided mood and anxiety disorder packet for home going, which includes resources that can be accessed after home going. Reviewed that fathers are also at risk for PPD/PPA, and importance of self care for both parents. MOB and FOB both appropriate mood affect to content discussed, cooperative, good eye contact during social work visit. No other services requested or indicated. MOB expressed thanks for socia work visit. -KENNETH Graham, AUTOMOBILE BODY REPAIR SUPERVISOR
== END 2021-09-01 12:50 | disposition home or self-care (01) | DRG 787 ==
PROVIDERS: Admitting Provider Obstetrics & Gynecology; PCP Nurse Practitioner Family; Visit Provider Obstetrics & Gynecology
PROC: 10D00Z1 Extraction of Products of Conception, Low, Open Approach (ICD-10-PCS; CPT 59514; principal; 2021-08-31 11:45)
DX: O40.3XX0 Polyhydramnios, third trimester, not applicable or unspecified (principal); D47.09 Other mast cell neoplasms of uncertain behavior; E03.9 Hypothyroidism, unspecified; K43.2 Incisional hernia without obstruction or gangrene; K21.9 Gastro-esophageal reflux disease without esophagitis; F41.9 Anxiety disorder, unspecified; D64.9 Anemia, unspecified; K43.9 Ventral hernia without obstruction or gangrene; E66.9 Obesity, unspecified; O99.214 Obesity complicating childbirth; Z37.0 Single live birth; Z3A.36 36 weeks gestation of pregnancy; O13.4 Gestational [pregnancy-induced] hypertension without significant proteinuria, complicating childbirth; O99.284 Endocrine, nutritional and metabolic diseases complicating childbirth; O99.62 Diseases of the digestive system complicating childbirth; Z79.899 Other long term (current) drug therapy; O34.219 Maternal care for unspecified type scar from previous cesarean delivery; Z86.16 Personal history of COVID-19; O99.344 Other mental disorders complicating childbirth; O99.892 Other specified diseases and conditions complicating childbirth; O99.02 Anemia complicating childbirth
CPT/HCPCS: 36415; 59025; 59050; 85025; 85027; 86850; 86900; 86901; 99218; J1756; J7120; A4216; G0378; J3490

== ENCOUNTER 2024-09-10 06:55 | Day surgery (SDC) | payer BC, SELFPAY ==
[2024-09-10] VITALS (8 sets, daily range): BP systolic 94–146; BP diastolic 42–81; PULSE 71–97; RESP 16–18; TEMP 36.6–36.9; O2SAT 92–99; BMI 42.5
--- NOTE | 2024-09-10 07:08 | PCM.PRE.AN2 ---
ASA Classification* ASA Classification ASA Classification: 2 Assessment & Plan Anesthesia* Anesthesia Assessment Anesthesia Assessment: Discussed sedation and/or anesthesia options, risks, benefits, and alternatives with patient/parents/legal guardian/POA. Questions invited. The patient/parents/legal guardian/POA seems to understand and agrees to proceed with anesthesia plan. Reviewed the physical assessment, medical history, allergy history and patient home medications list prior to surgery/procedure/anesthetic and documented any changes. Performed airway and anesthesia risk assessments. Anesthesia Type Anesthesia Type: MAC Anesthesia Focused Assessment* Airway Assessment Mouth opens: >3 cm Mallampati Score: II Focused Labs Anesthesia Preop lab: CBC WBC 9.0 K/mm3 (4.4-11.0) 09/01/21 07:40 09/01/21 RBC 3.02 M/mm3 (4.2-5.4) L 09/01/21 07:40 09/01/21 Hgb 7.8 g/dL (12.0-15.0) L 09/01/21 07:40 09/01/21 Hct 25.7 % (37-47) L 09/01/21 07:40 09/01/21 Plt Count 274 K/mm3 (150-450) 09/01/21 07:40 09/01/21 CHEMISTRY Potassium 3.4 mmol/L (3.5-5.1) L 02/14/21 21:50 02/14/21 Sodium 141 mmol/L (136-145) 02/14/21 21:50 02/14/21 Magnesium 2.0 mg/dL (1.6-2.6) 02/14/21 21:50 02/14/21 BUN 13 mg/dL (7-18) 02/14/21 21:50 02/14/21 Creatinine 1.00 mg/dL (0.55-1.02) 02/14/21 21:50 02/14/21 Glucose 131 mg/dL (74-106) H 02/14/21 21:50 02/14/21 TSH 2.95 uIU/mL (0.358-3.74) 11/25/20 09:41 11/25/20 COAG PT 13.1 SECONDS (11.7-14.9) 06/15/18 11:30 06/15/18 Pre-Assessment Diagnosis/Proposed Procedure Planned Operative Procedure(s): EGD Anesthesia History Anesthesia History - contract clerk automobile: Anesthesia History - contract clerk automobile Hx Hospitalization No 09/07/24 09:38 Any Problems With Anesthesia No 09/07/24 09:38 Cholinesterase deficiency No 09/07/24 09:38 You/Your Family Experience No 09/07/24 09:38 fever (hyperthermia) with Relationship Recent Exposure to Contagious Disease Does patient have nerve No 09/07/24 09:38 stimulator Patient instructed to have device shut off --Does patient have Pacemaker or ICD? When Was Last Pacemaker Check QUESTION #4 FULL TEXT: You/Your Family Experience fever (hyperthermia) with Anesthesia Last Oral Intake Last Oral intake: Last Oral Intake NPO since Meds taken in AM with sips of water? Meds patient instructed to take am of surgery PONV PONV - contract clerk automobile: PONV - contract clerk automobile Female Yes 09/07/24 09:38 HX of Motion Sickness No 09/07/24 09:38 HX of N/V After Surgery No 09/07/24 09:38 Non-Smoker Yes 09/07/24 09:38 Duration of Surgery greater No 09/07/24 09:38 than 60 minutes Number of Risk Factors 2 09/07/24 09:38 PONV Score Moderate Risk 09/07/24 09:38 Height & Weight Height & Weight: Anesthesia: Height & Weight Height 5 ft 5 in 08/13/24 14:13 Respiratory Assessment Respiratory Assessment - contract clerk automobile: Respiratory Tract Infection Hx - contract clerk automobile Hx Respiratory Tract Infection No 09/07/24 09:38 STOP Sleep Apnea STOP Sleep Apnea - contract clerk automobile: STOP Sleep Apnea - contract clerk automobile Hx Hypertension No 09/07/24 09:38 Hx Sleep Apnea Yes 09/07/24 09:38 CPAP Yes: NONCOMPLIANT 09/07/24 09:38 BIPAP No 09/07/24 09:38 Do you snore loudly (louder Yes 09/07/24 09:38 than talking or can be heard Do you often feel tired/ No 09/07/24 09:38 fatigued/ sleepy during daytime? Has anyone observed you stop Yes 09/07/24 09:38 breathing during sleep? STOP Results Positive 09/07/24 09:38 QUESTION #5 FULL TEXT : Do you snore loudly (louder than talking or can be heard through closed doors)? Tobacco Use History Tobacco Use History - contract clerk automobile: Tobacco Use History - contract clerk automobile Tobacco Use Smoking Status Never smoker 09/07/24 09:38 Hx Tobacco Use No 09/07/24 09:38 Years Smoking Packs Smoked per Day Smoking Cessation Date was within the last 15 years Hx Smoking Cessation Date Hx Smoking Cessation Counseling Hematologic Medial History Hematologic Hx - contract clerk automobile: Hematologic Medical Hx - rn utilization management um Hx of Blood Transfusion No 09/07/24 09:38 Hx of Transfusion in last 3 No 09/07/24 09:38 Months Date of Last Transfusion (if within last 3 months) Ever experience any problems No 09/07/24 09:38 with transfusion(s)? Specify any problems Hx of Preganancy in last 3 No 09/07/24 09:38 Months Nurse Filling Out Transfusion DSCHRIBER 09/07/24 09:38 & Questions: Date: 09/07/24 09/07/24 09:38 Time: 09:40 09/07/24 09:38 Patient unable to answer at this time (ie. confused, unrespo /Reproduction History /Reproductive History - contract clerk automobile: /Reproductive Hx- contract clerk automobile Hx Now No 09/07/24 09:38 Gestational Age (in weeks): EDC: Hx Hx Para Hx Section SAB No 09/07/24 09:38 PFSH Medical History Wears contact lenses Low iron History of ulceration CPAP (continuous positive airway pressure) dependence Non-smoker Fascial hernia Polyhydramnios Infertility Thyroid disorder Autoimmune disease Anxiety Gestational HTN History of in vitro fertilization Mastocytosis GERD (gastroesophageal reflux disease) Home Medications ?Medication ?Instructions ?Recorded ?Last Taken ?Type sertraline 50 mg tablet (Zoloft) 150 mg PO QHS depression 05/24/18 08/30/21 21:00 History cetirizine 10 mg capsule (Zyrtec) 10 mg PO DAILY Check with primary 06/24/19 08/30/21 21:00 History doctor cimetidine 200 mg tablet 200 mg PO 1500 Check with primary 06/24/19 08/30/21 14:00 History doctor levothyroxine 200 mcg capsule 200 mcg PO DAILY 04/07/23 Unknown History omeprazole 20 mg capsule,delayed 20 mg PO 1500 09/07/24 Unknown History release Allergy/AdvReac Type Severity Reaction Status Date / Time No Known Allergies Allergy Verified 09/07/24 09:36 Family History Mother Breast cancer Father Skin cancer Surgical History Previous section Previous delivery, antepartum Social History Smoking Status: Never smoker substance use type: does not use caffeine: No what type of physical activity do you participate in: walking frequency: 1-2 times per week seatbelt use: always do you feel safe at home: Yes 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
[2024-09-10 07:25] LABS: Internal QC Validated? YES +Cl - CLEAR BKGD; Pregnancy, Urine Negative Negative
--- NOTE | 2024-09-10 07:28 | HP.PCM_ITS ---
History and Physical Date of Admission: 09/10/24 Date of Service: 08/13/24 MR#: [id number] Acct: [id number] Name: HILARIO TRAMMELL Rep #: [id number] : 1990 Provider: Dr. Eloise Coreas MD Age/Sex: 34/F Location: [facility] Status: Signed with Addenda ADDENDUM by Dr. Eloise Coreas MD on 08/15/24 at 1139 Physical Exam GI soft to palpation and non-distended GI Narrative: Correction patient did have some mild epigastric and right upper quadrant pain on exam. No peritoneal signs. 08/15/24 1139 <Electronically signed by Eloise Coreas MD> Date Eloise Coreas MD cc: PUSHPA Anderson; PUSHPA Whitlock ~* Signed Intake Vital Signs 08/01/2409:04 08/13/2513:13 Height 5 ft 5 in 5 ft 5 in Weight: 274 lb BMI 45.6 BP 124/63 H Blood Pressure Location Rt brachial Position Sitting Respiration 17 Pulse 89 Pulse Source Monitor Pulse Oximetry (%) 95 Oxygen Delivery Method room air Intake Visit Reasons: EPIGASTRIC PAIN Chief Complaint: epigastric pain Is patient in pain?: No Allergies No Known Allergies Allergy (Verified 08/13/24 14:14) Medications ?Medication ?Instructions ?Recorded ?Confirmed ?Type sertraline 50 mg tablet (Zoloft) 150 mg PO DAILY depression 05/24/1808/04 History cetirizine 10 mg capsule (Zyrtec) 10 mg PO DAILY Check with primary 08/13/24 History doctor cimetidine 200 mg tablet 200 mg PO DAILY Check with primary 06/2408/13/24 History doctor Claritin 1 tab PO/SL DAILY Check with 08/31/21 History primary doctor omeprazole 20 mg PO/SL DAILY Check with 08/31/21 History primary doctor acetaminophen 500 mg tablet 1,000 mg (2 x 500 mg) PO Q6 #0 tabs 08/0508/13/24 Rx ferrous sulfate 325 mg (65 mg 325 mg PO DAILY 04/07/23 08/13/24 Histor y iron) tablet (Feosol) levothyroxine 200 mcg capsule 200 mcg PO DAILY 04/07/23 08/13/24 Histo ry cholecalciferol (vitamin D3) 25 25 mcg PO QDAY 08/13/24 08/13/24 History mcg (1,000 unit) capsule mecobalamin (vitamin B12) 500 mcg mcg PO 08/13/24 08/13/24 History chewable tablet PFSH Medical History (Updated 08/13/24 @ 14:13 by Jagruti Tabor) Fascial hernia Polyhydramnios Infertility Thyroid disorder depression Autoimmune disease Anxiety Gestational HTN Gestational hypertension History of in vitro fertilization Mastocytosis GERD (gastroesophageal reflux disease) Surgical History Previous section Previous delivery, antepartum Family History Mother Breast cancerFather Skin cancer Social History Smoking Status: Never smoker substance use type: does not use caffeine: No what type of physical activity do you participate in: walking frequency: 1-2 times per week seatbelt use: always do you feel safe at home: Yes 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 Patient states she noticed this initially in December 2023 did see her PCP was on Carafate 4 times a day as well as omeprazole 40 mg daily. Patient currently is on the Carafate once a day now. Patient does complain of epigastric pain burning sensation and a dull pain at 3/10 more constant. Patient states that the pain has improved when she restarted the Carafate. Patient had an EGD about 10 years ago due to patient's skin disorder. Patient was taking NSAIDs prior to that and was told to stop as she did have epigastric pain aghast it was an ulcer. However at patient's EGD there is no signs of ulcers which does time. She would not the same. Patient denies any changes after eating fatty or greasy foods. Patient was previously on pantoprazole during her 2 pregnancies where milligrams p.o. daily but did not find it that worked well for her?prior to the omeprazole. ROS General General: Yes weight change; No appetite, fatigue, colon cancer, breast cancer or weakness HEENT HEENT: No difficulty swallowing, eye injury, eye surgery, swollen glands or hoarseness Endo Endocrine: Yes thyroid disease; No diabetes mellitus, thyroid cancer, Hair loss, heat intolerance or cold intolerance Skin Skin: No rash or changing moles Musc Musculoskeletal: Yes back problems; No arthritis, rheumatoid arthritis, gout or joint pain Cardio Cardiovascular: No murmur, pacemaker, heart disease, atrial fibrillation, high blood pressure, heart attack, heart stent, palpitations, shortness of breath with exertion or chest pain Psych Psychiatric: No depression, anxiety or hearing voices Resp Respiratory: No shortness of breath, Yes sleep apnea, No cough, No COPD, No asthma, No emphysema and No wheezing Gastro Gastrointestinal: Yes abdominal pain, No nausea or vomiting, No diarrhea, No constipation, No blood in stool, Yes acid reflux, No hemorrhoids, Yes ulcers, Yes gallbladder problem and No black,tarry stools Albaro Hematologic: No blood thinners, No blood disorders, No bleeding, Yes anemia and No blood clots Neuro Neurologic: No system reviewed and no additional complaints, except as documented, No as per HPI, No abnormal gait, No abnormal hearing, No abnormal movements, No abnormal speech, No behavioral changes, No burning sensations, No confusion, No convulsions, No disequilibrium, No dizziness, No localized weakness, No frequent falls, No headache(s), No lack of coordination, No loss of vision, No memory loss, No numbness, No other visual disturbances, No radicular pain, No restless legs, No sensory deficit, No syncope, No tingling, No tremor(s), No weakness and No other Exam Const General: cooperative, healthy appearing, comfortable and no acute distress [facility] Head: normocephalic and atraumatic Neck Neck: supple Resp Effort & Inspection: normal respiratory effort Cardio Rate: regular rate GI Inspection: non-distended Palpation: soft and nontender Skin General: no rashes or lesions noted Neuro General: CN's II-XI intact bilaterally Extrem General: normal to inspection Psych Mental Status: mental status grossly normal Attitude: cooperative Assessment and Plan Assessment and Plan (1) GERD (gastroesophageal reflux disease): Status: Acute Orders: Orders EGD 09/10/24 Plan Patient states she has enough Carafate to go back on the hour before meals and at bedtime. And continue omeprazole currently. I have discussed the above with the patient. I have offered the patient esophagogastroduodenoscopy for evaluation. I have explained the risks/benefits of the procedure and described the procedure. I have discussed the risks with the patient, including but not limited to: infection, bleeding, perforation of the GI tract requiring emergency surgery, inability to complete the procedure, injury to any internal organs, complications of anesthesia, etc. - the patient understands and agrees to proceed. I have answered all the patient's questions to the patient's satisfaction and the patient has no further questions. Eloise Coreas M.D. Pager: [phone] [facility] [address] [place] [address], [address] [place] [address] Office: [phone] Plan Details Goals & Barriers: Goals Decrease spasm Decrease pain Improve workability Barriers Computer work Coding Level of Care Code Off vis,new,level 3 Diagnoses GERD (gastroesophageal reflux disease) K21.9 08/15/24 1127 <Electronically signed by Eloise Coreas MD> Date Eloise Coreas MD
--- NOTE | 2024-09-10 08:00 | EGD_PTH ---
PATIENT: HILARIO TRAMMELL LOC: EN U#:[id number] AGE/SX: 34/F ROOM: RE09/10/[address]: Dr. Eloise Coreas MD : 1990 BED: DIS: 09/10/2024 SPEC #: [id number] RECD: 09/10/24 12:39 STATUS: CELIO REEvonne #: [id number] LOYDA: 09/10/24 08:[address]: Eloise Coreas DEPT: SURGICAL PATHOLOGY RECD BY: Raghu Kimball ENTERED: 09/10/24 12:39 SP TYPE: EGD BIOPSY PELON DR: Dr. Virgil López MD Tissues: A - Gastric mucous membrane B - COLON BIOPSY C - Gastric mucous membrane Procedures: Immunohistochemical Stains Surgery Specimen Level IV HEADER OPERATION: EGD with biopsies and polypectomy PRE-OP DIAGNOSIS: GERD TISSUE SUBMITTED: A- Antrum biopsy, B- Fundus polyp, C- Gastroesophageal junction biopsy MICROSCOPIC DIAGNOSIS A. Stomach, antrum, biopsy: - Mild chronic inflammation. - IHC negative for H pylori organisms. B. Stomach, fundus, polyp, biopsy: - Fundic gland polyp. C. Gastroesophageal junction, biopsy: - Squamous mucosa negative for eosinophils. - Columnar mucosa negative for goblet cell metaplasia. - Negative for dysplasia. MICROSCOPIC DESCRIPTION Slides are reviewed. These tests were developed and their performance characteristics determined by [facility]. They may not have been cleared or approved by the U.S. Food and Drug Administration. The FDA has determined that such clearance or approval is not necessary. The above immunohistochemical/dualISH markers are ordered and reviewed by the Pathologist. GROSS DESCRIPTION A. Received in formalin in a container labeled with the patient's name, date of , and antrum biopsy for H. pylori and pathology is a 0.4 x 0.3 x 0.2 cm fragment of clark-pink mucosal tissue. Submitted in toto in A1. B. Received in formalin in a container labeled with the patient's name, date of , and fundus polyp is a 0.5 x 0.3 x 0.3 cm fragment of clark-pink mucosal tissue. Submitted in toto in B1. C. Received in formalin in a container labeled with the patient's name, date of , and GE junction biopsy is a 0.4 x 0.3 x 0.2 cm fragment of clark-pink mucosal tissue. Submitted in toto in C1. [facility] 09-10-2024 CPT:31821l2,49857
--- NOTE | 2024-09-10 08:31 | OP.EGD_ITS ---
Patient Name: Luz Damico Procedure Date: 09/10/2024 8:10 AM Date of : 1990 Age: 34 Procedure: Upper GI endoscopy Indications: Epigastric abdominal pain, Heartburn Providers: Eloise Coreas MD Referring MD: Eloise Coreas MD Medicines: Monitored Anesthesia Care Patient Profile: This is a 34 year old female. Complications: No immediate complications. Procedure: Pre-Anesthesia Assessment: - Prior to the procedure, a History and Physical was performed, and patient medications and allergies were reviewed. The patient's tolerance of previous anesthesia was also reviewed. The risks and benefits of the procedure and the sedation options and risks were discussed with the patient. All questions were answered, and informed consent was obtained. Prior Anticoagulants: The patient has taken no anticoagulant or antiplatelet agents. ASA Grade Assessment: Per anesthesia. After reviewing the risks and benefits, the patient was deemed in satisfactory condition to undergo the procedure. After obtaining informed consent, the endoscope was passed under direct vision. Throughout the procedure, the patient's blood pressure, pulse, and oxygen saturations were monitored continuously. The Endoscope was introduced through the mouth, and advanced to the second part of duodenum. The upper GI endoscopy was accomplished without difficulty. The patient tolerated the procedure well. Scope In: 8:18:19 AM Scope Out: 8:23:39 AM Total Procedure Duration Time 0 hours 5 minutes 20 seconds Findings: The Z-line was irregular and was found 40 cm from the incisors. Biopsies were taken with a cold forceps for histology. Mildly erythematous mucosa without bleeding was found in the gastric antrum. Biopsies were taken with a cold forceps for histology. Biopsies were taken with a cold forceps for Helicobacter pylori cultures. The examined duodenum was normal. The cardia and gastric fundus were normal on retroflexion. Multiple less than 5 mm semi-sessile polyps with no bleeding and no stigmata of recent bleeding were found in the gastric fundus. The polyp was removed with a cold biopsy forceps. Resection and retrieval were complete. Impression: - Z-line irregular, 40 cm from the incisors. Biopsied. - Erythematous mucosa in the antrum. Biopsied. - Normal examined duodenum. - Multiple gastric polyps. Resected and retrieved. Recommendation: - Await pathology results. - Discharge patient to home. - Resume previous diet. - Continue present medications. Procedure Code(s): --- Professional --- 65304, PT, Esophagogastroduodenoscopy, flexible, transoral; with biopsy, single or multiple Diagnosis Code(s): --- Professional --- K22.89, Other specified disease of esophagus K31.89, Other diseases of stomach and duodenum K31.7, Polyp of stomach and duodenum R10.13, Epigastric pain R12, Heartburn CPT copyright 2021 [employer]. All rights reserved. The codes documented in this report are preliminary and upon copy manager review may be revised to meet current compliance requirements. MD Eloise Tyson MD 09/10/2024 8:30:45 AM This report has been signed electronically. Number of Addenda: 0 Note Initiated On: 09/10/2024 8:10 AM
--- NOTE | 2024-09-10 08:31 | OP.CCLET_ITS ---
09/10/2024 Virgil López [address] [place] [address] Re : Upper GI endoscopy procedure for [facility] Dear Dr. López This procedure was performed on Tuesday, September 10, 2024. My impressions and recommendations are as follows: Impressions : - Z-line irregular, 40 cm from the incisors. Biopsied. - Erythematous mucosa in the antrum. Biopsied. - Normal examined duodenum. - Multiple gastric polyps. Resected and retrieved. Recommendations : - Await pathology results. - Discharge patient to home. - Resume previous diet. - Continue present medications. My findings are described in the full procedure note, which is enclosed. If I can be of further assistance, please feel free to contact me at Doctor phone number(s): , Work: . Sincerely, MD Eloise Tyson MD 09/10/2024 8:30:45 AM This report has been signed electronically.
--- NOTE | 2024-09-10 08:33 | PCM.POST.ANE ---
Anesthesia: Postop Eval I Current Vital Signs Temperature: 97.9 F Pulse Rate: 74 Blood Pressure: 95/56 Respiratory Rate: 16 Pulse Ox: 95 Oxygen Delivery Method: Room Air Assessment Airway patent: Yes Spontaneous unlabored respirations: Yes Mental status: Awake nausea: No Vomiting: No Anesthesia Complication: No Fluid Hydration Crystalloid volume administer (ml): 30 Total IV fluid infused: 30 Progress Note Anesthesia document: Postop Eval 1 completed: Yes
--- NOTE | 2024-09-10 10:31 | PCM.POSTANE2 ---
Anesthesia Postop Eval I Sum Postop Eval Completion status Anesthesia document: Postop Eval 1 completed: Yes Anesthesia Postop Eval I Summary Anesthesia Postop Eval I Summary: Anesthesia Postop Eval I: Assessment Summary Airway patent Yes 09/10/24 08:33 [email or web address] Spontaneous unlabored Yes 09/10/24 08:33 [email or web address] respirations Mental status Awake 09/10/24 08:33 [email or web address] nausea No 09/10/24 08:33 [email or web address] Vomiting No 09/10/24 08:33 [email or web address] Anesthesia Postop Eval I: Fluid Summary Crystalloid volume administer 30 09/10/24 08:33 [email or web address] (ml) Colloids volume administered ( ml) Blood Product volume administered (ml) Total IV fluid infused 30 09/10/24 08:33 [email or web address] Anesthesia Postop Eval I: Summary Notes Anesthesia Complication No 09/10/24 08:33 [email or web address] Anesthesia Complication Comment: Post-operative progress note Anesthesia: Postop Eval II Evaluation Mental status: Awake Pain Level: 0 nausea: No Vomiting: No
== END 2024-09-10 09:06 | disposition home or self-care (01) ==
LOC: EN 06:56 → AC 06:58
PROVIDERS: Anesthesiology; PCP Family Medicine; Referring Provider Surgery; Visit Provider Surgery
PROC: 0DJ08ZZ Inspection of Upper Intestinal Tract, Via Natural or Artificial Opening Endoscopic (ICD-10-PCS; CPT 43235; principal; 2024-09-10 07:55)
DX: R10.13 Epigastric pain (principal); K21.9 Gastro-esophageal reflux disease without esophagitis; K22.89 Other specified disease of esophagus; K31.89 Other diseases of stomach and duodenum; K31.7 Polyp of stomach and duodenum; F41.9 Anxiety disorder, unspecified; Z79.899 Other long term (current) drug therapy; K29.50 Unspecified chronic gastritis without bleeding
CPT/HCPCS: 43239; 81025; 88305; 88342; A4216; J2405